=== PATIENT | male | born 1950 | race Caucasian/White ===

== ENCOUNTER 2016-09-06 06:36 | Inpatient (IN) | payer OTHER, MEDICARE ==
[2016-08-19 12:01] VITALS: BMI 32.0
--- NOTE | 2016-08-19 12:43 | PAT Medication Instructions ---
Service Date Aug 19, 2016. Current Home Medication List Aspirin (Aspirin Ec), 81 MG PO QAM Brimonidine Tartrate 0.1% Oph (Alphagan P 0.1% Oph *), 1 DROP OPB BID Dorzolamide Hcl-Timolol Maleat (Cosopt Oph), 1 DROPS OP BID Hydrochlorothiazide (Hctz), 1 TAB PO QAM Lisinopril (Zestril), 40 MG PO QAM Simvastatin (Zocor), 40 MG PO QAM Tramadol (Ultram), 1,100 TAB PO QAM PRN for Pain [Antidepressant], 1 TAB PO DAILY [Voltaren Gel], 1 DOSE TOP PRN Medication Instructions For Your Scheduled Surgery - Hold the following medications 24 hours prior to surgery: Voltaren Gel 1 DOSE TOP PRN - Hold the following medications the morning of surgery: Lisinopril (Zestril), 40 MG PO QAM Hydrochlorothiazide (Hctz), 1 TAB PO QAM - Take the following medications the morning of surgery with a sip of water: Tramadol (Ultram), 1,100 TAB PO QAM PRN for Pain (can take up to fours hours prior to surgery if needed) Simvastatin (Zocor), 40 MG PO QAM Brimonidine Tartrate 0.1% Oph (Alphagan P 0.1% Oph *), 1 DROP OPB BID (bring with you to hospital on day of surgery) Dorzolamide Hcl-Timolol Maleat (Cosopt Oph), 1 DROPS OP BID (bring with you to hospital on day of surgery) Duloxetine 1 TAB PO DAILY Aspirin (Aspirin Ec), 81 MG PO QAM - Take the following medications as scheduled the night before surgery: Tramadol (Ultram), 1,100 TAB PO QAM PRN for Pain Brimonidine Tartrate 0.1% Oph (Alphagan P 0.1% Oph *), 1 DROP OPB BID Dorzolamide Hcl-Timolol Maleat (Cosopt Oph), 1 DROPS OP BID If you have any questions please call us at [phone] or [phone] ( [place]) or [phone]
--- NOTE | 2016-08-19 13:19 | DIAGNOSTIC IMAGING REPORT ---
TWO VIEW CHEST CLINICAL HISTORY: Preoperative examination. FINDINGS: PA and lateral chest radiographs are compared to study dated 08/31/2012 and correlated with chest CT dated 09/29/2014. There is evidence of previous cardiac valve surgery. The the heart is mildly enlarged and there is atherosclerotic calcification of the thoracic aorta. The pulmonary vasculature is noncongested. There is chronic elevation of the right hemidiaphragm and mild bibasilar atelectasis. The lungs and pleural spaces are otherwise clear. There is no pneumothorax. The bony thorax appears intact. Bilateral shoulder arthroplasties are in place. IMPRESSION: Cardiac enlargement with no active disease in the chest. Electronically signed by: Dandre Mckenzie M.D. 08/19/2016 1:18 PM Dictated Date/Time: 08/19/2016 1:16 PM
[2016-08-19 13:25] LABS: BASO % 0.1 %; BASO ABS # 0.01 K/uL (0-0.2); COMPLETE YES; EOS % 2.5 %; HEMATOCRIT 45.1 % (42-52); IG% 0.1 %; LYMPH ABS # 1.76 K/uL (1.2-3.4); MEAN CELL VOLUME 80.8 fL (80-100); MEAN CORPUSCULAR HEMOGLOBIN 28.5 pg (25-34); MEAN CORPUSCULAR HGB CONC 35.3 g/dl (32-36); MEAN PLATELET VOLUME 9.2 fL (7.4-10.4); MONO % 6.3 %; PLATELET COUNT 254 K/uL (130-400); RED BLOOD COUNT 5.58 M/uL (4.7-6.1); WHITE BLOOD COUNT 7.33 K/uL (4.8-10.8)
[2016-08-19 13:28] LABS: URINE APPEARANCE CLEAR (CLEAR); URINE BILIRUBIN NEG (NEG); URINE COLOR YELLOW; URINE NITRITE NEG (NEG); URINE SPECIFIC GRAVITY 1.018 (1.000-1.030); UROBILINOGEN NEG (NEG); ZZUR CULT IF INDIC CLEAN CATCH NO
[2016-08-19 13:35] LABS: MANUAL MICROSCOPIC REQUIRED? NO; PARTIAL THROMBOPLASTIN RATIO 1.2; PROTHROMBIN TIME (PATIENT) 11.1 SECONDS (9.0-12.0); REVIEW REQ? NO
[2016-08-19 13:53] LABS: BUN/CREATININE RATIO 20.1 (10-20); CALCIUM 9.9 mg/dl (8.5-10.1); CREATININE 0.97 mg/dl (0.60-1.40); POTASSIUM 4.9 mmol/L (3.5-5.1)
--- NOTE | 2016-09-05 16:11 | HISTORY & PHYSICAL EXAMINATION ---
DATE OF ADMISSION: 09/06/2016 CHIEF COMPLAINT: Left knee pain. HISTORY OF PRESENT ILLNESS: Mr. Mccarthy is a 66-year-old male with a painful left total knee replacement. The patient had his knee replaced in 1993, he had his knee revised in 1994. 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 The patient is now scheduled for revision left total knee arthroplasty. PAST MEDICAL HISTORY: Anxiety. He denies diabetes or DVT. PAST SURGICAL HISTORY: Aortic valve replacement, multiple knee surgeries as above and bilateral shoulder surgery. SOCIAL HISTORY: The patient denies alcohol or tobacco use. He lives in a 2-sarah home. 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 FAMILY HISTORY: Negative for DVT. MEDICATIONS: Tramadol 50 mg p.r.n., simvastatin 40 mg, hydrochlorothiazide 25 mg, aspirin 81 mg, dorzolamide 1 drop twice daily, brimonidine tartrate 1 drop 2 times daily, lisinopril 40 mg daily. ALLERGIES: MORPHINE. REVIEW OF SYSTEMS: See HPI. Ten other systems reviewed, all negative. PHYSICAL EXAMINATION: VITAL SIGNS: Height 5 feet 10 inches, weight 224 pounds, BMI is 32. GENERAL: This is a well-developed, well-nourished male who is alert and oriented x3. Mood and affect are appropriate. HEENT: Normocephalic, atraumatic. Mucous membranes are moist and intact. NECK: Supple without lymphadenopathy. HEART: Regular rate and rhythm without murmurs, rubs or gallops. LUNGS: Clear to auscultation without wheezes or rhonchi. ABDOMEN: Soft and nontender. Bowel sounds are equal and active. EXTREMITIES: No ecchymosis, redness or warmth. He has a midline medial incision that is well healed. He has a moderate joint effusion and a fairly large Christine cyst posteriorly. Range of motion is from 0-115 degrees. He has mild laxity. The patient has evidence of a left foot drop, otherwise he is neurovascularly intact. X-RAY EXAM: X-rays show knee revision that appears to be in adequate position. He does have evidence of lucency on both components. IMPRESSION: Painful left total knee replacement with large effusion with left foot drop. PLAN: The patient will be admitted for a left total knee revision arthroplasty. We will plan on aspirin for DVT prophylaxis. The patient is considering [facility] versus home with [facility] postoperatively. PCP is Dr. Morrell.
[2016-09-06] VITALS (10 sets, daily range): BP systolic 100–146; BP diastolic 61–86; PULSE 61–74; TEMP 36.4–36.7; O2SAT 95–98; Ht 177.8 cm; Wt 101.8 kg
[~2016-09-06] VITALS: Ht 177.8 cm; Wt 101.8 kg
[2016-09-06] MEDS: TRANEXAMIC ACID INJ 1,000 MG in SODIUM CHLORIDE 0.9% 100ML 100 ML IV SCH ×2 (06:00→06:30)
[~2016-09-06 06:36] MED LIST: ACETAMINOPHEN 500 MG TAB PO SCH; ALPOPS1 OPB; ASPI81TA28 PO; CEFAZOLIN 2000 MG/60 ML D5W 60 ML IV SCH; CYM/30 PO; CeleBREX 200 MG CAP PO SCH; DEXAMETHASONE 4 MG TAB PO SCH; DORZ2SOL20 OPB; FAMOTIDINE 20 MG TAB PO SCH; GABAPENTIN 300 MG CAP PO SCH; HYDR25TA4 PO; LACTATED RINGER'S 1000ML 1,000 ML IV SCH; LACTATED RINGER'S 1000ML IV SCH; LISI40TA PO; METOCLOPRAMIDE HCL 10 MG TAB PO SCH; OXYCODONE HCL 10 MG TABCR (OXYCONTIN) PO SCH; POLYMYXIN B SULFATE 100,000 UNITS in NSS 100ML IR SCH; ROPIVACAINE 5MG/ML 30 ML 150 MG, BUPIVACAINE/EPINEPHR 0.5% MPF 30 ML, KETOROLAC TROMETH... INFIL SCH; TRAM-10 PO; VANCOMYCIN INJ 1,550 MG in SODIUM CHLORIDE 0.9% 500ML 500 ML IV SCH; VANCOMYCIN INJ 400 MG in NSS 100ML IR SCH; VOLTAREN GEL TOP; ZCRT/40 PO
[2016-09-06] MEDS ORDERED: BUPIVACAINE 0.5 % 5 MG/1 ML PF 10ML VIAL ONE (06:37)
[2016-09-06] MEDS ORDERED: BUPIVACAINE 0.25% 30 ML VIAL ONE (06:37)
[2016-09-06] MEDS ORDERED: MIDAZOLAM HCL 1 MG/ML 2ML VIAL ONE (06:59)
[2016-09-06] MEDS ORDERED: FENTANYL CITRATE INJ 50 MCG/1 ML 2 ML VIAL ONE (06:59)
[2016-09-06] MEDS ORDERED: ORTHO JOINT ANESTHETIC ONE (07:02)
--- NOTE | 2016-09-06 07:04 | History & Physical Bridge Note ---
H&P Re-Evaluation Bridge Note: I have examined the patient, reviewed the History & Physical and in the interval since the performance of the History & Physical I have noted the following changes of clinical significance: No changes noted
[2016-09-06] MEDS ORDERED: PHENYLEPHRINE 100MCG/ML 5ML SYR ONE (07:10)
[2016-09-06] MEDS ORDERED: PROPOFOL IV EMULSION 10 MG/ML 20 ML VIAL IV ONE ×4 (07:10→11:17)
[2016-09-06] MEDS ORDERED: EpHEDrine SULFATE 50MG/5ML SYR ONE (07:10)
[2016-09-06] MEDS ORDERED: LIDOCAINE HCL 2% 2 ML VIAL (20MG/ML) ONE (07:10)
[2016-09-06] MEDS ORDERED: EpHEDrine SULFATE INJ 50 MG/ML AMP IV PRN (08:30)
[2016-09-06] MEDS ORDERED: FENTANYL CITRATE INJ 50 MCG/1 ML 2 ML VIAL IV PRN (08:30)
[2016-09-06] MEDS ORDERED: ATROPINE SULFATE 0.1 MG/ML 5ML SYR IV PRN (08:30)
[2016-09-06] MEDS ORDERED: ONDANSETRON INJ 2 MG/ML 2 ML VIAL IV PRN ×2 (08:30→11:30)
--- NOTE | 2016-09-06 11:23 | [facility] Post Operative Brief Note ---
Immediate Operative Summary Operative Date Sep 06, 2016. Pre-Operative Diagnosis Aseptic Loosening, Left Total Knee Post-Operative Diagnosis same as preoperative Procedure(s) Performed Left Total Knee Revision Surgeon Dr. Pollo Spence Brine Supervisor Surgeon(s) Chastity Wiley PA-C Estimated Blood Loss 25ml Findings loose knee benign Specimens CULTURE: 1) Left Knee, Synovial Fluid PERMANENT: A.) Explanted Hardware and Tissue, Left Knee Complication(s) None Disposition Recovery Room / PACU
[2016-09-06] MEDS ORDERED: ALUMINUM/MAGNESIUM/SIMETH (MAALOX MAX) 30 ML UDC PO PRN (11:30)
[2016-09-06] MEDS ORDERED: METOCLOPRAMIDE HCL INJ 5 MG/ML 2 ML VIAL IV PRN (11:30)
[2016-09-06] MEDS ORDERED: BISACODYL 10 MG SUPP PR PRN (11:30)
[2016-09-06] MEDS ORDERED: SOD PHOSPHATE/SOD BIPHOSPHATE ENEMA 132 ML BTL PR PRN (11:30)
[2016-09-06] MEDS ORDERED: MAGNESIUM HYDROXIDE SUSP 30 ML UDC PO PRN (11:30)
[2016-09-06] MEDS ORDERED: ZOLPIDEM TARTRATE 5 MG TAB PO PRN (11:30)
[2016-09-06] MEDS ORDERED: DiphenhydrAMINE HCL 50 MG/ML VIAL IV PRN (11:30)
[2016-09-06] MEDS ORDERED: TRAMADOL HCL 50 MG TAB PO PRN (11:30)
[2016-09-06] MEDS ORDERED: POVIDONE-IODINE OP SOLN 30 ML BTL TOP ONE (11:37)
[2016-09-06] MEDS ORDERED: BACITRACIN 50000 UNIT VIAL IR ONE (11:37)
--- NOTE | 2016-09-06 12:21 | DIAGNOSTIC IMAGING REPORT ---
TWO VIEWS LEFT KNEE CLINICAL HISTORY: Postoperative examination. FINDINGS: AP and crosstable lateral portable views of the left knee are obtained. A hinged left knee arthroplasty is in near anatomic alignment. There are long tibial and femoral stems. Additional cortical lag screws are present in the medial tibial plateau where there is age indeterminant fracture lucency. No additional fracture lucencies are seen. There are expected postoperative changes around the knee including skin clips, a surgical drain, soft tissue edema, and subcutaneous gas. IMPRESSION: 1. Expected postoperative changes status post left knee arthroplasty. 2. There is age indeterminant and likely chronic fracture lucency in the medial tibial plateau. 2. Cortical lag screws are present in this region. Correlation and a prior outside imaging studies will be required. Electronically signed by: Dandre Mckenzie M.D. 09/06/2016 12:19 PM Dictated Date/Time: 09/06/2016 12:16 PM
--- NOTE | 2016-09-06 12:40 | Anesthesiology Progress Note ---
Anesthesia Post Op Note Date & Time Sep 06, 2016 at 12:39 Vital Signs Pain Intensity: 0 Vital Signs Past 12 Hours Date Time Temp Pulse Resp B/P Pulse Ox O2 Delivery O2 Flow Rate FiO2 09/06/16 12:33 37.0 09/06/16 12:23 125/74 09/06/16 12:20 69 16 09/06/16 12:20 71 16 96 09/06/16 12:18 123/80 09/06/16 12:15 66 16 09/06/16 12:15 65 16 98 09/06/16 12:14 66 17 09/06/16 12:14 65 17 99 09/06/16 12:13 135/76 09/06/16 12:09 67 14 09/06/16 12:09 68 14 98 09/06/16 12:08 67 16 134/77 97 09/06/16 12:08 66 16 09/06/16 12:03 67 16 134/82 97 09/06/16 12:03 68 16 09/06/16 11:58 68 16 09/06/16 11:58 69 12 127/80 97 09/06/16 11:53 68 11 122/82 97 09/06/16 11:53 69 11 09/06/16 11:53 36.7 71 16 132/78 96 Mask 10 09/06/16 07:26 36.6 69 18 120/82 95 Room Air Notes Mental Status: alert / awake / arousable, participated in evaluation Pt Amnestic to Procedure: Yes Nausea / Vomiting: adequately controlled Pain: adequately controlled Airway Patency, RR, SpO2: stable & adequate BP & HR: stable & adequate Hydration State: stable & adequate Neuraxial Anesthesia: was administered, sensory block is resolving Anesthetic Complications: no major complications apparent
[2016-09-06] MEDS ORDERED: D5W AND 1/2NSS + 20MEQ KCL 1,000 ML IV SCH (14:00)
[2016-09-06] MEDS: KETOROLAC TROMETHAMINE 15 MG/ML VIAL IV. SCH ×2 (14:16→19:45)
[2016-09-06] MEDS: ACETAMINOPHEN 500 MG TAB PO SCH ×2 (14:16→21:28)
[2016-09-06] MEDS ORDERED: GLUCOSE 40% GEL 15 GM TUBE PO PRN (15:00)
[2016-09-06] MEDS ORDERED: GLUCOSE 10 TABS/TUBE PO PRN (15:00)
[2016-09-06] MEDS ORDERED: GLUCAGON FOR INJ 1 MG VIAL SQ PRN (15:00)
[2016-09-06] MEDS ORDERED: DEXTROSE 50% 50 ML SYR IV PRN (15:00)
[2016-09-06] MEDS: SODIUM CHLOR 0.45% + 20MEQ KCL 1,000 ML IV SCH (15:14)
[2016-09-06] MEDS: CEFAZOLIN IV 2,000 MG in DEXTROSE 5% 50ML 50 ML IV SCH ×2 (15:41→23:55)
[2016-09-06] MEDS ORDERED: WARFARIN SOD 5 MG TAB PO ONE (16:00)
--- NOTE | 2016-09-06 17:26 | OPERATIVE REPORT ---
DATE OF OPERATION: 09/06/2016 PREOPERATIVE DIAGNOSIS: Aseptic loosening, left total knee, severe. POSTOPERATIVE DIAGNOSIS: Same. PROCEDURE: Left revision total knee to hinged total knee replacement. SURGEON: Pollo Spence MD MEDICAL CLAIMS ASSISTANT: DEJUAN Bunn ANESTHESIA: Spinal. TOURNIQUET TIME: 132 minutes at 250 mmHg. BLOOD LOSS: 25 mL. DRAINS: Hemovac x2. CULTURES: None. COMPLICATIONS: None. COMPONENTS USED: [employer] revision knee system: Femur size 7 with 6-mm offset, 16 x 160 stem cemented. Tibia size 7, 6-mm offset, 12 x 160 stem. Tibial insert size 11. Patella size 41. NOTE: DEJUAN Bunn was present and assisted throughout due to the complicated nature of this case. She helped with preparation and set up, first assisted throughout and personally closed the capsule, subcutaneous and skin layers and applied the postoperative dressing. DESCRIPTION OF PROCEDURE: Following satisfactory spinal, the patient was supine. A tourniquet was placed. The lower extremity was prepared with ChloraPrep and draped sterilely. Following a surgical timeout, the tourniquet was inflated. Using the old knee incision, a midline incision was made. An arthrotomy was performed. The knee showed abundant synovitis. A complete synovectomy in the medial suprapatellar and lateral gutters was performed. The knee showed severe changes with very large overgrowth of the patella. Exposure was very difficult. The tibial polyethylene was removed and showed some delamination, but not severe wear. Exposure was difficult because of the longstanding nature of the disease. The patient had a long previous cemented revision total knee. Attention was first turned to the femur. The femur was loosened using the ultrasonic cement removal system, which required delicate and extensive time and then was removed with moderate amount of the cement coming with the femur. Tibial exposure was difficult. The tibia was eventually exposed and removed with the majority of the cement again with extreme difficulty. The rest of the intramedullary cement was removed using the ultrasonic cement removal system. The IM reaming system was used. The tibia was prepared first. Because of bone loss, it was decided for a hinged type knee. The femur was then prepared and the patella was freehand cut and incised. A trial reduction with the above-mentioned components showed good stability with full extension and flexion to about 120 degrees. The trial components were removed. Local anesthetic was placed. Cement restriction plugs were placed and after irrigation, the components were cemented using Simplex G cement. A Betadine soak was performed. When the cement had hardened, the tourniquet was deflated. The Betadine was irrigated. Bleeding was controlled. Two drains were placed. The arthrotomy was closed with #1 Vicryl interrupted and reinforced throughout with #2 FiberWire. The subcutaneous tissues were closed with #1 Vicryl and 2-0 Vicryl. The skin was closed with surgical cleo. A surface wound VAC was applied. The patient was returned to his bed in stable condition. I attest to the content of the Intraoperative Record and any orders documented therein. Any exceptio ns are noted below.
[2016-09-06] MEDS: INSULIN ASPART 100 UNITS/ML 3 ML PEN SC SCH ×2 (18:11→21:25)
[2016-09-06] MEDS: OXYCODONE HCL 10 MG TABCR (OXYCONTIN) PO SCH (21:12)
[2016-09-06] MEDS: SENNA 8.6 MG TAB PO SCH (21:12)
[2016-09-06] MEDS: DORZOLAMIDE/TIMOLOL 22.3/6.8MG/ML 10 ML BTL OP SCH (21:12)
[2016-09-07] MEDS: OXYCODONE HCL IR 5 MG TAB (IMMEDIATE RELEASE) PO PRN ×3 (00:26→20:37)
[2016-09-07] MEDS: SODIUM CHLOR 0.45% + 20MEQ KCL 1,000 ML IV SCH ×2 (00:27→11:00)
[2016-09-07] MEDS: KETOROLAC TROMETHAMINE 15 MG/ML VIAL IV. SCH ×4 (02:19→20:36)
[2016-09-07 04:47] VITALS: BP 130/76; PULSE 57; TEMP 36.4; O2SAT 97
[2016-09-07] MEDS: ACETAMINOPHEN 500 MG TAB PO SCH ×3 (05:45→22:37)
[2016-09-07 06:55] LABS: MEAN CELL VOLUME 80.1 fL (80-100); MEAN CORPUSCULAR HEMOGLOBIN 27.5 pg (25-34); MEAN CORPUSCULAR HGB CONC 34.3 g/dl (32-36); PLATELET COUNT 185 K/uL (130-400); RED BLOOD COUNT 4.62 M/uL (4.7-6.1); WHITE BLOOD COUNT 11.96 K/uL (4.8-10.8)
[2016-09-07 07:01] LABS: INR 1.1 (0.9-1.1); PROTHROMBIN TIME (PATIENT) 11.5 SECONDS (9.0-12.0)
[2016-09-07 07:25] LABS: BUN/CREATININE RATIO 19.1 (10-20); CALCIUM 8.5 mg/dl (8.5-10.1); CREATININE 0.94 mg/dl (0.60-1.40); POTASSIUM 4.5 mmol/L (3.5-5.1)
[2016-09-07 07:40] VITALS: BP 170/80; PULSE 67; TEMP 36.4; O2SAT 98
--- NOTE | 2016-09-07 07:58 | Orthopedic Progress Note ---
Orthopedic Progress Note Date of Service Sep 07, 2016. Subjective Post OP Day: 1 Reports: feeling well, pain controlled w PO medications, Denies: SOB, complaints , light headedness, nausea / vomiting Objective calves soft nontender, N/V intact, dressing C/D/I, toes mobile, hemovac drainage (last 300) Date Time Temp Pulse Resp B/P Pulse Ox O2 Delivery O2 Flow Rate FiO2 09/07/16 04:47 36.4 57 18 130/76 97 Nasal Cannula 2.0 09/06/16 23:30 96 Nasal Cannula 2.0 09/06/16 23:20 36.4 63 18 100/61 96 Nasal Cannula 2.0 09/06/16 19:15 36.6 61 18 117/68 97 Nasal Cannula 2.0 09/06/16 16:10 74 16 123/78 96 Nasal Cannula 4.0 09/06/16 15:09 72 16 136/86 98 09/06/16 14:00 64 16 124/77 98 Room Air 09/06/16 13:30 70 18 146/83 95 Room Air 09/06/16 13:00 95 Nasal Cannula 4.0 09/06/16 13:00 36.6 71 16 139/82 95 Nasal Cannula 4.0 09/06/16 13:00 95 Nasal Cannula 4.0 09/06/16 12:45 68 16 09/06/16 12:45 67 16 95 09/06/16 12:43 124/78 09/06/16 12:40 72 16 90 09/06/16 12:40 70 16 09/06/16 12:39 71 16 94 09/06/16 12:39 70 16 09/06/16 12:38 120/80 09/06/16 12:34 66 16 94 09/06/16 12:34 64 16 09/06/16 12:33 37.0 09/06/16 12:33 126/75 09/06/16 12:29 68 14 09/06/16 12:29 69 14 95 09/06/16 12:28 129/74 09/06/16 12:24 68 16 95 09/06/16 12:24 69 16 09/06/16 12:23 125/74 09/06/16 12:20 69 16 09/06/16 12:20 71 16 96 09/06/16 12:18 123/80 1/24/17 12:15 66 16 09/06/16 12:15 65 16 98 09/06/16 12:14 66 17 09/06/16 12:14 65 17 99 09/06/16 12:13 135/76 09/06/16 12:09 67 14 09/06/16 12:09 68 14 98 09/06/16 12:08 67 16 134/77 97 09/06/16 12:08 66 16 09/06/16 12:03 67 16 134/82 97 09/06/16 12:03 68 16 09/06/16 11:58 68 16 09/06/16 11:58 69 12 127/80 97 09/06/16 11:53 68 11 122/82 97 09/06/16 11:53 69 11 09/06/16 11:53 36.7 71 16 132/78 96 Mask 10 Laboratory Results 24 Hours: Test 09/07/16 06:32 Hematocrit 37.0 % Hemoglobin 12.7 g/dL Prothromb Time International Ratio 1.1 Prothrombin Time 11.5 SECONDS Assessment & Plan Assessment: POD 1 TKA REVISION Plan: PROBABLE DC TOMORROW [facility] Inhouse Planning Pain Management: Celebrex, Oxycontin, PO Tylenol, Oxy IR DVT Prophylaxis: TEDs, SCDs, Coumadin Discharge Planning Discharge Planning: home with home health
[2016-09-07] MEDS: INSULIN ASPART 100 UNITS/ML 3 ML PEN SC SCH ×4 (08:00→20:40)
[2016-09-07] MEDS: HYDROCHLOROTHIAZIDE 25 MG TAB PO SCH (09:30)
[2016-09-07] MEDS: DORZOLAMIDE/TIMOLOL 22.3/6.8MG/ML 10 ML BTL OP SCH ×2 (09:30→20:35)
[2016-09-07] MEDS: SIMVASTATIN 40 MG TAB PO SCH (09:31)
[2016-09-07] MEDS: LISINOPRIL 40 MG TAB PO SCH (09:31)
[2016-09-07] MEDS: DULOXETINE (CYMBALTA) 30 MG CAP PO SCH (09:31)
[2016-09-07] MEDS: MULTIVITAMIN TAB PO SCH (09:31)
[2016-09-07] MEDS: PANTOprazole SOD 40 MG TAB PO SCH (09:32)
[2016-09-07] MEDS: OXYCODONE HCL 10 MG TABCR (OXYCONTIN) PO SCH ×2 (09:37→20:36)
--- NOTE | 2016-09-07 09:53 | Anesthesiology Progress Note ---
Anesthesia Post Op Note Date & Time Sep 07, 2016 at 09:53 Vital Signs Pain Intensity: 6.0 Vital Signs Past 12 Hours Date Time Temp Pulse Resp B/P Pulse Ox O2 Delivery O2 Flow Rate FiO2 09/07/16 07:40 36.4 67 17 170/80 98 Nasal Cannula 2.0 09/07/16 04:47 36.4 57 18 130/76 97 Nasal Cannula 2.0 09/06/16 23:30 96 Nasal Cannula 2.0 09/06/16 23:20 36.4 63 18 100/61 96 Nasal Cannula 2.0 Notes Mental Status: alert / awake / arousable, participated in evaluation Pt Amnestic to Procedure: Yes Nausea / Vomiting: adequately controlled Pain: adequately controlled Airway Patency, RR, SpO2: stable & adequate BP & HR: stable & adequate Hydration State: stable & adequate Neuraxial Anesthesia: sensory block resolved Anesthetic Complications: no major complications apparent
[2016-09-07 11:02] VITALS: BP 130/66; PULSE 64; TEMP 36.8; O2SAT 96
[2016-09-07 15:22] VITALS: BP 115/68; PULSE 63; TEMP 36.7; O2SAT 94
[2016-09-07] MEDS ORDERED: WARFARIN SOD 5 MG TAB PO SCH (16:00)
[2016-09-07] MEDS: SENNA 8.6 MG TAB PO SCH (20:37)
[2016-09-07] MEDS ORDERED: NURSING VERBAL MED ORDER ONE (21:15)
[2016-09-07 23:24] VITALS: BP 107/59; PULSE 64; TEMP 36.7; O2SAT 91
[2016-09-08] MEDS: KETOROLAC TROMETHAMINE 15 MG/ML VIAL IV. SCH ×2 (01:35→07:31)
[2016-09-08] MEDS: ACETAMINOPHEN 500 MG TAB PO SCH (06:10)
[2016-09-08 06:31] VITALS: BP 118/72; PULSE 56; TEMP 36.7; O2SAT 92
[2016-09-08] MEDS: INSULIN ASPART 100 UNITS/ML 3 ML PEN SC SCH ×2 (07:35→11:11)
[2016-09-08] MEDS: DULOXETINE (CYMBALTA) 30 MG CAP PO SCH (07:36)
[2016-09-08] MEDS: MULTIVITAMIN TAB PO SCH (07:36)
[2016-09-08] MEDS: PANTOprazole SOD 40 MG TAB PO SCH (07:36)
[2016-09-08] MEDS: SIMVASTATIN 40 MG TAB PO SCH (07:36)
[2016-09-08] MEDS: DORZOLAMIDE/TIMOLOL 22.3/6.8MG/ML 10 ML BTL OP SCH (07:36)
[2016-09-08] MEDS: HYDROCHLOROTHIAZIDE 25 MG TAB PO SCH (07:37)
[2016-09-08] MEDS: LISINOPRIL 40 MG TAB PO SCH (07:37)
--- NOTE | 2016-09-08 07:40 | Orthopedic Progress Note ---
Orthopedic Progress Note Date of Service Sep 08, 2016. Subjective Post OP Day: 2 Reports: feeling well, Denies: SOB, calf pain, chest pain, light headedness, nausea / vomiting Objective calves soft nontender, N/V intact, dressing C/D/I (PREVENA), A&O x3, toes mobile CHRONIC FOOT DROP Date Time Temp Pulse Resp B/P Pulse Ox O2 Delivery O2 Flow Rate FiO2 09/08/16 06:31 36.7 56 16 118/72 92 Room Air 09/07/16 23:24 36.7 64 18 107/59 91 Room Air 09/07/16 20:15 Room Air 09/07/16 15:22 36.7 63 18 115/68 94 Room Air 09/07/16 11:02 36.8 64 18 130/66 96 Room Air 09/07/16 07:45 Room Air 09/07/16 07:40 36.4 67 17 170/80 98 Nasal Cannula 2.0 Assessment & Plan Assessment: POD 2 TKA REVISION Inhouse Planning Pain Management: Celebrex, Oxycontin, PO Tylenol, Oxy IR DVT Prophylaxis: TEDs, SCDs, Coumadin Discharge Planning Discharge Planning: rehab hospital (HOPEFUL TRANSFER TO [facility] TODAY)
[2016-09-08] MEDS: OXYCODONE HCL 10 MG TABCR (OXYCONTIN) PO SCH (07:43)
[2016-09-08] MEDS ORDERED: WARF5TAB90 PO (07:44)
[2016-09-08] MEDS ORDERED: SNK PO (07:44)
[2016-09-08] MEDS ORDERED: ACET-1138 PO (07:44)
[2016-09-08] MEDS ORDERED: RXC5 PO (07:44)
[2016-09-08] MEDS ORDERED: CLB200 PO (07:44)
[2016-09-08] MEDS ORDERED: MORP-157 PO (07:44)
--- NOTE | 2016-09-08 07:46 | Discharge Instructions ---
Discharge Instructions Admission Reason for Admission: Left Knee Complications W/Internal Joint Prosthesi Discharge Discharge Diagnosis / Problem: SP LEFT TKA Discharge Goals Goal(s): Decrease discomfort, Improve function, Increase independence Activity Recommendations Activity Limitations: per Instructions/Follow-up section . Instructions / Follow-Up Instructions / Follow-Up ACTIVITY RECOMMENDATIONS: SELF CARE INSTRUCTIONS AFTER TOTAL KNEE REPLACEMENT A. You may need to continue a physical therapy program after discharge from the hospital. There are several options available to you. Your doctor will assist you in selecting the best one for you. 1. An out-patient facility 2 to 3 times a week for therapy or home therapy. 2. Continue working on all exercises taught to you in the hospital. Your goals should be to increase bending of your knee to 90 degrees and beyond and to fully straighten your knee. B. You may progress at your own pace from walking with a walker or crutches to a cane; then to no assistive devices. C. Make walking a part of your daily routine. Be up as much as comfortable with rest periods throughout the day. Rest with leg elevation is very important. Use the ice wrap frequently for the first 3-4 weeks. D. There are no restrictions on activities. You may ride in a car, shop, participate in racking technician and all social activities. E. Wear the long elastic stockings (VASU hose) 20 hours a day for 2 weeks after surgery. They can be removed several times a day for laundering and for a bath. F. You may shower, no tub baths until cleared by your doctor. SPECIAL CARE INSTRUCTIONS: VERY IMPORTANT TO READ AND REVIEW A. There are a few signs you need to watch for after you are home. Call [facility] if you notice any of the followin. Increased severe knee pain. Some pain is expected especially when you exercise. 2. Increased swelling in your leg or knee; pain or swelling of the calf muscle in either lower leg. 3. Any fluid drainage from the incision. 4. Shortness of breath or chest pain. B. Please call [facility] at if you have any concerns or questions about your operation or recovery. The doctor or his nurse will return your call promptly. C. You must take antibiotics before dental work, bladder, bowel or other surgery. Your doctor will provide you with a permanent care to carry describing this precaution. IMPORTANT: * HIGH RISK PATIENTS MAY BE PRESCRIBED A STRONGER BLOOD THINNER. THIS WILL BE PROVIDED AT DISCHARGE. - COUMADIN. WILL NEED WEEKLY BLOOD DRAW AND DOSING ADJUSTMENTS * CALL IF INCREASED PAIN, REDNESS, DRAINAGE OR FEVER GREATER THAT 101. * WEAR VASU HOSE 20 HOURS PER DAY FOR 2 WEEKS. Prevena- This is a large suction dressing covering your incision. This will help pull any excess drainage from the wound and allow your incision to heal properly. You may shower with this if you can keep the unit outside of the shower. If any bleeding or leakage is noted please call your doctor's office. This will remain on your incision for 7 days and then should be removed. This can be done yourself or by the home nursing staff if applicable. The entire unit is disposable once removed. Once removed, keep incision clean and dry. If redness or drainage is noted, please call your surgeon. FOLLOW UP VISIT: If appointment is not already scheduled: Please call [facility] to make a follow-up appointment for 2 weeks after your surgery at . Current Hospital Diet Patient's current hospital diet: Diabetes Type 2 Diet Discharge Diet Recommended Diet: Regular Diet Procedures Procedures Performed: Left Total Knee Revision Pending Studies Studies pending at discharge: yes List of pending studies: cultures Medical Emergencies . Who to Call and When: Medical Emergencies: If at any time you feel your situation is an emergency, please call 911 immediately. . Non-Emergent Contact Non-Emergency issues call your: Primary Care Provider . "Provider Documentation" section prepared by Chastity Wiley. VTE Core Measure Inpt VTE Proph given/why not?: Warfarin (Coumadin)[place], SCD's
--- NOTE | 2016-09-08 07:49 | Discharge Instructions ---
Discharge Instructions Admission Reason for Admission: Left Knee Complications W/Internal Joint Prosthesi Discharge Discharge Diagnosis / Problem: sp left TKA revision Discharge Goals Goal(s): Decrease discomfort, Improve function, Increase independence Activity Recommendations Activity Level: Assistance Required . Additional Information Patient informed of condition: Yes Advance Directives: Yes DNR: No Level of Care: Acute Rehab Communicable Disease: No Prognosis: Stable Instructions / Follow-Up Instructions / Follow-Up ACTIVITY RECOMMENDATIONS: SELF CARE INSTRUCTIONS AFTER TOTAL KNEE REPLACEMENT A. You may need to continue a physical therapy program after discharge from the hospital. There are several options available to you. Your doctor will assist you in selecting the best one for you. 1. An out-patient facility 2 to 3 times a week for therapy or home therapy. 2. Continue working on all exercises taught to you in the hospital. Your goals should be to increase bending of your knee to 90 degrees and beyond and to fully straighten your knee. B. You may progress at your own pace from walking with a walker or crutches to a cane; then to no assistive devices. C. Make walking a part of your daily routine. Be up as much as comfortable with rest periods throughout the day. Rest with leg elevation is very important. Use the ice wrap frequently for the first 3-4 weeks. D. There are no restrictions on activities. You may ride in a car, shop, participate in near east archeology professor and all social activities. E. Wear the long elastic stockings (VASU hose) 20 hours a day for 2 weeks after surgery. They can be removed several times a day for laundering and for a bath. F. You may shower, no tub baths until cleared by your doctor. SPECIAL CARE INSTRUCTIONS: VERY IMPORTANT TO READ AND REVIEW A. There are a few signs you need to watch for after you are home. Call [facility] if you notice any of the followin. Increased severe knee pain. Some pain is expected especially when you exercise. 2. Increased swelling in your leg or knee; pain or swelling of the calf muscle in either lower leg. 3. Any fluid drainage from the incision. 4. Shortness of breath or chest pain. B. Please call [facility] at if you have any concerns or questions about your operation or recovery. The doctor or his nurse will return your call promptly. C. You must take antibiotics before dental work, bladder, bowel or other surgery. Your doctor will provide you with a permanent care to carry describing this precaution. IMPORTANT: * HIGH RISK PATIENTS MAY BE PRESCRIBED A STRONGER BLOOD THINNER. THIS WILL BE PROVIDED AT DISCHARGE. - COUMADIN * CALL IF INCREASED PAIN, REDNESS, DRAINAGE OR FEVER GREATER THAT 101. * WEAR VASU HOSE 20 HOURS PER DAY FOR 2 WEEKS. * YOU MAY HAVE A LARGE BAND-AID LIKE DRESSING (SILVERON). THIS WILL REMAIN ON YOUR INCISION FOR 7 DAYS, THEN CAN BE REMOVED. IF INCISION IS LEAKING THROUGH DRESSING, CALL THE OFFICE . FOLLOW UP VISIT: If appointment is not already scheduled: Please call [facility] to make a follow-up appointment for 2 weeks after your surgery at . Current Hospital Diet Patient's current hospital diet: Diabetes Type 2 Diet Discharge Diet Recommended Diet: Diabetes Type 2 Diet Procedures Procedures Performed: Left Total Knee Revision Pending Studies Studies pending at discharge: yes List of pending studies: Joint cultures Physician Orders On Transfer Additional Orders: COUMADIN FOR DVT PROPH X 4 WEEKS. WILL NEED WEEKLY BLOOD DRAW AND DOSING ADJUSTMENT CONT TEDS X 2 WEEKS MAY SHOWER, NO TUB BATHS PREVENA DC IN 7 DAYS FOLLOW UP IN 2 WEEKS FOR STAPLE REMOVAL, ALREADY SCHEDULED. Medical Emergencies . Who to Call and When: Medical Emergencies: If at any time you feel your situation is an emergency, please call 911 immediately. . Non-Emergent Contact Non-Emergency issues call your: Primary Care Provider . . "Provider Documentation" section prepared by Chastity Wiley. Core Measure Problem Core Measures: None
[2016-09-08 08:09] VITALS: BP 121/76; PULSE 66; TEMP 36.9; O2SAT 96
[2016-09-08 10:07] VITALS: BP 121/76; PULSE 66; TEMP 36.9; O2SAT 96
[2016-09-08] MEDS: OXYCODONE HCL IR 5 MG TAB (IMMEDIATE RELEASE) PO PRN (10:22)
[2016-09-08] MEDS ORDERED: CeleBREX 200 MG CAP PO SCH (21:00)
--- NOTE | 2016-09-16 09:16 | DISCHARGE SUMMARY ---
DISCHARGE DIAGNOSIS: Painful left total knee replacement. SECONDARY DIAGNOSIS: Footdrop, left lower extremity. CONSULTS: None. COMPLICATIONS: None. PROCEDURE: The patient underwent a left knee revision with Dr. Spence on 09/06/2016. BRIEF HISTORY: Please see previously dictated history and physical. HOSPITAL SUMMARY: The patient was admitted on the date for the above procedure. Procedure went without complication. Postop day 1 the patient was feeling well without complaints. He denied chest pain or shortness of breath. Vital signs were stable. He was afebrile. Dressing was clean, dry and intact. He was neurovascularly intact. Calves were soft and nontender. Hemovac drained 300 mL. Hemoglobin was 12.7. The patient began physical therapy per protocol. Postop day 2, the patient was feeling well. He denied chest pain or shortness of breath. Vital signs were stable. He was afebrile. Prevena dressing was clean, dry and intact. He was neurovascularly intact aside from his chronic footdrop. The patient continued physical therapy. He was transferred to [facility] later that day in stable condition. For further review please see the chart. Lab, x-ray data and discharge instructions as per chart.
[2016-11-01] MEDS ORDERED: SENN-61 PO (08:37)
[2016-11-01] MEDS ORDERED: ASCO500T3 PO (08:37)
[2016-11-01] MEDS ORDERED: DICL1GEL12 EXT (08:37)
[2016-11-01] MEDS ORDERED: TRAM-10 PO (08:37)
== END 2016-09-08 12:15 | DRG 468 ==
LOC: ENRESERVDT → ENRESERVTM → C.ACU 06:36 → C.3E 11:27
PROVIDERS: ADMIT Orthopaedic Surgery; ATTEND Orthopaedic Surgery
PROC: 0SUW09Z Supplement Left Knee Joint, Tibial Surface with Liner, Open Approach (ICD-10-PCS; principal; 2016-09-06 08:15)
PROC: 0SRD0J9 Replacement of Left Knee Joint with Synthetic Substitute, Cemented, Open Approach (ICD-10-PCS; principal; 2016-09-06 08:15)
PROC: 0SPD0JZ Removal of Synthetic Substitute from Left Knee Joint, Open Approach (ICD-10-PCS; principal; 2016-09-06 08:15)
PROC: 0SPD09Z Removal of Liner from Left Knee Joint, Open Approach (ICD-10-PCS; principal; 2016-09-06 08:15)
DX: T84.033A Mechanical loosening of internal left knee prosthetic joint, initial encounter (principal); Y79.2 Prosthetic and other implants, materials and accessory orthopedic devices associated with adverse incidents; M25.462 Effusion, left knee; M71.22 Synovial cyst of popliteal space [Baker], left knee; M21.372 Foot drop, left foot; F41.9 Anxiety disorder, unspecified; F32.9 Major depressive disorder, single episode, unspecified; M10.9 Gout, unspecified; I25.10 Atherosclerotic heart disease of native coronary artery without angina pectoris; I10 Essential (primary) hypertension; E11.42 Type 2 diabetes mellitus with diabetic polyneuropathy; E66.9 Obesity, unspecified; Z68.32 Body mass index [BMI] 32.0-32.9, adult; Z79.82 Long term (current) use of aspirin; Z79.891 Long term (current) use of opiate analgesic; Z79.899 Other long term (current) drug therapy; Z95.2 Presence of prosthetic heart valve

== ENCOUNTER → 2016-09-14 | Outpatient (CLI) | payer OTHER, MEDICARE ==
[~2016-09-14] MED LIST changes: +ACET-1138 PO; -ACETAMINOPHEN 500 MG TAB PO SCH; +ASCO500T3 PO; -CEFAZOLIN 2000 MG/60 ML D5W 60 ML IV SCH; +CLB200 PO; -CeleBREX 200 MG CAP PO SCH; -DEXAMETHASONE 4 MG TAB PO SCH; +DICL1GEL12 EXT; -FAMOTIDINE 20 MG TAB PO SCH; -GABAPENTIN 300 MG CAP PO SCH; -LACTATED RINGER'S 1000ML 1,000 ML IV SCH; -LACTATED RINGER'S 1000ML IV SCH; -METOCLOPRAMIDE HCL 10 MG TAB PO SCH; +MORP-157 PO; -OXYCODONE HCL 10 MG TABCR (OXYCONTIN) PO SCH; -POLYMYXIN B SULFATE 100,000 UNITS in NSS 100ML IR SCH; -ROPIVACAINE 5MG/ML 30 ML 150 MG, BUPIVACAINE/EPINEPHR 0.5% MPF 30 ML, KETOROLAC TROMETH... INFIL SCH; +RXC5 PO; +SENN-61 PO; +SNK PO; -VANCOMYCIN INJ 1,550 MG in SODIUM CHLORIDE 0.9% 500ML 500 ML IV SCH; -VANCOMYCIN INJ 400 MG in NSS 100ML IR SCH; +WARF5TAB90 PO
[2016-09-14 17:24] LABS: INR 1.3 (0.9-1.1)
--- NOTE | 2016-09-28 12:48 | CODING QUERY NO DIAGNOSIS ---
TREATMENT RENDERED WITHOUT A DIAGNOSIS To promote full compliance with coding requirements relating to patient care, physician participation is requested in all cases of certified medical records coder uncertainty. Please assist us with providing a diagnosis/symptom for the test(s) below: A diagnosis/symptom was not documented on your Order. A valid diagnosis/symptom is required to bill all insurances. Please remember that we are unable to code a diagnosis of rule out, probable, possible, questionable, or suspected. Tests that require a diagnosis: DOS: 09/14/16 * PT/INR DIAGNOSIS: Provider Signature: Date: Thank you Gab[facility] Information Management Once completed, please kindly fax back to [phone] For questions please call [phone]
== END | disposition home or self-care (01) ==
LOC: C.LABBFT 14:27
PROVIDERS: ATTEND Family Medicine
DX: Z96.659 Presence of unspecified artificial knee joint (principal)

== ENCOUNTER → 2016-09-19 | Outpatient (CLI) | payer OTHER, MEDICARE ==
[2016-09-19 12:32] LABS: INR 2.9 (0.9-1.1); PROTHROMBIN TIME (PATIENT) 32.1 SECONDS (9.0-12.0)
== END | disposition home or self-care (01) ==
LOC: C.LABBFT 11:02
PROVIDERS: ATTEND Orthopaedic Surgery
DX: Z98.890 Other specified postprocedural states (principal)

== ENCOUNTER → 2016-09-26 | Outpatient (CLI) | payer OTHER, MEDICARE ==
[2016-09-26 12:42] LABS: INR 1.5 (0.9-1.1); PROTHROMBIN TIME (PATIENT) 16.1 SECONDS (9.0-12.0)
== END | disposition home or self-care (01) ==
LOC: C.LABBFT 11:17
PROVIDERS: ATTEND Orthopaedic Surgery
DX: Z51.81 Encounter for therapeutic drug level monitoring (principal)

== ENCOUNTER → 2016-10-03 | Outpatient (CLI) | payer OTHER, MEDICARE ==
[~2016-10-03] MED LIST changes: -MORP-157 PO
[2016-10-03 17:52] LABS: INR 1.2 (0.9-1.1); PROTHROMBIN TIME (PATIENT) 12.7 SECONDS (9.0-12.0)
== END | disposition home or self-care (01) ==
LOC: C.LABBFT 12:03
PROVIDERS: ATTEND Orthopaedic Surgery
DX: Z51.81 Encounter for therapeutic drug level monitoring (principal); Z79.899 Other long term (current) drug therapy

== ENCOUNTER → 2016-11-08 | Day surgery (SDC) | payer OTHER, MEDICARE ==
[~2016-11-08] VITALS: Ht 180.3 cm; Wt 100.0 kg
[~2016-11-08] MED LIST changes: -ACET-1138 PO; -CLB200 PO; -CYM/30 PO; +LIDOCAINE HCL 2% 2 ML VIAL (20MG/ML) ONE; +MIDAZOLAM HCL 1 MG/ML 2ML VIAL ONE; +ONDANSETRON INJ 2 MG/ML 2 ML VIAL ONE; +PROPOFOL IV EMULSION 10 MG/ML 20 ML VIAL IV ONE; -SNK PO; +SODIUM CHLORIDE 0.9% 500ML 500 ML IV ONE; -VOLTAREN GEL TOP; -WARF5TAB90 PO
[2016-11-08 10:56] VITALS: Ht 180.3 cm; Wt 100.0 kg
--- NOTE | 2016-11-08 11:41 | Endo History and Physical ---
History & Physical Date of Service: Nov 08, 2016. Chief Complaint: CONSTIPATION Referring Physician: BALTAZAR VICTOR History of Present Illness 66 yo CM who presents for colonoscopy secondary to change in bowel habits with constipation. Past Surgical History Hx Cardiac Surgery: Yes (CARDIAC CATH-NO STENTS, AVR) Hx Internal Defibrillator: No Hx Pacemaker: No Hx Abdominal Surgery: Yes (INGUINAL HERNIA, APPY) Hx of Implantable Prosthesis: No Hx Post-Op Nausea and Vomiting: No Hx Cancer Surgery: No Hx Thoracic Surgery: No Hx Orthopedic: Yes (R GLENDA ARTHROPLASTY RT/LT SHOULDERS, L TKA (REVISIONS) X 3 , R TKA X 2) Hx Urinary Tract Surgery: No Family History None Social History Smoking Status: Never Smoker Hx Substance Use: Yes (SEE MED REC) Hx Alcohol Use: Yes (OCCASSIONALLY) Allergies Coded Allergies: Morphine (Verified Adverse Reaction, Severe, ITCHY, 11/08/16) Current Medications Reported Home Medications Medications Dose Route/Sig Max Daily Dose Days Date Category Ultram (Tramadol HCl) 50 Mg Tab 50 Mg PO Q8H PRN 11/01/16 Reported Vitamin C (Ascorbic Acid) 500 Mg Tab 1 Tab PO QAM 11/01/16 Reported Voltaren 1% Top Gel (Diclofenac Sodium (Topical)) 1 % Gel 1 Appln EXT DIRECTED PRN 11/01/16 Reported Senokot (Senna) 8.6 Mg Tab 1 Tab PO DAILY PRN 11/01/16 Reported Oxycodone HCl 5 Mg Tab 5-10 Mg PO Q4H PRN 09/08/16 Rx Cosopt Oph (Dorzolamide Hcl-Timolol Maleat) 1 Alyx Alyx 1 Drops OPB BID 08/19/16 Reported Aspirin Ec (Aspirin) 81 Mg Tab 81 Mg PO QAM 08/19/16 Reported Hctz (Hydrochlorothiazide) 25 Mg Tab 1 Tab PO QAM 30 04/01/16 Reported Zocor (Simvastatin) 40 Mg Tab 40 Mg PO QAM 02/14/12 Reported Zestril (Lisinopril) 40 Mg Tab 40 Mg PO QAM 02/14/12 Reported Alphagan P 0.1% Oph * (Brimonidine Tartrate) Soln 1 Drop OPB BID 02/14/12 Reported Vital Signs Weight (Kilograms): 100.00 Height (Feet): 5 Height (Inches): 11 Date Time Temp Pulse Resp B/P Pulse Ox O2 Delivery O2 Flow Rate FiO2 11/08/16 11:03 36.6 77 22 85/64 97 Room Air 107/68 Physical Exam General Appearance: WD/WN, no apparent distress Respiratory/Chest: Auscultation: breath sounds normal Cardiovascular: Heart Auscultation: RRR Abdomen: Bowel Sounds: normal Inspection & Palpation: soft, non-distended, no tenderness, guarding & rebound Assessment and Plan Assessment: 66 yo CM who presents for colonoscopy secondary to change in bowel habits with constipation. Plan: Proceed with colonoscopy.
--- NOTE | 2016-11-08 12:46 | GI REPORT ---
Procedure Date: 11/08/2016 12:02 PM Procedure: Colonoscopy Indications: Screening for colorectal malignant neoplasm Medicines: Monitored Anesthesia Care Complications: No immediate complications. Estimated Blood Loss: Estimated blood loss: none. Procedure: Pre-Anesthesia Assessment: - Prior to the procedure, a History and Physical was performed, and patient medications and allergies were reviewed. The patient's tolerance of previous anesthesia was also reviewed. The risks and benefits of the procedure and the sedation options and risks were discussed with the patient. All questions were answered, and informed consent was obtained. Prior Anticoagulants: The patient has taken aspirin, last dose was day of procedure. ASA Grade Assessment: III - A patient with severe systemic disease. After reviewing the risks and benefits, the patient was deemed in satisfactory condition to undergo the procedure. After I obtained informed consent, the scope was passed under direct vision. Throughout the procedure, the patient's blood pressure, pulse, and oxygen saturations were monitored continuously. The scope was introduced through the anus and advanced to the terminal ileum. The colonoscopy was performed without difficulty. The patient tolerated the procedure well. The quality of the bowel preparation was good. The terminal ileum, ileocecal valve, appendiceal orifice, and rectum were photographed. Findings: Scattered small-mouthed diverticula were found in the entire colon. Non-bleeding internal hemorrhoids were found during retroflexion. The hemorrhoids were small. Impression: - Diverticulosis in the entire examined colon. - Non-bleeding internal hemorrhoids. - No specimens collected. Recommendation: - Resume previous diet. - Continue present medications. - Repeat colonoscopy in 10 years for surveillance. - Return to primary care physician as previously scheduled. Gonzalo Swann, DO 11/08/2016 12:46:30 PM This report has been signed electronically. Note Initiated On: 11/08/2016 12:02 PM I attest to the content of the Intraoperative Record and orders documented therein, exceptions below
--- NOTE | 2016-11-08 12:47 | Discharge Instructions ---
Endoscopy Patient Instructions Date / Procedure(s) Performed Nov 08, 2016. Colonoscopy Allergy Information Coded Allergies: Morphine (Verified Adverse Reaction, Severe, ITCHY, 11/08/16) Discharge Date / Findings Nov 08, 2016. Diverticulosis Internal hemorrhoids Medication Instructions OK to resume all medications today as prescribed Reported Home Medications Medications Dose Route/Sig Max Daily Dose Days Date Category Ultram (Tramadol HCl) 50 Mg Tab 50 Mg PO Q8H PRN 11/01/16 Reported Vitamin C (Ascorbic Acid) 500 Mg Tab 1 Tab PO QAM 11/01/16 Reported Voltaren 1% Top Gel (Diclofenac Sodium (Topical)) 1 % Gel 1 Appln EXT DIRECTED PRN 11/01/16 Reported Senokot (Senna) 8.6 Mg Tab 1 Tab PO DAILY PRN 11/01/16 Reported Oxycodone HCl 5 Mg Tab 5-10 Mg PO Q4H PRN 09/08/16 Rx Cosopt Oph (Dorzolamide Hcl-Timolol Maleat) 1 Alyx Alyx 1 Drops OPB BID 08/19/16 Reported Aspirin Ec (Aspirin) 81 Mg Tab 81 Mg PO QAM 08/19/16 Reported Hctz (Hydrochlorothiazide) 25 Mg Tab 1 Tab PO QAM 30 04/01/16 Reported Zocor (Simvastatin) 40 Mg Tab 40 Mg PO QAM 02/14/12 Reported Zestril (Lisinopril) 40 Mg Tab 40 Mg PO QAM 02/14/12 Reported Alphagan P 0.1% Oph * (Brimonidine Tartrate) Soln 1 Drop OPB BID 02/14/12 Reported Provider Instructions Activity Restrictions - No exercising or heavy lifting for 24 hours. - Do not drink alcohol the day of the procedure. - Do not drive a car or operate machinery until the day after the procedure. - Do not make any important decisions or sign important papers in 24 hours after the procedure. Following Day: - Return to full activity which may include returning to work/school. Diet Start your diet with liquids and light foods (jello, soup, juice, toast). Then eat your usual diet if not nauseated. Treatment For Common After Affects For mild abdominal pain, bloating, or excessive gas: - Rest - Eat lightly - Lie on right side Follow-Up Information Follow-up with BALTAZAR VICTOR as scheduled Anesthesia Information What You Should Know You have had a procedure that required some medicine to reduce anxiety and discomfort. This treatment is called moderate sedation. After receiving the treatment, you may be sleepy, but you will be able to breathe on your own. The effects of the treatment may last for several hours. Follow these instructions along with Activity/Diet recommendations noted above: * Do NOT do anything where dizziness or clumsiness would be dangerous. * Rest quietly at home today, then you can be up and about tomorrow. * Have a responsible person stay with you the rest of today. * You may have had an I.V. today. If so, you may take the dressing off later today. Recommendations Call your doctor if: * Trouble breathing * Continuous vomiting for more than 24 hours * Temperature above 101 degrees * Severe abdominal pain or bloating * Pain not relieved by pain medicine ordered * There is increased drainage or redness from any incision * A large amount of rectal bleeding greater than 2-3 tablespoons. (If you had a polyp/s removed or have hemorrhoids, a small amount of blood - from the rectum is to be expected.) * You have any unanswered questions or concerns. IN THE EVENT OF A SERIOUS EMERGENCY, GO TO THE NEAREST EMERGENCY ROOM Your discharge instructions were prepared by provider Gonzalo Swann. Patient Instructions Signature Page Monet Mccarthy Patient (or Guardian) Signature/Date: I have read and understand the instructions given to me by my caregivers. Caregiver/RN/Doctor Signature/Date: The above-named patient and/or guardian has received patient instructions on this date. + Original Patient Signature Page (only) stays with chart. Please make copy for patient.
--- NOTE | 2016-11-08 13:02 | Anesthesiology Progress Note ---
Anesthesia Post Op Note Date & Time Nov 08, 2016 at 13:02 Vital Signs Pain Intensity: 0 Vital Signs Past 12 Hours Date Time Temp Pulse Resp B/P Pulse Ox O2 Delivery O2 Flow Rate FiO2 11/08/16 12:57 79 18 95/54 97 Room Air 11/08/16 12:42 74 16 90/56 96 Nasal Cannula 3 11/08/16 11:03 36.6 77 22 85/64 97 Room Air 107/68 Notes Mental Status: alert / awake / arousable, participated in evaluation Pt Amnestic to Procedure: Yes Nausea / Vomiting: adequately controlled Pain: adequately controlled Airway Patency, RR, SpO2: stable & adequate BP & HR: stable & adequate Hydration State: stable & adequate Anesthetic Complications: no major complications apparent
[2016-11-08 13:12] VITALS: BP 105/56; PULSE 60; O2SAT 97
== END | disposition home or self-care (01) ==
LOC: C.GI 10:33
PROVIDERS: ATTEND Internal Medicine
DX: K59.00 Constipation, unspecified (principal); K57.90 Diverticulosis of intestine, part unspecified, without perforation or abscess without bleeding; K64.8 Other hemorrhoids; I10 Essential (primary) hypertension; M19.90 Unspecified osteoarthritis, unspecified site; Z68.41 Body mass index [BMI] 40.0-44.9, adult; Z88.5 Allergy status to narcotic agent; Z96.653 Presence of artificial knee joint, bilateral; Z90.89 Acquired absence of other organs; Z98.890 Other specified postprocedural states

== ENCOUNTER → 2017-03-23 | Outpatient (CLI) | payer OTHER, MEDICARE ==
[~2017-03-23] MED LIST changes: -LIDOCAINE HCL 2% 2 ML VIAL (20MG/ML) ONE; -MIDAZOLAM HCL 1 MG/ML 2ML VIAL ONE; -ONDANSETRON INJ 2 MG/ML 2 ML VIAL ONE; -PROPOFOL IV EMULSION 10 MG/ML 20 ML VIAL IV ONE; -SODIUM CHLORIDE 0.9% 500ML 500 ML IV ONE
[2017-03-23 12:46] LABS: ESTIMATED AVERAGE GLUCOSE 146 mg/dl; HA1C FLAG Normal (Normal)
[2017-03-23 12:59] LABS: BLOOD UREA NITROGEN 25 mg/dl (7-18); CALCIUM 9.2 mg/dl (8.5-10.1); CARBON DIOXIDE 31 mmol/L (21-32); CHLORIDE 105 mmol/L (98-107); GLUCOSE 176 mg/dl (70-99); POTASSIUM 4.7 mmol/L (3.5-5.1); SODIUM 139 mmol/L (136-145); URIC ACID 8.1 mg/dl (2.6-7.2)
== END | disposition home or self-care (01) ==
LOC: C.LABBFT 09:14
PROVIDERS: ATTEND Internal Medicine Geriatric Medicine
DX: M10.9 Gout, unspecified (principal); E11.9 Type 2 diabetes mellitus without complications; R35.0 Frequency of micturition

== ENCOUNTER 2017-07-05 05:37 | Inpatient (IN) | payer OTHER, MEDICARE ==
[2017-06-13 11:10] VITALS: BMI 31.0
--- NOTE | 2017-06-13 11:51 | PAT Medication Instructions ---
Service Date Jun 13, 2017. Current Home Medication List Ascorbic Acid (Vitamin C), 1 TAB PO QAM Aspirin (Aspirin Ec), 81 MG PO QAM Brimonidine Tartrate (Alphagan P Oph), 1 DROPS OPB BID Diclofenac Sodium (Topical) (Voltaren 1% Top Gel), 1 APPLN EXT DIRECTED PRN for Pain Dorzolamide Hcl-Timolol Maleat (Cosopt Oph), 1 DROPS OPB BID Hydrochlorothiazide (Hctz), 1 TAB PO QAM Lisinopril (Zestril), 40 MG PO QAM Senna (Senokot), 1 TAB PO DAILY PRN for Constipation Simvastatin (Zocor), 40 MG PO QAM Tramadol (Ultram), 50 MG PO Q8H PRN for Pain Medication Instructions For Your Scheduled Surgery - Hold the following medications 24 hours prior to surgery: Diclofenac Sodium (Topical) (Voltaren 1% Top Gel), 1 APPLN EXT DIRECTED PRN for Pain - Hold the following medications the morning of surgery: Hydrochlorothiazide (Hctz), 1 TAB PO QAM Lisinopril (Zestril), 40 MG PO QAM Senna (Senokot), 1 TAB PO DAILY PRN for Constipation Ascorbic Acid (Vitamin C), 1 TAB PO QAM - Take the following medications the morning of surgery with a sip of water: Tramadol (Ultram), 50 MG PO Q8H PRN for Pain (if needed, can take up to four hours before surgery) Simvastatin (Zocor), 40 MG PO QAM Aspirin (Aspirin Ec), 81 MG PO QAM Brimonidine Tartrate (Alphagan P Oph), 1 DROPS OPB BID (BRING WITH YOU THE DAY OF SURGERY) Dorzolamide Hcl-Timolol Maleat (Cosopt Oph), 1 DROPS OPB BID (BRING WITH YOU THE DAY OF SURGERY) - Take the following medications as scheduled the night before surgery: Tramadol (Ultram), 50 MG PO Q8H PRN for Pain (if needed) Brimonidine Tartrate (Alphagan P Oph), 1 DROPS OPB BID Dorzolamide Hcl-Timolol Maleat (Cosopt Oph), 1 DROPS OPB BID Senna (Senokot), 1 TAB PO DAILY PRN for Constipation (if needed) If you have any questions please call us at [phone] or [phone] or [phone]
[2017-06-13 13:12] LABS: BASO % 0.4 %; BASO ABS # 0.03 K/uL (0-0.2); COMPLETE YES; HEMATOCRIT 50.4 % (42-52); IG% 0.3 %; LYMPH ABS # 2.21 K/uL (1.2-3.4); MEAN CELL VOLUME 84.7 fL (80-100); MEAN CORPUSCULAR HEMOGLOBIN 29.6 pg (25-34); MEAN CORPUSCULAR HGB CONC 34.9 g/dl (32-36); MEAN PLATELET VOLUME 11.3 fL (7.4-10.4); MONO % 6.8 %; NEUT % 61.5 %; PLATELET COUNT 174 K/uL (130-400); RED BLOOD COUNT 5.95 M/uL (4.7-6.1); WHITE BLOOD COUNT 7.89 K/uL (4.8-10.8)
[2017-06-13 13:16] LABS: URINE APPEARANCE CLEAR (CLEAR); URINE BILIRUBIN NEG (NEG); URINE COLOR YELLOW; URINE NITRITE NEG (NEG); URINE PH 6.5 (4.5-7.5); URINE SPECIFIC GRAVITY 1.022 (1.000-1.030); UROBILINOGEN NEG (NEG); ZZUR CULT IF INDIC CLEAN CATCH NO
[2017-06-13 13:19] LABS: BUN/CREATININE RATIO 24.8 (10-20); CALCIUM 10.2 mg/dl (8.5-10.1); CREATININE 0.94 mg/dl (0.60-1.40); POTASSIUM 4.6 mmol/L (3.5-5.1)
[2017-06-13 13:28] LABS: MANUAL MICROSCOPIC REQUIRED? NO; REVIEW REQ? YES
[~2017-07-05] VITALS: Ht 180.3 cm; Wt 103.4 kg
[2017-07-05] VITALS (8 sets, daily range): BP systolic 98–142; BP diastolic 61–93; PULSE 63–76; TEMP 36.4–36.7; O2SAT 93–95; BMI 31.0
[~2017-07-05 05:37] MED LIST changes: -ALPOPS1 OPB; +BRIM0.1S OPB; -RXC5 PO
[2017-07-05] MEDS ORDERED: CEFAZOLIN 2000MG IV PUSH 10 ML IV SCH (06:00)
[2017-07-05] MEDS ORDERED: LACTATED RINGER'S 1000ML 1,000 ML IV SCH (06:00)
[2017-07-05] MEDS ORDERED: OFLO0.3D4 OT (06:36)
[2017-07-05] MEDS ORDERED: FENTANYL CITRATE INJ 50 MCG/1 ML 2 ML VIAL ONE ×7 (06:45→12:18)
[2017-07-05] MEDS ORDERED: MIDAZOLAM HCL 1 MG/ML 2ML VIAL ONE (06:45)
[2017-07-05] MEDS ORDERED: ALBUMIN HUMAN 5% 12.5 GM/250 ML VIAL IV ONE (06:51)
[2017-07-05] MEDS ORDERED: BUPIVACAINE/EPINEPHRINE 0.5% MPF 1:200,000 30 ML VIAL ONE (07:05)
[2017-07-05] MEDS ORDERED: THROMBIN FOR SOLN 20000 UNIT KIT ONE (07:05)
[2017-07-05] MEDS ORDERED: BACITRACIN 50000 UNIT VIAL ONE (07:05)
--- NOTE | 2017-07-05 07:39 | History and Physical ---
History & Physical Date Jul 05, 2017. Chief Complaint Back and leg pain History of Present Illness The patient is a 67 year old male with complaints of back and leg pain Past Medical/Surgical History Surgical Problems: (1) Post-operative state Additional History Hepatic Disease: No Endocrine Disorder: No Kidney Disease: No Hypertension: Yes Heart Disease: No Bleeding Tendencies: No Infectious Diseases: No Allergies Coded Allergies: Morphine (Verified Adverse Reaction, Severe, ITCHY, 07/05/17) Home Medications Scheduled Ascorbic Acid (Vitamin C), 1 TAB PO QAM Aspirin (Aspirin Ec), 81 MG PO QAM Brimonidine Tartrate (Alphagan P Oph), 1 DROPS OPB BID Dorzolamide Hcl-Timolol Maleat (Cosopt Oph), 1 DROPS OPB BID Hydrochlorothiazide (Hctz), 12.5 MG PO QAM Lisinopril (Zestril), 40 MG PO QAM Ofloxacin (Otic) (Floxin Otic), 5 DROPS OT BID Simvastatin (Zocor), 40 MG PO QAM Scheduled PRN Diclofenac Sodium (Topical) (Voltaren 1% Top Gel), 1 APPLN EXT DIRECTED PRN for Pain Senna (Senokot), 1 TAB PO DAILY PRN for Constipation Tramadol (Ultram), 50 MG PO Q8H PRN for Pain Physical Examination Skin: warm/dry, no rash Eyes: normal inspection, EOMI, sclerae normal ENT: normal ENT inspection, pharynx normal Head: normocephalic, atraumatic Neck: supple, no adenopathy, trachea midline Respiratory/Chest: lungs clear, normal breath sounds, no respiratory distress Cardiovascular: regular rate, rhythm, no edema, no murmur Abdomen / GI: normal bowel sounds, non tender Back: normal inspection Extremities: normal inspection, normal range of motion Neurologic/Psych: no motor/sensory deficits, alert, normal reflexes, oriented x 3 Diagnosis Lumbar spinal stenosis Plan of Treatment T12 to S1 decompression and fusion with iliac bolts
[2017-07-05] MEDS ORDERED: HYDROmorphone INJ 2 MG/ML SYR/VIAL ONE ×4 (08:17→12:23)
[2017-07-05] MEDS ORDERED: EpHEDrine SULFATE INJ 50 MG/ML AMP IV PRN (08:30)
[2017-07-05] MEDS ORDERED: ATROPINE SULFATE 0.1 MG/ML 5ML SYR IV PRN (08:30)
[2017-07-05] MEDS ORDERED: ONDANSETRON INJ 2 MG/ML 2 ML VIAL IV PRN ×2 (08:30→12:15)
[2017-07-05] MEDS ORDERED: FENTANYL CITRATE INJ 50 MCG/1 ML 2 ML VIAL IV PRN (08:30)
[2017-07-05] MEDS ORDERED: HYDROmorphone INJ 1 MG/ML SYR IV PRN (08:30)
[2017-07-05] MEDS ORDERED: ONDANSETRON INJ 2 MG/ML 2 ML VIAL ONE ×2 (10:26→12:27)
[2017-07-05] MEDS ORDERED: PROPOFOL IV EMULSION 10 MG/ML 20 ML VIAL IV ONE ×2 (10:26)
[2017-07-05] MEDS ORDERED: LIDOCAINE HCL 2% 2 ML VIAL (20MG/ML) ONE (10:26)
[2017-07-05] MEDS ORDERED: DEXAMETHASONE SOD INJ 4 MG/ML VIAL ONE (10:26)
[2017-07-05 11:52] LABS: HEMATOCRIT 38.7 % (42-52)
[2017-07-05] MEDS ORDERED: FLOSEAL HEMOSTATIC MATRIX 10ML TOP ONE (12:03)
[2017-07-05] MEDS ORDERED: SODIUM CHLORIDE 0.9% 1000ML 1,000 ML IV SCH ×2 (12:14→12:18)
[2017-07-05] MEDS ORDERED: LORAZEPAM INJ 0.5 MG in SYRINGE 0.75 ML IV PRN (12:15)
[2017-07-05] MEDS ORDERED: BISACODYL 10 MG SUPP PR PRN (12:15)
[2017-07-05] MEDS ORDERED: NALOXONE HCL 0.4 MG/1 ML VIAL/CARP IV PRN ×3 (12:15→12:30)
[2017-07-05] MEDS ORDERED: DO NOT ADMINISTER PNEUMOCOCCAL VACCINE PRN ×2 (12:15)
[2017-07-05] MEDS ORDERED: MAGNESIUM HYDROXIDE SUSP 30 ML UDC PO PRN (12:15)
[2017-07-05] MEDS ORDERED: DO NOT ADMINISTER FLU VACCINE PRN ×3 (12:15)
[2017-07-05] MEDS ORDERED: HYDROmorphone HCL 0.5MG/ML 50 ML CASSETTE IV PRN (12:15)
[2017-07-05] MEDS ORDERED: PROMETHAZINE HCL INJ 12.5 MG in SODIUM CHLORIDE 0.9% 50ML 50 ML IV PRN (12:15)
[2017-07-05] MEDS ORDERED: SOD PHOSPHATE/SOD BIPHOSPHATE ENEMA 132 ML BTL PR PRN (12:15)
[2017-07-05] MEDS ORDERED: ACETAMINOPHEN 500 MG TAB PO PRN (12:15)
[2017-07-05] MEDS ORDERED: FAMOTIDINE 20 MG TAB PO PRN (12:15)
[2017-07-05] MEDS ORDERED: ACETAMINOPHEN IV 100 ML IV PRN (12:15)
[2017-07-05] MEDS ORDERED: LORAZEPAM 0.5 MG TAB PO PRN (12:15)
[2017-07-05] MEDS ORDERED: TRAMADOL HCL 50 MG TAB PO PRN (12:15)
[2017-07-05] MEDS ORDERED: METOCLOPRAMIDE HCL INJ 5 MG/ML 2 ML VIAL IV PRN (12:15)
[2017-07-05] MEDS ORDERED: hydrOXYzine HCL 25 MG TAB PO PRN (12:15)
[2017-07-05] MEDS ORDERED: ALUMINUM/MAGNESIUM SUSP 30 ML UDC PO PRN (12:15)
--- NOTE | 2017-07-05 12:23 | [facility] Operative Report ---
Operative Report Operative Date Jul 05, 2017. Pre-Operative Diagnosis Lumbar spinal stenosis Post-Operative Diagnosis Lumbar spinal stenosis Procedure(s) Performed #1 lumbar decompression medial facetectomy foraminotomies L1 to L2 3 L3 4 L4 5 L5-S1. #2 posterior spinal fusion T12 to S1. #3 bilateral SI joint fusions. #4 posterior segmental instrumentation T12 to S1 with bilateral iliac bolts. #5 interbody fusion L4 5. #6 placement peek Cage 14 x 26 mm L4 5. #7 placement infuse collagen sponge, mask graft the posterior gutters and ostial amp in the interbody space. #8 placement of local harvested morcellized autograft in the posterior lateral gutters. Surgeon Dr. Leo Muhammad Lug Breaker And Wire Puller Surgeon(s) Mika Escudero PA-C Estimated Blood Loss 1000mL Findings Severe spinal stenosis Specimens none per surgeon Description of Procedure Patient was met with preoperatively case discussed all questions addressed. After informed consent obtained patient was taken to the operative suite underwent intubation placed in a prone position on the Gilbert table top Ke frame. All bony prominences well-padded eyes inspected to ensure there is no external pressure placed upon them. This point the lumbar spines prepped draped nostril fashion. Sharp dissection with the assistance of Bovie cautery was performed onto an exposing the lamina and transverse processes of T12-L1 L2- L3 L4-L5 the sacral alar bilaterally as well as the bilateral SI joints. From a caudal to cephalad fashion complete laminectomy of L5 4 3 2 1 was performed including medial facetectomies foraminotomies. After decompression addressing severe stenosis pedicle screws were placed in T12 L1 L2 L3-L4 L5-S1 levels including bilateral iliac bolts. Through a transforaminal approach on the right a complete discectomy of L4 5 was performed and plate created to subcortical bleeding bone and a 14 x 26 mm peek cage filled with ostial amp bone graft tapped in position. Purposes rods were then cut contoured and locked in position bilaterally. The transverse processes of T12-L1 L2-L3 L4-L5 sacral Marcella in the bilateral SI joints were burred to subcortical bone. Locally harvested bone graft infuse collagen sponge mask graft was placed the posterior lateral gutters and in the bilateral SI joints. A cross-link was locked in position. 15 round JACQUES drain inserted. Incision was then closed with 1 Vicryl in the fascia 2-0 Vicryl subcutaneous tediously 4 Monocryl for Any closure Steri-Strips sterile dressings placed. Patient we can take PACU stable condition. Please note Venkat singh was present at the entire procedure involved in patient positioning complex portions of the surgery and final skin closure. I attest to the content of the Intraoperative Record and any orders documented therein. Any exceptions are noted below.
[2017-07-05] MEDS ORDERED: GLYCOPYRROLATE INJ 0.2 MG/ML VIAL ONE (12:27)
[2017-07-05] MEDS ORDERED: PHENYLEPHRINE 100MCG/ML 5ML SYR ONE (12:27)
[2017-07-05] MEDS ORDERED: NEOSTIGMINE METHYLSULFATE 1 MG/ML 10ML VIAL ONE (12:27)
[2017-07-05] MEDS ORDERED: EpHEDrine SULFATE 50MG/5ML SYR ONE (12:27)
[2017-07-05] MEDS ORDERED: ROCURONIUM BROMIDE 10 MG/ML 5 ML VIAL IV ONE (12:27)
[2017-07-05] MEDS ORDERED: KETOROLAC TROMETHAMINE 30 MG/ML VIAL ONE (12:27)
--- NOTE | 2017-07-05 12:27 | DIAGNOSTIC IMAGING REPORT ---
LUMBAR SPINE 2 OR 3 VIEW CLINICAL HISTORY: T12-S1 DECOMPRESSION/FUSION/INTERBODY TECHNIQUE: Image intensifier COMPARISON STUDY: FINDINGS: Image intensifier utilized for a T12-S1 decompression and fusion. Within limitations of these images alignment appears anatomic. IMPRESSION: T12-S1 laminectomy and fusion The above report was generated using voice recognition software. It may contain grammatical, syntax or spelling errors. Electronically signed by: Gibson Craig M.D. 07/05/2017 12:26 PM Dictated Date/Time: 07/05/2017 12:25 PM
[2017-07-05] MEDS ORDERED: HYDROmorphone HCL 0.5MG/ML 50 ML CASSETTE ONE (12:56)
--- NOTE | 2017-07-05 13:38 | Anesthesiology Progress Note ---
Anesthesia Post Op Note Date & Time Jul 05, 2017 at 13:37 Vital Signs Pain Intensity: 0 Vital Signs Past 12 Hours Date Time Temp Pulse Resp B/P (MAP) Pulse Ox O2 Delivery O2 Flow Rate FiO2 07/05/17 13:25 70 12 144/67 96 Nasal Cannula 4 07/05/17 13:15 71 15 119/76 96 Oxymask 10 07/05/17 13:05 73 12 119/73 94 Oxymask 10 07/05/17 12:55 36.5 75 13 146/86 97 Oxymask 10 07/05/17 06:06 36.7 76 20 123/89 94 Room Air Notes Mental Status: alert / awake / arousable, participated in evaluation Pt Amnestic to Procedure: Yes Nausea / Vomiting: adequately controlled Pain: adequately controlled Airway Patency, RR, SpO2: stable & adequate BP & HR: stable & adequate Hydration State: stable & adequate Anesthetic Complications: no major complications apparent
[2017-07-05] MEDS: HYDROmorphone HCL 0.5MG/ML 50 ML CASSETTE IV PRN ×3 (14:11→22:35)
[2017-07-05] MEDS: DEXAMETHASONE INJ 6 MG in SYRINGE 0 ML IV SCH (18:44)
--- NOTE | 2017-07-05 18:55 | Medical Consult ---
Consultation Date of Consultation: Jul 05, 2017. Attending Physician: Papo Muhammad D.O. Reason for Consultation: Elevated BS History of Present Illness 67 y/o M who was admitted earlier today s/p lumbar spine surgery with Dr. Muhammad. He was found to have elevated BS this afternoon. Pt states he is doing well post-op. Pain is manageable. He has eaten and no issues with PO intake. Pt denies fever, SOB, chest pain, abd pain, n/v/c/d, LE pain. Pt states he gets LE swelling at times. Pt notes that he has been borderline diabetic for some time. He has never been on medications for this in the past. Pt states he was recent dx with a L ear infection. He was given ear drops for this and told to take them 2x/day. He took them twice yesterday, but did not take them this AM due to his surgery. His L ear pain was better yesterday after using the drops, but is more intense today. He has a fullness in his L ear. No discharge. Past Medical/Surgical History HTN Hyperlipidemia Social History Smoking Status: Never Smoker Alcohol Use: none Drug Use: none Allergies Coded Allergies: Morphine (Verified Allergy, Mild, ITCHY, 07/05/17) Current Inpatient Medications Current Inpatient Medications Medications (Trade) Dose Ordered Sig/Domo Route Start Time Stop Time Status Last Admin Dose Admin Dexamethasone Sodium Phosphate 6 mg/Syringe 1.5 ml @ 1 mls/min Q8H IV 07/05/17 18:00 07/06/17 10:02 07/05/17 18:44 1 MLS/MIN Promethazine HCl 12.5 mg/Sodium Chloride 50.5 ml @ 202 mls/hr Q6H PRN IV 07/05/17 12:15 08/04/17 12:14 Ondansetron HCl (Zofran Inj) 4 mg Q6H PRN IV 07/05/17 12:15 08/04/17 12:14 Metoclopramide HCl (Reglan Inj) 10 mg Q6H PRN IV 07/05/17 12:15 08/04/17 12:14 Lorazepam (Ativan Tab) 0.5 mg Q8H PRN PO 07/05/17 12:15 08/04/17 12:14 Lorazepam 0.5 mg/ Syringe 1 ml @ 1 mls/min Q8H PRN IV 07/05/17 12:15 08/04/17 12:14 Pneumococcal Polysaccharide Vaccine 1 ea PRN PRN N/A 07/05/17 12:15 08/04/17 12:14 Influenza Virus Vacc Triv Types A&B 1 ea PRN PRN N/A 07/05/17 12:15 08/04/17 12:14 Polyethylene (Miralax Powder Packet) 17 gm Q6 PO 07/07/17 06:00 08/06/17 05:59 Bisacodyl (Dulcolax Supp) 10 mg DAILY PRN SC 07/05/17 12:15 08/04/17 12:14 Magnesium Hydroxide (Milk Of Magnesia Susp) 30 ml DAILY PRN PO 07/05/17 12:15 08/04/17 12:14 Hydromorphone HCl (Dilaudid Inj) 0.5-1mg prn moder... Q3H PRN IV 07/06/17 06:00 07/20/17 05:59 Oxycodone HCl (Roxicodone Immediate Rel Tab) 5-10mg prn moderate to sev... Q4H PRN PO 07/06/17 06:00 07/20/17 05:59 Cefazolin Sodium 2000 mg/Syringe 10 ml @ 2.5 mls/min Q8H IV 07/05/17 20:00 07/06/17 04:03 Lactated Ringer's 1,000 ml @ 150 mls/hr Q6H40M IV 07/05/17 14:45 08/04/17 14:44 Acetaminophen (Tylenol Tab) 1,000 mg Q8H PRN PO 07/05/17 12:15 08/04/17 12:14 Acetaminophen 100 ml @ 400 mls/hr Q8H PRN IV 07/05/17 12:15 08/04/17 12:14 Naloxone HCl (Narcan Inj) 0.1 mg Q5M PRN IV 07/05/17 12:15 08/04/17 12:14 Senna/Docusate Sodium (Senokot S Tab) 2 tab HS PO 07/05/17 21:00 08/04/17 20:59 Sodium Biphosphate/ Sodium Phosphate (Fleet Enema) 132 ml ONE PRN SC 07/05/17 12:15 08/04/17 12:14 Hydroxyzine HCl (Vistaril Tab) 25 mg Q8H PRN PO 07/05/17 12:15 08/04/17 12:14 Al Hydroxide/Mg Hydroxide (Maalox Susp) 30 ml Q6H PRN PO 07/05/17 12:15 08/04/17 12:14 Famotidine (Pepcid Tab) 20 mg Q12 PRN PO 07/05/17 12:15 08/04/17 12:14 Diphenhydramine HCl (Benadryl Cap) 25 mg Q6H PRN PO 07/05/17 12:15 08/04/17 12:14 Miscellaneous Information (Discontinue REAL ESTATE OPERATIONS MANAGER) 1 ea TODAY@0600 N/A 07/06/17 06:00 07/06/17 06:01 Aspirin (Ecotrin Tab) 81 mg QAM PO 07/06/17 09:00 08/05/17 08:59 Dorzolamide/ Timolol (Cosopt Op Soln) 1 drops BID OPB 07/05/17 21:00 08/04/17 20:59 Hydrochlorothiazide (Hydrochlorothiazide Tab) 12.5 mg QAM PO 07/06/17 09:00 08/05/17 08:59 Lisinopril (Zestril Tab) 40 mg QAM PO 07/06/17 09:00 08/05/17 08:59 Simvastatin (Zocor Tab) 40 mg QAM PO 07/06/17 09:00 08/05/17 08:59 Tramadol HCl (Ultram Tab) 50 mg Q8H PRN PO 07/05/17 12:15 08/04/17 12:14 Miscellaneous Information (Order Awaiting Action) 1 ea QS N/A 07/05/17 16:00 08/04/17 15:59 07/05/17 16:00 1 EA Naloxone HCl (Narcan Inj) 0.1 mg Q5M PRN IV 07/05/17 12:30 07/06/17 06:00 Hydromorphone HCl (Dilaudid Information Technology Auditor) 25 mg PRN PRN IV 07/05/17 12:30 07/06/17 06:00 07/05/17 14:11 25 MG Sodium Chloride 1,000 ml @ 15 mls/hr Q24H IV 07/05/17 12:18 07/06/17 06:00 Review of Systems Pertinent positives and negatives reviewed in HPI--all others negative Physical Exam Date Time Temp Pulse Resp B/P (MAP) Pulse Ox O2 Delivery O2 Flow Rate FiO2 07/05/17 17:10 36.6 70 18 142/93 (109) 95 Nasal Cannula 3.0 07/05/17 16:10 36.4 66 16 133/89 (104) 94 Nasal Cannula 3.0 07/05/17 15:10 36.5 74 16 136/80 (98) 94 Nasal Cannula 3.0 07/05/17 14:40 36.5 72 16 119/75 (90) 95 3.0 07/05/17 14:10 Nasal Cannula 2.0 07/05/17 14:10 Nasal Cannula 3.0 07/05/17 14:10 36.5 76 14 126/77 (93) 93 Nasal Cannula 2.0 07/05/17 13:55 70 13 119/80 95 Nasal Cannula 4 07/05/17 13:45 36.1 78 16 116/77 94 Nasal Cannula 4 07/05/17 13:35 72 24 151/84 95 Nasal Cannula 4 07/05/17 13:25 70 12 144/67 96 Nasal Cannula 4 07/05/17 13:15 71 15 119/76 96 Oxymask 10 07/05/17 13:05 73 12 119/73 94 Oxymask 10 07/05/17 12:55 36.5 75 13 146/86 97 Oxymask 10 07/05/17 06:06 36.7 76 20 123/89 94 Room Air General Appearance: WD/WN, no apparent distress Head: normocephalic, atraumatic Eyes: normal inspection, EOMI ENT: + pertinent finding (R ear is WNL, L ear with red canal and purulent discharge, painful to otoscope exam) Respiratory/Chest: normal breath sounds, no respiratory distress Cardiovascular: regular rate, rhythm, no edema Abdomen/GI: non tender, soft Extremities/Musculoskelatal: no calf tenderness, no pedal edema Neurologic/Psych: alert, normal mood/affect, oriented x 3 Skin: normal color, warm/dry Laboratory Results Last 24 Hours Test 07/05/17 05:58 07/05/17 11:38 07/05/17 16:56 Bedside Glucose 160 mg/dl 242 mg/dl Hemoglobin 13.6 g/dL Hematocrit 38.7 % Assessment & Plan 67 y/o M who was admitted on 07/05 s/p lumbar spine surgery with Dr. Muhammad. Post-op: as per ortho Elevated BS: records show that pt has had slightly elevated A1c in the past Was given steroids in the OR with plans to continue during admission A1c pending SSI PRN for now May need t/c outpt insulin if planning for termite control servicer steroids DM educator c/s pending Will need close outpt f/u with PCP Advised diet and exercise management L otitis externa: continue oflaxacin as prior, generally prescribed QD, but was using BID and will continue at that frequency Likely rebound in sx given missed dosing HTN: continue home meds Hyperlipidemia: continue home meds
[2017-07-05] MEDS ORDERED: NURSING VERBAL MED ORDER ONE (19:00)
[2017-07-05] MEDS: CEFAZOLIN IV 2,000 MG in SYRINGE 0 ML IV SCH (19:34)
[2017-07-05] MEDS: DORZOLAMIDE/TIMOLOL 22.3/6.8MG/ML 10 ML BTL OPB SCH (21:12)
[2017-07-05] MEDS: OFLOXACIN 0.3% OP SOLN 5 ML BTL OTL SCH (21:15)
[2017-07-05] MEDS: DOCUSATE SODIUM/SENNA 50/8.6MG TAB PO SCH (21:16)
[2017-07-05] MEDS: INSULIN ASPART 100 UNITS/ML 3 ML PEN SC SCH (21:23)
[2017-07-05] MEDS: LACTATED RINGER'S 1000ML 1,000 ML IV SCH ×2 (21:25→21:28)
[2017-07-05] MEDS: BRIMONIDINE TARTRATE 0.1% OPH SOLN OPB SCH (21:28)
[2017-07-06] MEDS: DEXAMETHASONE INJ 6 MG in SYRINGE 0 ML IV SCH ×2 (01:34→09:21)
[2017-07-06 03:10] VITALS: BP 102/62; PULSE 64; TEMP 36.6; O2SAT 92
[2017-07-06] MEDS: CEFAZOLIN IV 2,000 MG in SYRINGE 0 ML IV SCH (04:04)
[2017-07-06] MEDS: LACTATED RINGER'S 1000ML 1,000 ML IV SCH (04:04)
[2017-07-06] MEDS ORDERED: NURSING DECISION MEDICATION ORDER SCH (05:30)
[2017-07-06 05:54] LABS: COMPLETE YES; HEMATOCRIT 33.6 % (42-52); IG% 0.4 %; LYMPH % 6.4 %; LYMPH ABS # 0.86 K/uL (1.2-3.4); MEAN CELL VOLUME 86.6 fL (80-100); MEAN CORPUSCULAR HEMOGLOBIN 29.1 pg (25-34); MEAN CORPUSCULAR HGB CONC 33.6 g/dl (32-36); MEAN PLATELET VOLUME 10.8 fL (7.4-10.4); MONO % 4.6 %; NEUT % 88.6 %; PLATELET COUNT 173 K/uL (130-400); RED BLOOD COUNT 3.88 M/uL (4.7-6.1); WHITE BLOOD COUNT 13.35 K/uL (4.8-10.8)
[2017-07-06] MEDS ORDERED: DC PCA SCH (06:00)
[2017-07-06 06:18] LABS: BUN/CREATININE RATIO 25.2 (10-20); CALCIUM 7.9 mg/dl (8.5-10.1); CREATININE 1.06 mg/dl (0.60-1.40); POTASSIUM 4.4 mmol/L (3.5-5.1)
[2017-07-06 06:37] LABS: ESTIMATED AVERAGE GLUCOSE 151 mg/dl; HA1C FLAG Normal (Normal)
[2017-07-06] MEDS: OXYCODONE HCL IR 5 MG TAB (IMMEDIATE RELEASE) PO PRN ×3 (06:40→17:14)
[2017-07-06 07:28] VITALS: BP 117/68; PULSE 70; TEMP 36.6; O2SAT 94
--- NOTE | 2017-07-06 09:10 | Progress Note ---
Subjective Date of Service: Jul 06, 2017. Subjective Pt evaluation today including: conversation w/ patient, physical exam, lab review, review of inpatient medication list Pain: no pain when laying still PO Intake: adequate Voiding: no voiding problems patient feels well when laying flat, has increased back pain when trying to perform therapy or transfer eating well, no chest pain, no dyspnea left ear pain completely resolved with drops reviewed labs, stable HbA1c 6.9, discussed with patient, he wishes to discuss with his PCP okay with continuing Novolog while here Review of Systems Musculoskeletal: + joint pain (low back, stiff) All Other Systems: Reviewed and Negative Medications Current Inpatient Medications Medications (Trade) Dose Ordered Sig/Domo Route Start Time Stop Time Status Last Admin Dose Admin Dexamethasone Sodium Phosphate 6 mg/Syringe 1.5 ml @ 1 mls/min Q8H IV 07/05/17 18:00 07/06/17 10:02 07/06/17 01:34 1 MLS/MIN Promethazine HCl 12.5 mg/Sodium Chloride 50.5 ml @ 202 mls/hr Q6H PRN IV 07/05/17 12:15 08/04/17 12:14 Ondansetron HCl (Zofran Inj) 4 mg Q6H PRN IV 07/05/17 12:15 08/04/17 12:14 Metoclopramide HCl (Reglan Inj) 10 mg Q6H PRN IV 07/05/17 12:15 08/04/17 12:14 Lorazepam (Ativan Tab) 0.5 mg Q8H PRN PO 07/05/17 12:15 08/04/17 12:14 Lorazepam 0.5 mg/ Syringe 1 ml @ 1 mls/min Q8H PRN IV 07/05/17 12:15 08/04/17 12:14 Pneumococcal Polysaccharide Vaccine 1 ea PRN PRN N/A 07/05/17 12:15 08/04/17 12:14 Influenza Virus Vacc Triv Types A&B 1 ea PRN PRN N/A 07/05/17 12:15 08/04/17 12:14 Polyethylene (Miralax Powder Packet) 17 gm Q6 PO 07/07/17 06:00 08/06/17 05:59 Bisacodyl (Dulcolax Supp) 10 mg DAILY PRN MT 07/05/17 12:15 08/04/17 12:14 Magnesium Hydroxide (Milk Of Magnesia Susp) 30 ml DAILY PRN PO 07/05/17 12:15 08/04/17 12:14 Hydromorphone HCl (Dilaudid Inj) 0.5-1mg prn moder... Q3H PRN IV 07/06/17 06:00 07/20/17 05:59 Oxycodone HCl (Roxicodone Immediate Rel Tab) 5-10mg prn moderate to sev... Q4H PRN PO 07/06/17 06:00 07/20/17 05:59 07/06/17 06:40 10 MG Acetaminophen (Tylenol Tab) 1,000 mg Q8H PRN PO 07/05/17 12:15 08/04/17 12:14 Acetaminophen 100 ml @ 400 mls/hr Q8H PRN IV 07/05/17 12:15 08/04/17 12:14 Naloxone HCl (Narcan Inj) 0.1 mg Q5M PRN IV 07/05/17 12:15 08/04/17 12:14 Senna/Docusate Sodium (Senokot S Tab) 2 tab HS PO 07/05/17 21:00 08/04/17 20:59 07/05/17 21:16 2 TAB Sodium Biphosphate/ Sodium Phosphate (Fleet Enema) 132 ml ONE PRN MT 07/05/17 12:15 08/04/17 12:14 Hydroxyzine HCl (Vistaril Tab) 25 mg Q8H PRN PO 07/05/17 12:15 08/04/17 12:14 Al Hydroxide/Mg Hydroxide (Maalox Susp) 30 ml Q6H PRN PO 07/05/17 12:15 08/04/17 12:14 Famotidine (Pepcid Tab) 20 mg Q12 PRN PO 07/05/17 12:15 08/04/17 12:14 Diphenhydramine HCl (Benadryl Cap) 25 mg Q6H PRN PO 07/05/17 12:15 08/04/17 12:14 Aspirin (Ecotrin Tab) 81 mg QAM PO 07/06/17 09:00 08/05/17 08:59 Dorzolamide/ Timolol (Cosopt Op Soln) 1 drops BID OPB 07/05/17 21:00 08/04/17 20:59 07/05/17 21:12 1 DROPS Hydrochlorothiazide (Hydrochlorothiazide Tab) 12.5 mg QAM PO 07/06/17 09:00 08/05/17 08:59 Lisinopril (Zestril Tab) 40 mg QAM PO 07/06/17 09:00 08/05/17 08:59 Simvastatin (Zocor Tab) 40 mg QAM PO 07/06/17 09:00 08/05/17 08:59 Tramadol HCl (Ultram Tab) 50 mg Q8H PRN PO 07/05/17 12:15 08/04/17 12:14 Ofloxacin (Ocuflox 0.3% Oph Soln) 5 drops BID OTL 07/05/17 21:00 07/14/17 23:59 07/05/17 21:15 5 DROPS Insulin Aspart (novoLOG ASPART) SLIDING SCALE G... ACHS SC 07/05/17 21:00 08/04/17 20:59 07/05/17 21:23 3 UNITS Brimonidine Tartrate (Alphagan-P 0.1% Oph Solution) 1 drop BID OPB 07/05/17 21:00 08/04/17 20:59 07/05/17 21:28 1 DROP Objective Vital Signs Date Time Temp Pulse Resp B/P (MAP) Pulse Ox O2 Delivery O2 Flow Rate FiO2 07/06/17 07:28 36.6 70 16 117/68 (84) 94 Room Air 07/06/17 03:10 36.6 64 16 102/62 (75) 92 Room Air 07/05/17 23:10 Nasal Cannula 1.0 07/05/17 23:00 36.5 63 16 98/61 (73) 95 Nasal Cannula 1.0 07/05/17 19:55 36.4 65 16 109/69 (82) 94 Nasal Cannula 1.0 07/05/17 19:15 Nasal Cannula 2.0 07/05/17 17:10 36.6 70 18 142/93 (109) 95 Nasal Cannula 3.0 07/05/17 16:10 36.4 66 16 133/89 (104) 94 Nasal Cannula 3.0 07/05/17 15:10 36.5 74 16 136/80 (98) 94 Nasal Cannula 3.0 07/05/17 14:40 36.5 72 16 119/75 (90) 95 3.0 07/05/17 14:10 Nasal Cannula 2.0 07/05/17 14:10 Nasal Cannula 3.0 07/05/17 14:10 36.5 76 14 126/77 (93) 93 Nasal Cannula 2.0 07/05/17 13:55 70 13 119/80 95 Nasal Cannula 4 07/05/17 13:45 36.1 78 16 116/77 94 Nasal Cannula 4 07/05/17 13:35 72 24 151/84 95 Nasal Cannula 4 07/05/17 13:25 70 12 144/67 96 Nasal Cannula 4 07/05/17 13:15 71 15 119/76 96 Oxymask 10 07/05/17 13:05 73 12 119/73 94 Oxymask 10 07/05/17 12:55 36.5 75 13 146/86 97 Oxymask 10 Physical Exam General Appearance: WD/WN, no apparent distress Eyes: normal inspection, EOMI, sclerae normal ENT: normal ENT inspection, hearing grossly normal, pharynx normal Neck: supple, no adenopathy, no JVD, trachea midline Respiratory/Chest: chest non-tender, lungs clear, normal breath sounds, no respiratory distress, no accessory muscle use Cardiovascular: regular rate, rhythm, no edema, no gallop, no JVD, no murmur Abdomen: normal bowel sounds, non tender, soft, no organomegaly Extremities: no pedal edema, no calf tenderness, normal capillary refill, pelvis stable, + pertinent finding (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, 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 with 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) Neurologic/Psychiatric: training professional II-XII nml as tested, no motor/sensory deficits, alert, normal mood/affect, oriented x 3 Skin: normal color, warm/dry, no rash Laboratory Results Last 24 Hours Test 07/05/17 11:38 07/05/17 11:45 07/05/17 16:56 07/05/17 20:58 Hemoglobin 13.6 g/dL Hematocrit 38.7 % Estimated Average Glucose 151 mg/dl Hemoglobin A1c 6.9 % Bedside Glucose 242 mg/dl 238 mg/dl Test 07/06/17 05:01 07/06/17 07:55 White Blood Count 13.35 K/uL Red Blood Count 3.88 M/uL Hemoglobin 11.3 g/dL Hematocrit 33.6 % Mean Corpuscular Volume 86.6 fL Mean Corpuscular Hemoglobin 29.1 pg Mean Corpuscular Hemoglobin Concent 33.6 g/dl Platelet Count 173 K/uL Mean Platelet Volume 10.8 fL Neutrophils (%) (Auto) 88.6 % Lymphocytes (%) (Auto) 6.4 % Monocytes (%) (Auto) 4.6 % Eosinophils (%) (Auto) 0.0 % Basophils (%) (Auto) 0.0 % Neutrophils # (Auto) 11.82 K/uL Lymphocytes # (Auto) 0.86 K/uL Monocytes # (Auto) 0.62 K/uL Eosinophils # (Auto) 0.00 K/uL Basophils # (Auto) 0.00 K/uL RDW Standard Deviation 44.9 fL RDW Coefficient of Variation 14.3 % Immature Granulocyte % (Auto) 0.4 % Immature Granulocyte # (Auto) 0.05 K/uL Sodium Level 133 mmol/L Potassium Level 4.4 mmol/L Chloride Level 98 mmol/L Carbon Dioxide Level 27 mmol/L Anion Gap 8.0 mmol/L Blood Urea Nitrogen 27 mg/dl Creatinine 1.06 mg/dl Est Creatinine Clear Calc Drug Dose 81.6 ml/min Estimated GFR () 83.2 Estimated GFR (Non- 71.8 BUN/Creatinine Ratio 25.2 Random Glucose 178 mg/dl Calcium Level 7.9 mg/dl Bedside Glucose 188 mg/dl Assessment and Plan 67 y/o M who was admitted on 07/05 s/p lumbar spine surgery with Dr. Muhammad. Post-op: as per ortho Elevated BS: records show that pt has had slightly elevated A1c in the past but got it down to 5.1 with diet and exercise HbA1c up at 6.9 now, d/w patient he will be more active, but agrees to starting medication, wants to discuss with his PCP continue Novolog SS while inpatient no plans to start new medications for discharge L otitis externa: continue oflaxacin BID and complete prescription upon discharge left ear not tender, no erythema, responding well to drops HTN: continue home meds, BP stable Hyperlipidemia: continue home meds patient medically stable, will sign off at this time, please page Dr. Castle for any questions or new issues that arise
[2017-07-06] MEDS: DORZOLAMIDE/TIMOLOL 22.3/6.8MG/ML 10 ML BTL OPB SCH ×2 (09:15→20:53)
[2017-07-06] MEDS: OFLOXACIN 0.3% OP SOLN 5 ML BTL OTL SCH ×2 (09:15→20:53)
[2017-07-06] MEDS: BRIMONIDINE TARTRATE 0.1% OPH SOLN OPB SCH ×2 (09:18→20:53)
[2017-07-06] MEDS: LISINOPRIL 40 MG TAB PO SCH (09:19)
[2017-07-06] MEDS: ASPIRIN 81 MG ECTAB PO SCH (09:19)
[2017-07-06] MEDS: HYDROCHLOROTHIAZIDE 25 MG TAB PO SCH (09:20)
[2017-07-06] MEDS: SIMVASTATIN 40 MG TAB PO SCH (09:20)
[2017-07-06] MEDS: INSULIN ASPART 100 UNITS/ML 3 ML PEN SC SCH ×4 (09:24→21:06)
[2017-07-06 11:04] VITALS: BP 125/71; PULSE 73; TEMP 36.9; O2SAT 94
--- NOTE | 2017-07-06 12:02 | Progress Note ---
Progress Note Date of Service Jul 06, 2017. Progress Note Patient status post lumbar decompression fusion. Today he is noting some sensation of weakness in his legs however the pain is resolved. He's been up and amatory. Vital signs are stable. JACQUES drain decreasing probably. Assessment status post multilevel lumbar decompression fusion. Plan at this time will continue to advance activity as tolerated. Monitor is JACQUES output. Anticipate possible home with home health this weekend.
[2017-07-06] MEDS ORDERED: RXC5 PO (12:08)
--- NOTE | 2017-07-06 12:09 | Discharge Instructions ---
Discharge Instructions Date of Service Jul 06, 2017. Admission Reason for Admission: Spinal Stenosis Discharge Discharge Diagnosis / Problem: lumbar stenosis Discharge Goals Goal(s): Improve function Activity Recommendations Activity Limitations: per Instructions/Follow-up section . Instructions / Follow-Up Instructions / Follow-Up ACTIVITY RECOMMENDATIONS: SELF CARE INSTRUCTIONS AFTER THORACIC/LUMBAR FUSIONS 1. You may walk to your tolerance. It is good exercise for your legs and back. Expect some back and intermittent leg aches and pains. 2. You may perform "counter-top" level activities (make a sandwich, corie with a project, etc.). 3. No bending or lifting of more than 10 pounds or back twisting of any nature (roll like a log when turning in bed). 4. You may ride in a car for 20-30 minutes at a time. No driving until after your first visit with your doctor. 5. Frequent changes of position and restricting sitting to 30 minutes at a time will help limit the amount of back spasms and stiffness you may experience. 6. You may discontinue the use of ambulatory aids (cane, crutches, etc.) once your strength and confidence allow. 7. You may e commerce marketing analyst the shower and let water strike your incision when you arrive home at least once daily. Do not take a tub bath, sit in a hot tub or go into a swimming pool until after your first recheck in the office. SPECIAL CARE INSTRUCTIONS: VERY IMPORTANT TO READ AND REVIEW A. Your surgical incision has been closed with a cosmetic suture under the skin that will dissolve in about 6 weeks. In 14 days, you can use a pair of clean scissors and cut the suture that is left outside of the skin at the ends of your incision. 1. The small skin tapes can be removed 7 days after surgery if they have not fallen off by that point. 2. You may keep the wound open to air as much as possible to promote healing after post-op day number 5 unless told otherwise by your doctor. 3. If you think the wound looks like it is becoming infected (redness or worsening drainage) and/or you are experiencing fever, chill or worsening back pain and muscle spasms, contact the office so that we may evaluate you as soon as possible. B. Complications are uncommon, but please contact us if you have any signs or symptoms of: 1. wound infection (fever higher than 102.5 degrees F, redness, separation of wound, drainage, or increasing pain from the incision) 2. blood clots in legs (pain, swelling, redness and warmth in legs) 3. urinary tract infection (fever higher than 102.5 degrees F, burning upon urination or increased frequency of urination) 4. nerve problems (inability to walk on your toes or heels, numbness, loss of bowel or bladder control) 5. any other symptoms that concern you C. Please call the office at if you have any concerns or questions about your operation or recovery. D. No smoking! Smoking drastically decreases the chance of a solid fusion. E. Do not take any anti-inflammatory medications (Indocin, Advil, Motrin, Aspirin, Naprosyn, etc.) as these may inhibit the chance of a solid fusion. Tylenol is okay to take for pain. MANAGING PAIN AFTER SPINAL SURGERY 1. Narcotic medication is intended for short-term use and will be provided for surgical pain. Surgical pain usually lasts for a period of 4-6 weeks. Narcotic medication includes Percocet, Vicodin, Darvocet, Tylenol #3 or Lortab. 2. Longer-term pain is more appropriately treated with non-narcotic medication such as Tylenol ES. 3. Muscle spasm is not appropriately treated with narcotics. Muscle relaxers such as Soma, Flexeril or Skelaxin can be used along with Tylenol ES. 4. Remember that we all live with some "aches and pains". This is not unusual or uncommon after an injury or as we get older. a. Back pain is expected and may include muscle spasms for 4 to 6 weeks after surgery. The pain should gradually improve. If the pain worsens for no apparent reason, please contact the office. b. Intermittent leg pain may also be experienced and should not be concerned about unless it worsens for no apparent reason. If so, please contact the office. 5. We will provide appropriate medication within the normal guidelines of their prescribed use. We will also be very cautious and aware of potential abuse and extended duration of patients' medication needs. a. Pain medications are for your comfort and to assist with sleep and rest so that the tissue can heal. They are not provided in order to return to normal activity and should not be used through the day. To do so or worsening pain at night can result from ongoing tissue damage and development of tolerance to the prescribed medicine. 6. Please allow 2-3 days to process refills. Prescriptions will not be mailed but must be picked up at the office. FOLLOW UP VISIT: Keep your scheduled follow-up appointment. Any questions, please call the office at . Current Hospital Diet Patient's current hospital diet: Diabetes Type 2 Diet Discharge Diet Recommended Diet: Regular Diet Procedures Procedures Performed: #1 lumbar decompression medial facetectomy foraminotomies L1 to L2 3 L3 4 L4 5 L5-S1. #2 posterior spinal fusion T12 to S1. #3 bilateral SI joint fusions. #4 posterior segmental instrumentation T12 to S1 with bilateral iliac bolts. #5 interbody fusion L4 5. #6 placement peek Cage 14 x 26 mm L4 5. #7 placement infuse collagen sponge, mask graft the posterior gutters and ostial amp in the interbody space. #8 placement of local harvested morcellized autograft in the posterior lateral gutters. Pending Studies Studies pending at discharge: no Laboratory Results Hemoglobin A1c Test 07/05/17 11:45 Range/Units Estimated Average Glucose 151 mg/dl Hemoglobin A1c 6.9 H 4.5-5.6 % Medical Emergencies . Who to Call and When: Medical Emergencies: If at any time you feel your situation is an emergency, please call 911 immediately. . Non-Emergent Contact Non-Emergency issues call your: Primary Care Provider . "Provider Documentation" section prepared by Papo Muhammad. . VTE Core Measure Inpt VTE Proph given/why not?: Vernon Kenyon, [facility]
[2017-07-06] MEDS: KETOROLAC TROMETHAMINE 15 MG/ML VIAL IV. PRN (14:44)
[2017-07-06 15:36] VITALS: BP 125/75; PULSE 71; TEMP 36.8; O2SAT 95
[2017-07-06] MEDS: DOCUSATE SODIUM/SENNA 50/8.6MG TAB PO SCH (20:54)
[2017-07-06 23:05] VITALS: BP 105/61; PULSE 68; TEMP 36.8; O2SAT 91
[2017-07-07] MEDS: DOCUSATE SODIUM/SENNA 50/8.6MG TAB PO SCH ×2 (00:51→22:09)
[2017-07-07] MEDS: POLYETHYLENE (MIRALAX) 17 GM PACK PO SCH ×4 (06:26→23:26)
[2017-07-07 07:25] VITALS: BP 103/62; PULSE 66; TEMP 36.7; O2SAT 97
[2017-07-07] MEDS: OFLOXACIN 0.3% OP SOLN 5 ML BTL OTL SCH ×2 (09:11→22:09)
[2017-07-07] MEDS: DORZOLAMIDE/TIMOLOL 22.3/6.8MG/ML 10 ML BTL OPB SCH ×2 (09:11→22:09)
[2017-07-07] MEDS: HYDROCHLOROTHIAZIDE 25 MG TAB PO SCH (09:12)
[2017-07-07] MEDS: BRIMONIDINE TARTRATE 0.1% OPH SOLN OPB SCH ×2 (09:12→21:00)
[2017-07-07] MEDS: LISINOPRIL 40 MG TAB PO SCH (09:12)
[2017-07-07] MEDS: SIMVASTATIN 40 MG TAB PO SCH (09:12)
[2017-07-07] MEDS: ASPIRIN 81 MG ECTAB PO SCH (09:12)
[2017-07-07] MEDS: INSULIN ASPART 100 UNITS/ML 3 ML PEN SC SCH ×4 (09:26→21:00)
--- NOTE | 2017-07-07 13:15 | Progress Note ---
Progress Note Date of Service Jul 07, 2017. Progress Note Patient is postop day #2 status post multilevel lumbar decompression fusion. Pulses this nicely. His leg pain is improved. His back pain is controlled. Still struggle with weakness to lower extremities as he was preoperative early. Assessment status post multilevel lumbar decompression fusion replant this time will continue physical therapy consider discharge home this weekend with home health.
[2017-07-07] MEDS: OXYCODONE HCL IR 5 MG TAB (IMMEDIATE RELEASE) PO PRN ×3 (13:31→22:16)
[2017-07-07 15:10] VITALS: BP 119/69; PULSE 74; TEMP 37.2; O2SAT 92
[2017-07-07] MEDS: HYDROmorphone INJ 0.5 MG/0.5 ML SYR IV PRN (16:02)
[2017-07-07 22:45] VITALS: BP 113/68; PULSE 71; TEMP 36.5; O2SAT 94
[2017-07-08] MEDS: OXYCODONE HCL IR 5 MG TAB (IMMEDIATE RELEASE) PO PRN ×4 (03:28→23:04)
[2017-07-08] MEDS: POLYETHYLENE (MIRALAX) 17 GM PACK PO SCH ×4 (05:44→23:06)
[2017-07-08 07:10] VITALS: BP 126/71; PULSE 67; TEMP 37; O2SAT 92
--- NOTE | 2017-07-08 09:02 | Progress Note ---
Progress Note Date of Service Jul 08, 2017. Progress Note Patient's back pain is controlled. Again leg pain resolved. Still struggling with the sensation of weakness particularly considering his bilateral footdrop. His ambulate halls with a walker. Vital signs are stable. JACQUES drain still over 100 mL over the last day. He has not had a bowel movement at this time. He is having positive flatus. On exam is inflating halls does appear comfortable. Assessment status post thoracal lumbar decompression fusion. Planned this time will continue therapy advance his bowel regimen anticipate home Monday or Monday pending his bowel regiment and JACQUES output.
[2017-07-08 09:17] LABS: HEMATOCRIT 31.6 % (42-52)
[2017-07-08] MEDS: BRIMONIDINE TARTRATE 0.1% OPH SOLN OPB SCH ×2 (09:37→21:00)
[2017-07-08] MEDS: INSULIN ASPART 100 UNITS/ML 3 ML PEN SC SCH ×4 (09:37→21:00)
[2017-07-08] MEDS: ASPIRIN 81 MG ECTAB PO SCH (09:39)
[2017-07-08] MEDS: HYDROCHLOROTHIAZIDE 25 MG TAB PO SCH (09:39)
[2017-07-08 09:42] LABS: BUN/CREATININE RATIO 24.7 (10-20); CALCIUM 8.7 mg/dl (8.5-10.1); CREATININE 1.15 mg/dl (0.60-1.40); POTASSIUM 4.1 mmol/L (3.5-5.1)
[2017-07-08] MEDS: SIMVASTATIN 40 MG TAB PO SCH (09:42)
[2017-07-08] MEDS: LISINOPRIL 40 MG TAB PO SCH (09:42)
[2017-07-08] MEDS: DORZOLAMIDE/TIMOLOL 22.3/6.8MG/ML 10 ML BTL OPB SCH ×2 (09:43→21:00)
[2017-07-08] MEDS: OFLOXACIN 0.3% OP SOLN 5 ML BTL OTL SCH ×2 (09:44→21:00)
[2017-07-08 10:00] VITALS: Ht 180.3 cm; Wt 103.4 kg
[2017-07-08 10:54] VITALS: BP 148/83; PULSE 84; O2SAT 94
[2017-07-08 15:20] VITALS: BP 102/67; PULSE 78; TEMP 37; O2SAT 93
[2017-07-08] MEDS: DOCUSATE SODIUM/SENNA 50/8.6MG TAB PO SCH (21:31)
[2017-07-08 23:15] VITALS: BP 111/66; PULSE 77; TEMP 36.8; O2SAT 96
[2017-07-09] MEDS: KETOROLAC TROMETHAMINE 15 MG/ML VIAL IV. PRN (03:30)
[2017-07-09] MEDS: OXYCODONE HCL IR 5 MG TAB (IMMEDIATE RELEASE) PO PRN ×3 (03:31→21:41)
[2017-07-09] MEDS: POLYETHYLENE (MIRALAX) 17 GM PACK PO SCH ×2 (06:33→12:00)
[2017-07-09 07:19] VITALS: BP 83/53; PULSE 79; TEMP 36.5; O2SAT 95
[2017-07-09 07:27] VITALS: PULSE 57
[2017-07-09] MEDS: OFLOXACIN 0.3% OP SOLN 5 ML BTL OTL SCH ×2 (08:03→21:28)
[2017-07-09 08:04] VITALS: BP 97/57; PULSE 64
[2017-07-09] MEDS: ASPIRIN 81 MG ECTAB PO SCH (08:51)
[2017-07-09] MEDS: SIMVASTATIN 40 MG TAB PO SCH (08:52)
[2017-07-09] MEDS: DORZOLAMIDE/TIMOLOL 22.3/6.8MG/ML 10 ML BTL OPB SCH ×2 (08:53→21:25)
[2017-07-09] MEDS: INSULIN ASPART 100 UNITS/ML 3 ML PEN SC SCH ×4 (08:57→21:00)
[2017-07-09] MEDS: BRIMONIDINE TARTRATE 0.1% OPH SOLN OPB SCH ×2 (08:59→21:27)
[2017-07-09] MEDS: HYDROCHLOROTHIAZIDE 25 MG TAB PO SCH (09:00)
[2017-07-09] MEDS: LISINOPRIL 40 MG TAB PO SCH (09:00)
--- NOTE | 2017-07-09 12:58 | Progress Note ---
Progress Note Date of Service Jul 09, 2017. Progress Note Patient is improving daily. His back pain is controlled. Leg pain again resolve but his numbness and weakness still present. He has not had a bowel movement at this time. He is having positive flatus. On exam he is sitting up at bedside does demonstrate bilateral foot drop below there appears to be some modest improvement particularly with the right lower extremity. Assessment status post multilevel lumbar decompression fusion replant this time we will maintain the JACQUES drain another 24 hours continue to advance his bowel regiment anticipate discharge home tomorrow.
[2017-07-09] MEDS ORDERED: NURSING VERBAL MED ORDER ONE (14:00)
[2017-07-09 15:17] VITALS: BP 134/77; PULSE 79; TEMP 37.3; O2SAT 95
[2017-07-09] MEDS: DOCUSATE SODIUM/SENNA 50/8.6MG TAB PO SCH (21:28)
[2017-07-09 23:00] VITALS: BP 92/54; PULSE 73; TEMP 36.7; O2SAT 94
[2017-07-10] MEDS: HYDROmorphone INJ 0.5 MG/0.5 ML SYR IV PRN (01:20)
[2017-07-10] MEDS: OXYCODONE HCL IR 5 MG TAB (IMMEDIATE RELEASE) PO PRN (04:20)
[2017-07-10 06:10] VITALS: BP 121/66; PULSE 71
[2017-07-10 07:23] VITALS: BP 119/70; PULSE 65; TEMP 36.8; O2SAT 95
[2017-07-10] MEDS: BRIMONIDINE TARTRATE 0.1% OPH SOLN OPB SCH (09:00)
[2017-07-10] MEDS: SIMVASTATIN 40 MG TAB PO SCH (09:04)
[2017-07-10] MEDS: LISINOPRIL 40 MG TAB PO SCH (09:04)
[2017-07-10] MEDS: ASPIRIN 81 MG ECTAB PO SCH (09:04)
[2017-07-10] MEDS: OFLOXACIN 0.3% OP SOLN 5 ML BTL OTL SCH (09:05)
[2017-07-10] MEDS: HYDROCHLOROTHIAZIDE 25 MG TAB PO SCH (09:05)
[2017-07-10] MEDS: DORZOLAMIDE/TIMOLOL 22.3/6.8MG/ML 10 ML BTL OPB SCH (09:05)
[2017-07-10] MEDS: INSULIN ASPART 100 UNITS/ML 3 ML PEN SC SCH (09:08)
--- NOTE | 2017-07-10 10:31 | Discharge Summary ---
Orthopedic Discharge Summary Admission Date/Reason Jul 05, 2017 at 07:30 Spinal Stenosis. Discharge Date/Disposition Jul 10, 2017 Home with services Diagnosis Principal Diagnosis: Lumbar spinal stenosis Admission Physical Exam As per Admitting History & Physical. Hospital Course Patient underwent multilevel lumbar decompression fusion tolerated this well was taken to the orthopedic floor postoperatively. He progressed daily throughout his hospital stay. The JACQUES drain decreasing appropriately. Bowels working yesterday. Substernally was discharged home. Discharge orders and instructions can be found the chart for further review. Discharge Instructions Please refer to the electronic Patient Visit Report (Discharge Instructions) for additional information.
[2017-07-10 11:07] VITALS: BP 119/70; PULSE 65; TEMP 36.8; O2SAT 95
== END 2017-07-10 12:15 | disposition home health service (06) | DRG 455 ==
LOC: C.ACU 05:37 → C.3E 07:30 → ENRESERV 13:15 → C.MSW 07-07 14:24
PROVIDERS: ADMIT Orthopaedic Surgery Orthopaedic Surgery of the Spine; ATTEND Orthopaedic Surgery Orthopaedic Surgery of the Spine
PROC: 0ST20ZZ Resection of Lumbar Vertebral Disc, Open Approach (ICD-10-PCS; principal; 2017-07-05 07:45)
PROC: 0SG1071 Fusion of 2 or more Lumbar Vertebral Joints with Autologous Tissue Substitute, Posterior Approach, Posterior Column, Open Approach (ICD-10-PCS; principal; 2017-07-05 07:45)
PROC: 0SG00AJ Fusion of Lumbar Vertebral Joint with Interbody Fusion Device, Posterior Approach, Anterior Column, Open Approach (ICD-10-PCS; principal; 2017-07-05 07:45)
PROC: 0RGA071 Fusion of Thoracolumbar Vertebral Joint with Autologous Tissue Substitute, Posterior Approach, Posterior Column, Open Approach (ICD-10-PCS; principal; 2017-07-05 07:45)
DX: M48.061 Spinal stenosis, lumbar region without neurogenic claudication (principal); I10 Essential (primary) hypertension; E78.5 Hyperlipidemia, unspecified; H60.92 Unspecified otitis externa, left ear; Z79.82 Long term (current) use of aspirin; Z79.899 Other long term (current) drug therapy

== ENCOUNTER → 2017-07-20 | Outpatient (CLI) | payer OTHER, MEDICARE ==
[~2017-07-20] MED LIST changes: +OFLO0.3D4 OT; +RXC5 PO
== END | disposition home or self-care (01) ==
LOC: C.LABSPEC 17:12
PROVIDERS: ATTEND Physician Assistant
DX: H60.92 Unspecified otitis externa, left ear (principal)

== ENCOUNTER → 2017-08-03 | Outpatient (CLI) | payer OTHER, MEDICARE ==
--- NOTE | 2017-08-03 11:50 | DIAGNOSTIC IMAGING REPORT ---
(TESTICULAR) SCROTUM-CONT CLINICAL HISTORY: 67 years-old Male with R TEST SWELLING. Acute swelling of the right scrotum COMPARISON STUDY: None available TECHNIQUE: Real-time, grayscale, and color Doppler sonography of the testes and scrotum is performed. Images are reviewed in the transverse and longitudinal planes. FINDINGS: RIGHT HEMISCROTUM: The right testis measures 4.8 x 3.2 x 3.5 cm and the parenchyma appears unremarkable with the exception of a 1 mm mm microcalcification. No intratesticular mass is seen. Normal-appearing arterial inflow is present within the right testicle. The right epididymal head appears normal. Large right-sided hydrocele. LEFT HEMISCROTUM: The left testis measures 4.2 x 2.9 x 2.6 cm and the parenchyma appears unremarkable with exception of 2 adjacent microcalcifications measuring up to 1 mm. No intratesticular mass is seen. Normal-appearing arterial inflow is present within the left testicle. The left epididymal head demonstrates several small cysts, largest of which measures up to 0.5 cm. Moderate left-sided hydrocele. No varicocele identified. IMPRESSION: 1. Unremarkable sonographic appearance of the bilateral testicles without evidence of torsion or mass. 2. Large right and moderate left-sided hydroceles. 3. Several subcentimeter left epididymal head cysts. The above report was generated using voice recognition software. It may contain grammatical, syntax or spelling errors. Electronically signed by: Manpreet Villela M.D. 08/03/2017 11:49 AM Dictated Date/Time: 08/03/2017 11:45 AM
== END | disposition home or self-care (01) ==
LOC: C.ULTRBC 10:58
PROVIDERS: ATTEND Internal Medicine Geriatric Medicine
DX: N50.89 Other specified disorders of the male genital organs (principal)

== ENCOUNTER → 2017-08-23 | Outpatient (CLI) | payer OTHER, MEDICARE ==
[2017-08-23 12:32] LABS: BASO % 0.2 %; BASO ABS # 0.01 K/uL (0-0.2); EOS ABS # 0.19 K/uL (0-0.5); HEMATOCRIT 43.2 % (42-52); HEMOGLOBIN 14.1 g/dL (14.0-18.0); IG# 0.01 K/uL (0.00-0.02); LYMPH % 27.1 %; MEAN CELL VOLUME 84.7 fL (80-100); MEAN CORPUSCULAR HEMOGLOBIN 27.6 pg (25-34); MEAN CORPUSCULAR HGB CONC 32.6 g/dl (32-36); MONO % 8.5 %; MONO ABS # 0.53 K/uL (0.11-0.59); NEUT ABS # 3.83 K/uL (1.4-6.5); PLATELET COUNT 222 K/uL (130-400); RED CELL DISTRIBUTION WIDTH CV 14.5 % (11.5-14.5); RED CELL DISTRIBUTION WIDTH SD 44.7 fL (36.4-46.3); WHITE BLOOD COUNT 6.27 K/uL (4.8-10.8)
[2017-08-23 12:34] LABS: HEMOGLOBIN A1C 6.7 % (4.5-5.6)
[2017-08-23 12:46] LABS: ALBUMIN 3.8 gm/dl (3.4-5.0); ALT/SGPT 30 U/L (12-78); AST/SGOT 14 U/L (15-37); BLOOD UREA NITROGEN 20 mg/dl (7-18); CALCIUM 9.5 mg/dl (8.5-10.1); CARBON DIOXIDE 33 mmol/L (21-32); CREATININE 1.03 mg/dl (0.60-1.40); GLUCOSE 238 mg/dl (70-99); POTASSIUM 3.8 mmol/L (3.5-5.1); SODIUM 135 mmol/L (136-145)
[2017-08-23 12:57] LABS: ALKALINE PHOSPHATASE 145 U/L (45-117); CHOLESTEROL 142 mg/dl (0-200); LDL CHOLESTEROL CALCULATED 71 mg/dl; TOTAL PROTEIN 7.1 gm/dl (6.4-8.2)
== END | disposition home or self-care (01) ==
LOC: C.LABBFT 09:59
PROVIDERS: ATTEND Internal Medicine Geriatric Medicine
DX: I10 Essential (primary) hypertension (principal); M19.90 Unspecified osteoarthritis, unspecified site; I25.10 Atherosclerotic heart disease of native coronary artery without angina pectoris; E11.9 Type 2 diabetes mellitus without complications

== ENCOUNTER → 2018-03-07 | Outpatient (CLI) | payer OTHER, MEDICARE ==
--- NOTE | 2018-03-07 14:36 | DIAGNOSTIC IMAGING REPORT ---
BONE SCAN WHOLE BODY CLINICAL HISTORY: CHRONIC OSTEOARTHRITIS COMPARISON STUDY: MRI of the lumbar spine dated 05/23/2017, chest x-ray dated 08/19/2016 FINDINGS: Patient was injected with 26.4 mCi of technetium 99m MDP. Three-hour delayed whole body images were acquired. There are foci of increased activity within the shoulders, right posterior neck, wrists, feet, and ankles, consistent with degenerative/arthritic change. There are photopenic defects within the knees consistent with prior knee arthroplasties. There are foci of increased activity within the lower thoracic spine, and sacroiliac joint region, consistent with postsurgical changes of a thoracolumbar spinal fusion with sacroiliac bolt placement. There is a focus of increased activity within the thoracic spine the T8 level. Although nonspecific, this is likely related to a compression fracture or arthritic change. IMPRESSION: 1. Multiple foci of abnormal increased uptake in a pattern most consistent with degenerative/arthritic change, and postsurgical change. 2. Unexplained foci of increased activity within the thoracic spine at T8 level. Although nonspecific this is likely related to a compression fracture or arthritic disease Electronically signed by: Ishan Whittaker M.D. 03/07/2018 2:35 PM Dictated Date/Time: 03/07/2018 2:27 PM
== END | disposition home or self-care (01) ==
LOC: C.NUCL 10:45
PROVIDERS: ATTEND Internal Medicine Geriatric Medicine
DX: M19.90 Unspecified osteoarthritis, unspecified site (principal)

== ENCOUNTER → 2018-03-19 | Outpatient (CLI) | payer OTHER, MEDICARE ==
[~2018-03-19] MED LIST changes: +GADAVIST IV PRN
--- NOTE | 2018-03-19 15:07 | DIAGNOSTIC IMAGING REPORT ---
MRI OF THE THORACIC SPINE COMBO CLINICAL HISTORY: Follow-up abnormal bone scan. Bilateral foot drop. COMPARISON STUDY: Nuclear bone scan dated 03/07/2018. Chest CT dated 09/29/2014. TECHNIQUE: MRI of the thoracic spine is performed utilizing various T1 and T2-weighted sequences in the axial and sagittal planes. Contrast-enhanced sequences are acquired following the IV administration of 11 cc of Gadavist. FINDINGS: Vertebral body height and alignment are maintained throughout the thoracic spine. Degenerative endplate change and mild edema is seen at T7-T8. This likely corresponds to the abnormality seen on nuclear bone scan. No destructive osseous lesion is identified. Small hemangiomas are noted in the bodies of T6 and T11. Postlaminectomy change is partially visualized at the thoracolumbar junction involving T12 and L1. The spinous processes are preserved. Small anterior osteophytes are noted in the mid to lower thoracic region. Degenerative disc desiccation is seen throughout the thoracic spine. There is a posterior disc bulge at T7-T8 which effaces the ventral subarachnoid space. Additional tiny posterior disc bulges are seen at T2-T3, T3-T4, T4-T5, T10-T11, and T11-T12. There is no large disc herniation or high-grade central canal stenosis. The thoracic spinal cord is normal in morphology and signal intensity. No abnormal enhancement is identified on the postcontrast sequences. No high-grade neural foraminal stenosis is identified. There is no high-grade neural foraminal narrowing identified. The paraspinous soft tissues are within normal limits. A large right renal cyst is partially imaged. The lung parenchyma is grossly normal but not well evaluated by MRI. IMPRESSION: 1. There is chronic degenerative endplate change and endplate edema identified at T7-T8. This likely corresponds to the abnormality seen by nuclear bone scan. 2. No destructive osseous lesion is identified. 3. Degenerative disc disease as above. There is no large disc herniation or high-grade central canal stenosis. 4. Postoperative changes partially visualized involving T12 and L1. Dictated: 03/19/2018 2:53 PM Transcribed: 03/19/2018 3:07 PM [facility] Electronically signed by: Dandre Mckenzie M.D. 03/20/2018 8:15 AM Dictated Date/Time: 03/19/2018 2:53 PM
== END | disposition home or self-care (01) ==
LOC: C.MRI 13:23
PROVIDERS: ATTEND Physician Assistant Medical
DX: R93.7 Abnormal findings on diagnostic imaging of other parts of musculoskeletal system (principal); M47.894 Other spondylosis, thoracic region; M51.34 Other intervertebral disc degeneration, thoracic region

== ENCOUNTER 2019-10-08 11:57 | Inpatient (IN) ==
--- NOTE | 2019-10-01 13:28 | PAT Medication Instructions ---
Medication Instructions Date of Service October 01, 2019 Home Medications Medication Instructions Recorded glimepiride 2 mg tablet 2 mg PO BID #180 tab 05/22/19 ascorbic acid (vitamin C) 250 mg tablet 250 mg PO DAILY aspirin 81 mg tablet,delayed release 81 mg PO QAM cyanocobalamin (vitamin B-12) 1,000 mcg capsule 1,000 mcg PO QAM furosemide 20 mg tablet 20 mg PO DAILY PRN lisinopril 40 mg tablet 40 mg PO QAM sitagliptin 50 mg-metformin 1,000 mg tablet 1 tab PO BID tramadol 100 mg capsule 24h,extended release(25-75) 100 mg PO DAILY PRN glimepiride 2 mg tablet 2 mg PO BID brimonidine [Alphagan P] 1 drp OPHTHALMIC (EYE) BID simvastatin 40 mg PO QAM timolol maleate [Timoptic] 1 drp OPHTHALMIC (EYE) BID ASK your prescriber and surgeon aspirin 81 mg tablet,delayed release 81 mg PO QAM DO NOT take the morning of surgery ascorbic acid (vitamin C) 250 mg tablet 250 mg PO DAILY cyanocobalamin (vitamin B-12) 1,000 mcg capsule 1,000 mcg PO QAM furosemide 20 mg tablet 20 mg PO DAILY PRN lisinopril 40 mg tablet 40 mg PO QAM sitagliptin 50 mg-metformin 1,000 mg tablet 1 tab PO BID glimepiride 2 mg tablet 2 mg PO BID Take morning of surgery With a small sip of water, OTHERWISE NOTHING TO EAT OR DRINK AFTER MIDNIGHT: tramadol 100 mg capsule 24h,extended release(25-75) 100 mg PO DAILY PRN (okay to take up to 4 hours prior to surgery if needed) brimonidine [Alphagan P] 1 drp OPHTHALMIC (EYE) BID simvastatin 40 mg PO QAM timolol maleate [Timoptic] 1 drp OPHTHALMIC (EYE) BID Take evening before surgery furosemide 20 mg tablet 20 mg PO DAILY PRN (if needed) sitagliptin 50 mg-metformin 1,000 mg tablet 1 tab PO BID tramadol 100 mg capsule 24h,extended release(25-75) 100 mg PO DAILY PRN (if needed) glimepiride 2 mg tablet 2 mg PO BID brimonidine [Alphagan P] 1 drp OPHTHALMIC (EYE) BID timolol maleate [Timoptic] 1 drp OPHTHALMIC (EYE) BID Other Notes If you have any questions please call us at [phone] or [phone] or [phone] or [phone]
--- NOTE | 2019-10-02 13:24 | Anesthesiology Consultation ---
Date of Service October 02, 2019 Assessment & Plan (1) Encounter for pre-operative examination: - Awaiting most recent cardiology office visit note/cardiac testing (Dr. Ochoa) . - Check [facility] AM DOS Chart Review Chart Review: Patient seen in Pre Admission Testing Teaching & Discussion Pre-Anesthesia Teaching/Discussion Notes: Instructed NPO after midnight before surgery,except medications with 15 cc of water. Medication instructions provided according to the PAT guidelines. History Surgery Operation Date: 10/08/19 14:15 Proposed Procedures p T10-T11 Decomrpession, T12-L1 Fusion, Spinal Cord Monitoring - Papo Muhammad DO Height/Weight Height: 5 ft 11 in Weight: 114.6 kg Allergies Allergy/AdvReac Type Severity Reaction Status Date / Time morphine Allergy Mild ITCHY Verified 10/01/19 12:48 Medications Home Medications Medication Instructions Recorded Confirmed Last Taken ascorbic acid (vitamin C) 250 mg 250 mg PO DAILY 05/19/19 10/01/19 Unknown tablet aspirin 81 mg tablet,delayed 81 mg PO QAM 05/19/19 10/01/19 Unknown release cyanocobalamin (vitamin B-12) 1,000 mcg PO QAM 05/19/19 10/01/19 Unknown 1,000 mcg capsule furosemide 20 mg tablet 20 mg PO DAILY PRN 05/19/19 10/01/19 Unknown lisinopril 40 mg tablet 40 mg PO QAM 05/19/19 10/01/19 Unknown sitagliptin 50 mg-metformin 1,000 1 tab PO BID 05/19/19 10/01/19 Unknown mg tablet tramadol 100 mg capsule 100 mg PO DAILY PRN 05/19/19 10/01/19 Unknown 24h,extended release(25-75) glimepiride 2 mg tablet 2 mg PO BID #180 tab 05/22/19 10/01/19 Unknown brimonidine [Alphagan P] 1 drp OPHTHALMIC (EYE) BID 10/01/19 10/01/19 Unknown simvastatin 40 mg PO QAM 10/01/19 10/01/19 Unknown timolol maleate [Timoptic] 1 drp OPHTHALMIC (EYE) BID 10/01/19 10/01/19 Unknown Past Medical History Medical History Diabetes mellitus, type 2 NIDDM History of aortic valve disease s/p Medtronic Saleem porcine AVR (2015) 2/2 hx severe aortic stenosis- normal hemodynamics per 2017 ECHO Hyperlipidemia (Chronic) Hypertension (Chronic) Lumbar stenosis with neurogenic claudication Obesity Osteoarthritis Exercise / Class Metabolic Activity III < 4 Walking/Shop/Light housework Past Family History Family History Mother Myocardial infarction Father Myocardial infarction Grandfather (Maternal) Myocardial infarction Denies family history of Ovarian cancer Prostate cancer Breast cancer Colorectal cancer Past Surgical History Surgical History History of cardiac cath 2016- no stents History of difficult intubation L1-S1 decompression with T12-S1 fusion: 07/05/17: "Easy" with glidescope#4, ETT 8.0 at [facility] History of hemiarthroplasty of shoulder RIGHT, LEFT History of lumbar fusion History of total left knee replacement History of total right knee replacement Hx of aortic valve replacement 2014 Hx of colonoscopy Past Anesthesia History Difficult Airway (L1-S1 decompression with T12-S1 fusion: 07/05/17: "Easy" with glidescope#4, ETT 8.0 at [facility]) and No Family Hx of Anesthesia Complications History of PONV No Hx of PONV and Hx of Motion Sickness (occasional) Social History Smoking Status: Never smoker Do You Dip or Chew Tobacco: No Hx Alcohol Use: Yes Alcohol type: beer alcohol intake frequency: holidays/special occasions only Hx Substance Use: No Review of Systems Patient denies chest pain, shortness of breath, reflux, cough, wheezing, palpitations. Physical Exam Vital Signs VITALS BP 148/88 P 65 TEMP 98.3 SP02 95%RA RESP 18 PHYSICAL Full neck and c-spine range of motion. Full TMJ range of motion. TMD 4 finger breaths Mallampati Score 4 Dentition: missing side tooth Lungs: clear throughout to auscultation Cardiac: regular rate and rhythm, no murmurs noted Spine: normal Carotid arteries: negative bruit Extremities: no edema Testing Laboratory Results 10/02/19 13:54 10/02/19 13:54 PT 10.3 Seconds (9.0-12.0) 10/02/19 13:54 INR 1.0 (0.9-1.1) 10/02/19 13:54 APTT 26.5 Seconds (21.0-31.0) 10/02/19 13:54 Urine Color Yellow 10/02/19 Unknown Urine Appearance Clear (Clear) 10/02/19 Unknown Urine pH 6.0 (4.5-7.5) 10/02/19 Unknown Ur Specific [place] 1.022 (1.000-1.030) 10/02/19 Unknown Urine Protein Trace (Negative) H 10/02/19 Unknown Urine Glucose (UA) Trace (Negative) H 10/02/19 Unknown Urine Ketones Negative (Negative) 10/02/19 Unknown Urine Nitrite Negative (Negative) 10/02/19 Unknown Ur Leukocyte Esterase Negative (Negative) 10/02/19 Unknown Urine WBC (Auto) 1-5 /hpf (0-5) 10/02/19 Unknown Urine RBC (Auto) 0-4 /hpf (0-4) 10/02/19 Unknown U Hyaline Cast (Auto) 0 /lpf (0-5) 10/02/19 Unknown U Epithel Cells (Auto) 5-10 /lpf (0-5) H 10/02/19 Unknown Urine Bacteria (Auto) Negative (Negative) 10/02/19 Unknown Blood Type O Positive 10/02/19 13:54 Antibody Screen NEGATIVE 10/02/19 13:54 05/20/19 HGBA1C 7.3% Electrocardiogram Date: 10/02/19 Findings: + NSR @ (62) Chest X-Ray Date: 10/02/19 Findings: + NAD Echocardiogram Date: 08/24/16 EF 70%. Moderate cLVH. Grade 1 diastolic dysfunction. No RWMA. Well-seated bioprosthetic AVR with normal hemodynamics. No perivalvular insufficiency. Cardiac Catheterization Date: 04/01/16 Done as preop evaluation before AVR. Severe calcified aortic stenosis. Short caliber LMCA without obstructive disease large caliber LAD and left circumflex. No significant stenosis of any coronary arteries.
--- NOTE | 2019-10-02 14:18 | XRay Report ---
XR chest Pre-admission PA/Lat CLINICAL HISTORY: pat preoperative COMPARISON STUDY: 08/19/2016 FINDINGS: The bones soft tissues and hemidiaphragms are normal. The cardiomediastinal silhouette is n ormal. The lungs are clear. The pulmonary vasculature is normal. IMPRESSION: No acute process. ACT 112: Negative or not required by law. The above report was generated using voice recognition software. It may contain grammatical, syntax or spelling errors. Electronically signed by: Gibson Craig M.D. 10/02/2019 2:16 PM
[2019-10-02 15:21] LABS: Basophils # (auto) 0.02 K/uL (0-0.2); Basophils % (auto) 0.3 %; Eosinophils # (auto) 0.22 K/uL (0-0.5); Eosinophils % (auto) 3.2 %; Hematocrit (blood only) 47.3 % (42-52); Hemoglobin 16.7 g/dL (14.0-18.0); Immature Granulocytes # (auto) 0.03 K/uL (0.00-0.02); Immature Granulocytes % (auto) 0.4 %; Lymphocytes # (auto) 1.77 K/uL (1.2-3.4); Lymphocytes % (auto) 25.4 %; Mean Corpuscular Hemoglobin 29.7 pg (25-34); Mean Corpuscular Hgb Conc 35.3 g/dL (32-36); Mean Corpuscular Volume 84.2 fL (80-100); Mean Platelet Volume 10.8 fL (7.4-10.4); Monocytes # (auto) 0.57 K/uL (0.11-0.59); Monocytes % (auto) 8.2 %; Neutrophils # (auto) 4.37 K/uL (1.4-6.5); Neutrophils % (auto) 62.5 %; Platelet Count 171 K/uL (130-400); RDW Coefficient of Variation 14.1 % (11.5-14.5); RDW Standard Deviation 43.2 fL (36.4-46.3); Red Blood Count 5.62 M/uL (4.7-6.1); White Blood Count 6.98 K/uL (4.8-10.8)
[2019-10-02 15:35] LABS: BUN Creatinine Ratio 16.3 (10-20); Creatinine Clr Calc Pharmacy 85.1 ml/min; Est GFR (African American) 83.9; Est GFR (Non-African American) 72.4
[2019-10-02 15:38] LABS: Partial Thromboplastin Time 26.5 Seconds (21.0-31.0); Prothrombin Time 10.3 Seconds (9.0-12.0)
[2019-10-02 15:43] LABS: Appearance Urine Clear (Clear); Bacteria Urine Automated Negative (Negative); Bilirubin Urine Negative (Negative); Blood Urine Negative (Negative); Cast Urine Automated 0 /lpf (0-5); Color Urine Yellow; Glucose Urine UA Trace (Negative); Ketones Urine Negative (Negative); Leukocyte Esterase Urine Negative (Negative); Nitrite Urine Negative (Negative); Protein Urine Trace (Negative); RBC Urine Automated 0-4 /hpf (0-4); Specific Gravity Urine 1.022 (1.000-1.030); Urobilinogen Urine Negative (Negative)
--- NOTE | 2019-10-03 06:20 | Electrocardiogram Report ---
Test Reason : Blood Pressure : / mmHG Vent. Rate : 062 BPM Atrial Rate : 062 BPM P-R Int : 164 ms QRS Dur : 098 ms QT Int : 422 ms P-R-T Axes : 000 067 -03 degrees QTc Int : 428 ms Normal sinus rhythm When compared with ECG of 13-JUN-2017 12:07, Criteria for Anteroseptal infarct are no longer Present Confirmed by Gabo Johnson ([id number]) on 10/03/2019 6:19:47 AM Referred By: Papo Muhammad Confirmed By:Gabo Johnson
[~2019-10-08 11:57] MED LIST changes: +ACETAMINOPHEN 500 MG TAB PO SCH; -ASCO500T3 PO; -ASPI81TA28 PO; -BRIM0.1S OPB; +CEFAZOLIN 2000MG 2,000 MG/15 ML SYR IV SCH; +CeleBREX 200 MG CAP PO SCH; -DICL1GEL12 EXT; -DORZ2SOL20 OPB; +GABAPENTIN 300 MG CAP PO SCH; -GADAVIST IV PRN; -HYDR25TA4 PO; -LISI40TA PO; +LR 15ML/HR IV SCH; -OFLO0.3D4 OT; -RXC5 PO; -SENN-61 PO; -TRAM-10 PO; -ZCRT/40 PO
[2019-10-08] MEDS ORDERED: LIDOCAINE HCL 2% 2 ML VIAL/AMP(20MG/ML) INFIL ONE (12:37)
[2019-10-08] MEDS ORDERED: PROPOFOL IV EMULSION 10 MG/ML 20 ML VIAL IV ONE (12:37)
[2019-10-08] MEDS ORDERED: ONDANSETRON INJ 2 MG/ML 2 ML VIAL ONE (12:37)
[2019-10-08] MEDS ORDERED: NEOSTIGMINE METHYLSULFATE 1 MG/ML 10ML VIAL ONE (12:37)
[2019-10-08] MEDS ORDERED: GLYCOPYRROLATE 0.2 MG/ML VIAL ONE ×2 (12:37→14:19)
[2019-10-08] MEDS ORDERED: MIDAZOLAM HCL 1 MG/ML 2ML VIAL ONE (12:38)
[2019-10-08] MEDS ORDERED: ROCURONIUM BROMIDE 10 MG/ML 5 ML VIAL ONE (12:38)
[2019-10-08] MEDS ORDERED: fentaNYL citrate 100 MCG/2 ML VIAL ONE ×2 (12:38→13:55)
[2019-10-08] MEDS ORDERED: ONDANSETRON INJ 2 MG/ML 2 ML VIAL IV PRN ×2 (12:44→17:22)
[2019-10-08] MEDS ORDERED: ePHEDrine sulfate 50 MG/ML AMP IV PRN (12:44)
[2019-10-08] MEDS ORDERED: ATROPINE SULFATE 0.1 MG/ML 10ML SYR IV PRN (12:44)
[2019-10-08] MEDS ORDERED: fentaNYL citrate 100 MCG/2 ML VIAL IV PRN (12:44)
[2019-10-08] MEDS ORDERED: HYDROmorphone INJ 1 MG/ML SYRINGE IV PRN (12:44)
--- NOTE | 2019-10-08 12:49 | History & Physical Bridge Note ---
Date of Service October 08, 2019 History & Physical Bridge Note I have examined the patient, reviewed the History & Physical and in the interval since the performance of the History & Physical I have noted the following changes of clinical significance: no changes noted
--- NOTE | 2019-10-08 12:50 | History & Physical Report ---
Date of Service October 08, 2019 Assessment & Plan (1) Thoracic stenosis: T10-T11 decompression, T10-L1 fusion Present on Admission?: Yes History of Present Illness Chief Complaint: Back and leg pain Primary Care Provider: Rashel Rolon MD This is a 69-year-old male who presents with worsening back and bilateral leg symptoms after failing a course of nonoperative care is here for surgical intervention. Allergies Allergy/AdvReac Type Severity Reaction Status Date / Time morphine Allergy Mild ITCHY Verified 10/08/19 12:13 Home Medications Home Medications Medication Instructions Recorded Confirmed Type ascorbic acid (vitamin C) 250 mg 250 mg PO DAILY 05/19/19 10/08/19 History tablet aspirin 81 mg tablet,delayed 81 mg PO QAM 05/19/19 10/08/19 History release cyanocobalamin (vitamin B-12) 1,000 mcg PO QAM 05/19/19 10/08/19 History 1,000 mcg capsule furosemide 20 mg tablet 20 mg PO DAILY PRN 05/19/19 10/08/19 History lisinopril 40 mg tablet 40 mg PO QAM 05/19/19 10/08/19 History sitagliptin 50 mg-metformin 1,000 1 tab PO BID 05/19/19 10/08/19 History mg tablet tramadol 100 mg capsule 100 mg PO DAILY PRN 05/19/19 10/08/19 History 24h,extended release(25-75) glimepiride 2 mg tablet 2 mg PO BID #180 tab 05/22/19 10/08/19 Rx brimonidine [Alphagan P] 1 drp OPHTHALMIC (EYE) BID 10/01/19 10/08/19 History simvastatin 40 mg PO QAM 10/01/19 10/08/19 History timolol maleate [Timoptic] 1 drp OPHTHALMIC (EYE) BID 10/01/19 10/08/19 History Past Med/Surg History Medical History Diabetes mellitus, type 2 NIDDM History of aortic valve disease s/p Medtronic Saleem porcine AVR (2014) 2/2 hx severe aortic stenosis- normal hemodynamics per 2017 ECHO Hyperlipidemia (Chronic) Hypertension (Chronic) Lumbar stenosis with neurogenic claudication Obesity Osteoarthritis Surgical History History of cardiac cath 2016- no stents History of difficult intubation L1-S1 decompression with T12-S1 fusion: 07/05/17: "Easy" with glidescope#4, ETT 8.0 at [facility] History of hemiarthroplasty of shoulder RIGHT, LEFT History of lumbar fusion History of total left knee replacement History of total right knee replacement Hx of aortic valve replacement 2014 Hx of colonoscopy Family History Mother Myocardial infarction Father Myocardial infarction Grandfather (Maternal) Myocardial infarction Denies family history of Ovarian cancer Prostate cancer Breast cancer Colorectal cancer Social History (Updated 05/22/19 @ 13:21 by Christina Pulliam) Preferred Language: Spanish Communication Ability: Effective Traffic Supervisor Required: No Beliefs That Will Affect Care: None marital status: Current Living Situation: Spouse current occupational status: retired Other Information That Helps Us Care for You: No Feels Safe at Home: Yes Safety Concerns: Feels Safe At This Time Smoking Status: Never smoker Do You Dip or Chew Tobacco: No ; Second Hand Exposure: No ; Tobacco Cessation Education Requested by Patient: No Hx Alcohol Use: Yes Alcohol type: beer Alcohol Intake Frequency: Rarely Hx Substance Use: No Dental Care, Regularly: Yes Physical Activity Frequency: Does not Exercise Physical Exam Physical Exam: Patient is alert and oriented neurologically intact. Results & Data Vital Signs (Past 12 Hours) Vital Signs Temp Pulse Resp BP Pulse Ox 10/08/19 12:25 36.7 C 66 20 174/98 H 96
[2019-10-08] MEDS ORDERED: BUPIVACAINE/EPINEPHRINE 0.5% MPF 1:200,000 10 ML VIAL ONE (13:19)
[2019-10-08] MEDS ORDERED: BACITRACIN INJ 50,000 UNIT VIAL ONE (13:19)
[2019-10-08] MEDS ORDERED: HYDROmorphone INJ 2 MG/ML SYR/VIAL ONE (14:41)
--- NOTE | 2019-10-08 15:49 | Operative Report ---
Post Operative Report Pre & Post Diagnosis Operation Date: 10/08/19 13:55 Pre-Op Diagnosis: Thoracic stenosis, Spondylosis with Myelopathy, Thoracic Region Post-Op Diagnosis: Thoracic stenosis, Spondylosis with Myelopathy, Thoracic Region I identified the patient and participated in the time-out.: Yes Procedure Operation Date: 10/08/19 13:55 Actual Procedures #1 lumbar decompression with bilateral medial facetectomies and foraminotomies T10-T11, T11-T12. #2 posterior spinal fusion T10-L1. #3 placement posterior instrumentation T10 and T11 with hinds's hooks. #4 placement locally harvested morselized autograft in the posterior lateral gutters. #5 placement infuse collagen sponge, master graft in the posterior gutters T10-L1. Surgeon Papo Muhammad, DO [employer] Anne Hernandez Estimated Blood Loss 100 Findings See Below Patient is 5 foot 11 inches tall weighing over 115 kg with a BMI in excess of 35. The patient's body habitus did add marked increased technical difficulty adding at least 25% increase to the operative time. Specimens None Indications This is a 6-year-old male well-known to me the presents with above-mentioned diagnosis subsequently elected to go with above-mentioned procedure. Description of Procedure Patient was met with identified informed consent obtained. Patient was then taken to the operative suite underwent an patient placed in a prone position on the Colton table on top of the Ke frame. All bony prominences well-padded eyes inspected to ensure no external pressure placed upon them. This point the thoracolumbar spine was prepped and draped in normal sterile fashion. Sharp dissection with the assistance of Bovie cautery was performed down to and exposing the lamina and transverse processes of T10-T11 and the instrumentation at T12 and L1 bilaterally. Then proceeded perform complete laminectomy of T11 partial laminectomy of T10 including bilateral medial facetectomies foraminotomies addressing all severe spinal stenosis as well as facet cyst at T11-T12. Pedicle screw was then placed in T10-T11 bilaterally with the assistance of fluoroscopy and shepherds hooks were applied and attached to the previous elen extending from T8 12 to L1 to the new instrumentation at T10 and T11. They were locked into place in the transverse processes of [id number] and L1 bur to subcortical bleeding bone. Infuse collagen sponge and master graft as well as local autograft was placed in the posterior gutters. 15 round JACQUES drain inserted. Incision was then closed with 1 Vicryl in the fascia 2-0 Vicryl subcutaneously and 4 Monocryl for final skin closure. Steri-Strip sterile dressings placed. Patient will continue to PACU in stable condition. Please note spinal cord monitoring was utilized that the procedure no changes noted. Lastly Anne Hernandez was present at the entire procedure involved the patient positioning complex portions of the surgery and final skin closure. I attest to the content of the Intraoperative Record and any orders documented therein. Any exceptions are noted below.
--- NOTE | 2019-10-08 15:53 | Fluoroscopy Report ---
FL lumbar spine 2-3V CLINICAL HISTORY: T10-L1 DECOMPRESSION/FUSION/INTERBODY COMPARISON STUDY: Lumbar spine CT June 28, 2018. FLUOROSCOPY TIME: 24 seconds. FLUOROSCOPIC IMAGES: 2 FINDINGS: Exact localization is difficult given partial visualization of the lumbar spine. Multilevel posterior decompression and fusion is noted. Visualized portions of the hardware are intact. There a re no unexpected radiopaque foreign bodies. IMPRESSION: Fluoroscopy provided for thoracolumbar spine decompression and fusion. ACT 112: Negative or not required by law. Electronically signed by: Enmanuel Ayon M.D. 10/08/2019 3:52 PM
--- NOTE | 2019-10-08 16:50 | Anesthesiology Progress Note ---
Date of Service October 08, 2019 Anesthesia Post Procedure Vital Signs Vital Signs: Temp Pulse Pulse Resp BP Pulse Ox 10/08/19 16:40 66 14 121/81 97 10/08/19 16:30 70 19 128/77 95 10/08/19 16:20 76 10 L 160/86 H 96 10/08/19 16:12 36.7 C 82 11 L 177/108 H 92 10/08/19 12:25 36.7 C 66 20 174/98 H 96 Transfer of Care Handoff Completed per policy Notes Mental Status: alert / awake / arousable and participated in evaluation Patient Amnestic to Procedure: Yes Nausea / Vomiting: adequately controlled Pain: adequately controlled Airway Patency, RR, SpO2: stable & adequate BP & HR: stable & adequate Hydration State: stable & adequate Anesthetic Complications: no major complications apparent and Pt Satisfied with anesthetic care
[2019-10-08] MEDS ORDERED: GLIMEPIRIDE 2 MG TAB PO SCH (17:00)
[2019-10-08] MEDS ORDERED: bisacodyL 10 MG SUPP PR PRN (17:22)
[2019-10-08] MEDS ORDERED: ACETAMINOPHEN 1,000 MG/100 ML VIAL IV PRN (17:22)
[2019-10-08] MEDS ORDERED: PROMETHAZINE HCL 12.5 MG in SODIUM CHLORIDE 0.9% 50 ML IV PRN (17:22)
[2019-10-08] MEDS ORDERED: ONDANSETRON 4 MG OD TAB PO PRN (17:22)
[2019-10-08] MEDS ORDERED: METOCLOPRAMIDE HCL INJ 5 MG/ML 2 ML VIAL IV PRN (17:22)
[2019-10-08] MEDS ORDERED: LORazepam 0.5 MG/1 ML VIAL IV PRN (17:22)
[2019-10-08] MEDS ORDERED: ALUMINUM/MAGNESIUM SUSP 30 ML UDC PO PRN (17:22)
[2019-10-08] MEDS ORDERED: FAMOTIDINE 20 MG TAB PO PRN (17:22)
[2019-10-08] MEDS ORDERED: DO NOT ADMINISTER FLU VACCINE PRN (17:22)
[2019-10-08] MEDS ORDERED: SOD PHOSPHATE/SOD BIPHOSPHATE ENEMA 132 ML BTL PR PRN (17:22)
[2019-10-08] MEDS ORDERED: NALOXONE HCL 0.4 MG/1 ML VIAL/CARP IV PRN (17:22)
[2019-10-08] MEDS ORDERED: MAGNESIUM HYDROXIDE SUSP 30 ML UDC PO PRN (17:22)
[2019-10-08] MEDS ORDERED: DO NOT ADMINISTER PNEUMOCOCCAL VACCINE PRN (17:22)
[2019-10-08] MEDS ORDERED: LORazepam 0.5 MG TAB PO PRN (17:22)
[2019-10-08] MEDS ORDERED: FUROSEMIDE 20 MG TAB PO PRN (17:22)
[2019-10-08] MEDS ORDERED: HYDROmorphone INJ 0.5 MG/0.5 ML SYR IV PRN (17:22)
[2019-10-08] MEDS: SODIUM CHLORIDE 0.9% 1000ML 1,000 ML IV SCH (17:30)
[2019-10-08] MEDS: CEFAZOLIN 2000MG 2,000 MG/15 ML SYR IV SCH (21:43)
[2019-10-08] MEDS: TIMOLOL GFS 0.5% OPH SOLN 74 DROPS/5 ML BTL OP SCH (21:43)
[2019-10-08] MEDS: DOCUSATE SODIUM/SENNA 50/8.6MG TAB PO SCH (21:44)
[2019-10-08] MEDS: OXYCODONE HCL IR 5 MG TAB (IMMEDIATE RELEASE) PO PRN (21:58)
[2019-10-08] MEDS: ACETAMINOPHEN 500 MG TAB PO PRN (21:59)
[2019-10-08] MEDS ORDERED: PHARMACY GLYCEMIC MGMT CONSULT PRN (23:05)
[2019-10-08] MEDS ORDERED: GLUCOSE 40% GEL 15 GM TUBE PO PRN (23:15)
[2019-10-08] MEDS ORDERED: INSULIN GLARGINE SOLOSTAR 100 UNITS/ML 3 ML PEN SC ONE (23:15)
[2019-10-08] MEDS ORDERED: GLUCOSE 10 TABS/TUBE PO PRN (23:15)
[2019-10-08] MEDS ORDERED: DEXTROSE 50% 50 ML SYRINGE IV PRN (23:15)
[2019-10-08] MEDS ORDERED: GLUCAGON FOR INJ 1 MG VIAL IM PRN (23:15)
[2019-10-08] MEDS ORDERED: CARBOHYDRATES FOR HYPOGLYCEMIA PO PRN (23:15)
[2019-10-09] MEDS: SODIUM CHLORIDE 0.9% 1000ML 1,000 ML IV SCH (00:10)
[2019-10-09] MEDS: INSULIN ASPART 100 UNITS/ML 3 ML PEN SC SCH ×6 (00:19→21:06)
[2019-10-09] MEDS: HYDROmorphone INJ 1 MG/ML SYRINGE IV PRN ×2 (00:20→04:59)
[2019-10-09] MEDS: OXYCODONE HCL IR 5 MG TAB (IMMEDIATE RELEASE) PO PRN ×2 (03:12→11:54)
[2019-10-09] MEDS: CEFAZOLIN 2000MG 2,000 MG/15 ML SYR IV SCH (04:58)
[2019-10-09] MEDS: POLYETHYLENE (MIRALAX) 17 GM PACK PO SCH ×4 (04:59→23:08)
[2019-10-09 07:17] LABS: Basophils # (auto) 0.02 K/uL (0-0.2); Basophils % (auto) 0.2 %; Eosinophils # (auto) 0.16 K/uL (0-0.5); Eosinophils % (auto) 1.7 %; Hematocrit (blood only) 42.7 % (42-52); Hemoglobin 14.2 g/dL (14.0-18.0); Immature Granulocytes # (auto) 0.04 K/uL (0.00-0.02); Immature Granulocytes % (auto) 0.4 %; Lymphocytes # (auto) 1.31 K/uL (1.2-3.4); Lymphocytes % (auto) 13.8 %; Mean Corpuscular Hemoglobin 28.7 pg (25-34); Mean Corpuscular Hgb Conc 33.3 g/dL (32-36); Mean Corpuscular Volume 86.4 fL (80-100); Mean Platelet Volume 10.7 fL (7.4-10.4); Monocytes # (auto) 0.82 K/uL (0.11-0.59); Monocytes % (auto) 8.6 %; Neutrophils # (auto) 7.13 K/uL (1.4-6.5); Neutrophils % (auto) 75.3 %; Platelet Count 172 K/uL (130-400); RDW Coefficient of Variation 14.7 % (11.5-14.5); RDW Standard Deviation 46.9 fL (36.4-46.3); Red Blood Count 4.94 M/uL (4.7-6.1); White Blood Count 9.48 K/uL (4.8-10.8)
[2019-10-09 07:47] LABS: BUN Creatinine Ratio 17.4 (10-20); Calcium 8.6 mg/dl (8.5-10.1); Creatinine Clr Calc Pharmacy 75.3 ml/min; Est GFR (Non-African American) 62.2; Potassium 4.3 mmol/L (3.5-5.1)
--- NOTE | 2019-10-09 08:06 | Anesthesiology Progress Note ---
Date of Service October 09, 2019 Anesthesia Post Procedure Vital Signs Vital Signs: Temp Pulse Pulse Pulse Resp BP Pulse Ox 10/09/19 07:55 36.4 C L 70 19 152/82 H 95 10/09/19 03:03 36.6 C 62 16 128/78 94 10/08/19 23:26 36.4 C L 60 16 125/82 95 10/08/19 21:53 16 97 10/08/19 21:46 16 98 10/08/19 20:30 36.3 C L 74 17 127/74 97 10/08/19 20:09 16 94 10/08/19 19:29 36.4 C L 59 L 16 125/76 97 10/08/19 18:35 36.5 C 69 17 175/94 H 98 10/08/19 17:49 36.7 C 67 17 149/93 H 96 10/08/19 17:01 67 17 133/76 95 10/08/19 16:50 36.2 C L 68 19 121/77 94 10/08/19 16:40 66 14 121/81 97 10/08/19 16:30 70 19 128/77 95 10/08/19 16:20 76 10 L 160/86 H 96 10/08/19 16:12 36.7 C 82 11 L 177/108 H 92 10/08/19 12:25 36.7 C 66 20 174/98 H 96 Pain Intensity Medial Back: Pain Intensity: 5 Notes Mental Status: alert / awake / arousable and participated in evaluation Patient Amnestic to Procedure: Yes Nausea / Vomiting: adequately controlled Pain: adequately controlled Airway Patency, RR, SpO2: stable & adequate BP & HR: stable & adequate Hydration State: stable & adequate Anesthetic Complications: no major complications apparent and Pt Satisfied with anesthetic care
[2019-10-09] MEDS ORDERED: INSULIN GLARGINE SOLOSTAR 100 UNITS/ML 3 ML PEN SC ONE ×2 (08:45→21:00)
[2019-10-09] MEDS ORDERED: lisinopriL 40 MG TAB PO SCH (09:00)
[2019-10-09] MEDS: TIMOLOL GFS 0.5% OPH SOLN 74 DROPS/5 ML BTL OP SCH ×2 (09:15→21:09)
[2019-10-09] MEDS: ASPIRIN 81 MG ECTAB PO SCH (09:16)
[2019-10-09] MEDS: CYANOCOBALAMIN 500 MCG TABLET (VITAMIN B-12) PO SCH (09:16)
[2019-10-09] MEDS: ASCORBIC ACID 500 MG TAB PO SCH (09:16)
[2019-10-09] MEDS: SIMVASTATIN 40 MG TAB PO SCH (09:17)
--- NOTE | 2019-10-09 11:15 | Pharmacy Report ---
Glycemic Control Consultation - Date of Service October 09, 2019 - Scope Scope: Glycemic Pharmacist consulted for glycemic control and to write orders per [facility] inpatient glycemic control protocol - Objective Weight: 115.394 kg Accuchecks BSG (last 24hrs): 10/08/19 10/08/19 10/08/19 12:16 16:17 22:08 Glucose POC Glucose 167 H 157 H 308 H* 10/08/19 10/08/19 10/09/19 22:10 22:11 00:15 Glucose POC Glucose 255 H 254 H 231 H 10/09/19 10/09/19 06:42 08:16 Glucose 179 H POC Glucose 216 H Laboratory Data (last 24hrs): 10/09/19 06:42 Potassium 4.3 Carbon Dioxide 30 Anion Gap 4.0 Creatinine 1.18 Est Cr Clr Drug Dosing 75.3 - Recent Pertinent Medications Outpatient Anti-diabetic Regimen: * Janumet * Glimepiride * A1c on order for 10/10/19 The patient is currently receiving: * Basal insulin: Lantus 20 units SC x1 overnight * Correctional Insulin: Novolog Correction per scale ACHS Goal Range: Low 110 mg/dL - High 150 mg/dL Correction Factor: 25 mg/dL/unit * Prandial insulin: Per carb ratio of 1 unit per 8 grams CHO consumed * Oral Agents: On hold Risk Factors for Insulin Resistance: * Recent Surgery: POD 1 s/p lumbar decompression/fusion * Diet: T2DM - Assessment & Plan Assessment & Plan: ASSESSMENT: * 69 yo M with T2DM and unknown outpatient control now POD 1 s/p lumbar decomp ression and fusion * BSG's increased yesterday evening after surgery and persistent elevation noted this AM * Will provide additional Lantus for AM fasting >180 mg/dL * Will tighten Novolog parameters to weight-based moderate stress estimate PLAN FOR INPATIENT GLYCEMIC CONTROL: * Holding outpatient oral diabetes medications * Basal insulin * Lantus 10 units SQ x1 then 10-30 units SC tonight based on BSG (see MAR for details) * Bolus insulin * NovoLog per scale ACHS or Q6hrs while NPO * Goal Range: Low 110 mg/dL - High 150 mg/dL * Correction Factor: 20 mg/dL/unit * Nutritional / Prandial insulin per carb ratio of 1 unit per 7 grams CHO consumed * Please note that the plan above was derived based on current level of insulin resistance and hospital stress. These recommendations are appropriate for inpatient admission only. Plan of care upon discharge will need to be reassessed to avoid potential outpatient hypo/hyperglycemia. Thank you.
[2019-10-09] MEDS ORDERED: CHLORASEPTIC 1.4% SOLN 180 ML BTL MT PRN (11:42)
[2019-10-09] MEDS ORDERED: POLYETHYLENE (MIRALAX) 17 GM PACK PO STA (11:42)
[2019-10-09] MEDS ORDERED: DOCUSATE SODIUM 100 MG CAP PO ONE (11:42)
[2019-10-09] MEDS: ACETAMINOPHEN 500 MG TAB PO PRN (11:55)
--- NOTE | 2019-10-09 12:13 | Hospitalist Consultation ---
Date of Consultation October 09, 2019 Assessment & Plan (1) Lumbar stenosis with neurogenic claudication: * POD #1 s/p #lumbar decompression with bilateral medial facetectomies and foraminotomies T10-T11, T11-T12. posterior spinal fusion T10-L1. placement posterior instrumentation T10 and T11 with Dr. Muhammad on 10/08 * Pre-op h/h 16.7/47.3. EBL 100ml. * H/h currently 14.2/42.7, stable * PT/OT/Pain management/DVT prophylaxis per primary team * Monitor CBC in AM * Patient would like home health at discharge, per his wishes (2) Uncontrolled type 2 diabetes mellitus with diabetic neuropathy: * A1c 7.3. Home medications on hold (janumet, glimeperide 2mg BID) * ISS while inpatient. * BSG up to 308 last evening --> 10 units glargine last evening * BSGs elevated in 200s--> will tighten CF/CR * Continue to monitor (3) Hypertension: * Chronic. Well controlled. Currently 132/88. * Had initially held AM lisinopril until BMP came back and BP elevated morning of 10/09 --> resumed with resulting BP as above (4) Hyperlipidemia: * Chronic. Stable. Last lipid profile May 2019 -- triglycerides 202, cholesterol 116, LDL 51, HDL 25 * Continue home simvastatin 40mg daily (5) Thoracic stenosis: * As above (6) Hydrocele: * Hx R hydrocele. Set up with urology as outpatient. Has been present for quite some time. (7) Hx of aortic valve replacement: with Medtronic porcine valve, minimally invasive, follows with Dr. Ochoa No evidence of CHF (8) DVT prophylaxis: * Per primary -- on ASA 81mg daily * SCDs Thank you for allowing the hospitalist service to partake in the care of Mr. Mccarthy. Hospitalist service will follow along. Supervising Physician Co-Signing Physician Notes PA Supervision Note: I personally saw and examined the patient. I verified all [place]af[place]te points and agree with DEJUAN Gotti with the following exceptions and/or additions: Pt doing well, denies CP or OSB, no leg edema. No nausea. Pain controlled History reviewed, ROS as above VSS NAD, obese, AAOx3 RRR, loud S2, 2/6 PAGE at [facility] no wcr Abd +BS soft NT ND Ext no edema Back-dressing mid back is with scant dried blood 69 yo male with history as above, here with spinal surgery. Medical management provided -hyperglycemia from steroids-pharmacy managing -follow along History of Present Illness Reason for Consultation: medical management Requesting Physician: Dr Muhammad Attending Physician: Papo Muhammad, DO History of Present Illness 69 year old white male with PMH significant HTN, HLD, DM II, and lumbar stenosis presented for a decompression and fusion with Dr. Muhammad. Patient states he was up with therapy this morning with a walker. Some pain, but manageable with pain medications. Decreased weakness, but still present in bilateral legs. Patient with improved strength, but still slightly weaker in the left leg/foot. States his byrnes was just removed this morning and he did attempt to urinate, but states it was "just a dribble". No BM since monday. Sore throat, and would like to have some chloraseptic spray. He states he would also like additional miralax. Patient doing well overall. Plans for discharge with home health in the next day or two, once drain output is decreased and removed per surgery. Allergies Allergy/AdvReac Type Severity Reaction Status Date / Time morphine Allergy Mild ITCHY Verified 10/08/19 12:13 Home Medications Home Medications Medication Instructions Recorded Confirmed Type ascorbic acid (vitamin C) 250 mg 250 mg PO DAILY 05/19/19 10/08/19 History tablet aspirin 81 mg tablet,delayed 81 mg PO QAM 05/19/19 10/08/19 History release cyanocobalamin (vitamin B-12) 1,000 mcg PO QAM 05/19/19 10/08/19 History 1,000 mcg capsule furosemide 20 mg tablet 20 mg PO DAILY PRN 05/19/19 10/08/19 History lisinopril 40 mg tablet 40 mg PO QAM 05/19/19 10/08/19 History sitagliptin 50 mg-metformin 1,000 1 tab PO BID 05/19/19 10/08/19 History mg tablet tramadol 100 mg capsule 100 mg PO DAILY PRN 05/19/19 10/08/19 History 24h,extended release(25-75) glimepiride 2 mg tablet 2 mg PO BID #180 tab 05/22/19 10/08/19 Rx brimonidine [Alphagan P] 1 drp OPHTHALMIC (EYE) BID 10/01/19 10/08/19 History simvastatin 40 mg PO QAM 10/01/19 10/08/19 History timolol maleate [Timoptic] 1 drp OPHTHALMIC (EYE) BID 10/01/19 10/08/19 History oxycodone 5 mg PO Q6H PRN #30 tab 10/09/19 Rx tramadol 50 mg PO Q6H PRN #30 tab 10/09/19 Rx Patient History Medical History Diabetes mellitus, type 2 NIDDM History of aortic valve disease s/p Medtronic Saleem porcine AVR (2014) 2/2 hx severe aortic stenosis- normal hemodynamics per 2017 ECHO Hyperlipidemia (Chronic) Hypertension (Chronic) Lumbar stenosis with neurogenic claudication Obesity Osteoarthritis Surgical History History of cardiac cath 2016- no stents History of difficult intubation L1-S1 decompression with T12-S1 fusion: 07/05/17: "Easy" with glidescope#4, ETT 8.0 at [facility] History of hemiarthroplasty of shoulder RIGHT, LEFT History of lumbar fusion History of total left knee replacement History of total right knee replacement Hx of aortic valve replacement 2014 Hx of colonoscopy Family History Mother Myocardial infarction Father Myocardial infarction Grandfather (Maternal) Myocardial infarction Denies family history of Ovarian cancer Prostate cancer Breast cancer Colorectal cancer Social History Preferred Language: Tajik Communication Ability: Effective Director Software Quality Assurance Required: No Beliefs That Will Affect Care: None marital status: Current Living Situation: Spouse current occupational status: retired Other Information That Helps Us Care for You: No Feels Safe at Home: Yes Safety Concerns: Feels Safe At This Time Smoking Status: Never smoker Do You Dip or Chew Tobacco: No ; Second Hand Exposure: No ; Tobacco Cessation Education Requested by Patient: No Hx Alcohol Use: Yes Alcohol type: beer Alcohol Intake Frequency: Rarely Hx Substance Use: No Dental Care, Regularly: Yes Physical Activity Frequency: Does not Exercise Review of Systems Review of Systems: All systems reviewed & are unremarkable except as noted in HPI & below Constitutional: no fever and no chills Eyes: no diplopia and no problem reported Ear, Nose, Mouth, Throat: + sore throat; no dysphagia Respiratory: no cough and no dyspnea Cardiovascular: no chest pain, no palpitations and no edema Gastrointestinal: + constipation; no abdominal pain, no nausea and no vomiting Genitourinary: + urinary hesitancy (since removal of byrnes in the past hour); no hematuria Musculoskeletal: + back pain lower extremity weakness Integumentary: no rash and no lesions Neurologic: + unsteadiness; no headache(s) Psychiatric: no depression and no anxiety Endocrine: no fatigue and no cold intolerance Hematologic / Lymphatic: no easy bleeding and no easy bruising Allergy / Immunological: no cough and no dyspnea Physical Exam Constitutional: WD/WN, vitals as above no acute distress Eyes: PERRL, conjunctivae normal, anicteric sclerae ENMT: external ear and nose normal, oropharynx normal Neck: trachea midline, no thyromegaly Respiratory: normal respiratory effort, lungs clear to auscultation Auscultation: + crackles (faint bibasilar crackles) Cardiovascular: RRR, no murmur, no edema Gastrointestinal (Abdomen): normal bowel sounds, soft, nontender, no hepatosplenomegaly Musculoskeletal: 4/5 strength LLE with dorsiflexion. 5/5 strength b/l UE and RLE calves non-tender. NVI. 2+ dp, pt b/l LE Skin: dressing to lumbar/thoracic spine. c/d/i. JACQUES drain with approximately 50cc blood drainage Neurologic: PERRL, EOMI, accommodation nl, no face palsy, no dysarthria Psychiatric: A+Ox3, euthymic affect Lymphatic: no cervical or axillary lymphadenopathy Results & Data ([facility]) Vital Signs (Past 12 Hours) Vital Signs Temp Pulse Pulse Resp BP Pulse Ox 10/09/19 11:59 36.8 C 73 19 132/88 93 10/09/19 07:55 36.4 C L 70 19 152/82 H 95 10/09/19 03:03 36.6 C 62 16 128/78 94 Laboratory Results 10/09/19 10/09/19 10/09/19 Range/Units 12:38 08:16 06:42 WBC (4.8-10.8) K/uL RBC (4.7-6.1) M/uL Hgb (14.0-18.0) g/dL Hct (42-52) % MCV (80-100) fL MCH (25-34) pg MCHC (32-36) g/dL RDW Std Deviation (36.4-46.3) fL RDW Coeff of Jhon (11.5-14.5) % Plt Count (130-400) K/uL MPV (7.4-10.4) fL Immature Gran % (Auto) % Neut % (Auto) % Lymph % (Auto) % [place] % (Auto) % Eos % (Auto) % Baso % (Auto) % Immature Gran # (Auto) (0.00-0.02) K/uL Neut # (Auto) (1.4-6.5) K/uL Lymph # (Auto) (1.2-3.4) K/uL [place] # (Auto) (0.11-0.59) K/uL Eos # (Auto) (0-0.5) K/uL Baso # (Auto) (0-0.2) K/uL Sodium 139 (136-145) mmol/L Potassium 4.3 (3.5-5.1) mmol/L Chloride 105 (98-107) mmol/L Carbon Dioxide 30 (21-32) mmol/L Anion Gap 4.0 (3-11) BUN 21 H (7-18) mg/dl Creatinine 1.18 (0.6-1.4) mg/dl Est Cr Clr Drug Dosing 75.3 ml/min Est GFR ( Amer) 72.0 Est GFR (Non-Af Amer) 62.2 BUN/Creatinine Ratio 17.4 (10-20) Glucose 179 H (70-99) mg/dl POC Glucose 207 H 216 H (70-99) mg/dl Calcium 8.6 (8.5-10.1) mg/dl Blood Type Antibody Screen Crossmatch 10/09/19 10/09/19 10/08/19 Range/Units 06:42 00:15 22:11 WBC 9.48 (4.8-10.8) K/uL RBC 4.94 (4.7-6.1) M/uL Hgb 14.2 (14.0-18.0) g/dL Hct 42.7 (42-52) % MCV 86.4 (80-100) fL MCH 28.7 (25-34) pg MCHC 33.3 (32-36) g/dL RDW Std Deviation 46.9 H (36.4-46.3) fL RDW Coeff of Jhon 14.7 H (11.5-14.5) % Plt Count 172 (130-400) K/uL MPV 10.7 H (7.4-10.4) fL Immature Gran % (Auto) 0.4 % Neut % (Auto) 75.3 % Lymph % (Auto) 13.8 % [place] % (Auto) 8.6 % Eos % (Auto) 1.7 % Baso % (Auto) 0.2 % Immature Gran # (Auto) 0.04 H (0.00-0.02) K/uL Neut # (Auto) 7.13 H (1.4-6.5) K/uL Lymph # (Auto) 1.31 (1.2-3.4) K/uL [place] # (Auto) 0.82 H (0.11-0.59) K/uL Eos # (Auto) 0.16 (0-0.5) K/uL Baso # (Auto) 0.02 (0-0.2) K/uL Sodium (136-145) mmol/L Potassium (3.5-5.1) mmol/L Chloride (98-107) mmol/L Carbon Dioxide (21-32) mmol/L Anion Gap (3-11) BUN (7-18) mg/dl Creatinine (0.6-1.4) mg/dl Est Cr Clr Drug Dosing ml/min Est GFR ( Amer) Est GFR (Non-Af Amer) BUN/Creatinine Ratio (10-20) Glucose (70-99) mg/dl POC Glucose 231 H 254 H (70-99) mg/dl Calcium (8.5-10.1) mg/dl Blood Type Antibody Screen Crossmatch 10/08/19 10/08/19 10/08/19 Range/Units 22:10 22:08 16:17 WBC (4.8-10.8) K/uL RBC (4.7-6.1) M/uL Hgb (14.0-18.0) g/dL Hct (42-52) % MCV (80-100) fL MCH (25-34) pg MCHC (32-36) g/dL RDW Std Deviation (36.4-46.3) fL RDW Coeff of Jhon (11.5-14.5) % Plt Count (130-400) K/uL MPV (7.4-10.4) fL Immature Gran % (Auto) % Neut % (Auto) % Lymph % (Auto) % [place] % (Auto) % Eos % (Auto) % Baso % (Auto) % Immature Gran # (Auto) (0.00-0.02) K/uL Neut # (Auto) (1.4-6.5) K/uL Lymph # (Auto) (1.2-3.4) K/uL [place] # (Auto) (0.11-0.59) K/uL Eos # (Auto) (0-0.5) K/uL Baso # (Auto) (0-0.2) K/uL Sodium (136-145) mmol/L Potassium (3.5-5.1) mmol/L Chloride (98-107) mmol/L Carbon Dioxide (21-32) mmol/L Anion Gap (3-11) BUN (7-18) mg/dl Creatinine (0.6-1.4) mg/dl Est Cr Clr Drug Dosing ml/min Est GFR ( Amer) Est GFR (Non-Af Amer) BUN/Creatinine Ratio (10-20) Glucose (70-99) mg/dl POC Glucose 255 H 308 H* 157 H (70-99) mg/dl Calcium (8.5-10.1) mg/dl Blood Type Antibody Screen Crossmatch 10/08/19 Range/Units 12:18 WBC (4.8-10.8) K/uL RBC (4.7-6.1) M/uL Hgb (14.0-18.0) g/dL Hct (42-52) % MCV (80-100) fL MCH (25-34) pg MCHC (32-36) g/dL RDW Std Deviation (36.4-46.3) fL RDW Coeff of Jhon (11.5-14.5) % Plt Count (130-400) K/uL MPV (7.4-10.4) fL Immature Gran % (Auto) % Neut % (Auto) % Lymph % (Auto) % [place] % (Auto) % Eos % (Auto) % Baso % (Auto) % Immature Gran # (Auto) (0.00-0.02) K/uL Neut # (Auto) (1.4-6.5) K/uL Lymph # (Auto) (1.2-3.4) K/uL [place] # (Auto) (0.11-0.59) K/uL Eos # (Auto) (0-0.5) K/uL Baso # (Auto) (0-0.2) K/uL Sodium (136-145) mmol/L Potassium (3.5-5.1) mmol/L Chloride (98-107) mmol/L Carbon Dioxide (21-32) mmol/L Anion Gap (3-11) BUN (7-18) mg/dl Creatinine (0.6-1.4) mg/dl Est Cr Clr Drug Dosing ml/min Est GFR ( Amer) Est GFR (Non-Af Amer) BUN/Creatinine Ratio (10-20) Glucose (70-99) mg/dl POC Glucose (70-99) mg/dl Calcium (8.5-10.1) mg/dl Blood Type O Positive Antibody Screen NEGATIVE Crossmatch See Detail PG Care Time/CCT Total # of Minutes Spent Total Time Spent with Patient: Total time spent is greater than 50% in coordination of care (as documented) at patient's floor/unit and/or counseling patient: Coding Level of Care Code 50390 Inpt Consult Level 3 Diagnoses Lumbar stenosis with neurogenic claudication M48.062 Uncontrolled type 2 diabetes mellitus with diabetic neuropathy E11.40; E11.65 Hypertension I10 Hyperlipidemia E78.5 Thoracic stenosis M48.04 Hydrocele N43.3 Hx of aortic valve replacement Z95.2 DVT prophylaxis Z29.9
--- NOTE | 2019-10-09 13:04 | Orthopedic Progress Note ---
Date of Service October 09, 2019 Assessment & Plan (1) Lumbar stenosis with neurogenic claudication: This time we will continue physical therapy monitor his JACQUES output hopefully be a candidate for rehab placement tomorrow or Monday. Present on Admission?: Yes Admission and Anticipated Discharge Date Admission Date: October 08, 2019 Subjective Back pain controlled leg symptoms improved Physical Exam Physical Exam: Patient is sitting up in bed has good strength testing. Results & Data ([facility]) Vital Signs (Past 12 Hours) Vital Signs Temp Pulse Pulse Resp BP Pulse Ox 10/09/19 11:59 36.8 C 73 19 132/88 93 10/09/19 07:55 36.4 C L 70 19 152/82 H 95 10/09/19 03:03 36.6 C 62 16 128/78 94
[2019-10-09] MEDS: TRAMADOL HCL 50 MG TABLET PO PRN (21:05)
[2019-10-09] MEDS: DOCUSATE SODIUM/SENNA 50/8.6MG TAB PO SCH (21:10)
[2019-10-10] MEDS: OXYCODONE HCL IR 5 MG TAB (IMMEDIATE RELEASE) PO PRN ×2 (01:19→14:18)
[2019-10-10] MEDS: ACETAMINOPHEN 500 MG TAB PO PRN ×2 (01:20→14:18)
[2019-10-10] MEDS ORDERED: INSULIN ASPART 100 UNITS/ML 3 ML PEN SC ONE (02:00)
[2019-10-10] MEDS: POLYETHYLENE (MIRALAX) 17 GM PACK PO SCH ×2 (05:56→13:28)
[2019-10-10] MEDS: TRAMADOL HCL 50 MG TABLET PO PRN (05:56)
[2019-10-10] MEDS: TIMOLOL GFS 0.5% OPH SOLN 74 DROPS/5 ML BTL OP SCH (08:02)
[2019-10-10] MEDS: ASPIRIN 81 MG ECTAB PO SCH (08:03)
[2019-10-10] MEDS: ASCORBIC ACID 500 MG TAB PO SCH (08:04)
[2019-10-10] MEDS: CYANOCOBALAMIN 500 MCG TABLET (VITAMIN B-12) PO SCH (08:04)
[2019-10-10] MEDS: SIMVASTATIN 40 MG TAB PO SCH (08:04)
[2019-10-10] MEDS: INSULIN ASPART 100 UNITS/ML 3 ML PEN SC SCH ×2 (08:09→13:29)
[2019-10-10 08:28] LABS: Basophils # (auto) 0.02 K/uL (0-0.2); Basophils % (auto) 0.2 %; Eosinophils # (auto) 0.15 K/uL (0-0.5); Eosinophils % (auto) 1.8 %; Hematocrit (blood only) 41.4 % (42-52); Immature Granulocytes # (auto) 0.06 K/uL (0.00-0.02); Immature Granulocytes % (auto) 0.7 %; Lymphocytes # (auto) 1.46 K/uL (1.2-3.4); Lymphocytes % (auto) 17.2 %; Mean Corpuscular Hemoglobin 28.6 pg (25-34); Mean Corpuscular Hgb Conc 33.8 g/dL (32-36); Mean Corpuscular Volume 84.5 fL (80-100); Mean Platelet Volume 10.4 fL (7.4-10.4); Monocytes # (auto) 1.03 K/uL (0.11-0.59); Monocytes % (auto) 12.1 %; Neutrophils # (auto) 5.78 K/uL (1.4-6.5); Platelet Count 148 K/uL (130-400); RDW Coefficient of Variation 14.5 % (11.5-14.5); RDW Standard Deviation 44.9 fL (36.4-46.3)
[2019-10-10 08:57] LABS: Estimated Average Glucose 200 mg/dl; Hemoglobin A1C 8.6 % (4.5-5.6)
[2019-10-10] MEDS ORDERED: INSULIN GLARGINE SOLOSTAR 100 UNITS/ML 3 ML PEN SC SCH ×2 (09:00→21:00)
--- NOTE | 2019-10-10 11:47 | Pharmacy Report ---
Pharmacy Glycemic Short Note 2 - Date of Service October 10, 2019 - Glycemic Short BSG Results (Last 24 hours): 10/09/19 10/09/19 10/09/19 12:38 17:01 20:50 POC Glucose 207 H 178 H 182 H 10/10/19 10/10/19 01:22 06:30 POC Glucose 133 H 141 H OUTPATIENT ANTIDIABETIC REGIMEN: * glimepiride 2 mg BID * Janumet 1 tab BID ASSESSMENT: * Monet is a 69 yr old T2DM male POD #2 s/p lumbar decompression and fusion * Pt received 70 units of insulin yesterday with BSGs ranging from 178 - 231 mg/dL * 40 units of basal and 30 units of bolus * Fasting BSG is greatly improved today; 141 mg/dL. * All post prandial BSGs were above goal yesterday, therefore Novolog CF and CR will be tightened PLAN FOR INPATIENT GLYCEMIC CONTROL: * Hold outpatient oral diabetes medications * Basal insulin * Lantus 20 units SQ this AM, then per scale BID: * 15 units for BSG < 140 * 20 units for BSG 140 or more * Bolus insulin - tighten * NovoLog per scale ACHS or Q6hrs while NPO * Goal Range: Low 110 mg/dL - High 150 mg/dL * Correction Factor: 18 mg/dL/unit * Nutritional / Prandial insulin per carb ratio of 1 unit per 5 grams CHO consumed PLAN FOR DISCHARGE: * A1c = 8.6% (10/10/19)-> increased from 7.3 % on 05/20/19
--- NOTE | 2019-10-10 13:59 | Discharge Summary ---
Date of Service October 10, 2019 Admission HPI Per Admitting Provider This is a 69-year-old male who presents with worsening back and bilateral leg symptoms after failing a course of nonoperative care is here for surgical intervention. Principal Diagnosis Thoracic spinal stenosis with myelopathy Discharge Data Allergies Allergy/AdvReac Type Severity Reaction Status Date / Time morphine Allergy Mild ITCHY Verified 10/08/19 12:13 Consultations 10/08/19 17:22 Consult Case Management - Discharge Planning Routine Consult Hospitalist Routine Procedures Performed Operation Date: 10/08/19 13:55 Actual Procedures p T10-T11 Decompression, T12-L1 Fusion, with bone morphogenic protein, Spinal Cord Monitoring(Not Applicable) - Papo Muhammad DO Ordered Studies 10/08/19 13:55 FL fluoroscopy <1hr Routine FL lumbar spine 2-3V Routine Hospital Course (1) Lumbar stenosis with neurogenic claudication: Patient 1 thoracic decompression fusion tolerated as well as taken the orthopedic floor postoperative. Postop day #1 he was ambulating leg symptoms improved. Progressed to postop day #2. JACQUES drain decreasing appropriately. Subsequently discharged to rehab. Discharge orders instructions from the chart for further view. Total Time Total Time Spent Total Time Spent (In Minutes): 20 minutes Discharge Plan Discharge Items Patient Disposition: Transfer Inpatient Rehab Fac Reason For Visit: Other Spondylosis with Myelopathy, Thoracic Region Discharge Diagnosis: Thoracic spinal stenosis with myelopathy Activity: As commented below Non-emergency contact: Primary Care Provider Call non-emergency contact if: you have any medication questions Follow-up/Referrals: Rashel Rolon III, MD [Primary Care Provider] - Diet: Regular Addtl Attending Provider Instructions: ACTIVITY RECOMMENDATIONS: SELF CARE INSTRUCTIONS AFTER THORACIC/LUMBAR FUSIONS 1. You may walk to your tolerance. It is good exercise for your legs and back. Expect some back and intermittent leg aches and pains. 2. You may perform "counter-top" level activities (make a sandwich, corie with a project, etc.). 3. No bending or lifting of more than 10 pounds or back twisting of any nature (roll like a log when turning in bed). 4. You may ride in a car for 20-30 minutes at a time. No driving until after your first visit with your doctor. 5. Frequent changes of position and restricting sitting to 30 minutes at a time will help limit the amount of back spasms and stiffness you may experience. 6. You may discontinue the use of ambulatory aids (cane, crutches, etc.) once your strength and confidence allow. 7. You may rat exterminator the shower and let water strike your incision when you arrive home at least once daily. Do not take a tub bath, sit in a hot tub or go into a swimming pool until after your first recheck in the office. SPECIAL CARE INSTRUCTIONS: VERY IMPORTANT TO READ AND REVIEW A. Your surgical incision has been closed with a cosmetic suture under the skin that will dissolve in about 6 weeks. In 14 days, you can use a pair of clean scissors and cut the suture that is left outside of the skin at the ends of your incision. 1. The small skin tapes can be removed 7 days after surgery if they have not fallen off by that point. 2. You may keep the wound open to air as much as possible to promote healing after post-op day number 5 unless told otherwise by your doctor. 3. If you think the wound looks like it is becoming infected (redness or wor sening drainage) and/or you are experiencing fever, chill or worsening back pain and muscle spasms, contact the office so that we may evaluate you as soon as possible. B. Complications are uncommon, but please contact us if you have any signs or symptoms of: 1. wound infection (fever higher than 102.5 degrees F, redness, separation of wound, drainage, or increasing pain from the incision) 2. blood clots in legs (pain, swelling, redness and warmth in legs) 3. urinary tract infection (fever higher than 102.5 degrees F, burning upon urination or increased frequency of urination) 4. nerve problems (inability to walk on your toes or heels, numbness, loss of bowel or bladder control) 5. any other symptoms that concern you C. Please call the office at if you have any concerns or questions about your operation or recovery. D. No smoking! Smoking drastically decreases the chance of a solid fusion. E. Do not take any anti-inflammatory medications (Indocin, Advil, Motrin, Aspirin, Naprosyn, etc.) as these may inhibit the chance of a solid fusion. Tylenol is okay to take for pain. MANAGING PAIN AFTER SPINAL SURGERY 1. Narcotic medication is intended for short-term use and will be provided for surgical pain. Surgical pain usually lasts for a period of 4-6 weeks. Narcotic medication includes Percocet, Vicodin, Darvocet, Tylenol #3 or Lortab. 2. Longer-term pain is more appropriately treated with non-narcotic medication such as Tylenol ES. 3. Muscle spasm is not appropriately treated with narcotics. Muscle relaxers such as Soma, Flexeril or Skelaxin can be used along with Tylenol ES. 4. Remember that we all live with some "aches and pains". This is not unusual or uncommon after an injury or as we get older. a. Back pain is expected and may include muscle spasms for 4 to 6 weeks after surgery. The pain should gradually improve. If the pain worsens for no apparent reason, please contact the office. b. Intermittent leg pain may also be experienced and should not be concerned about unless it worsens for no apparent reason. If so, please contact the office. 5. We will provide appropriate medication within the normal guidelines of their prescribed use. We will also be very cautious and aware of potential abuse and extended duration of patients' medication needs. a. Pain medications are for your comfort and to assist with sleep and rest so that the tissue can heal. They are not provided in order to return to normal activity and should not be used through the day. To do so or worsening pain at night can result from ongoing tissue damage and development of tolerance to the prescribed medicine. 6. Please allow 2-3 days to process refills. Prescriptions will not be mailed but must be picked up at the office. FOLLOW UP VISIT: Keep your scheduled follow-up appointment. Any questions, please call the office at . Pending Studies at Discharge: No Stand-Alone Forms: My [facility] Skilled Items Patient informed of condition?: Yes DNR: No Discharge Level of Care: Acute rehab Communicable Disease: No Discharge Prognosis: Improving Lines: None Urinary Catheter: No Medications and DC Order Prescriptions: New tramadol 50 mg tablet 50 mg PO Q6H PRN (Reason: pain, moderate) Qty: 30 RF: 0 oxycodone 5 mg tablet 5 mg PO Q6H PRN (Reason: pain, severe) Qty: 30 RF: 0 Continued aspirin [Adult Low Dose Aspirin] 81 mg tablet,delayed release (DR/EC) 81 mg PO QAM RF: 0 furosemide 20 mg tablet 20 mg PO DAILY PRN (Reason: SWELLING) RF: 0 Janumet 50-1,000 mg tablet 1 tab PO BID RF: 0 lisinopril 40 mg tablet 40 mg PO QAM RF: 0 tramadol 100 mg capsule,ER biphase 24 hr 25-75 100 mg PO DAILY PRN (Reason: Pain) RF: 0 cyanocobalamin (vitamin B-12) 1,000 mcg capsule 1,000 mcg PO QAM RF: 0 ascorbic acid (vitamin C) 250 mg tablet 250 mg PO DAILY RF: 0 glimepiride 2 mg tablet 2 mg PO BID Qty: 180 RF: 3 simvastatin 40 mg tablet 40 mg PO QAM RF: 0 timolol maleate [Timoptic] 0.25 % Drops 1 drp OPHTHALMIC (EYE) BID RF: 0 Alphagan P 0.1 % Drops 1 drp OPHTHALMIC (EYE) BID RF: 0 Discharge Orders: Discharge Order (Routine); Ordered 10/10/19 Ordered By: Papo Caruso/Other Patient Handouts: Diabetes Claim Manager Complications, Diabetes Healthy Meals, Diabetes Exercise Benefits, Diabetes Living Life, Diabetes Manage A1C Test Admission Data Admit Date/Time: 10/08/19 17:22 Attending Provider: Papo Muhammad Admit Provider: Papo Muhammad Primary Care Provider: Rashel Rolon III Other Providers: Alyssa Molina ; [facility]
--- NOTE | 2019-10-10 17:38 | Communication Note ---
Date of Service: October 10, 2019 Patient's vital signs stable. Labs reviewed. Patient discharged before seen by medicine team. Pharmacy managing sugars while inpatient, although they have been running high. A1c elevated to 8.6 from 7.3 in May 2019. adaptive physical educator consult placed but does not appear to have been completed before discharge. Patient on glimepiride and Janumet as outpatient. Recommend follow up with PCP and possible initiation of injectable hyperglycemic agent with repeat A1c in 3 months. Patient discharged to [facility] for inpatient rehab.
== END 2019-10-10 15:33 | DRG 460 ==
LOC: ASU 11:57 → 3E 17:22

== ENCOUNTER 2020-02-12 09:35 | Inpatient (IN) ==
[2020-02-12] MEDS ORDERED: HYDROmorphone INJ 0.5 MG/0.5 ML SYR IV STA ×2 (09:56→11:52)
[2020-02-12 10:39] LABS: Basophils # (auto) 0.01 K/uL (0-0.2); Basophils % (auto) 0.2 %; Eosinophils # (auto) 0.15 K/uL (0-0.5); Eosinophils % (auto) 2.3 %; Hematocrit (blood only) 40.7 % (42-52); Hemoglobin 12.8 g/dL (14.0-18.0); Immature Granulocytes # (auto) 0.01 K/uL (0.00-0.02); Immature Granulocytes % (auto) 0.2 %; Lymphocytes % (auto) 15.6 %; Mean Corpuscular Hemoglobin 24.7 pg (25-34); Mean Corpuscular Hgb Conc 31.4 g/dL (32-36); Mean Corpuscular Volume 78.6 fL (80-100); Mean Platelet Volume 9.6 fL (7.4-10.4); Monocytes # (auto) 0.49 K/uL (0.11-0.59); Monocytes % (auto) 7.6 %; Neutrophils # (auto) 4.75 K/uL (1.4-6.5); Neutrophils % (auto) 74.1 %; Platelet Count 209 K/uL (130-400); RDW Coefficient of Variation 17.1 % (11.5-14.5); Red Blood Count 5.18 M/uL (4.7-6.1); White Blood Count 6.41 K/uL (4.8-10.8)
[2020-02-12 10:58] LABS: Albumin Level 3.2 gm/dl (3.4-5.0); BUN Creatinine Ratio 22.8 (10-20); Calcium 9.1 mg/dl (8.5-10.1); Creatinine Clr Calc Pharmacy 98.1 ml/min; Est GFR (African American) 100.4; Est GFR (Non-African American) 86.6; Potassium 4.3 mmol/L (3.5-5.1)
[2020-02-12 11:01] LABS: Albumin Globulin Ratio 0.9 (0.9-2); Bilirubin,Total 0.4 mg/dl (0.2-1); C Reactive Protein 6.42 mg/dl (0-0.29); Globulin 3.6 gm/dl (2.5-4.0); Total Protein 6.8 gm/dl (6.4-8.2)
--- NOTE | 2020-02-12 12:45 | Emergency Department Note ---
Impression & Plan Discitis, Back pain with history of spinal surgery ED Provider Note Provider: Cosme Hensley MD DATE OF SERVICE: 02/12/2020 CHIEF COMPLAINT: Back pain HISTORY OF PRESENT ILLNESS: Patient is a 69-year-old gentleman with a prior history of chronic back pain and prior surgery presenting today via ambulance with severe back pain. Patient was evaluated in the emergency department on February 06 with a concern for some back pain elevated d-dimer and outpatient laboratory studies. Patient underwent evaluation with no evidence of PE, basic laboratory studies were without evidence of significant leukocytosis or evidence of pancreatitis. Patient was treated with pain medicine and was insisted on leaving before final reports for CT of the thoracic spine was completed. CT report shows fragmentation at the inferior endplate of T9 and serration at T10 suggestive of postoperative ostial lysis however discitis and osteomyelitis per radiology report remained on the differential. Patient states he is been experiencing back pain since his surgery in September of this year by Dr. Muhammad. Saw Dr. Muhammad about 3 weeks ago with normal x-ray at that time. At 2 AM and got up to use the bathroom and twisted when he was in the bathroom without a pop. Laid back down in the went to get up around 6-6 30 this morning he sat up and had severe pain in his lower back rating down both legs. Denies numbness or bladder dysfunction at this time. Denies again any fevers. Given some fentanyl prior to arrival with out significant change in symptoms. Did take some oxycodone at home as well as a muscle relaxer without improvement. He denies any saddle anesthesia but again has radicular symptoms down both legs. REVIEW OF SYSTEMS: A total of 10 review of systems was obtained and negative except as stated above in the HPI. PAST MEDICAL HISTORY: As noted above MEDICATIONS: Reviewed medication list. SOCIAL HISTORY: Lives at home, non-smoker, retired PHYSICAL EXAM: GENERAL: alert and oriented in no acute distress on stretcher laying flat Head: normocephalic and atraumatic EYES: No injection, discharge or icterus. ENT: Mucous membranes pink and moist. LUNGS: Airway patent. No retractions. Breath sounds clear anteriorly HEART: Regular rate and rhythm. No chest wall tenderness ABDOMEN: Soft and non-tender, without guarding or rebound. BACK: Some mid lower thoracic upper lumbar slight tenderness without step-off and healed surgical wound. SKIN: Acyanotic, warm, dry, without rashes EXTREMITIES: Without swelling, tenderness or deformity with intact sensation and good perfusion. NEUROLOGICAL: No focal deficits. No aphasia. No facial droop or slurred speech. Normal strength and tone in the lower extremities. Sensation to gross touch normal in the lower extremities. Patient's hypertension was referred to the [facility] COURSE: 940 Patient was first seen and H&P performed. 115 Patient reassessed and updated. Patient was still with some discomfort additional pain medication was ordered. Awaiting MRI. [address] Muhammad of orthopedic spine patient's spine surgeon regarding MRI findings of discitis/osteomyelitis and possible epidural abscess. Discussed the patient's clinical condition. Recommended medicine admission and n.p.o. status. 1525 discussed with patient was updated. Discussed with patient's daughter per his request Daniela. Discussed with Dr. Carter of the hospital service for admission. Patient's laboratory studies and imaging reviewed. Differential includes Musculoskeletal, disc herniation, fracture, metastatic disease, cord compression, discitis, sciatica, cauda equina, infection, aortic disease, renal colic, gastrointestinal, as well as other pathologies. IMPRESSION/MEDICAL DECISION MAKING: Patient presents with chronic back issues now with worsening pain after twisting last night. No other fall reported. Recent evaluation here and reviewed that work-up. Question of some changes in the lower thoracic spine on the CT from last week was occasional left early for. No fevers or infectious symptoms given these changes to complete MRI of the thoracic and lumbar spine. Neuro intact in lower extremities. Treated with additional IV pain medicines here, with EMS, and he took oral pain medicines prior to arrival. Patient was able to move his legs and denies saddle anesthesia. Basic blood work was completed without evidence of leukocytosis or elevated procalcitonin. C-reactive protein is mildly elevated. No evidence of pancreatitis. Patient has improvement with additional IV pain medicines here but still was not able to ambulate. I doubt acute bony injury however likely exacerbate his underlying back issues. MRI of the lumbar spine without acute process. MRI of the thoracic spine concerning f or discitis and osteomyelitis with possible phlegmon and epidural abscess noted. Discussed with Dr. Muhammad of surgery previously known this patient from surgery back in September. Patient is afebrile and not septic but does have a history of diabetes and aortic valve. Patient is neurologically intact at this time with severe pain. Dr. Muhammad recommended a medicine admission and planned for OR for washout and stated to plan for this in the morning. Discussed with the medicine team. Given the fact the patient diabetic with a valve replacement blood cultures were obtained but did not want to delay antibiotics for possible seeding of the valve. Discussed with pharmacy and vancomycin and cefepime were given. DIAGNOSIS: Intractable back pain, thoracic spine discitis/osteomyelitis DISPOSITION: Hospitalist will evaluate for admission with orthospine to follow in consultation Patient was agreeable with this plan. Past Med/Surg History Social History Preferred Language: Kazakh Communication Ability: Effective Manager Wastewater Required: No Beliefs That Will Affect Care: None marital status: Current Living Situation: Spouse current occupational status: retired Feels Safe at Home: Yes Smoking Status: Never smoker Second Hand Exposure: No ; Hx Alcohol Use: Yes Alcohol type: beer Alcohol Intake Frequency: Rarely Hx Substance Use: No Dental Care, Regularly: Yes Physical Activity Frequency: Does not Exercise Allergies Allergies Allergy/AdvReac Type Severity Reaction Status Date / Time morphine Allergy Mild ITCHY Verified 02/12/20 10:12 Home Meds Home Medications Medication Instructions Recorded Confirmed ascorbic acid (vitamin C) 250 mg 250 mg PO QAM 05/19/19 02/12/20 tablet aspirin 81 mg tablet,delayed 81 mg PO QAM 05/19/19 02/12/20 release cyanocobalamin (vitamin B-12) 1,000 mcg PO QAM 05/19/19 02/12/20 1,000 mcg capsule furosemide 20 mg tablet 20 mg PO DAILY PRN 05/19/19 02/12/20 sitagliptin 50 mg-metformin 1,000 1 tab PO BID 05/19/19 02/12/20 mg tablet Alphagan P 1 drp OPHTHALMIC (EYE) BID 10/01/19 02/12/20 simvastatin 40 mg PO QAM 10/01/19 02/12/20 timolol maleate [Timoptic] 1 drp OPHTHALMIC (EYE) BID 10/01/19 02/12/20 lisinopril 40 mg tablet 20 mg PO QAM tab 10/24/19 02/12/20 oxycodone 5 mg PO BID PRN 02/07/20 02/12/20 Previous Rx's Medication Instructions Recorded glimepiride 2 mg tablet 2 mg PO BID #180 tab 05/22/19 tramadol 50 mg PO Q6H PRN #30 tab 10/09/19 Results & Data (ED) Vital Signs Vital Signs - 24 hr 02/12/20 09:39 02/12/20 09:42 02/12/20 09:47 Temperature Source Oral Pulse Rate 76 78 78 Pulse Rate [Finger] Pulse Rate from SpO2 Sensor 76 78 Respiratory Rate 21 18 20 Respiratory Effort / Characteristics Non-Labored Respiratory Depth Normal Respiratory Pattern Blood Pressure 173/97 H 173/97 H Blood Pressure [Right Arm] Blood Pressure Mean 111 122 Blood Pressure Mean [Right Arm] Blood Pressure Position Lying Pulse Oximetry 95 94 93 Oxygen Delivery Method Room Air Sepsis Recent Fever Within 48 Hours No Sepsis Action Taken by Nursing No Action Required 02/12/20 10:00 02/12/20 10:30 02/12/20 10:31 Temperature Source Pulse Rate 72 72 72 Pulse Rate [Finger] Pulse Rate from SpO2 Sensor 72 Respiratory Rate 21 Respiratory Effort / Characteristics Respiratory Depth Respiratory Pattern Blood Pressure 112/71 123/76 Blood Pressure [Right Arm] Blood Pressure Mean 76 81 Blood Pressure Mean [Right Arm] Blood Pressure Position Pulse Oximetry 93 Oxygen Delivery Method Sepsis Recent Fever Within 48 Hours Sepsis Action Taken by Nursing 02/12/20 11:00 02/12/20 11:01 02/12/20 11:30 Temperature Source Pulse Rate 66 67 65 Pulse Rate [Finger] Pulse Rate from SpO2 Sensor Respiratory Rate Respiratory Effort / Characteristics Respiratory Depth Respiratory Pattern Blood Pressure 114/70 120/69 Blood Pressure [Right Arm] Blood Pressure Mean 75 75 Blood Pressure Mean [Right Arm] Blood Pressure Position Pulse Oximetry Oxygen Delivery Method Sepsis Recent Fever Within 48 Hours Sepsis Action Taken by Nursing 02/12/20 11:31 02/12/20 12:00 02/12/20 12:01 Temperature Source Pulse Rate 66 63 66 Pulse Rate [Finger] Pulse Rate from SpO2 Sensor Respiratory Rate Respiratory Effort / Characteristics Respiratory Depth Respiratory Pattern Blood Pressure 112/64 Blood Pressure [Right Arm] Blood Pressure Mean 73 Blood Pressure Mean [Right Arm] Blood Pressure Position Pulse Oximetry Oxygen Delivery Method Sepsis Recent Fever Within 48 Hours Sepsis Action Taken by Nursing 02/12/20 12:30 02/12/20 12:31 02/12/20 15:08 Temperature Source Pulse Rate 71 70 Pulse Rate [Finger] 77 Pulse Rate from SpO2 Sensor Respiratory Rate 18 Respiratory Effort / Characteristics Non-Labored Spontaneous Respiratory Depth Normal Respiratory Pattern Regular Blood Pressure 126/78 Blood Pressure [Right Arm] 114/51 L Blood Pressure Mean 88 Blood Pressure Mean [Right Arm] 72 Blood Pressure Position Pulse Oximetry 97 Oxygen Delivery Method Room Air Sepsis Recent Fever Within 48 Hours Sepsis Action Taken by Nursing Laboratory Data Result diagrams: 02/12/20 10:20 02/12/20 10:20 Lab Results 02/12/20 02/12/20 02/12/20 Range/Units 10:20 10:20 10:20 WBC 6.41 (4.8-10.8) K/uL RBC 5.18 (4.7-6.1) M/uL Hgb 12.8 L (14.0-18.0) g/dL Hct 40.7 L (42-52) % MCV 78.6 L (80-100) fL MCH 24.7 L (25-34) pg MCHC 31.4 L (32-36) g/dL RDW Std Deviation 49.0 H (36.4-46.3) fL RDW Coeff of Jhon 17.1 H (11.5-14.5) % Plt Count 209 (130-400) K/uL MPV 9.6 (7.4-10.4) fL Immature Gran % (Auto) 0.2 % Neut % (Auto) 74.1 % Lymph % (Auto) 15.6 % Sol[place] % (Auto) 7.6 % Eos % (Auto) 2.3 % Baso % (Auto) 0.2 % Neut # (Auto) 4.75 (1.4-6.5) K/uL Lymph # (Auto) 1.00 L (1.2-3.4) K/uL Sol[place] # (Auto) 0.49 (0.11-0.59) K/uL Eos # (Auto) 0.15 (0-0.5) K/uL Baso # (Auto) 0.01 (0-0.2) K/uL Immature Gran # (Auto) 0.01 (0.00-0.02) K/uL ESR (0-14) mm/hr PT (9.0-12.0) Seconds INR (0.9-1.1) APTT (21.0-31.0) Seconds PTT Ratio Sodium 136 (136-145) mmol/L Potassium 4.3 (3.5-5.1) mmol/L Chloride 105 (98-107) mmol/L Carbon Dioxide 28 (21-32) mmol/L Anion Gap 3.0 (3-11) BUN 20 H (7-18) mg/dl Creatinine 0.89 (0.6-1.4) mg/dl Est Cr Clr Drug Dosing 98.1 ml/min Est GFR ( Amer) 100.4 Est GFR (Non-Af Amer) 86.6 BUN/Creatinine Ratio 22.8 H (10-20) Glucose 153 H (70-99) mg/dl Lactate (0.4-2.0) mmol/L Calcium 9.1 (8.5-10.1) mg/dl Total Bilirubin 0.4 (0.2-1) mg/dl AST 11 L (15-37) U/L ALT 22 (12-78) U/L Alkaline Phosphatase 117 (45-117) U/L C-Reactive Protein 6.42 H (0-0.29) mg/dl Total Protein 6.8 (6.4-8.2) gm/dl Albumin 3.2 L (3.4-5.0) gm/dl Globulin 3.6 (2.5-4.0) gm/dl Albumin/Globulin Ratio 0.9 (0.9-2) Lipase 109 (73-393) U/L Procalcitonin < 0.05 (0-0.5) ng/ml 02/12/20 02/12/20 02/12/20 Range/Units 10:20 15:30 15:45 WBC (4.8-10.8) K/uL RBC (4.7-6.1) M/uL Hgb (14.0-18.0) g/dL Hct (42-52) % MCV (80-100) fL MCH (25-34) pg MCHC (32-36) g/dL RDW Std Deviation (36.4-46.3) fL RDW Coeff of Jhon (11.5-14.5) % Plt Count (130-400) K/uL MPV (7.4-10.4) fL Immature Gran % (Auto) % Neut % (Auto) % Lymph % (Auto) % Sol[place] % (Auto) % Eos % (Auto) % Baso % (Auto) % Neut # (Auto) (1.4-6.5) K/uL Lymph # (Auto) (1.2-3.4) K/uL Sol[place] # (Auto) (0.11-0.59) K/uL Eos # (Auto) (0-0.5) K/uL Baso # (Auto) (0-0.2) K/uL Immature Gran # (Auto) (0.00-0.02) K/uL ESR 49 H (0-14) mm/hr PT 10.6 (9.0-12.0) Seconds INR 1.0 (0.9-1.1) APTT 33.1 H (21.0-31.0) Seconds PTT Ratio 1.2 Sodium (136-145) mmol/L Potassium (3.5-5.1) mmol/L Chloride (98-107) mmol/L Carbon Dioxide (21-32) mmol/L Anion Gap (3-11) BUN (7-18) mg/dl Creatinine (0.6-1.4) mg/dl Est Cr Clr Drug Dosing ml/min Est GFR ( Amer) Est GFR (Non-Af Amer) BUN/Creatinine Ratio (10-20) Glucose (70-99) mg/dl Lactate 0.9 (0.4-2.0) mmol/L Calcium (8.5-10.1) mg/dl Total Bilirubin (0.2-1) mg/dl AST (15-37) U/L ALT (12-78) U/L Alkaline Phosphatase (45-117) U/L C-Reactive Protein (0-0.29) mg/dl Total Protein (6.4-8.2) gm/dl Albumin (3.4-5.0) gm/dl Globulin (2.5-4.0) gm/dl Albumin/Globulin Ratio (0.9-2) Lipase (73-393) U/L Procalcitonin (0-0.5) ng/ml Administered Medications Gadobutrol (Gadavist 65ml) 11 ml IV ONCE PRN PRN Reason: Interaction Checking Stop: 02/16/20 13:55 Last Admin: 02/12/20 13:56 Dose: 11 ml Documented by: [id number] Vancomycin HCl 2,250 mg/ (Sodium Chloride) 545 mls @ 200 mls/hr IV NOW ONE Stop: 02/12/20 18:18 Last Admin: 02/12/20 15:48 Dose: 200 mls/hr Documented by: [id number] Discontinued Medications Hydromorphone HCl (Dilaudid) 0.5 mg IV NOW STA Stop: 02/12/20 09:57 Last Admin: 02/12/20 10:57 Dose: 0.5 mg Documented by: [id number] Hydromorphone HCl (Dilaudid) 0.5 mg IV NOW STA Stop: 02/12/20 11:53 Last Admin: 02/12/20 12:06 Dose: 0.5 mg Documented by: [id number] Hydromorphone HCl (Dilaudid) 0.5 mg IV NOW STA Stop: 02/12/20 14:53 Last Admin: 02/12/20 15:07 Dose: 0.5 mg Documented by: [id number] Hydromorphone HCl (Dilaudid) Confirm Administered Dose 0.5 mg .ROUTE .STK-MED ONE Stop: 02/12/20 15:06 Last Admin: 02/12/20 15:07 Dose: Not Given Documented by: [id number] Cefepime HCl (Maxipime) 2,000 mg in 20 mls @ 5 mls/min IV NOW STA; Protocol Stop: 02/12/20 15:39 Last Admin: 02/12/20 15:47 Dose: 5 mls/min Documented by: [id number] Ketorolac Tromethamine (Toradol) 10 mg IV NOW STA Stop: 02/12/20 14:53 Last Admin: 02/12/20 15:07 Dose: 10 mg Documented by: [id number] Discharge Plan Visit Data Chief Complaint: Back Injury/Pain ED Provider: Cosme Hensley Discharge Problem: Discitis, Back pain with history of spinal surgery Patient Disposition: Admitted As Inpatient Forms Stand Alone Forms: [facility] Prescriptions Prescriptions: No Action aspirin [Adult Low Dose Aspirin] 81 mg tablet,delayed release (DR/EC) 81 mg PO QAM RF: 0 furosemide 20 mg tablet 20 mg PO DAILY PRN (Reason: SWELLING) RF: 0 Janumet 50-1,000 mg tablet 1 tab PO BID RF: 0 cyanocobalamin (vitamin B-12) 1,000 mcg capsule 1,000 mcg PO QAM RF: 0 ascorbic acid (vitamin C) 250 mg tablet 250 mg PO QAM RF: 0 glimepiride 2 mg tablet 2 mg PO BID Qty: 180 RF: 3 lisinopril 40 mg tablet 20 mg PO QAM RF: 0 simvastatin 40 mg tablet 40 mg PO QAM RF: 0 timolol maleate [Timoptic] 0.25 % Drops 1 drp OPHTHALMIC (EYE) BID RF: 0 Alphagan P 0.1 % Drops 1 drp OPHTHALMIC (EYE) BID RF: 0 tramadol 50 mg tablet 50 mg PO Q6H PRN (Reason: pain, moderate) Qty: 30 RF: 0 oxycodone 5 mg tablet 5 mg PO BID PRN (Reason: pain, severe) RF: 0 Referrals Referrals: Rashel Rolon III, MD [Primary Care Provider] - Discharge Problem: Discitis Qualifiers: Spinal region: thoracic Qualified Code(s): M46.44 - Discitis, unspecified, thoracic region
[2020-02-12] MEDS ORDERED: GADOBUTROL 65ML VIAL IV PRN (13:56)
--- NOTE | 2020-02-12 14:24 | Magnetic Resonance Report ---
MR lumbar spine wo/w con HISTORY: Pain s/p surgery, pain TECHNIQUE: Multiplanar multisequence MRI of the lumbar spine was performed both before and after the intravenous administration of contrast. COMPARISON: None. FINDINGS: For the purpose of the report the L5-S1 disc space will be located on axial image 27 of 30. Findings there are extensive thoracolumbar laminectomy and fusion. All levels have been fused. Verteb ral body stature is normal. There is significant metallic artifact present throughout. There are soft tissue fluid pocket posterior to the thoracolumbar spine. These measure 5.1 x 1.2 cm p osterior to the L3-L4 level of the lumbar spine. An additional soft tissue fluid pocket is identified posterior to the T11-T12 level measuring 4 x 2 cm in greatest dimension. Based on the sagittal images there is no major compromise of the spinal canal. There is moderate reactive edematous change of the posterior paraspinous musculature. This may be a p ostoperative basis. L1-L2: No significant central canal or neural foraminal narrowing. L2-L3: No significant central canal or neural foraminal narrowing. L3-L4: No significant central canal or neural foraminal narrowing. L4-L5: No significant central canal or neural foraminal narrowing. L5-S1: No significant central canal or neural foraminal narrowing. IMPRESSION: 1. Extensive laminectomy and fusion extending from the low thoracic through S1 level of the lumbar sp ine. 2. Postprocedural fluid pockets within the posterior paraspinal soft tissues at T11-T12 and L3-L4 lev els. 3. These are suggestive of postprocedural seromas.. This showed no impact with the spinal canal. 4. No evidence for major recurrent disc herniation or significant component of spinal stenosis ACT 112: Negative or not required by law. The above report was generated using voice recognition software. It may contain grammatical, syntax or spelling errors. Electronically signed by: Gibson Craig M.D. 02/12/2020 2:23 PM
[2020-02-12] MEDS ORDERED: KETOROLAC TROMETHAMINE 15 MG/ML VIAL IV STA (14:52)
[2020-02-12] MEDS ORDERED: HYDROmorphone INJ 1 MG/ML SYRINGE IV STA (14:52)
[2020-02-12] MEDS ORDERED: HYDROmorphone INJ 0.5 MG/0.5 ML SYR ONE (15:05)
--- NOTE | 2020-02-12 15:05 | Magnetic Resonance Report ---
THORACIC SPINE MRI WITH AND WITHOUT CONTRAST HISTORY: Back pain. Prior surgery. TECHNIQUE: Multiplanar multisequence MRI of the thoracic spine was performed both before and after th e intravenous administration of contrast. COMPARISON: Thoracic spine CT 02/07/2020. FINDINGS: Posterior decompression fusion from T10 through the lumbar spine. Laminectomy at the T11-T12 location . There is a 6.8 x 3.1 cm fluid collection at the laminectomy sites. This favors a postoperative sero ma. A superinfected fluid collection cannot be excluded on the basis of imaging alone. Endplate erosi ve change, disc space narrowing, increased T2 signal, enhancement at the T9-T10 level. There is also signal abnormality and enhancement within the adjacent endplates are therefore, this is consistent wi th a discitis/osteomyelitis. There is a similar-appearing changes at the T7-T8 disc space also consis tent with an additional site of discitis/osteomyelitis. Enhancement along the posterior T7 and T8 cheryl tebral bodies course positive the osteomyelitis. There is a left paracentral focal disc protrusion at T7-T8. Abnormal thickening and enhancement within the epidural space from the T7-T12 level. This fav ors extension of the infection the setting of a phlegmon. Possible peripheral enhancing fluid collect ion within the posterior epidural space at the T11 level best seen on sagittal postcontrast sequence image 7. This measures subcentimeter results in slight mass effect along the posterior epidural space . There is severe central canal narrowing with moderate to severe cord compression at the T9-T10 disc space level. This appears to be secondary to mass effect from the discitis/osteomyelitis and enhanci ng epidural. Probable cord edema at this level. However, this is difficult to clearly identify due to the artifact. Enhancing epidural from the T7-T12 level results in diffuse mild mass effect. Paravert ebral edema and enhancement centered at the T9-T10 level. Trace bilateral pleural effusions. IMPRESSION: 1. Above findings consistent with discitis/osteomyelitis at the T9-T10 and T7-T8 levels. 2. Possible small posterior epidural abscess at the T11 level. However, this could also represent a s mall postoperative seroma. This results in mild mass effect along the posterior thecal sac. 3. Diffuse thickening and enhancement within the epidural from the T7-T12 levels consistent with infe ctious change. This favors a phlegmon and results in mild diffuse mass effect. 4. Severe central canal narrowing at the T9-T10 disc space level likely due to a combination of the d iscitis/osteomyelitis and epidural enhancement. This results in moderate to severe cord deformity. Th ere is possible cord edema at this location. 5. Fluid collection at the T11-T12 laminectomy site which favors a postoperative seroma. Superimposed infection cannot be excluded on the basis of imaging alone. ACT 112: Negative or not required by law. Electronically signed by: Sadi Riddle M.D. 02/12/2020 3:04 PM
[2020-02-12] MEDS ORDERED: VANCOMYCIN HCL 2,250 MG in SODIUM CHLORIDE 0.9% 500 ML IV ONE (15:35)
[2020-02-12] MEDS ORDERED: VANCOMYCIN CONSULT ACTIVE PRN ×3 (15:35→18:10)
[2020-02-12] MEDS ORDERED: CEFEPIME 2,000 MG/20 ML VIAL IV STA (15:36)
--- NOTE | 2020-02-12 15:46 | History & Physical Report ---
Date of Service February 12, 2020 Assessment & Plan (1) Discitis: For the possibility of discitis in the thoracic spine with recent surgical procedure and prosthetic aortic valve patient is placed on vancomycin and cefepime and blood cultures obtained. Spinal surgery consultation is undertaken the patient be kept n.p.o. in the morning for possible surgical washout there will be concerns if bacteremia as he has an aortic valve replacement and orthopedic hardware in place (2) Hx of aortic valve replacement: Given history of aortic valve replacement echocardiogram will be obtained and antibiotics are appropriate such that they will cover endocarditis if need be (3) Hypertension: Patient maintained on lisinopril 20 mg a day Patient typically takes aspirin for cardiovascular risk prevention this is held at the current time for impending surgical procedure Pt has ecg on 02/06 with Er visit that shows sinus rhythm no significant change other than perhaps change of axis as related to previous, CTA on 02/06 neg for PE and clear lungs (4) Diabetes mellitus, type 2: Patient is typically on oral agents of glimepiride 2 twice daily, and then sitagliptin metformin 50/100 twice daily. These will be held in favor of sliding scale insulin with possible basal component added with pharmacy consult (5) Hyperlipidemia: Patient typically is on simvastatin this will be continued (6) DVT prophylaxis: SCDs will be in place until postprocedural hemostasis is obtained and then chemoprophylaxis will be begun History of Present Illness Primary Care Provider: Rashel Rolon MD 69-M with lumbar spine surgery d/c 10/10/19 presenting today via ambulance with severe back pain with radicular component. Patient was evaluated in the emergency department on February 06 with a concern for some back pain elevated d- dimer and outpatient laboratory studies. Patient underwent evaluation with no evidence of PE, basic laboratory studies were without evidence of significant leukocytosis or evidence of pancreatitis. Patient was treated with pain medicine and was insisted on leaving before final reports for CT of the thoracic spine was completed. CT report shows fragmentation at the inferior endplate of T9 and serration at T10 suggestive of postoperative ostial lysis however discitis and osteomyelitis per radiology report remained on the differential. Patient states he is been experiencing back pain since his surgery in September of this year by Dr. Muhammad. Saw Dr. Muhammad about 3 weeks ago with normal x-ray at that time. At 2 AM and got up to use the bathroom and twisted when he was in the bathroom without a pop. Laid back down in the went to get up around 6-6 30 this morning he sat up and had severe pain in his lower back rating down both legs. He describes the pain to be associated with electric shocks, He denies numbness or bladder dysfunction at this time. Denies again any fevers. Given some fentanyl prior to arrival with out significant change in symptoms. Did take some oxycodone at home as well as a muscle relaxer without improvement. He denies any saddle anesthesia. Allergies Allergy/AdvReac Type Severity Reaction Status Date / Time morphine Allergy Mild ITCHY Verified 02/12/20 10:12 Home Medications Home Medications Medication Instructions Recorded Confirmed Type ascorbic acid (vitamin C) 250 mg 250 mg PO QAM 05/19/19 02/12/20 History tablet aspirin 81 mg tablet,delayed 81 mg PO QAM 05/19/19 02/12/20 History release cyanocobalamin (vitamin B-12) 1,000 mcg PO QAM 05/19/19 02/12/20 History 1,000 mcg capsule furosemide 20 mg tablet 20 mg PO DAILY PRN 05/19/19 02/12/20 History sitagliptin 50 mg-metformin 1,000 1 tab PO BID 05/19/19 02/12/20 History mg tablet glimepiride 2 mg tablet 2 mg PO BID #180 tab 05/22/19 02/12/20 Rx Alphagan P 1 drp OPHTHALMIC (EYE) BID 10/01/19 02/12/20 History simvastatin 40 mg PO QAM 10/01/19 02/12/20 History timolol maleate [Timoptic] 1 drp OPHTHALMIC (EYE) BID 10/01/19 02/12/20 History tramadol 50 mg PO Q6H PRN #30 tab 10/09/19 02/12/20 Rx lisinopril 40 mg tablet 20 mg PO QAM tab 10/24/19 02/12/20 History oxycodone 5 mg PO BID PRN 02/07/20 02/12/20 History Past Med/Surg History Social History Preferred Language: Upper Sorbian Communication Ability: Effective 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 Beliefs That Will Affect Care: None marital status: Current Living Situation: Spouse current occupational status: retired Feels Safe at Home: Yes Smoking Status: Never smoker Second Hand Exposure: No ; Hx Alcohol Use: Yes Alcohol type: beer Alcohol Intake Frequency: Rarely Hx Substance Use: No Dental Care, Regularly: Yes Physical Activity Frequency: Does not Exercise Review of Systems Review of Systems: Mild to moderate distress and fatigue no headache, blurry or double vision no speech or swallowing issues no chest pain, pressure or palpitations no shortness of breath, cough or wheezes no abdominal pain, nausea or vomiting, diarrhea or constipation no dysuria, hematuria or frequency no focal joint pain or swelling no lower lumbar pain worse with moving and twisting with some electric sensation radiating down both legs no focal signs of weakness or numbness or altered sensation when at rest and without pain no complaints or anxiety or depression. Physical Exam Physical Exam: The patient appeared well nourished and normally developed. he was in moderate pain Vital signs as documented. Head exam is normocephalic atraumatic no scleral icterus Neck is without JVD, thyromegaly, or carotid bruits. Lungs are clear to auscultation, no focal loss of breath sounds Cardiac exam, Rhythm is regular.. systolic murmur consistent with his valve replacement Abdominal exam reveals normal bowel sounds, soft non tender, no masses Extremities are nonedematous and both pedal pulses are normal. Neurologic exam is alert and oriented, no focal loss of strength or sensation, reflexes at knees are difficult to obtain due to prevoius replacements Skin is without bruises or rashes Psychologically is without concerns for anxiety or depression Results & Data Results & Data ([facility]) Vital Signs (Past 12 Hours) Vital Signs Pulse Pulse Resp BP BP Pulse Ox 02/12/20 15:08 77 18 114/51 L 97 02/12/20 12:31 70 02/12/20 12:30 71 126/78 02/12/20 12:01 66 02/12/20 12:00 63 112/64 02/12/20 11:31 66 02/12/20 11:30 65 120/69 02/12/20 11:01 67 02/12/20 11:00 66 114/70 02/12/20 10:31 72 02/12/20 10:30 72 123/76 02/12/20 10:00 72 21 112/71 93 02/12/20 09:47 78 20 93 07/01/20 09:42 78 18 173/97 H 94 02/12/20 09:39 76 21 173/97 H 95 Thoracic spine MRI 02/12/2020 IMPRESSION: 1. findings consistent with discitis/osteomyelitis at the T9-T10 and T7-T8 levels. 2. Possible small posterior epidural abscess at the T11 level. However, this could also represent a small postoperative seroma. This results in mild mass effect along the posterior thecal sac. 3. Diffuse thickening and enhancement within the epidural from the T7-T12 levels consistent with infectious change. This favors a phlegmon and results in mild diffuse mass effect. 4. Severe central canal narrowing at the T9-T10 disc space level likely due to a combination of the discitis/osteomyelitis and epidural enhancement. This results in moderate to severe cord deformity. There is possible cord edema at this location. 5. Fluid collection at the T11-T12 laminectomy site which favors a postoperative seroma. Superimposed infection cannot be excluded on the basis of imaging alone. Lumbar spine MRI 02/12/2020 IMPRESSION: 1. Extensive laminectomy and fusion extending from the low thoracic through S1 level of the lumbar spine. 2. Postprocedural fluid pockets within the posterior paraspinal soft tissues at T11-T12 and L3-L4 levels. 3. These are suggestive of postprocedural seromas.. This showed no impact with the spinal canal. 4. No evidence for major recurrent disc herniation or significant component of spinal stenosis PG Care Time/CCT Total # of Minutes Spent Total Time Spent with Patient: Total time spent is greater than 50% in coordination of care (as documented) at patient's floor/unit and/or counseling patient: Coding Level of Care Code 02243 Initial Inpt Care Lvl 3 Diagnoses Discitis M46.40 Hx of aortic valve replacement Z95.2 Hypertension I10 Diabetes mellitus, type 2 E11.9 Hyperlipidemia E78.5 DVT prophylaxis Z29.9
[2020-02-12 16:18] LABS: Partial Thromboplastin Ratio 1.2; Partial Thromboplastin Time 33.1 Seconds (21.0-31.0); Prothrombin Time 10.6 Seconds (9.0-12.0)
[2020-02-12] MEDS ORDERED: DEXTROSE 50% 50 ML SYRINGE IV PRN (18:10)
[2020-02-12] MEDS ORDERED: ALUMINUM/MAGNESIUM SUSP 30 ML UDC PO PRN (18:10)
[2020-02-12] MEDS ORDERED: GLUCAGON FOR INJ 1 MG VIAL SQ PRN (18:10)
[2020-02-12] MEDS ORDERED: ONDANSETRON INJ 2 MG/ML 2 ML VIAL IV PRN (18:10)
[2020-02-12] MEDS ORDERED: GLUCOSE 10 TABS/TUBE PO PRN (18:10)
[2020-02-12] MEDS ORDERED: HYDROmorphone INJ 0.5 MG/0.5 ML SYR IV PRN (18:10)
[2020-02-12] MEDS ORDERED: CARBOHYDRATES FOR HYPOGLYCEMIA PO PRN (18:10)
[2020-02-12] MEDS ORDERED: GLUCOSE 40% GEL 15 GM TUBE PO PRN (18:10)
[2020-02-12] MEDS ORDERED: PHARMACY GLYCEMIC MGMT CONSULT PRN (18:22)
[2020-02-12] MEDS: OXYCODONE HCL IR 5 MG TAB (IMMEDIATE RELEASE) PO PRN (18:28)
--- NOTE | 2020-02-12 18:51 | Pharmacy Report ---
Pharmacy Abx Dose Short Note - Date of Service February 12, 2020 - Assessment & Plan Assessment 69 year old M receiving vancomycin/cefepime for treatment of discitis Day # 1 of antimicrobial therapy. Plan Vancomycin * vancomycin loading dose of 2250 mg (20 mg/kg) x 1 given in ED * population pharmacokinetics suggest half-life of 8.8 hours with elimination constant of 0.078 hr-1 * start vancomycin 1500 mg IV q10 hours (13 mg/kg) * check trough prior to 3rd dose (02/12 @1130) --> prior to steady state * goal trough for discitis is 15-20 mcg/mL * extended interval and lower mg/kg utilized due to body habitus. Pharmacy will continue to follow and will adjust dose/frequency as necessary. Thank you.
[2020-02-12] MEDS: HYDROmorphone INJ 1 MG/ML SYRINGE IV PRN (19:22)
[2020-02-12] MEDS: INSULIN ASPART 100 UNITS/ML 3 ML PEN SC SCH ×2 (21:14→22:29)
[2020-02-12] MEDS: CEFEPIME 2,000 MG in SYRINGE 7.5 ML IV SCH (21:14)
[2020-02-12] MEDS: POLYETHYLENE (MIRALAX) 17 GM PACK PO SCH (21:16)
[2020-02-12] MEDS: TIMOLOL GFS 0.5% OPH SOLN 74 DROPS/5 ML BTL OP SCH (21:17)
[2020-02-12] MEDS: ACETAMINOPHEN 325 MG TAB PO PRN (21:26)
[2020-02-13] MEDS: HYDROmorphone INJ 1 MG/ML SYRINGE IV PRN ×5 (00:07→19:59)
[2020-02-13] MEDS: OXYCODONE HCL IR 5 MG TAB (IMMEDIATE RELEASE) PO PRN ×3 (00:34→17:31)
[2020-02-13] MEDS: VANCOMYCIN HCL 1,500 MG in SODIUM CHLORIDE 0.9% 500 ML IV SCH ×3 (02:06→23:56)
[2020-02-13] MEDS ORDERED: INSULIN ASPART 100 UNITS/ML 3 ML PEN SC SCH ×2 (06:00)
[2020-02-13] MEDS: CEFEPIME 2,000 MG in SYRINGE 7.5 ML IV SCH ×3 (06:01→21:29)
[2020-02-13 06:17] LABS: Hematocrit (blood only) 39.6 % (42-52); Hemoglobin 12.6 g/dL (14.0-18.0); Mean Corpuscular Hgb Conc 31.8 g/dL (32-36); Mean Corpuscular Volume 78.6 fL (80-100); Mean Platelet Volume 9.7 fL (7.4-10.4); Platelet Count 216 K/uL (130-400); RDW Coefficient of Variation 17.5 % (11.5-14.5); RDW Standard Deviation 50.1 fL (36.4-46.3); Red Blood Count 5.04 M/uL (4.7-6.1); White Blood Count 5.07 K/uL (4.8-10.8)
[2020-02-13 06:56] LABS: Calcium 8.9 mg/dl (8.5-10.1); Est GFR (African American) 100.4; Est GFR (Non-African American) 86.6; Potassium 4.4 mmol/L (3.5-5.1)
[2020-02-13 08:00] LABS: Estimated Average Glucose 166 mg/dl; Hemoglobin A1C 7.4 % (4.5-5.6)
--- NOTE | 2020-02-13 08:20 | Orthopedic Consultation ---
Date of Consultation February 13, 2020 Assessment & Plan (1) Thoracic stenosis: At length discussion with this patient regarding his MRI imaging and clinical presentation is my recommendation that he undergo urgent thoracic decompression and fusion at T8-T9. This would require removal of the hinds hooks rods and extending them up to at least T8. We will most likely place antibiotic beads at the time of surgery. He is considering his options notify me if he would like to proceed. If so I will do so tomorrow morning. Present on Admission?: Yes History of Present Illness Reason for Consultation: Back and bilateral leg pain and weakness Attending Physician: Alyssa Molina MD History of Present Illness This is a 6-year-old male well-known to me the presents with marked decline in status over the past few days. Is complaining of thoracic back pain with shock- like symptoms down his legs. Imaging obtained last evening demonstrates evidence of possible discitis T9-T10 with epidural fluid collection. He states this is been progressive over the past few days. He has inability to ambulate. He is comfortable and lying supine. Allergies Allergy/AdvReac Type Severity Reaction Status Date / Time morphine Allergy Mild ITCHY Verified 02/12/20 10:12 Home Medications Home Medications Medication Instructions Recorded Confirmed Type ascorbic acid (vitamin C) 250 mg 250 mg PO QAM 05/19/19 02/12/20 History tablet aspirin 81 mg tablet,delayed 81 mg PO QAM 05/19/19 02/12/20 History release cyanocobalamin (vitamin B-12) 1,000 mcg PO QAM 05/19/19 02/12/20 History 1,000 mcg capsule furosemide 20 mg tablet 20 mg PO DAILY PRN 05/19/19 02/12/20 History sitagliptin 50 mg-metformin 1,000 1 tab PO BID 05/19/19 02/12/20 History mg tablet glimepiride 2 mg tablet 2 mg PO BID #180 tab 05/22/19 02/12/20 Rx Alphagan P 1 drp OPHTHALMIC (EYE) BID 10/01/19 02/12/20 History simvastatin 40 mg PO QAM 10/01/19 02/12/20 History timolol maleate [Timoptic] 1 drp OPHTHALMIC (EYE) BID 10/01/19 02/12/20 History tramadol 50 mg PO Q6H PRN #30 tab 10/09/19 02/12/20 Rx lisinopril 40 mg tablet 20 mg PO QAM tab 10/24/19 02/12/20 History oxycodone 5 mg PO BID PRN 02/07/20 02/12/20 History Patient History Social History Preferred Language: Danish Communication Ability: Effective 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 Beliefs That Will Affect Care: None marital status: Current Living Situation: Spouse current occupational status: retired Other Information That Helps Us Care for You: No Feels Safe at Home: Yes Safety Concerns: Feels Safe At This Time Smoking Status: Never smoker Do You Dip or Chew Tobacco: No ; Second Hand Exposure: No ; Tobacco Cessation Education Requested by Patient: No Hx Alcohol Use: Yes Alcohol type: beer Alcohol Intake Frequency: Rarely Hx Substance Use: No Dental Care, Regularly: Yes Physical Activity Frequency: Does not Exercise Physical Exam Physical Exam: On exam he is lying supine. He does have reasonable strength to testing bilateral extremities. Sensory symmetric and intact. Did not have him sit up. Results & Data ([facility]) Vital Signs (Past 12 Hours) Vital Signs Temp Pulse Resp BP Pulse Ox 02/13/20 08:11 36.6 C 68 16 172/98 H 98 02/13/20 00:14 36.6 C 71 18 113/69 95
[2020-02-13] MEDS: lisinopriL 20 MG TAB PO SCH (08:24)
[2020-02-13] MEDS: TIMOLOL GFS 0.5% OPH SOLN 74 DROPS/5 ML BTL OP SCH ×2 (08:24→21:16)
[2020-02-13] MEDS: SIMVASTATIN 40 MG TAB PO SCH (08:25)
[2020-02-13] MEDS ORDERED: Nursing to Pharmacy Communication SCH (10:00)
--- NOTE | 2020-02-13 10:01 | XCELERA ---
[id number]
--- NOTE | 2020-02-13 10:42 | Hospitalist Progress Note ---
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 With severe central canal narrowing at T9- T10 disc space combination discitis/osteo with moderate to severe cord deformity and possible cord edema. * Patient s/p Aortic Valve 2015 and s/p thoracic decomp/fusion Sep 2019 * ECHO which cannot exclude valvular vegetation as above as bioprosthetic leaflets are not well visualized * Continue Vanco/Cefepime * Blood cultures NGTD * Ortho consulted --> discussed with Dr. Muhammad. Parts ordered and will proceed to OR in AM EKG with old anteroseptal infarct new from EKG 02/07/20. Trop <0.015 on admission. CTA on 02/06 negative for PE and lungs clear * Given diet for today * NPO after midnight * Pain control with dilaudid, oxycodone * Zofran prn nausea (2) Hx of aortic valve replacement: * Aug 2019 with Medtronic porcine valve, minimally invasive, follows with Dr. Ochoa. No evidence of CHF * Given history of aortic valve replacement, ECHO obtained -- see above * Antibiotics orders to cover for endocarditis (3) Hypertension: * Chronic. Elevated currently at 149/88, likely in setting of pain * Continue lisinopril 20mg PO daily (4) Diabetes mellitus, type 2: * A1c 7.4, down from 8.6 * Home medications on hold (sitagliptan/metformin 50/100 BID, glimeperide 2mg BID) * Pharmacy consulted on admission for glycemic management * Continue to monitor (5) Hyperlipidemia: * Chronic. Last lipid profile May 2019 -- triglycerides 202, cholesterol 116, LDL 51, HDL 25 * Continue home simvastatin 40mg daily (6) Hydrocele: * Hx R hydrocele. Set up with urology as outpatient. Has been present for quite some time. (7) DVT prophylaxis: * SCDs will be in place until postprocedural hemostasis is obtained and then chemoprophylaxis will be begun Dispo: OR tomorrow with Dr. Muhammad Admission and Anticipated Discharge Date Admission Date: February 12, 2020 Supervising Physician Co-Signing Physician Notes PA Supervision Note: I personally saw and examined the patient. I verified all villafuerte points and agree with DEJUAN Gotti with the following exceptions and/or additions: Pt still having severe mid and lower back pain, has to change positions frequently to get comfortable. Is willing to have surgery. Afebrile here. On antibiotics. VSS Mild disterss w/ any movement RRR no mgr CTAB no wcr ABd +BS soft NT ND Ext no edema Neuro-can move bilat LEs but no strength tested due to severe pain with any movement of legs 69 yo male here with OM/discitis and possible epidural abscess s/o back surgery several months ago -continue broad spectrum abx, follow BCxs For surgery tomorrow, NPO after midnight with IVFs Subjective Patient evaluated this morning. Initially not sure if wanting to pursue transfer for procedure, but after further discussion, he is agreeable to procedure to OR tomorrow with Dr. Muhammad. He states he has confidence in Dr. Muhammad but that he had previously had bad experience with their office after his most recent procedure and had been disappointed because he has been with [facility] for multiple joint replacements in the past without issue. Patient states he is having significant back pain with radiation to bilateral lower extremities. He describes the pain as 8-9/10 and is a sharp, stabbing pain. Unable to get comfortable for more than minutes at a time. Bends his knees to relieve pressure at times which seems to help. Denies saddle paresthesia/loss of bowel or bladder function at this time. States he has not had a bowel movement since Monday. Typically takes miralax but would be agreeable to trying something else. Denies any nausea or vomiting at this time or abdominal pain, fever, chills, chest pain or shortness of breath. Discussed that I will reach out to Dr. Muhammad this morning and have parts ordered so that he may proceed to the OR tomorrow morning. Review of Systems Review of Systems: All systems reviewed & are unremarkable except as noted in HPI & below Physical Exam Constitutional: cooperative; + uncomfortable Eyes: + anicteric sclerae and PERRL Respiratory: normal respiratory effort, lungs clear to auscultation Cardiovascular: Rate/Rhythm: regular rate and regular rhythm Heart Sounds: + murmur (systolic) Extremities: no calf tenderness and no edema Gastrointestinal (Abdomen): normal bowel sounds, soft, nontender, no hepatosplenomegaly Musculoskeletal: Head/Neck/Chest: normocephalic and head atraumatic strength equal NVI 2+ dp, pt pulses bilaterally Skin: warm dry Neurologic: PERRL, EOMI, accommodation nl, no face palsy, no dysarthria awake difficult reflexes Psychiatric: Orientation: alert and oriented x 3 Lymphatic: no cervical or axillary lymphadenopathy Results & Data Results & Data ([facility]) Vital Signs (Past 12 Hours) Vital Signs Temp Pulse Resp BP Pulse Ox 02/13/20 08:11 36.6 C 68 16 172/98 H 98 02/13/20 00:14 36.6 C 71 18 113/69 95 Laboratory Results 02/13/20 02/13/20 02/13/20 Range/Units Unknown Unknown 17:00 WBC (4.8-10.8) K/uL RBC (4.7-6.1) M/uL Hgb (14.0-18.0) g/dL Hct (42-52) % MCV (80-100) fL MCH (25-34) pg MCHC (32-36) g/dL RDW Std Deviation (36.4-46.3) fL RDW Coeff of Jhon (11.5-14.5) % Plt Count (130-400) K/uL MPV (7.4-10.4) fL Sodium (136-145) mmol/L Potassium (3.5-5.1) mmol/L Chloride (98-107) mmol/L Carbon Dioxide (21-32) mmol/L Anion Gap (3-11) BUN (7-18) mg/dl Creatinine (0.6-1.4) mg/dl Est Cr Clr Drug Dosing ml/min Est GFR ( Amer) Est GFR (Non-Af Amer) BUN/Creatinine Ratio (10-20) Glucose (70-99) mg/dl POC Glucose 151 H (70-99) mg/dl Estimat Average Glucose mg/dl Hemoglobin A1c (4.5-5.6) % Calcium (8.5-10.1) mg/dl Vancomycin Trough (See Comment) mcg/ml COVID-19 PCR NEGATIVE (Negative) SARS-CoV-2 RNA (RT-PCR) Cancelled Blood Type Antibody Screen 02/13/20 02/13/20 02/13/20 Range/Units 14:18 12:18 11:23 WBC (4.8-10.8) K/uL RBC (4.7-6.1) M/uL Hgb (14.0-18.0) g/dL Hct (42-52) % MCV (80-100) fL MCH (25-34) pg MCHC (32-36) g/dL RDW Std Deviation (36.4-46.3) fL RDW Coeff of Jhon (11.5-14.5) % Plt Count (130-400) K/uL MPV (7.4-10.4) fL Sodium (136-145) mmol/L Potassium (3.5-5.1) mmol/L Chloride (98-107) mmol/L Carbon Dioxide (21-32) mmol/L Anion Gap (3-11) BUN (7-18) mg/dl Creatinine (0.6-1.4) mg/dl Est Cr Clr Drug Dosing ml/min Est GFR ( Amer) Est GFR (Non-Af Amer) BUN/Creatinine Ratio (10-20) Glucose (70-99) mg/dl POC Glucose 242 H (70-99) mg/dl Estimat Average Glucose mg/dl Hemoglobin A1c (4.5-5.6) % Calcium (8.5-10.1) mg/dl Vancomycin Trough 15.2 (See Comment) mcg/ml COVID-19 PCR (Negative) SARS-CoV-2 RNA (RT-PCR) Blood Type O Positive Antibody Screen NEGATIVE 02/13/20 02/13/20 02/13/20 Range/Units 05:56 05:09 05:09 WBC (4.8-10.8) K/uL RBC (4.7-6.1) M/uL Hgb (14.0-18.0) g/dL Hct (42-52) % MCV (80-100) fL MCH (25-34) pg MCHC (32-36) g/dL RDW Std Deviation (36.4-46.3) fL RDW Coeff of Jhon (11.5-14.5) % Plt Count (130-400) K/uL MPV (7.4-10.4) fL Sodium 139 (136-145) mmol/L Potassium 4.4 (3.5-5.1) mmol/L Chloride 106 (98-107) mmol/L Carbon Dioxide 29 (21-32) mmol/L Anion Gap 4.0 (3-11) BUN 17 (7-18) mg/dl Creatinine 0.89 (0.6-1.4) mg/dl Est Cr Clr Drug Dosing 97.0 ml/min Est GFR ( Amer) 100.4 Est GFR (Non-Af Amer) 86.6 BUN/Creatinine Ratio 19.0 (10-20) Glucose 97 (70-99) mg/dl POC Glucose 127 H (70-99) mg/dl Estimat Average Glucose 166 mg/dl Hemoglobin A1c 7.4 H (4.5-5.6) % Calcium 8.9 (8.5-10.1) mg/dl Vancomycin Trough (See Comment) mcg/ml COVID-19 PCR (Negative) SARS-CoV-2 RNA (RT-PCR) Blood Type Antibody Screen 02/13/20 02/12/20 02/12/20 Range/Units 05:09 22:26 19:29 WBC 5.07 (4.8-10.8) K/uL RBC 5.04 (4.7-6.1) M/uL Hgb 12.6 L (14.0-18.0) g/dL Hct 39.6 L (42-52) % MCV 78.6 L (80-100) fL MCH 25.0 (25-34) pg MCHC 31.8 L (32-36) g/dL RDW Std Deviation 50.1 H (36.4-46.3) fL RDW Coeff of Jhon 17.5 H (11.5-14.5) % Plt Count 216 (130-400) K/uL MPV 9.7 (7.4-10.4) fL Sodium (136-145) mmol/L Potassium (3.5-5.1) mmol/L Chloride (98-107) mmol/L Carbon Dioxide (21-32) mmol/L Anion Gap (3-11) BUN (7-18) mg/dl Creatinine (0.6-1.4) mg/dl Est Cr Clr Drug Dosing ml/min Est GFR ( Amer) Est GFR (Non-Af Amer) BUN/Creatinine Ratio (10-20) Glucose (70-99) mg/dl POC Glucose 142 H 84 (70-99) mg/dl Estimat Average Glucose mg/dl Hemoglobin A1c (4.5-5.6) % Calcium (8.5-10.1) mg/dl Vancomycin Trough (See Comment) mcg/ml COVID-19 PCR (Negative) SARS-CoV-2 RNA (RT-PCR) Blood Type Antibody Screen Diagnostic Findings ECHO Compared with 07/18/2014 study, tribe aortic valve has been replaced with a bioprosthetic valve. Bioprosthetic valve leaflets are suboptimally visualized, cannot exclude a valvular vegetation (if clinically indicated, consider transesophageal echocardiogram). The left ventricle is normal in size Left ventricular systolic function is normal Ejection Fraction = 60-65% The left ventricular wall motion is normal There is mild concentric left ventricular hypertrophy Grade I diastolic dysfunction (abnormal relaxation pattern) There is a bioprosthetic aortic valve The gradient is normal for this prosthetic aortic valve Bioprosthetic leaflets are not well visualized Cannot exclude aortic valvular vegetation Trace aortic regurgitation ECG Additional Comments: Normal sinus rhythm 75bpm Old Anteroseptal infarct Abnormal ECG When compared with ECG of 07-FEB-2020 11:25, Criteria for Anteroseptal infarct is now Present Criteria for Inferior infarct no longer present PG Care Time/CCT Total # of Minutes Spent Total Time Spent with Patient: Total time spent is greater than 50% in coordination of care (as documented) at patient's floor/unit and/or counseling patient: Coding Level of Care Code 98718 Subseq Hosp Care Lvl 3 Diagnoses Discitis M46.44 Spinal region: thoracic Hx of aortic valve replacement Z95.2 Hypertension I10 Diabetes mellitus, type 2 E11.9 Hyperlipidemia E78.5 Hydrocele N43.3 DVT prophylaxis Z29.9 (1) Discitis Spinal region: thoracic Qualified Code(s): M46.44 - Discitis, unspecified, thoracic region
[2020-02-13] MEDS ORDERED: VANCOMYCIN TROUGH ONE (11:30)
--- NOTE | 2020-02-13 12:50 | Pharmacy Report ---
Pharmacy Glycemic Short Note 2 - Date of Service February 13, 2020 - Glycemic Short BSG Results (Last 24 hours): 02/12/20 02/12/20 02/13/20 19:29 22:26 05:09 Glucose 97 POC Glucose 84 142 H 02/13/20 02/13/20 05:56 12:18 Glucose POC Glucose 127 H 242 H OUTPATIENT ANTIDIABETIC REGIMEN: * Januvia/metformin mg 1 tab BID * A1c = 7.4% 02/13/20 ASSESSMENT: * Monet is a 69 yo T2DM male admitted for discitis * Pt is maintained on oral antidiabetic agents as an outpatient * Will hold oral agents for admission and utilize SQ basal bolus insulin regimen which is the recommended regimen for inpatient glycemic control. * Fasting BSG at goal without basal insulin. Will hold off for now. Of note, during September admission patient required ~20 units/day of basal insulin post op. * Lunch BSG is elevated (242 mg/dL). Patient was given a late breakfast tray (carbs not covered), therefore I will not react to this value. * Plan is for the patient to go to OR on 02/13 for thoracic decompression and f usion PLAN FOR INPATIENT GLYCEMIC CONTROL: * Hold outpatient oral diabetes medications * Basal insulin * none * Bolus insulin * NovoLog per scale ACHS or Q6hrs while NPO * Goal Range: Low 110 mg/dL - High 140 mg/dL * Correction Factor: 20 mg/dL/unit * Nutritional / Prandial insulin per carb ratio of 1 unit per 7 grams CHO consumed PLAN FOR DISCHARGE: * A1c of 7.4% is acceptable (decreased from 8.6% on 10/10/19) * Continue home regimen on discharge
[2020-02-13] MEDS: INSULIN ASPART 100 UNITS/ML 3 ML PEN SC SCH ×3 (13:24→21:18)
--- NOTE | 2020-02-13 14:18 | Electrocardiogram Report ---
Test Reason : Blood Pressure : / mmHG Vent. Rate : 075 BPM Atrial Rate : 075 BPM P-R Int : 178 ms QRS Dur : 108 ms QT Int : 392 ms P-R-T Axes : 017 -18 015 degrees QTc Int : 437 ms Normal sinus rhythm Old Anteroseptal infarct Abnormal ECG When compared with ECG of 07-FEB-2020 11:25, Criteria for Anteroseptal infarct is now Present Criteria for Inferior infarct no longer present Confirmed by Kelton Valentine ([id number]) on 02/13/2020 2:18:27 PM Referred By: REFERRED SELF Confirmed By:Kelton Valentine
[2020-02-13] MEDS ORDERED: HydrALAZINE HCL 20 MG/ML VIAL IV PRN (14:43)
--- NOTE | 2020-02-13 14:55 | Pharmacy Report ---
Pharmacy Abx Dose Short Note - Date of Service February 13, 2020 - Assessment & Plan Assessment 69 year old M receiving empiric vancomycin + cefepime for treatment of discitis with epidural fluid collection * day # 2 of antimicrobial therapy * BC pending. Patient has history of aortic valve replacement. * ortho recommends that patient undergo urgent thoracic decompression and fusion at T8-T9 Plan Vancomycin * Trough level of 15.2 mcg/mL is therapeutic * Of note, this level was drawn prior to steady state due to suspicion for drug accumulation. This level indicates that true tough level will likely be > 20 mcg/mL. * Due to above I will change dose to 1500 mg (13 mg/kg) IV every 12 hours * Repeat trough level in ~36-48 hours Pharmacy will continue to follow and will adjust dose/frequency as necessary. Thank you.
[2020-02-13] MEDS: DOCUSATE SODIUM/SENNA 50/8.6MG TAB PO SCH (16:27)
[2020-02-13] MEDS ORDERED: HYDROmorphone INJ 0.5 MG/0.5 ML SYR IV STA (20:42)
[2020-02-13] MEDS: POLYETHYLENE (MIRALAX) 17 GM PACK PO SCH (21:16)
[2020-02-14] MEDS: SODIUM CHLORIDE 0.9% 1000ML 1,000 ML IV SCH ×2 (00:05→19:10)
[2020-02-14] MEDS: OXYCODONE HCL IR 5 MG TAB (IMMEDIATE RELEASE) PO PRN ×2 (03:21→20:37)
[2020-02-14] MEDS: CEFEPIME 2,000 MG in SYRINGE 7.5 ML IV SCH ×3 (05:22→20:38)
[2020-02-14] MEDS: INSULIN ASPART 100 UNITS/ML 3 ML PEN SC SCH ×5 (05:24→23:53)
[2020-02-14 06:25] LABS: Hematocrit (blood only) 41.7 % (42-52); Hemoglobin 13.5 g/dL (14.0-18.0); Mean Corpuscular Hemoglobin 25.8 pg (25-34); Mean Corpuscular Hgb Conc 32.4 g/dL (32-36); Mean Corpuscular Volume 79.6 fL (80-100); Mean Platelet Volume 9.4 fL (7.4-10.4); Platelet Count 219 K/uL (130-400); RDW Coefficient of Variation 17.4 % (11.5-14.5); RDW Standard Deviation 50.6 fL (36.4-46.3); Red Blood Count 5.24 M/uL (4.7-6.1)
[2020-02-14 07:03] LABS: BUN Creatinine Ratio 17.6 (10-20); Calcium 9.3 mg/dl (8.5-10.1); Creatinine Clr Calc Pharmacy 91.8 ml/min; Est GFR (African American) 94.8; Est GFR (Non-African American) 81.8; Potassium 4.2 mmol/L (3.5-5.1)
[2020-02-14 07:07] LABS: Ferritin 116.4 ng/ml (8-388)
[2020-02-14] MEDS: HYDROmorphone INJ 1 MG/ML SYRINGE IV PRN ×4 (07:29→15:52)
[2020-02-14] MEDS ORDERED: LIDOCAINE HCL 2% 2 ML VIAL/AMP(20MG/ML) INFIL ONE (08:23)
[2020-02-14] MEDS ORDERED: ROCURONIUM BROMIDE 10 MG/ML 5 ML VIAL IV ONE (08:23)
[2020-02-14] MEDS ORDERED: MIDAZOLAM HCL 1 MG/ML 2ML VIAL ONE (08:23)
[2020-02-14] MEDS ORDERED: LARYING-O-JET KIT (LTA) ONE (08:23)
[2020-02-14] MEDS ORDERED: ePHEDrine sulfate 50 MG/ML SYR ONE (08:23)
[2020-02-14] MEDS ORDERED: NEOSTIGMINE METHYLSULFATE 1 MG/ML 10ML VIAL ONE (08:23)
[2020-02-14] MEDS ORDERED: GLYCOPYRROLATE 0.2 MG/ML VIAL ONE (08:23)
[2020-02-14] MEDS ORDERED: PROPOFOL IV EMULSION 10 MG/ML 20 ML VIAL IV ONE (08:23)
[2020-02-14] MEDS ORDERED: ONDANSETRON INJ 2 MG/ML 2 ML VIAL ONE (08:23)
[2020-02-14] MEDS ORDERED: PHENYLEPHRINE 100MCG/ML 5ML SYR ONE (08:23)
[2020-02-14] MEDS ORDERED: fentaNYL citrate 100 MCG/2 ML VIAL ONE (08:23)
[2020-02-14] MEDS ORDERED: DEXAMETHASONE SOD INJ 4 MG/ML VIAL ONE (08:23)
[2020-02-14] MEDS: DOCUSATE SODIUM/SENNA 50/8.6MG TAB PO SCH ×2 (09:30→20:39)
[2020-02-14] MEDS: TIMOLOL GFS 0.5% OPH SOLN 74 DROPS/5 ML BTL OP SCH ×2 (09:30→20:53)
[2020-02-14] MEDS: lisinopriL 20 MG TAB PO SCH (09:30)
--- NOTE | 2020-02-14 09:55 | Anesthesiology Consultation ---
Date of Service February 14, 2020 Assessment & Plan (1) Encounter for pre-operative examination: Chart Review Chart Review: Acceptable Risk for Surgery History Surgery Operation Date: 02/14/20 09:35 Proposed Procedures p T9-T10 Decompression and Fusion, Spinal Cord Monitoring - Papo Muhammad DO Height/Weight Height: 5 ft 11 in Weight: 109 kg Allergies Allergy/AdvReac Type Severity Reaction Status Date / Time morphine Allergy Mild ITCHY Verified 02/12/20 10:12 Medications Home Medications Medication Instructions Recorded Confirmed Last Taken ascorbic acid (vitamin C) 250 mg 250 mg PO QAM 05/19/19 02/12/20 02/11/20 tablet aspirin 81 mg tablet,delayed 81 mg PO QAM 05/19/19 02/12/20 02/11/20 release cyanocobalamin (vitamin B-12) 1,000 mcg PO QAM 05/19/19 02/12/20 02/11/20 1,000 mcg capsule furosemide 20 mg tablet 20 mg PO DAILY PRN 05/19/19 02/12/20 02/11/20 sitagliptin 50 mg-metformin 1,000 1 tab PO BID 05/19/19 02/12/20 02/11/20 mg tablet glimepiride 2 mg tablet 2 mg PO BID #180 tab 05/22/19 02/12/20 02/11/20 Alphagan P 1 drp OPHTHALMIC (EYE) BID 10/01/19 02/12/20 02/11/20 simvastatin 40 mg PO QAM 10/01/19 02/12/20 02/11/20 timolol maleate [Timoptic] 1 drp OPHTHALMIC (EYE) BID 10/01/19 02/12/20 02/11/20 tramadol 50 mg PO Q6H PRN #30 tab 10/09/19 02/12/20 02/11/20 lisinopril 40 mg tablet 20 mg PO QAM tab 10/24/19 02/12/20 02/11/20 oxycodone 5 mg PO BID PRN 02/07/20 02/12/20 02/12/20 Active Medications Generic Name Dose Route Start Last Admin Trade Name Freq PRN Reason Stop Dose Admin Acetaminophen 650 mg 02/12/20 18:10 02/12/20 21:26 Tylenol PO 03/13/20 18:09 650 mg Q4H PRN Administration pain/fever Hydromorphone HCl 1 mg 02/12/20 18:10 02/14/20 07:29 Dilaudid IV 02/26/20 18:09 1 mg Q4H PRN Administration Pain Cefepime HCl 2,000 mg/ Syringe 20 mls @ 5.5 mls/min 02/12/20 22:00 02/14/20 05:22 IV 03/25/20 21:59 5.5 mls/min Q8 RAF Administration Protocol Vancomycin HCl 1,500 mg/ 530 mls @ 200 mls/hr 02/14/20 00:00 02/14/20 02:42 Sodium Chloride IV 03/26/20 01:59 Infused Q12H RAF Infusion Sodium Chloride 1,000 mls @ 80 mls/hr 02/13/20 23:45 02/14/20 00:05 Nss 1000ml IV 03/14/20 23:44 80 mls/hr .[id number] RAF Administration Insulin Aspart 0 units 02/14/20 06:00 02/14/20 05:24 Novolog Flexpen SC 03/15/20 05:59 300 units Q6 RAF Administration Lisinopril 20 mg 02/13/20 09:00 02/13/20 08:24 Zestril PO 03/14/20 08:59 20 mg QAM RAF Administration Miscellaneous 1 ea 02/13/20 00:00 02/13/20 23:27 Order Awaiting Action N/A 03/14/20 00:00 Not Given QS RAF Oxycodone HCl 10 mg 02/12/20 18:10 02/14/20 03:21 Roxicodone Immediate Rel PO 02/26/20 18:09 10 mg Q6H PRN Administration Moderate Pain Polyethylene Glycol 17 gm 02/12/20 21:00 02/13/20 21:16 Miralax Powder Packet PO 03/13/20 20:59 17 gm PM RAF Administration Senna/Docusate Sodium 1 tab 02/13/20 14:45 02/13/20 16:27 Senokot S PO 03/14/20 14:44 1 tab QAM RAF Administration Simvastatin 40 mg 02/13/20 09:00 02/13/20 08:25 Zocor PO 03/14/20 08:59 40 mg QAM RAF Administration Timolol Maleate 1 drops 02/12/20 21:00 02/13/20 21:16 Timoptic-Xe 0.5% Oph OP 03/13/20 20:59 1 drops BID RAF Administration NPO Date Last Intake of Fluids: 02/14/20 Time Last Intake of Fluids: 07:00 Last Intake of Fluids Comment: sips of water with pills this am Date Last Intake of Solids: 02/13/20 Time Last Intake of Solids: 22:00 Last Intake of Solids Comment: popsicle Past Medical History Medical History Diabetes mellitus, type 2 NIDDM History of aortic valve disease s/p Medtronic Saleem porcine AVR (2014) 2/2 hx severe aortic stenosis- normal hemodynamics per 2017 ECHO Hyperlipidemia (Chronic) Hypertension (Chronic) Lumbar stenosis with neurogenic claudication Obesity Osteoarthritis Past Family History Family History Mother Myocardial infarction Father Myocardial infarction Grandfather (Maternal) Myocardial infarction Denies family history of Ovarian cancer Prostate cancer Breast cancer Colorectal cancer Past Surgical History Surgical History History of cardiac cath 2016- no stents History of difficult intubation L1-S1 decompression with T12-S1 fusion: 07/05/17: "Easy" with glidescope#4, ETT 8.0 at [facility] History of hemiarthroplasty of shoulder RIGHT, LEFT History of lumbar fusion History of total left knee replacement History of total right knee replacement Hx of colonoscopy S/P aortic valve replacement with bioprosthetic valve (2014) Social History Smoking Status: Never smoker Do You Dip or Chew Tobacco: No Hx Alcohol Use: Yes Alcohol type: beer alcohol intake frequency: holidays/special occasions only Hx Substance Use: No substance use type: does not use Physical Exam Vital Signs Last Vital Signs Temp 37.0 C 02/14/20 08:30 Pulse 75 02/14/20 08:30 Resp 18 02/14/20 08:30 BP 152/82 H 02/14/20 08:30 Pulse Ox 95 02/14/20 08:30 Testing Laboratory Results 02/14/20 05:37 02/14/20 05:37 PT 10.6 Seconds (9.0-12.0) 02/12/20 15:30 INR 1.0 (0.9-1.1) 02/12/20 15:30 APTT 33.1 Seconds (21.0-31.0) H 02/12/20 15:30 Hemoglobin A1c 7.4 % (4.5-5.6) H 02/13/20 05:09 Blood Type O Positive 02/13/20 14:18 Antibody Screen NEGATIVE 02/13/20 14:18 02/12/20 15:30 Aerobic Blood Culture - Preliminary Blood No growth in Aerobic bottle after 24 hours. Anaerobic Blood Culture - Preliminary No growth in Anaerobic bottle after 24 hours. 02/12/20 15:47 Aerobic Blood Culture - Preliminary Blood No growth in Aerobic bottle after 24 hours. Anaerobic Blood Culture - Preliminary No growth in Anaerobic bottle after 24 hours. 02/14/20 02/14/20 08:47 05:20 POC Glucose 146 H 155 H Electrocardiogram Date: 02/13/20 Findings: + NSR @ (72) and + SD (old ant SD) Chest X-Ray Date: 02/13/20 Findings: + NAD Echocardiogram Date: 02/13/20 LV Function: normal Valvular Disease: + no significant valvular disease (appropriately functioning bioprosthetic valve)
[2020-02-14] MEDS ORDERED: PROMETHAZINE HCL 6.25 MG in SODIUM CHLORIDE 0.9% 50 ML IV PRN (09:59)
[2020-02-14] MEDS ORDERED: LABETALOL HCL IV 5 MG/ML 20ML IV PRN (09:59)
[2020-02-14] MEDS ORDERED: ATROPINE SULFATE 0.1 MG/ML 10ML SYR IV PRN (09:59)
[2020-02-14] MEDS ORDERED: ONDANSETRON INJ 2 MG/ML 2 ML VIAL IV PRN ×2 (09:59→17:24)
--- NOTE | 2020-02-14 10:03 | Hospitalist Progress Note ---
Date of Service February 14, 2020 Assessment & Plan (1) Discitis: * Discitis/Osteomyelitis at the level T9-10 and T7-T8 with possible epidural abscess vs seroma at T11. With severe central canal narrowing at T9- T10 disc space combination discitis/osteo with moderate to severe cord deformity and possible cord edema. * Patient s/p Aortic Valve 2015 and s/p thoracic decomp/fusion Sep 2019 * ECHO which cannot exclude valvular vegetation as above as bioprosthetic leaflets are not well visualized * Continue Vanco/Cefepime * Blood cultures NGTD * Ortho consulted --> discussed with Dr. Muhammad. Parts ordered and will proceed to OR in AM. EKG with old anteroseptal infarct new from EKG 02/07/20. Trop <0.0 15 on admission. CTA on 02/06 negative for PE and lungs clear * POD #0 s/p #1 removal of posterior rods and screws T10-T11. #2 exploration of fusion T10-T11. #3 thoracic decompression with bilateral medial facetectomies at T7-T8, T8-T9 and T9-T10. #4 posterior spinal fusion T7-T10. #5 placed a posterior segmental instrumentation C7-T10 including shepherds hooks. #6 placement locally harvested morselized autograft in the posterior gutters. #7 placement infuse collagen sponge, master graft in the posterior lateral gutters with Dr. Muhammad on 02/13 for thoracic discitis with epidural thoracic a bscess and severe thoracic spinal stenosis. Pre-op h/h 13.5/41.7. EBL 200mL. * Follow gs/cx upper back--> pending * Pain control with Dilaudid, oxycodone * Zofran prn nausea * Diet following procedure * PT/OT per ortho service * CBC in AM (2) Hx of aortic valve replacement: * Aug 2019 with Medtronic porcine valve, minimally invasive, follows with Dr. Ochoa. No evidence of CHF * Given history of aortic valve replacement, ECHO obtained -- see above * Antibiotics orders to cover for endocarditis (3) Hypertension: * Chronic. * Continue lisinopril 20mg PO daily -- will continue given persistent hypertension post-operatively * BP 153/85 -- elevated likely secondary to pain * Continue to monitor (4) Diabetes mellitus, type 2: * A1c 7.4, down from 8.6 * Home medications on hold (sitagliptan/metformin 50/100 BID, glimeperide 2mg BID) * Pharmacy consulted on admission for glycemic management -- currently range 110-140, CF 20, carb ratio 1:7 * Continue to monitor (5) Hyperlipidemia: * Chronic. Last lipid profile May 2019 -- triglycerides 202, cholesterol 116, LDL 51, HDL 25 * Continue home simvastatin 40mg daily (6) Hydrocele: * Hx R hydrocele. Set up with urology as outpatient. Has been present for quite some time. (7) DVT prophylaxis: * SCDs will be in place until postprocedural hemostasis is obtained and then chemoprophylaxis will be begun Admission and Anticipated Discharge Date Admission Date: February 12, 2020 Supervising Physician Co-Signing Physician Notes PA Supervision Note: PA Supervision Note: I did not personally see or examine the patient today, but I verified all villafuerte points of DEJUAN Gotti's assessment and plan with the following exceptions/additions: None Now s/p spine surgery, improved 69 yo male here with OM/discitis and possible epidural abscess s/o back surgery several months ago -continue broad spectrum abx, follow BCxs, now post-op Subjective Patient already down to OR earlier this morning when initially attempted to be seen. Upon return from PACU reportedly patient became confused an required 1:1 with [employer]. Upon my arrival to patient's room he is awake, alert and oriented with aide at bedside. Asked nursing coordinator to excuse themselves for our conversation. Patient states his pain much improved since yesterday, reporting it currently at a 1/10! Primarily located in his lower back. Decreased numbness/tingling since arrival to nursing unit. He states he is doing much better than he did this morning/last night. He states he did not get washed up last night as requested and asked by myself to nursing staff. Patient states he did have someone come in this morning. He states he was then taken downstairs early this morning and then was down there in numerous uncomfortable positions until after noon before he was taken back to the OR. He states he did not have a particularly good experience while waiting for surgery. Since that time he has had a pleasant return to the nursing unit. Feels like he has to void/minor penile irritation from catheter, but agrees that it is easier than frequently ringing the nguyen like last evening. He is eating roast beef and vegetable currently for dinner and denies any other concerns at this time. Review of Systems Review of Systems: All systems reviewed & are unremarkable except as noted in HPI & below Constitutional: no fever and no chills Respiratory: no chest congestion and no dyspnea Cardiovascular: no chest pain and no palpitations Gastrointestinal: no abdominal pain, no nausea and no vomiting Musculoskeletal: + back pain (improved) Physical Exam Constitutional: cooperative; + uncomfortable Eyes: + anicteric sclerae and PERRL Neck: trachea midline, no thyromegaly Respiratory: normal respiratory effort and able to speak in complete sentences; no respiratory distress and no labored breathing Auscultation: + crackles (bases); no wheezes 95% on 2L via NC Cardiovascular: Rate/Rhythm: regular rate and regular rhythm Heart Sounds: + murmur (systolic) Extremities: no calf tenderness and no edema Gastrointestinal (Abdomen): normal bowel sounds, soft, nontender, no hepatosplenomegaly Musculoskeletal: Head/Neck/Chest: normocephalic and head atraumatic NVI calves non-tender to palpation 2+ dp, pt pulses bilaterally dressing c/d/i to spine JACQUES drain patent with approx 15mL bloody drainage, patent Skin: warm, dry Neurologic: PERRL, EOMI, accommodation nl, no face palsy, no dysarthria awake Psychiatric: Orientation: alert and oriented x 3 Genitourinary: byrnes with yellow output Lymphatic: no cervical or axillary lymphadenopathy Results & Data Results & Data ([facility]) Vital Signs (Past 12 Hours) Vital Signs Temp Pulse Pulse Resp BP BP Pulse Ox 02/14/20 08:30 37.0 C 75 18 152/82 H 95 02/14/20 07:30 37.1 C 70 18 143/78 H 94 02/13/20 23:42 36.8 C 70 20 107/64 94 Laboratory Results 02/14/20 02/14/20 02/14/20 Range/Units 08:47 05:37 05:37 WBC 7.50 (4.8-10.8) K/uL RBC 5.24 (4.7-6.1) M/uL Hgb 13.5 L (14.0-18.0) g/dL Hct 41.7 L (42-52) % MCV 79.6 L (80-100) fL MCH 25.8 (25-34) pg MCHC 32.4 (32-36) g/dL RDW Std Deviation 50.6 H (36.4-46.3) fL RDW Coeff of Jhon 17.4 H (11.5-14.5) % Plt Count 219 (130-400) K/uL MPV 9.4 (7.4-10.4) fL Sodium 139 (136-145) mmol/L Potassium 4.2 (3.5-5.1) mmol/L Chloride 106 (98-107) mmol/L Carbon Dioxide 27 (21-32) mmol/L Anion Gap 6.0 (3-11) BUN 17 (7-18) mg/dl Creatinine 0.94 (0.6-1.4) mg/dl Est Cr Clr Drug Dosing 91.8 ml/min Est GFR ( Amer) 94.8 Est GFR (Non-Af Amer) 81.8 BUN/Creatinine Ratio 17.6 (10-20) Glucose 151 H (70-99) mg/dl POC Glucose 146 H (70-99) mg/dl Calcium 9.3 (8.5-10.1) mg/dl Iron 38 (35-175) mcg/dl TIBC 204 L (250-450) mcg/dl Transferrin 165 L (200-360) mg/dl Transferrin % Sat 16 L (20-50) % Ferritin 116.4 (8-388) ng/ml Vancomycin Trough (See Comment) mcg/ml Blood Type Antibody Screen 02/14/20 02/13/20 02/13/20 Range/Units 05:20 20:36 17:00 WBC (4.8-10.8) K/uL RBC (4.7-6.1) M/uL Hgb (14.0-18.0) g/dL Hct (42-52) % MCV (80-100) fL MCH (25-34) pg MCHC (32-36) g/dL RDW Std Deviation (36.4-46.3) fL RDW Coeff of Jhon (11.5-14.5) % Plt Count (130-400) K/uL MPV (7.4-10.4) fL Sodium (136-145) mmol/L Potassium (3.5-5.1) mmol/L Chloride (98-107) mmol/L Carbon Dioxide (21-32) mmol/L Anion Gap (3-11) BUN (7-18) mg/dl Creatinine (0.6-1.4) mg/dl Est Cr Clr Drug Dosing ml/min Est GFR ( Amer) Est GFR (Non-Af Amer) BUN/Creatinine Ratio (10-20) Glucose (70-99) mg/dl POC Glucose 155 H 158 H 151 H (70-99) mg/dl Calcium (8.5-10.1) mg/dl Iron (35-175) mcg/dl TIBC (250-450) mcg/dl Transferrin (200-360) mg/dl Transferrin % Sat (20-50) % Ferritin (8-388) ng/ml Vancomycin Trough (See Comment) mcg/ml Blood Type Antibody Screen 02/13/20 02/13/20 02/13/20 Range/Units 14:18 12:18 11:23 WBC (4.8-10.8) K/uL RBC (4.7-6.1) M/uL Hgb (14.0-18.0) g/dL Hct (42-52) % MCV (80-100) fL MCH (25-34) pg MCHC (32-36) g/dL RDW Std Deviation (36.4-46.3) fL RDW Coeff of Jhon (11.5-14.5) % Plt Count (130-400) K/uL MPV (7.4-10.4) fL Sodium (136-145) mmol/L Potassium (3.5-5.1) mmol/L Chloride (98-107) mmol/L Carbon Dioxide (21-32) mmol/L Anion Gap (3-11) BUN (7-18) mg/dl Creatinine (0.6-1.4) mg/dl Est Cr Clr Drug Dosing ml/min Est GFR ( Amer) Est GFR (Non-Af Amer) BUN/Creatinine Ratio (10-20) Glucose (70-99) mg/dl POC Glucose 242 H (70-99) mg/dl Calcium (8.5-10.1) mg/dl Iron (35-175) mcg/dl TIBC (250-450) mcg/dl Transferrin (200-360) mg/dl Transferrin % Sat (20-50) % Ferritin (8-388) ng/ml Vancomycin Trough 15.2 (See Comment) mcg/ml Blood Type O Positive Antibody Screen NEGATIVE Diagnostic Findings FL Thoracic spine 2V IMPRESSION: Image intensifier utilized intraoperatively for a T7-T10 fusion PG Care Time/CCT Total # of Minutes Spent Total Time Spent with Patient: Total time spent is greater than 50% in coordination of care (as documented) at patient's floor/unit and/or counseling patient: Coding Level of Care Code 51052 Subseq Hosp Care Lvl 3 Diagnoses Discitis M46.44 Spinal region: thoracic Hx of aortic valve replacement Z95.2 Hypertension I10 Diabetes mellitus, type 2 E11.9 Hyperlipidemia E78.5 Hydrocele N43.3 DVT prophylaxis Z29.9 (1) Discitis Spinal region: thoracic Qualified Code(s): M46.44 - Discitis, unspecified, thoracic region
--- NOTE | 2020-02-14 10:13 | History & Physical Bridge Note ---
Date of Service February 14, 2020 History & Physical Bridge Note I have examined the patient, reviewed the History & Physical and in the interval since the performance of the History & Physical I have noted the following changes of clinical significance: no changes noted Thoracic decompression and fusion T7-T10.
[2020-02-14] MEDS ORDERED: BUPIVACAINE 0.5 % 5 MG/1 ML MPF 30ML VIAL ONE ×2 (10:38→10:50)
[2020-02-14] MEDS ORDERED: BACITRACIN INJ 50,000 UNIT VIAL ONE (10:39)
[2020-02-14] MEDS ORDERED: EpINEphrine HCL INJ 1 MG/ML 1ML SYRINGE ONE (10:39)
[2020-02-14] MEDS ORDERED: EPINEPHrine INJ 1 MG/ML AMP ONE ×3 (10:43→11:27)
[2020-02-14] MEDS ORDERED: BUPIVACAINE 0.25% 30 ML VIAL ONE (11:28)
[2020-02-14] MEDS ORDERED: GENTAMICIN SULFATE 40 MG/ML 2 ML VIAL ONE ×2 (11:28→12:15)
[2020-02-14] MEDS ORDERED: VANCOMYCIN HCL 1000MG/20ML VIAL ONE ×2 (11:28→12:15)
[2020-02-14] MEDS ORDERED: HYDROmorphone INJ 2 MG/ML SYR/VIAL ONE (11:35)
[2020-02-14] MEDS ORDERED: PHENYLEPHRINE HCL 10 MG/ML VIAL ONE (11:59)
[2020-02-14] MEDS ORDERED: FLOSEAL HEMOSTATIC MATRIX 10ML TOP ONE (13:52)
--- NOTE | 2020-02-14 14:04 | Operative Report ---
Post Operative Report Pre & Post Diagnosis Operation Date: 02/14/20 09:35 Pre-Op Diagnosis: THORACIC DISCITIS Post-Op Diagnosis: Thoracic discitis with epidural thoracic abscess and severe thoracic spinal stenosis. I identified the patient and participated in the time-out.: Yes Procedure Operation Date: 02/14/20 09:35 Actual Procedures #1 removal of posterior rods and screws T10-T11. #2 exploration of fusion T10- T11. #3 thoracic decompression with bilateral medial facetectomies at T7-T8, T8-T9 and T9-T10. #4 posterior spinal fusion T7-T10. #5 placed a posterior segmental instrumentation C7-T10 including shepherds hooks. #6 placement locally harvested morselized autograft in the posterior gutters. #7 placement infuse collagen sponge, master graft in the posterior lateral gutters. Surgeon Papo Muhammad, DO Textile Engra[employer] Venkat Escudero Estimated Blood Loss 200 Findings See Below The patient is 5 foot 11 inches tall weighing over 109 kg with a BMI in excess of 33. The patient's body habitus did add increased technical difficulty adding at least 40% increase to the operative time. Specimens Cultures of the thoracic epidural space Indications This is a 6-year-old male well-known to me the presents with marked decline in neurologic status and evidence of possible thoracic infection. Subsequently he underwent the above-mentioned procedure. Description of Procedure Patient was met with identified informed consent obtained. Patient was then taken to the operative suite underwent an patient placed in a prone position the Colton table on top of the Ke frame. All bony prominences well-padded eyes inspected to ensure no external pressure placed upon up at this point the thoracolumbar spine was prepped and draped in normal sterile fashion. Sharp dissection with the assistance of Bovie cautery is performed out to and exposing the lamina and transverse processes of T7-T8-T9 and the instrumentation at T10- T11 bilaterally. Evidence of an epidural abscess at T10-11 was identified cultures were obtained. I then remove the hardware at T10-T11 debrided all infected tissue. I then performed a complete laminectomy of T9 T8 compression laminectomy of T7 including bilateral medial facetectomies for complete canal decompression. There is evidence of marked epidural lipomatosis and inflammatory tissue however no gross purulence was identified. Pedicle screws were then placed in T7-T8-T9 T10 and 11 bilaterally with assistance of fluoroscopy and a hinds's hook elen locked into position. Incision was then copiously irrigated the transverse processes of T7 T8-T9-T10 were burred to subcortical bleeding bone. Infuse collagen sponge and master graft was placed in the posterior gutters. Approximately 10 cc of stimulant beads impregnated with gentamicin and vancomycin were placed throughout the incision. A 15 round JACQUES drain was then inserted. The incision was closed with 1 Vicryl the fascia 2- 0 Vicryl subcutaneously and 4 Monocryl for final skin closure. Steri-Strip sterile dressings placed. Patient waken taken PACU stable condition. Please note spinal cord monitoring was utilized that the procedure and no changes noted. Lastly Venkat record was present at the entire surgery involved the patient positioning complex portions of the surgery and final skin closure. I attest to the content of the Intraoperative Record and any orders documented therein. Any exceptions are noted below.
--- NOTE | 2020-02-14 14:22 | Fluoroscopy Report ---
FL thoracic spine 2V CLINICAL HISTORY: T9-T10 DECOMPRESSION AND FUSION COMPARISON STUDY: None FLUOROSCOPY TIME: 29 seconds NUMBER OF FLUOROSCOPIC IMAGES: 4 FINDINGS: Image intensifier utilized intraoperatively for a T7-T10 fusion. IMPRESSION: Image intensifier utilized intraoperatively for a T7-T10 fusion ACT 112: Negative or not required by law. The above report was generated using voice recognition software. It may contain grammatical, syntax or spelling errors. Electronically signed by: Gibson Craig M.D. 02/14/2020 2:20 PM
[2020-02-14] MEDS ORDERED: INSULIN GLARGINE SOLOSTAR 100 UNITS/ML 3 ML PEN SC SCH (15:30)
--- NOTE | 2020-02-14 16:08 | Anesthesiology Progress Note ---
Date of Service February 14, 2020 Anesthesia Post Procedure Vital Signs Vital Signs: Temp Pulse Pulse Resp BP BP Pulse Ox 02/14/20 16:00 85 20 145/88 H 97 02/14/20 15:50 86 24 164/99 H 96 02/14/20 15:40 86 26 H 172/100 H 97 02/14/20 15:30 83 20 170/103 H 97 02/14/20 15:20 83 22 177/98 H 93 02/14/20 15:10 83 22 175/97 H 93 02/14/20 15:00 84 20 108/75 96 02/14/20 14:53 97.5 F L 80 17 131/87 97 02/14/20 08:30 98.6 F 75 18 152/82 H 95 02/14/20 07:30 98.8 F 70 18 143/78 H 94 02/13/20 23:42 98.2 F 70 20 107/64 94 02/13/20 16:28 98.4 F 65 18 149/88 H 97 Pain Intensity Back: Pain Intensity: 8 Transfer of Care Handoff Completed per policy Notes Mental Status: alert / awake / arousable and participated in evaluation Patient Amnestic to Procedure: Yes Nausea / Vomiting: adequately controlled Pain: adequately controlled Airway Patency, RR, SpO2: stable & adequate BP & HR: stable & adequate Hydration State: stable & adequate Anesthetic Complications: no major complications apparent and Pt Satisfied with anesthetic care
[2020-02-14] MEDS ORDERED: FAMOTIDINE 20 MG TAB PO PRN (17:24)
[2020-02-14] MEDS ORDERED: SOD PHOSPHATE/SOD BIPHOSPHATE ENEMA 132 ML BTL PR PRN (17:24)
[2020-02-14] MEDS ORDERED: HYDROmorphone INJ 0.5 MG/0.5 ML SYR IV PRN (17:24)
[2020-02-14] MEDS ORDERED: MAGNESIUM HYDROXIDE SUSP 30 ML UDC PO PRN (17:24)
[2020-02-14] MEDS ORDERED: ONDANSETRON 4 MG OD TAB PO PRN (17:24)
[2020-02-14] MEDS ORDERED: LORazepam 0.5 MG TAB PO PRN (17:24)
[2020-02-14] MEDS ORDERED: PROMETHAZINE HCL 12.5 MG in SODIUM CHLORIDE 0.9% 50 ML IV PRN (17:24)
[2020-02-14] MEDS ORDERED: DO NOT ADMINISTER PNEUMOCOCCAL VACCINE PRN (17:24)
[2020-02-14] MEDS ORDERED: bisacodyL 10 MG SUPP PR PRN (17:24)
[2020-02-14] MEDS ORDERED: LORazepam 0.5 MG/1 ML VIAL IV PRN (17:24)
[2020-02-14] MEDS ORDERED: ACETAMINOPHEN 1,000 MG/100 ML VIAL IV PRN (17:24)
[2020-02-14] MEDS ORDERED: METOCLOPRAMIDE HCL INJ 5 MG/ML 2 ML VIAL IV PRN (17:24)
[2020-02-14] MEDS ORDERED: DO NOT ADMINISTER FLU VACCINE PRN (17:24)
[2020-02-14] MEDS ORDERED: ALUMINUM/MAGNESIUM SUSP 30 ML UDC PO PRN (17:24)
[2020-02-14] MEDS ORDERED: NALOXONE HCL 0.4 MG/1 ML VIAL/CARP IV PRN (17:24)
[2020-02-14] MEDS: SIMVASTATIN 40 MG TAB PO SCH (18:14)
[2020-02-14] MEDS: LACTATED RINGER'S 1,000 ML IV SCH (18:34)
[2020-02-14] MEDS: VANCOMYCIN HCL 1,500 MG in SODIUM CHLORIDE 0.9% 500 ML IV SCH (18:42)
[2020-02-14] MEDS: ACETAMINOPHEN 500 MG TAB PO PRN (20:37)
[2020-02-14] MEDS: POLYETHYLENE (MIRALAX) 17 GM PACK PO SCH (20:41)
[2020-02-14] MEDS ORDERED: INSULIN ASPART 100 UNITS/ML 3 ML PEN SC SCH (21:00)
[2020-02-15] MEDS: LACTATED RINGER'S 1,000 ML IV SCH ×4 (00:16→20:43)
[2020-02-15] MEDS: OXYCODONE HCL IR 5 MG TAB (IMMEDIATE RELEASE) PO PRN ×4 (00:28→17:45)
[2020-02-15] MEDS: INSULIN ASPART 100 UNITS/ML 3 ML PEN SC SCH ×5 (03:54→21:29)
[2020-02-15] MEDS: CEFEPIME 2,000 MG in SYRINGE 7.5 ML IV SCH ×3 (03:54→21:20)
[2020-02-15] MEDS: POLYETHYLENE (MIRALAX) 17 GM PACK PO SCH ×4 (05:18→23:45)
[2020-02-15] MEDS: ACETAMINOPHEN 500 MG TAB PO PRN (05:21)
[2020-02-15] MEDS: VANCOMYCIN HCL 1,500 MG in SODIUM CHLORIDE 0.9% 500 ML IV SCH ×2 (05:37→17:42)
[2020-02-15 06:38] LABS: Basophils # (auto) 0.01 K/uL (0-0.2); Basophils % (auto) 0.1 %; Eosinophils # (auto) 0.01 K/uL (0-0.5); Eosinophils % (auto) 0.1 %; Hemoglobin 11.5 g/dL (14.0-18.0); Immature Granulocytes # (auto) 0.04 K/uL (0.00-0.02); Immature Granulocytes % (auto) 0.5 %; Lymphocytes # (auto) 0.92 K/uL (1.2-3.4); Lymphocytes % (auto) 11.2 %; Mean Corpuscular Hemoglobin 24.8 pg (25-34); Mean Corpuscular Hgb Conc 31.1 g/dL (32-36); Mean Corpuscular Volume 79.9 fL (80-100); Mean Platelet Volume 9.5 fL (7.4-10.4); Monocytes # (auto) 0.82 K/uL (0.11-0.59); Neutrophils # (auto) 6.39 K/uL (1.4-6.5); Neutrophils % (auto) 78.1 %; Platelet Count 254 K/uL (130-400); RDW Coefficient of Variation 17.6 % (11.5-14.5); RDW Standard Deviation 51.8 fL (36.4-46.3); Red Blood Count 4.63 M/uL (4.7-6.1); White Blood Count 8.19 K/uL (4.8-10.8)
[2020-02-15 07:00] LABS: BUN Creatinine Ratio 19.8 (10-20); Calcium 9.1 mg/dl (8.5-10.1); Est GFR (African American) 91.3; Est GFR (Non-African American) 78.8; Potassium 4.5 mmol/L (3.5-5.1)
[2020-02-15] MEDS: HYDROmorphone INJ 1 MG/ML SYRINGE IV PRN ×2 (07:21→15:57)
[2020-02-15] MEDS: TIMOLOL GFS 0.5% OPH SOLN 74 DROPS/5 ML BTL OP SCH ×2 (08:49→21:21)
[2020-02-15] MEDS: DOCUSATE SODIUM/SENNA 50/8.6MG TAB PO SCH ×2 (08:49→21:21)
[2020-02-15] MEDS: lisinopriL 20 MG TAB PO SCH (08:50)
[2020-02-15] MEDS: SIMVASTATIN 40 MG TAB PO SCH (08:50)
[2020-02-15 09:27] LABS: Ferritin 142.9 ng/ml (8-388)
--- NOTE | 2020-02-15 10:25 | Orthopedic Progress Note ---
Date of Service February 15, 2020 Assessment & Plan (1) Thoracic spondylosis with myelopathy: At this time we will initiate occupational therapy and physical therapy. We may consider rehab placement. He will maintain IV antibiotics. We will maintain the drain at this time. Present on Admission?: Yes Admission and Anticipated Discharge Date Admission Date: February 12, 2020 Subjective Patient's back pain and leg symptoms are improved. Still struggling with weakness to the thighs when ambulating. Physical Exam Physical Exam: On exam he appears much more comfortable. He has weakness with plantar flexion dorsiflexion quadriceps bilateral extremities. Results & Data ([facility]) Vital Signs (Past 12 Hours) Vital Signs Temp Pulse Resp BP Pulse Ox 02/15/20 07:14 36.7 C 67 16 152/83 H 93 02/15/20 03:45 36.4 C L 60 18 121/68 97 02/15/20 00:04 36.7 C 70 18 138/75 97
--- NOTE | 2020-02-15 11:32 | Pharmacy Report ---
Pharmacy Glycemic Short Note 2 - Date of Service February 15, 2020 - Glycemic Short BSG Results (Last 24 hours): 02/14/20 02/14/20 02/14/20 14:54 18:37 20:40 Glucose POC Glucose 243 H 216 H 259 H 02/14/20 02/15/20 02/15/20 23:47 03:46 05:44 Glucose 138 H POC Glucose 244 H 196 H 02/15/20 08:10 Glucose POC Glucose 140 H OUTPATIENT ANTIDIABETIC REGIMEN: * Januvia/metformin mg 1 tab BID * A1c = 7.4% 02/13/20 ASSESSMENT: * Monet is a 69 yo T2DM male admitted for discitis * Pt is maintained on oral antidiabetic agents as an outpatient * Patient now POD #1 s/p T7-10 decompression/fusion * Received 12 mg IV dexamethasone yesterday - covered with Lantus 40 units x 1 * Fasting BSG this morning of 140 mg/dL * Continues on vancomycin and cefepime for treatment of discitis/osteomyelitis PLAN FOR INPATIENT GLYCEMIC CONTROL: * Hold outpatient oral diabetes medications * Basal insulin * Hold for now * Bolus insulin - continued tightened Novolog * NovoLog per scale ACHS or Q6hrs while NPO * Goal Range: Low 110 mg/dL - High 140 mg/dL * Correction Factor: 15 mg/dL/unit * Nutritional / Prandial insulin per carb ratio of 1 unit per 5 grams CHO consumed PLAN FOR DISCHARGE: * A1c of 7.4% is acceptable (decreased from 8.6% on 10/10/19) * Continue home regimen on discharge
--- NOTE | 2020-02-15 11:48 | Hospitalist Progress Note ---
Date of Service February 15, 2020 Assessment & Plan (1) Discitis: * Discitis/Osteomyelitis at the level T9-10 and T7-T8 with possible epidural abscess vs seroma at T11. With severe central canal narrowing at T9- T10 disc space combination discitis/osteo with moderate to severe cord deformity and possible cord edema. * Patient s/p Aortic Valve 2016 and s/p thoracic decomp/fusion Sep 2019 * ECHO which cannot exclude valvular vegetation as above as bioprosthetic leaflets are not well visualized * Ortho consulted --> appreciate assistance * POD #1 s/p #1 removal of posterior rods and screws T10-T11. #2 exploration of fusion T10-T11. #3 thoracic decompression with bilateral medial facetectomies at T7-T8, T8-T9 and T9-T10. #4 posterior spinal fusion T7-T10. #5 placed a posterior segmental instrumentation C7-T10 including shepherds hooks. #6 placement locally harvested morselized autograft in the posterior gutters. #7 placement infuse collagen sponge, master graft in the posterior lateral gutters with Dr. Muhammad on 02/13 for thoracic discitis with epidural thoracic abscess and severe thoracic spinal stenosis with Dr Muhammad on 02/13. Pre-op h/h 13.5/41.7. EBL 200mL. Antibiotic beads impregnated with vancomycin and gentamicin were placed at the time of surgery. * Continue Vanco/Cefepime * Follow gs/cx upper back--> gram stain moderate WBCs, no organisms -- follow culture, NGTD * Blood cultures NGTD * Pain control with Dilaudid, oxycodone and Zofran prn nausea * PT/OT per ortho service * H/h stable, but dropped to 11.5/37 -- secondary to acute blood loss from surgery (EBL 200mL + 280mL from JACQUES) as well as dilutional from fluids. MCV <80 -- iron studies with low normal iron 38, normal ferritin 142, low TIBC 188/transferrin 153/trans%sat 18 -- mixed iron/chronic disease -- could initiate oral iron supplementation pending CBC in AM however will avoid at this current moment given patient already with constipation * CBC in AM (2) Hx of aortic valve replacement: * Aug 2019 with Medtronic porcine valve, minimally invasive, follows with Dr. Ochoa. No evidence of CHF * Given history of aortic valve replacement, ECHO obtained -- see above * Antibiotics orders to cover for endocarditis --> to be continued (3) Hypertension: * Chronic. * Continue lisinopril 20mg PO daily * BP 150/89 -- elevated likely secondary to pain * Continue to monitor (4) Diabetes mellitus, type 2: * A1c 7.4, down from 8.6 * Home medications on hold (sitagliptan/metformin 50/100 BID, glimeperide 2mg BID) * Pharmacy consulted on admission for glycemic management * BSGs better controlled over past 24 hours * Continue to monitor (5) Hyperlipidemia: * Chronic. Last lipid profile May 2019 -- triglycerides 202, cholesterol 116, LDL 51, HDL 25 * Continue home simvastatin 40mg daily (6) Hydrocele: * Hx R hydrocele. Set up with urology as outpatient. Has been present for quite some time. (7) DVT prophylaxis: * SCDs will be in place until postprocedural hemostasis is obtained and then chemoprophylaxis will be begun Admission and Anticipated Discharge Date Admission Date: February 12, 2020 Supervising Physician Co-Signing Physician Notes PA Supervision Note: I did not personally see or examine the patient today, but I verified all villafuerte points of DEJUAN Gotti's assessment and plan with the following exceptions/additions: None Subjective Patient evaluated this morning. Issue with IV overnight and felt as if he was bothering nursing when ringing his nguyen after his IV had been dislodged when his arm was grabbed and started bleeding. He states the dressing came off as soon as nursing left the room and no one came back for a while despite ringing multiple times. Decreased pain today, much improved from admission. Controlled with medications ordered. Still with some weakness with ambulation but states he was up and walked around the room with staff as well as PT earlier this morning. Eating/drinking without difficulty. No bowel movement yet but has been passing flatus. Possible plans for discharge to acute rehab once medically stable and that we will continue IV antibiotics at discharge and arrange this with our case management department. Denies fevers, chills, chest pain, shortness of breath, abdominal pain, n/v at this time. Review of Systems Review of Systems: All systems reviewed & are unremarkable except as noted in HPI & below Physical Exam Constitutional: well developed, well nourished, cooperative and comfortable; no acute distress Eyes: + anicteric sclerae and PERRL Neck: trachea midline, no thyromegaly Respiratory: normal respiratory effort and able to speak in complete sentences; no respiratory distress and no labored breathing Auscultation: no crackles and no wheezes Cardiovascular: Rate/Rhythm: regular rate and regular rhythm Heart Sounds: + murmur (systolic) Extremities: no calf tenderness and no edema Gastrointestinal (Abdomen): normal bowel sounds, soft, nontender, no hepatosplenomegaly Musculoskeletal: Head/Neck/Chest: normocephalic and head atraumatic dressing c/d/i to spine JACQUES drain patent with approx 50mL bloody drainage, patent NVI calves non-tender to palpation 2+ dp, pt pulses bilaterally strength equal bilaterally foot drop -- chronic per patient Neurologic: PERRL, EOMI, accommodation nl, no face palsy, no dysarthria awake Psychiatric: Orientation: alert and oriented x 3 Genitourinary: byrnes draining light yellow urine Lymphatic: no cervical or axillary lymphadenopathy Results & Data Results & Data ([facility]) Vital Signs (Past 12 Hours) Vital Signs Temp Pulse Resp BP Pulse Ox 02/15/20 07:14 36.7 C 67 16 152/83 H 93 02/15/20 03:45 36.4 C L 60 18 121/68 97 02/15/20 00:04 36.7 C 70 18 138/75 97 Laboratory Results 02/15/20 02/15/20 02/15/20 Range/Units 08:10 05:44 05:44 WBC (4.8-10.8) K/uL RBC (4.7-6.1) M/uL Hgb (14.0-18.0) g/dL Hct (42-52) % MCV (80-100) fL MCH (25-34) pg MCHC (32-36) g/dL RDW Std Deviation (36.4-46.3) fL RDW Coeff of Jhon (11.5-14.5) % Plt Count (130-400) K/uL MPV (7.4-10.4) fL Immature Gran % (Auto) % Neut % (Auto) % Lymph % (Auto) % Jessamine % (Auto) % Eos % (Auto) % Baso % (Auto) % Neut # (Auto) (1.4-6.5) K/uL Lymph # (Auto) (1.2-3.4) K/uL Jessamine # (Auto) (0.11-0.59) K/uL Eos # (Auto) (0-0.5) K/uL Baso # (Auto) (0-0.2) K/uL Immature Gran # (Auto) (0.00-0.02) K/uL Sodium 138 (136-145) mmol/L Potassium 4.5 (3.5-5.1) mmol/L Chloride 103 (98-107) mmol/L Carbon Dioxide 30 (21-32) mmol/L Anion Gap 5.0 (3-11) BUN 19 H (7-18) mg/dl Creatinine 0.97 (0.6-1.4) mg/dl Est Cr Clr Drug Dosing 89.0 ml/min Est GFR ( Amer) 91.3 Est GFR (Non-Af Amer) 78.8 BUN/Creatinine Ratio 19.8 (10-20) Glucose 138 H (70-99) mg/dl POC Glucose 140 H (70-99) mg/dl Calcium 9.1 (8.5-10.1) mg/dl Iron 38 (35-175) mcg/dl TIBC 188 L (250-450) mcg/dl Transferrin 153 L (200-360) mg/dl Transferrin % Sat 18 L (20-50) % Ferritin 142.9 (8-388) ng/ml 02/15/20 02/15/20 02/14/20 Range/Units 05:44 03:46 23:47 WBC 8.19 (4.8-10.8) K/uL RBC 4.63 L (4.7-6.1) M/uL Hgb 11.5 L (14.0-18.0) g/dL Hct 37.0 L (42-52) % MCV 79.9 L (80-100) fL MCH 24.8 L (25-34) pg MCHC 31.1 L (32-36) g/dL RDW Std Deviation 51.8 H (36.4-46.3) fL RDW Coeff of Jhon 17.6 H (11.5-14.5) % Plt Count 254 (130-400) K/uL MPV 9.5 (7.4-10.4) fL Immature Gran % (Auto) 0.5 % Neut % (Auto) 78.1 % Lymph % (Auto) 11.2 % Jessamine % (Auto) 10.0 % Eos % (Auto) 0.1 % Baso % (Auto) 0.1 % Neut # (Auto) 6.39 (1.4-6.5) K/uL Lymph # (Auto) 0.92 L (1.2-3.4) K/uL Jessamine # (Auto) 0.82 H (0.11-0.59) K/uL Eos # (Auto) 0.01 (0-0.5) K/uL Baso # (Auto) 0.01 (0-0.2) K/uL Immature Gran # (Auto) 0.04 H (0.00-0.02) K/uL Sodium (136-145) mmol/L Potassium (3.5-5.1) mmol/L Chloride (98-107) mmol/L Carbon Dioxide (21-32) mmol/L Anion Gap (3-11) BUN (7-18) mg/dl Creatinine (0.6-1.4) mg/dl Est Cr Clr Drug Dosing ml/min Est GFR ( Amer) Est GFR (Non-Af Amer) BUN/Creatinine Ratio (10-20) Glucose (70-99) mg/dl POC Glucose 196 H 244 H (70-99) mg/dl Calcium (8.5-10.1) mg/dl Iron (35-175) mcg/dl TIBC (250-450) mcg/dl Transferrin (200-360) mg/dl Transferrin % Sat (20-50) % Ferritin (8-388) ng/ml 02/14/20 02/14/20 02/14/20 Range/Units 20:40 18:37 14:54 WBC (4.8-10.8) K/uL RBC (4.7-6.1) M/uL Hgb (14.0-18.0) g/dL Hct (42-52) % MCV (80-100) fL MCH (25-34) pg MCHC (32-36) g/dL RDW Std Deviation (36.4-46.3) fL RDW Coeff of Jhon (11.5-14.5) % Plt Count (130-400) K/uL MPV (7.4-10.4) fL Immature Gran % (Auto) % Neut % (Auto) % Lymph % (Auto) % Jessamine % (Auto) % Eos % (Auto) % Baso % (Auto) % Neut # (Auto) (1.4-6.5) K/uL Lymph # (Auto) (1.2-3.4) K/uL Jessamine # (Auto) (0.11-0.59) K/uL Eos # (Auto) (0-0.5) K/uL Baso # (Auto) (0-0.2) K/uL Immature Gran # (Auto) (0.00-0.02) K/uL Sodium (136-145) mmol/L Potassium (3.5-5.1) mmol/L Chloride (98-107) mmol/L Carbon Dioxide (21-32) mmol/L Anion Gap (3-11) BUN (7-18) mg/dl Creatinine (0.6-1.4) mg/dl Est Cr Clr Drug Dosing ml/min Est GFR ( Amer) Est GFR (Non-Af Amer) BUN/Creatinine Ratio (10-20) Glucose (70-99) mg/dl POC Glucose 259 H 216 H 243 H (70-99) mg/dl Calcium (8.5-10.1) mg/dl Iron (35-175) mcg/dl TIBC (250-450) mcg/dl Transferrin (200-360) mg/dl Transferrin % Sat (20-50) % Ferritin (8-388) ng/ml PG Care Time/CCT Total # of Minutes Spent Total Time Spent with Patient: Total time spent is greater than 50% in coordination of care (as documented) at patient's floor/unit and/or counseling patient: Coding Level of Care Code 40037 Subseq Hosp Care Lvl 3 Diagnoses Discitis M46.44 Spinal region: thoracic Hx of aortic valve replacement Z95.2 Hypertension I10 Diabetes mellitus, type 2 E11.9 Hyperlipidemia E78.5 Hydrocele N43.3 DVT prophylaxis Z29.9 (1) Discitis Spinal region: thoracic Qualified Code(s): M46.44 - Discitis, unspecified, thoracic region
[2020-02-15] MEDS ORDERED: MAGNESIUM CITRATE 296 ML/BTL PO STA (11:49)
[2020-02-15] MEDS ORDERED: VANCOMYCIN TROUGH ONE (17:30)
[2020-02-16] MEDS: HYDROmorphone INJ 1 MG/ML SYRINGE IV PRN (02:11)
[2020-02-16] MEDS: CEFEPIME 2,000 MG in SYRINGE 7.5 ML IV SCH ×3 (03:04→18:23)
[2020-02-16] MEDS: OXYCODONE HCL IR 5 MG TAB (IMMEDIATE RELEASE) PO PRN ×4 (04:08→18:23)
[2020-02-16] MEDS: ACETAMINOPHEN 500 MG TAB PO PRN (04:08)
[2020-02-16] MEDS ORDERED: VANCOMYCIN TROUGH ONE (05:30)
[2020-02-16] MEDS: POLYETHYLENE (MIRALAX) 17 GM PACK PO SCH ×3 (05:45→18:15)
[2020-02-16] MEDS: VANCOMYCIN HCL 1,500 MG in SODIUM CHLORIDE 0.9% 500 ML IV SCH ×2 (05:52→18:24)
[2020-02-16 06:02] LABS: Hematocrit (blood only) 35.1 % (42-52); Hemoglobin 11.2 g/dL (14.0-18.0); Mean Corpuscular Hgb Conc 31.9 g/dL (32-36); Mean Corpuscular Volume 78.3 fL (80-100); Mean Platelet Volume 9.2 fL (7.4-10.4); Platelet Count 208 K/uL (130-400); RDW Coefficient of Variation 17.5 % (11.5-14.5); RDW Standard Deviation 50.5 fL (36.4-46.3); Red Blood Count 4.48 M/uL (4.7-6.1); White Blood Count 9.33 K/uL (4.8-10.8)
[2020-02-16 06:34] LABS: BUN Creatinine Ratio 19.3 (10-20); Calcium 9.2 mg/dl (8.5-10.1); Creatinine Clr Calc Pharmacy 88.6 ml/min; Est GFR (African American) 91.8; Est GFR (Non-African American) 79.2; Potassium 4.2 mmol/L (3.5-5.1)
--- NOTE | 2020-02-16 08:21 | Pharmacy Report ---
Pharmacy Abx Dose Short Note - Date of Service February 16, 2020 - Assessment & Plan Assessment 70 year old M receiving vancomycin for treatment of discitis. Day # 5 of antimicrobial therapy. * NGTD for blood and back cultures * Renal function remains at baseline * WBC WNL * Pt afebrile Plan Vancomycin * Trough level of 18.1 mcg/mL is therapeutic. Trough level was drawn prior to 5th maintenance dose so levels considered to be at steady state. * Continue dose of 1500 mg IV every 12 hours * Goal trough level for discitis : 15 to 20 mcg/mL * No further levels ordered at this time. May consider additional level if change in renal function or continued therapy. Pt BMI 34. Pharmacy will continue to follow and will adjust dose/frequency as necessary. Thank you.
[2020-02-16] MEDS: INSULIN ASPART 100 UNITS/ML 3 ML PEN SC SCH ×4 (08:38→21:17)
[2020-02-16] MEDS: DOCUSATE SODIUM/SENNA 50/8.6MG TAB PO SCH ×2 (08:39→21:20)
[2020-02-16] MEDS: TIMOLOL GFS 0.5% OPH SOLN 74 DROPS/5 ML BTL OP SCH ×2 (08:39→21:19)
[2020-02-16] MEDS: SIMVASTATIN 40 MG TAB PO SCH (08:40)
--- NOTE | 2020-02-16 11:19 | Orthopedic Progress Note ---
Date of Service February 16, 2020 Assessment & Plan (1) Thoracic spondylosis with myelopathy: At this time we will maintain IV antibiotics. Most likely require a PICC line placement. We will strongly consider rehab upon discharge. Present on Admission?: Yes Admission and Anticipated Discharge Date Admission Date: February 12, 2020 Subjective Patient feels his ambulation has improved. He has some back discomfort in the alessandra-incisional area but is marked improved from his preoperative status. Physical Exam Physical Exam: On exam the patient is in a chair at the bedside. Is reasonable strength testing. Appears comfortable. Results & Data ([facility]) Vital Signs (Past 12 Hours) Vital Signs Temp Pulse Resp BP Pulse Ox 02/16/20 07:15 36.5 C 62 16 105/64 93 02/15/20 23:21 36.4 C L 64 16 131/82 91
--- NOTE | 2020-02-16 11:36 | Pharmacy Report ---
Pharmacy Glycemic Short Note 2 - Date of Service February 16, 2020 - Glycemic Short BSG Results (Last 24 hours): 02/15/20 02/15/20 02/15/20 12:16 17:29 20:38 Glucose POC Glucose 111 H 122 H 188 H 02/16/20 02/16/20 05:37 08:23 Glucose 175 H POC Glucose 246 H OUTPATIENT ANTIDIABETIC REGIMEN: * Januvia/metformin mg 1 tab BID * A1c = 7.4% 02/13/20 ASSESSMENT: * Monet is a 69 yo T2DM male admitted for discitis * Pt is maintained on oral antidiabetic agents as an outpatient * Patient now POD #2 s/p T7-10 decompression/fusion * Fasting BSG this morning of 175 mg/dL * AM POC BSG of 246 mg/dL was obtained after patient ate breakfast * --Inadvertently covered with correctional insulin - will monitor BSGs closely * Continues on vancomycin and cefepime for treatment of discitis/osteomyelitis PLAN FOR INPATIENT GLYCEMIC CONTROL: * Hold outpatient oral diabetes medications * Basal insulin * Considered adding basal this morning, but will hold for now given extra correctional insulin this morning * Lantus scale BID starting this evening (0-20 units) - see EHR for details * Bolus insulin - continued tightened Novolog (may need to adjust tomorrow if basal given this evening) * NovoLog per scale ACHS or Q6hrs while NPO * Goal Range: Low 110 mg/dL - High 140 mg/dL * Correction Factor: 15 mg/dL/unit * Nutritional / Prandial insulin per carb ratio of 1 unit per 5 grams CHO consumed PLAN FOR DISCHARGE: * A1c of 7.4% is acceptable (decreased from 8.6% on 10/10/19) * Continue home regimen on discharge
--- NOTE | 2020-02-16 14:43 | Hospitalist Progress Note ---
Date of Service February 16, 2020 Assessment & Plan (1) Discitis: * Discitis/Osteomyelitis at the level T9-10 and T7-T8 with possible epidural abscess vs seroma at T11. With severe central canal narrowing at T9- T10 disc space combination discitis/osteo with moderate to severe cord deformity and possible cord edema. * Patient s/p Aortic Valve 2016 and s/p thoracic decomp/fusion Sep 2019 * ECHO which cannot exclude valvular vegetation as above as bioprosthetic leaflets are not well visualized, however blood cultures remain no growth to date * Ortho consulted --> appreciate assistance -POD #2 s/p #1 removal of posterior rods and screws T10-T11. #2 exploration of fusion T10-T11. #3 thoracic decompression with bilateral medial facetectomies at T7-T8, T8-T9 and T9-T10. #4 posterior spinal fusion T7-T10. #5 placed a posterior segmental instrumentation C7-T10 including shepherds hooks. #6 placement locally harvested morselized autograft in the posterior gutters. #7 placement infuse collagen sponge, master graft in the posterior lateral gutters with Dr. Muhammad on 02/13 for thoracic discitis with epidural thoracic abscess and severe thoracic spinal stenosis with Dr Muhammad on 02/13. Pre-op h/h 13.5/41.7. EBL 200mL. Antibiotic beads impregnated with vancomycin and gentamicin were placed at the time of surgery. Will need to monitor Calcium levels given the antibiotic beads. -Continue broad-spectrum IV antibiotics with Vanco/Cefepime for now. Follow cultures -BCx NGTD. Gram stain back with moderate WBC, no organisms (had already been on IV abx 2 days prior to procedure) -Would consult with Shamar HENDRICKSON on Monday (only telephone calls on holiday weekend) regarding course/abx selection given hx aortic valve replacement and epidural abscess and discitis. * Pain control with Dilaudid, oxycodone and Zofran prn nausea * PT/OT per ortho service * H/h stable, 11.2/35.1 -- secondary to acute blood loss from surgery (EBL 200mL + 280mL from JACQUES) as well as dilutional from fluids. MCV <80 -- iron studies with low normal iron 38, normal ferritin 142, low TIBC 188/transferrin 153/trans%sat 18 -- mixed iron/chronic disease * Consider initiating iron now that patient with large BM morning 02/15 * CBC in AM (2) Hx of aortic valve replacement: * Aug 2019 with Medtronic porcine valve, minimally invasive, follows with Dr. Ochoa. No evidence of CHF * Given history of aortic valve replacement, ECHO obtained -- see above * Antibiotics orders to cover for endocarditis --> to be continued for now. 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 * Continue lisinopril 20mg PO daily * BP 144/74, stable * Home lasix on hold post-operatively -- monitor for volume overload * Continue to monitor (4) Diabetes mellitus, type 2: * A1c 7.4, down from 8.6 * Home medications on hold (sitagliptan/metformin 50/100 BID, glimeperide 2mg BID) * Pharmacy consulted on admission for glycemic management * Continue to monitor (5) Hyperlipidemia: * Chronic. Last lipid profile May 2019 -- triglycerides 202, cholesterol 116, LDL 51, HDL 25 * Continue home simvastatin 40mg daily (6) Hydrocele: * Hx R hydrocele. Set up with urology as outpatient. Has been present for quite some time. (7) Microcytic anemia: * As noted above (8) DVT prophylaxis: * SCDs will be in place until postprocedural hemostasis is obtained and then chemoprophylaxis will be begun Dispo: likely to remain inpatient until at least Monday, with likely discharge to [facility] for rehab. Will need PICC line and abx-- duration to be determined based on cultures and rec from ID Admission and Anticipated Discharge Date Admission Date: February 12, 2020 Supervising Physician Co-Signing Physician Notes PA Supervision Note: I did not personally see or examine the patient today, but I verified all villafuerte points of DEJUAN Gotti's assessment and plan with the following exceptions/additions: None Subjective Patient feeling better. Had large BM this morning after mag citrate. Worked with PT and ambulated in hallway today. Pain much improved. Controlled currently with medications on board. Hopeful for JACQUES drain to removed in the next day or so. Discussed obtaining PICC line Monday or Monday to continue IV abx. Patient agreeable to have ref sent to [facility] for rehab at discharge. All questions/concerns addressed at this time. Denies fevers, chills, cp, sob, abd pain, n/v at this time. Review of Systems Review of Systems: All systems reviewed & are unremarkable except as noted in HPI & below Physical Exam Constitutional: well developed, well nourished, cooperative and comfortable; no acute distress Eyes: + anicteric sclerae and PERRL Neck: trachea midline, no thyromegaly Respiratory: normal respiratory effort and able to speak in complete sentences; no respiratory distress and no labored breathing Auscultation: no crackles and no wheezes Cardiovascular: Rate/Rhythm: regular rate and regular rhythm Heart Sounds: + murmur (systolic) Extremities: no calf tenderness and no edema Gastrointestinal (Abdomen): normal bowel sounds, soft, nontender, no hepatosplenomegaly Musculoskeletal: Head/Neck/Chest: normocephalic and head atraumatic dressing c/d/i to spine JACQUES drain patent with approx 10mL bloody drainage, patent NVI calves non-tender to palpation 2+ dp, pt pulses bilaterally strength equal bilaterally good strength with plantar flexion, unable to dorsiflex Neurologic: PERRL, EOMI, accommodation nl, no face palsy, no dysarthria awake Psychiatric: Orientation: alert and oriented x 3 Lymphatic: no cervical or axillary lymphadenopathy Results & Data Results & Data ([facility]) Vital Signs (Past 12 Hours) Vital Signs Temp Pulse Resp BP Pulse Ox 02/16/20 07:15 36.5 C 62 16 105/64 93 Laboratory Results 02/16/20 02/16/20 02/16/20 Range/Units 12:07 08:23 05:37 WBC (4.8-10.8) K/uL RBC (4.7-6.1) M/uL Hgb (14.0-18.0) g/dL Hct (42-52) % MCV (80-100) fL MCH (25-34) pg MCHC (32-36) g/dL RDW Std Deviation (36.4-46.3) fL RDW Coeff of Jhon (11.5-14.5) % Plt Count (130-400) K/uL MPV (7.4-10.4) fL Sodium (136-145) mmol/L Potassium (3.5-5.1) mmol/L Chloride (98-107) mmol/L Carbon Dioxide (21-32) mmol/L Anion Gap (3-11) BUN (7-18) mg/dl Creatinine (0.6-1.4) mg/dl Est Cr Clr Drug Dosing ml/min Est GFR ( Amer) Est GFR (Non-Af Amer) BUN/Creatinine Ratio (10-20) Glucose (70-99) mg/dl POC Glucose 111 H 246 H (70-99) mg/dl Calcium (8.5-10.1) mg/dl Vancomycin Trough 18.1 (See Comment) mcg/ml 02/16/20 02/16/20 02/15/20 Range/Units 05:37 05:37 20:38 WBC 9.33 (4.8-10.8) K/uL RBC 4.48 L (4.7-6.1) M/uL Hgb 11.2 L (14.0-18.0) g/dL Hct 35.1 L (42-52) % MCV 78.3 L (80-100) fL MCH 25.0 (25-34) pg MCHC 31.9 L (32-36) g/dL RDW Std Deviation 50.5 H (36.4-46.3) fL RDW Coeff of Jhon 17.5 H (11.5-14.5) % Plt Count 208 (130-400) K/uL MPV 9.2 (7.4-10.4) fL Sodium 135 L (136-145) mmol/L Potassium 4.2 (3.5-5.1) mmol/L Chloride 101 (98-107) mmol/L Carbon Dioxide 28 (21-32) mmol/L Anion Gap 6.0 (3-11) BUN 19 H (7-18) mg/dl Creatinine 0.96 (0.6-1.4) mg/dl Est Cr Clr Drug Dosing 88.6 ml/min Est GFR ( Amer) 91.8 Est GFR (Non-Af Amer) 79.2 BUN/Creatinine Ratio 19.3 (10-20) Glucose 175 H (70-99) mg/dl POC Glucose 188 H (70-99) mg/dl Calcium 9.2 (8.5-10.1) mg/dl Vancomycin Trough (See Comment) mcg/ml 02/15/20 Range/Units 17:29 WBC (4.8-10.8) K/uL RBC (4.7-6.1) M/uL Hgb (14.0-18.0) g/dL Hct (42-52) % MCV (80-100) fL MCH (25-34) pg MCHC (32-36) g/dL RDW Std Deviation (36.4-46.3) fL RDW Coeff of Jhon (11.5-14.5) % Plt Count (130-400) K/uL MPV (7.4-10.4) fL Sodium (136-145) mmol/L Potassium (3.5-5.1) mmol/L Chloride (98-107) mmol/L Carbon Dioxide (21-32) mmol/L Anion Gap (3-11) BUN (7-18) mg/dl Creatinine (0.6-1.4) mg/dl Est Cr Clr Drug Dosing ml/min Est GFR ( Amer) Est GFR (Non-Af Amer) BUN/Creatinine Ratio (10-20) Glucose (70-99) mg/dl POC Glucose 122 H (70-99) mg/dl Calcium (8.5-10.1) mg/dl Vancomycin Trough (See Comment) mcg/ml PG Care Time/CCT Total # of Minutes Spent Total Time Spent with Patient: Total time spent is greater than 50% in coordination of care (as documented) at patient's floor/unit and/or counseling patient: Coding Level of Care Code 26682 Subseq Hosp Care Lvl 3 Diagnoses Discitis M46.44 Spinal region: thoracic Hx of aortic valve replacement Z95.2 Hypertension I10 Diabetes mellitus, type 2 E11.9 Hyperlipidemia E78.5 Hydrocele N43.3 Microcytic anemia D50.9 DVT prophylaxis Z29.9 (1) Discitis Spinal region: thoracic Qualified Code(s): M46.44 - Discitis, unspecified, thoracic region
[2020-02-16] MEDS: TRAMADOL HCL 50 MG TABLET PO PRN (15:20)
[2020-02-16] MEDS ORDERED: INSULIN GLARGINE SOLOSTAR 100 UNITS/ML 3 ML PEN SC SCH (21:00)
[2020-02-17] MEDS: POLYETHYLENE (MIRALAX) 17 GM PACK PO SCH (00:04)
[2020-02-17] MEDS: OXYCODONE HCL IR 5 MG TAB (IMMEDIATE RELEASE) PO PRN ×4 (00:07→20:40)
[2020-02-17] MEDS: CEFEPIME 2,000 MG in SYRINGE 7.5 ML IV SCH ×3 (02:29→20:41)
[2020-02-17] MEDS ORDERED: Nursing to Pharmacy Communication SCH (05:00)
[2020-02-17] MEDS: VANCOMYCIN HCL 1,500 MG in SODIUM CHLORIDE 0.9% 500 ML IV SCH ×2 (05:58→17:47)
[2020-02-17 06:17] LABS: Basophils # (auto) 0.03 K/uL (0-0.2); Basophils % (auto) 0.4 %; Eosinophils # (auto) 0.27 K/uL (0-0.5); Eosinophils % (auto) 3.7 %; Hematocrit (blood only) 36.5 % (42-52); Hemoglobin 11.8 g/dL (14.0-18.0); Immature Granulocytes # (auto) 0.05 K/uL (0.00-0.02); Immature Granulocytes % (auto) 0.7 %; Lymphocytes # (auto) 1.77 K/uL (1.2-3.4); Mean Corpuscular Hemoglobin 25.3 pg (25-34); Mean Corpuscular Hgb Conc 32.3 g/dL (32-36); Mean Corpuscular Volume 78.2 fL (80-100); Mean Platelet Volume 9.3 fL (7.4-10.4); Monocytes # (auto) 0.78 K/uL (0.11-0.59); Monocytes % (auto) 10.6 %; Neutrophils # (auto) 4.47 K/uL (1.4-6.5); Neutrophils % (auto) 60.6 %; Platelet Count 216 K/uL (130-400); RDW Coefficient of Variation 17.5 % (11.5-14.5); RDW Standard Deviation 49.9 fL (36.4-46.3); Red Blood Count 4.67 M/uL (4.7-6.1); White Blood Count 7.37 K/uL (4.8-10.8)
[2020-02-17 06:53] LABS: Albumin Level 2.8 gm/dl (3.4-5.0); BUN Creatinine Ratio 16.5 (10-20); Calcium 9.5 mg/dl (8.5-10.1); Creatinine Clr Calc Pharmacy 90.5 ml/min; Est GFR (African American) 94.2; Est GFR (Non-African American) 81.2; Potassium 4.1 mmol/L (3.5-5.1)
[2020-02-17 06:56] LABS: Albumin Globulin Ratio 0.7 (0.9-2); Bilirubin,Total 0.5 mg/dl (0.2-1); Globulin 3.8 gm/dl (2.5-4.0); Total Protein 6.6 gm/dl (6.4-8.2)
[2020-02-17] MEDS: TRAMADOL HCL 50 MG TABLET PO PRN (07:33)
[2020-02-17] MEDS: INSULIN ASPART 100 UNITS/ML 3 ML PEN SC SCH ×4 (07:34→20:51)
[2020-02-17] MEDS: SIMVASTATIN 40 MG TAB PO SCH (07:39)
[2020-02-17] MEDS: DOCUSATE SODIUM/SENNA 50/8.6MG TAB PO SCH ×2 (07:39→20:43)
[2020-02-17] MEDS: TIMOLOL GFS 0.5% OPH SOLN 74 DROPS/5 ML BTL OP SCH ×2 (07:40→20:41)
--- NOTE | 2020-02-17 09:32 | Orthopedic Progress Note ---
Date of Service February 17, 2020 Assessment & Plan (1) Thoracic spondylosis with myelopathy: Plan is at this time is to maintain IV antibiotics for at least 6 weeks. He will probably have a PICC line placed in the next day or so. And hopefully rehab in the next few days. Present on Admission?: Yes Admission and Anticipated Discharge Date Admission Date: February 12, 2020 Subjective Back pain controlled leg symptoms steadily improving. Physical Exam Physical Exam: On exam he is able to stand with his walker. He is ambulating well. Results & Data ([facility]) Vital Signs (Past 12 Hours) Vital Signs Temp Pulse Resp BP BP Pulse Ox 02/17/20 06:30 36.6 C 71 16 136/80 91 02/16/20 23:43 36.6 C 66 16 119/72 95
[2020-02-17] MEDS: ACETAMINOPHEN 325 MG TAB PO PRN (13:04)
--- NOTE | 2020-02-17 14:32 | Hospitalist Progress Note ---
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 With severe central canal narrowing at T9- T10 disc space combination discitis/osteo with moderate to severe cord deformity and possible cord edema. * Patient s/p Aortic Valve 2016 and s/p thoracic decomp/fusion Sep 2019 * ECHO which cannot exclude valvular vegetation as above as bioprosthetic leaflets are not well visualized, however blood cultures remain no growth to date * Ortho consulted --> appreciate assistance -POD #2 s/p #1 removal of posterior rods and screws T10-T11. #2 exploration of fusion T10-T11. #3 thoracic decompression with bilateral medial facetectomies at T7-T8, T8-T9 and T9-T10. #4 posterior spinal fusion T7-T10. #5 placed a posterior segmental instrumentation C7-T10 including shepherds hooks. #6 placement locally harvested morselized autograft in the posterior gutters. #7 placement infuse collagen sponge, master graft in the posterior lateral gutters with Dr. Muhammad on 02/13 for thoracic discitis with epidural thoracic abscess and severe thoracic spinal stenosis with Dr Muhammad on 02/13. Pre-op h/h 13.5/41.7. EBL 200mL. Antibiotic beads impregnated with vancomycin and gentamicin were placed at the time of surgery. - Will need to monitor Calcium levels given the antibiotic beads. -Continue broad-spectrum IV antibiotics with Vanco/Cefepime for now. Discussed with Shamar Vásquez ID Dr. Simmons who will consult with patient via telehealth and give recommendations -BCx NGTD. Gram stain back with moderate WBC, no organisms (had already been on IV abx 2 days prior to procedure) * Pain control with Dilaudid, oxycodone and Zofran prn nausea * PT/OT per ortho service * H/h stable, 11.2/35.1 -- secondary to acute blood loss from surgery (EBL 200mL + 280mL from [facility]) as well as dilutional from fluids. MCV <80 -- iron studies with low normal iron 38, normal ferritin 142, low TIBC 188/transferrin 153/trans%sat 18 -- mixed iron/chronic disease (2) Hx of aortic valve replacement: * Aug 2019 with Medtronic porcine valve, minimally invasive, follows with Dr. Ochoa. No evidence of CHF * Given history of aortic valve replacement, ECHO obtained * Antibiotics orders to cover for endocarditis --> to be continued for now. Appreciate input from Shamar HENDRICKSON * PICC in place (3) Hypertension: * Chronic. * Continue lisinopril 20mg PO daily * Home lasix on hold post-operatively -- monitor for volume overload * Continue to monitor (4) Diabetes mellitus, type 2: * A1c 7.4, down from 8.6 * Home medications on hold (sitagliptan/metformin 50/100 BID, glimeperide 2mg BID) * Pharmacy consulted on admission for glycemic management * Continue to monitor (5) Hyperlipidemia: * Chronic. Last lipid profile May 2019 -- triglycerides 202, cholesterol 116, LDL 51, HDL 25 * Continue home simvastatin 40mg daily (6) Hydrocele: * Hx R hydrocele. Set up with urology as outpatient. Has been present for quite some time. (7) Microcytic anemia: * With low normal iron, low transferrin, TIBC * Will initiate po iron supplementation daily (8) DVT prophylaxis: * SCDs per surgery Dispo: [facility] when ok for discharge, possibly tomorrow Admission and Anticipated Discharge Date Admission Date: February 12, 2020 Subjective Mr. Mccarthy is having some pain today. Reports baseline numbness in lower extremities. Otherwise, no complaints ROS Constitutional: no chills, aches, sweats or fever Respiratory: no sob,cough, sputum, or wheezing Cardiac: no chest pain, palpitations, edema, orthopnea or lightheadedness GI: no abdominal pain, nausea, vomiting, diarrhea or constipation : no dysuria or hesitancy Extremities: no joint pain or weakness Skin: no rash All other systems reviewed and negative Physical Exam Physical Exam: General: no distress Eyes: normal inspection, PERLL Respiratory: chest non tender, clear to auscultation, normal breath sounds, no respiratory distress, no accessory muscle use Cardiac: regular rate and rhythm, no rub or gallop, no murmur, no edema, no jvd GI/: active bowel sounds, no abd pain or tenderness, soft, non distended Extremities: normal range of motion, normal strength, non tender Neuro/Psych: alert and oriented x 3, normal mood and affect Skin: normal color, dry Results & Data Results & Data ([facility]) Vital Signs (Past 12 Hours) Vital Signs Temp Pulse Resp BP Pulse Ox 02/17/20 06:30 36.6 C 71 16 136/80 91 PG Care Time/CCT Total # of Minutes Spent Total Time Spent with Patient: Total time spent is greater than 50% in coordination of care (as documented) at patient's floor/unit and/or counseling patient: Coding Level of Care Code 36094 Subseq Hosp Care Lvl 3 Diagnoses Discitis M46.44 Spinal region: thoracic Hx of aortic valve replacement Z95.2 Hypertension I10 Diabetes mellitus, type 2 E11.9 Hyperlipidemia E78.5 Hydrocele N43.3 Microcytic anemia D50.9 DVT prophylaxis Z29.9 (1) Discitis Spinal region: thoracic Qualified Code(s): M46.44 - Discitis, unspecified, thoracic region
[2020-02-17] MEDS ORDERED: INSULIN GLARGINE SOLOSTAR 100 UNITS/ML 3 ML PEN SC ONE (21:00)
[2020-02-18] MEDS: OXYCODONE HCL IR 5 MG TAB (IMMEDIATE RELEASE) PO PRN ×4 (01:28→20:15)
[2020-02-18] MEDS: CEFEPIME 2,000 MG in SYRINGE 7.5 ML IV SCH (02:36)
[2020-02-18] MEDS: HYDROmorphone INJ 1 MG/ML SYRINGE IV PRN ×3 (02:36→13:12)
--- NOTE | 2020-02-18 02:43 | Communication Note ---
Date of Service: February 18, 2020 Called to evaluate patient for new onset chest pain at around 2:15 this am by his attentive nurse. When I got to patient's room patient looked clearly uncom fortable and had sharp severe pain in his left midclavicular line at about the fifth/sixth rib. Compression of this area reproduced symptoms impressively and deep breaths also caused discomfort. Obtained ECG showing no acute ST changes or other concerning features, vitals all WNL apart from HTN. Ordering CXR and troponin for now and in six hours. This more than likely is musculoskeletal but will follow up on imaging and cardiac enzymes as they come in.
[2020-02-18 03:06] LABS: Hematocrit (blood only) 37.4 % (42-52); Hemoglobin 11.4 g/dL (14.0-18.0); Mean Corpuscular Hemoglobin 24.2 pg (25-34); Mean Corpuscular Hgb Conc 30.5 g/dL (32-36); Mean Corpuscular Volume 79.2 fL (80-100); Mean Platelet Volume 8.8 fL (7.4-10.4); Platelet Count 222 K/uL (130-400); RDW Coefficient of Variation 17.3 % (11.5-14.5); RDW Standard Deviation 50.4 fL (36.4-46.3); Red Blood Count 4.72 M/uL (4.7-6.1); White Blood Count 7.38 K/uL (4.8-10.8)
[2020-02-18 03:25] LABS: Albumin Level 2.7 gm/dl (3.4-5.0); BUN Creatinine Ratio 18.7 (10-20); Creatinine Clr Calc Pharmacy 100.1 ml/min; Est GFR (African American) 101.6; Est GFR (Non-African American) 87.7
[2020-02-18 03:28] LABS: Albumin Globulin Ratio 0.7 (0.9-2); Bilirubin,Total 0.6 mg/dl (0.2-1); Globulin 3.8 gm/dl (2.5-4.0); Total Protein 6.5 gm/dl (6.4-8.2)
[2020-02-18] MEDS: VANCOMYCIN HCL 1,500 MG in SODIUM CHLORIDE 0.9% 500 ML IV SCH ×2 (05:41→18:10)
[2020-02-18] MEDS: LIDOCAINE 5% 1 PATCH TD SCH (06:53)
--- NOTE | 2020-02-18 06:54 | XRay Report ---
XR chest 1V portable CLINICAL HISTORY: Chest pain. COMPARISON STUDY: Chest CT February 07, 2020. FINDINGS: Note is made of bilateral shoulder arthroplasties, a right PICC and thoracolumbar lumbar sp ine fusion hardware. Cardiomegaly is unchanged. There is no pneumothorax or pleural effusion. Lung vo lumes are diminished. There is no evidence for pulmonary edema. Mild bibasilar opacities favor atelec tasis. IMPRESSION: Low lung volumes with bibasilar opacities that favor atelectasis. ACT 112: Negative or not required by law. Electronically signed by: Enmanuel Ayon M.D. 02/18/2020 6:53 AM
[2020-02-18] MEDS: INSULIN ASPART 100 UNITS/ML 3 ML PEN SC SCH ×4 (07:52→20:27)
[2020-02-18] MEDS: SIMVASTATIN 40 MG TAB PO SCH (07:55)
[2020-02-18] MEDS: DOCUSATE SODIUM/SENNA 50/8.6MG TAB PO SCH ×2 (07:55→20:17)
[2020-02-18] MEDS: FERROUS SULFATE 325 MG TAB PO SCH (07:55)
[2020-02-18] MEDS: TIMOLOL GFS 0.5% OPH SOLN 74 DROPS/5 ML BTL OP SCH ×2 (07:55→20:17)
[2020-02-18] MEDS: lisinopriL 20 MG TAB PO SCH (08:04)
--- NOTE | 2020-02-18 11:45 | Orthopedic Progress Note ---
Date of Service February 18, 2020 Assessment & Plan (1) Thoracic spondylosis with myelopathy: At this time the patient is progressing appropriately. He is okay for rehab when cleared by medicine. Present on Admission?: Yes Admission and Anticipated Discharge Date Admission Date: February 12, 2020 Subjective Patient's back pain is controlled leg symptoms steadily improving. Physical Exam Physical Exam: On exam he is able to get out of his bed using much more quad strength than previously. This is a marked improvement. Results & Data ([facility]) Vital Signs (Past 12 Hours) Vital Signs Temp Pulse Resp BP Pulse Ox 02/18/20 08:53 134/86 02/18/20 07:28 36.7 C 83 16 167/96 H 92 02/18/20 06:10 36.5 C 77 14 111/68 91 02/18/20 02:10 78 14 168/91 H 95 02/18/20 02:09 36.7 C 78 14 180/100 H 94
--- NOTE | 2020-02-18 14:08 | Hospitalist Progress Note ---
Date of Service February 18, 2020 Assessment & Plan (1) Discitis: * Discitis/Osteomyelitis at the level T9-10 and T7-T8 with possible epidural abscess vs seroma at T11. With severe central canal narrowing at T9- T10 disc space combination discitis/osteo with moderate to severe cord deformity and possible cord edema. * Patient s/p Aortic Valve 2015 and s/p thoracic decomp/fusion Sep 2019 * ECHO which cannot exclude valvular vegetation as above as bioprosthetic leaflets are not well visualized, however blood cultures remain no growth to date * Ortho consulted --> appreciate assistance -S/p #1 removal of hardware and decompression and fusion with Dr. 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 Calcium has been wnl with antibiotic beads. -BCx NGTD. WC ngtd * Pain control with Dilaudid, oxycodone and Zofran prn nausea * PT/OT per ortho service Consulted Shamar Vásquez ID - recommends treating with vancomycin for 12 weeks and discontinuing cefepime. Suggested 16-S PCR testing however our lab cannot do this without a positive culture to use. Will need weekly cbc with diff, BMP, vancomycin trough while in treatment. Weekly CRP until 3 months after stopping antibiotics. Will need to follow up with [facility] Infectious Disease outpatient (2) Hx of aortic valve replacement: * Aug 2019 with Medtronic porcine valve, minimally invasive, follows with Dr. Ochoa. No evidence of CHF * Given history of aortic valve replacement, ECHO obtained * PICC in place (3) Hypertension: * Chronic. * Continue lisinopril 20mg PO daily * Home lasix on hold post-operatively -- monitor for volume overload * Continue to monitor (4) Diabetes mellitus, type 2: * A1c 7.4, down from 8.6 * Home medications on hold (sitagliptan/metformin 50/100 BID, glimeperide 2mg BID) * Pharmacy consulted on admission for glycemic management * Continue to monitor (5) Hyperlipidemia: * Chronic. Last lipid profile May 2019 -- triglycerides 202, cholesterol 116, LDL 51, HDL 25 * Continue home simvastatin 40mg daily (6) Hydrocele: * Hx R hydrocele. Set up with urology as outpatient. Has been present for quite some time. (7) Microcytic anemia: * With low normal iron, low transferrin, TIBC * po iron supplementation daily (8) Chest pain: Reproducible to palpation, worse with inspiration Trops negative x 2 CXR with low lung volumes with bibasilar opacities that favor atelectasis. EKG without concerning changes (9) DVT prophylaxis: * SCDs per surgery Dispo: [facility] when ok for discharge, possibly tomorrow if pain is under better control Admission and Anticipated Discharge Date Admission Date: February 12, 2020 Subjective Mr. Mccarthy had chest pain over the night. This morning he was still feeling significant pain, worse with inspiration, reproducible to palpation, left lower chest over his ribs. ROS Constitutional: no chills, aches, sweats or fever Respiratory: no sob,cough, sputum, or wheezing Cardiac: no palpitations, edema, orthopnea or lightheadedness GI: no abdominal pain, nausea, vomiting, diarrhea or constipation : no dysuria or hesitancy Extremities: no joint pain or weakness Skin: no rash All other systems reviewed and negative Physical Exam Physical Exam: General: no distress Eyes: normal inspection, PERLL Chest: left rib pain, tender to palpation Respiratory: chest non tender, clear to auscultation, normal breath sounds, no respiratory distress, no accessory muscle use Cardiac: regular rate and rhythm, no rub or gallop, no murmur, no edema, no jvd GI/: active bowel sounds, no abd pain or tenderness, soft, non distended Extremities: normal range of motion, normal strength, non tender Neuro/Psych: alert and oriented x 3, normal mood and affect Skin: normal color, dry Results & Data Results & Data ([facility]) Vital Signs (Past 12 Hours) Vital Signs Temp Pulse Resp BP Pulse Ox 02/18/20 08:53 134/86 02/18/20 07:28 36.7 C 83 16 167/96 H 92 02/18/20 06:10 36.5 C 77 14 111/68 91 02/18/20 02:10 78 14 168/91 H 95 02/18/20 02:09 36.7 C 78 14 180/100 H 94 PG Care Time/CCT Total # of Minutes Spent Total Time Spent with Patient: Total time spent is greater than 50% in coordination of care (as documented) at patient's floor/unit and/or counseling patient: Coding Level of Care Code 74585 Subseq Hosp Care Lvl 2 Diagnoses Discitis M46.44 Spinal region: thoracic Hx of aortic valve replacement Z95.2 Hypertension I10 Diabetes mellitus, type 2 E11.9 Hyperlipidemia E78.5 Hydrocele N43.3 Microcytic anemia D50.9 Chest pain R07.9 DVT prophylaxis Z29.9 (1) Discitis Spinal region: thoracic Qualified Code(s): M46.44 - Discitis, unspecified, thoracic region
--- NOTE | 2020-02-18 14:55 | Pharmacy Report ---
Pharmacy Glycemic Short Note 2 - Date of Service February 18, 2020 - Glycemic Short BSG Results (Last 24 hours): 02/17/20 02/17/20 02/18/20 17:04 20:31 02:55 Glucose 132 H POC Glucose 129 H 142 H 02/18/20 02/18/20 07:26 12:05 Glucose POC Glucose 135 H 171 H OUTPATIENT ANTIDIABETIC REGIMEN: * Januvia/metformin mg 1 tab BID * A1c = 7.4% 02/13/20 ASSESSMENT: 02/17 * Mr. Mccarthy is going to be continuing vancomycin for minimum 12 weeks * Good glycemic control yesterday BSGs 147-142 * Patient received 10 units of basal insulin and 28 units of novolog * Fasting this AM 135, will give 12 units of lantus this evening, current regimen is heavily rapid-acting, may need to scale back carb ratio as dexamethasone wears off but will continue for now as lunch BSG 171. 02/15 * Monet is a 69 yo T2DM male admitted for discitis * Pt is maintained on oral antidiabetic agents as an outpatient * Patient now POD #2 s/p T7-10 decompression/fusion * Fasting BSG this morning of 175 mg/dL * AM POC BSG of 246 mg/dL was obtained after patient ate breakfast * --Inadvertently covered with correctional insulin - will monitor BSGs closely * Continues on vancomycin and cefepime for treatment of discitis/osteomyelitis PLAN FOR INPATIENT GLYCEMIC CONTROL: * Hold outpatient oral diabetes medications * Basal insulin * Lantus 12 units HS * Bolus insulin - continued tightened Novolog (may need to adjusted if BSGs trend down) * NovoLog per scale ACHS or Q6hrs while NPO * Goal Range: Low 110 mg/dL - High 140 mg/dL * Correction Factor: 15 mg/dL/unit * Nutritional / Prandial insulin per carb ratio of 1 unit per 5 grams CHO consumed PLAN FOR DISCHARGE: * A1c of 7.4% is acceptable (decreased from 8.6% on 10/10/19) * Continue home regimen on discharge
[2020-02-18] MEDS ORDERED: INSULIN GLARGINE SOLOSTAR 100 UNITS/ML 3 ML PEN SC SCH (21:00)
[2020-02-19] MEDS: OXYCODONE HCL IR 5 MG TAB (IMMEDIATE RELEASE) PO PRN (05:02)
[2020-02-19] MEDS ORDERED: VANCOMYCIN TROUGH ONE (05:30)
[2020-02-19] MEDS: VANCOMYCIN HCL 1,500 MG in SODIUM CHLORIDE 0.9% 500 ML IV SCH (06:03)
[2020-02-19 06:13] LABS: Basophils # (auto) 0.01 K/uL (0-0.2); Basophils % (auto) 0.2 %; Eosinophils # (auto) 0.22 K/uL (0-0.5); Eosinophils % (auto) 3.7 %; Hematocrit (blood only) 34.8 % (42-52); Hemoglobin 11.2 g/dL (14.0-18.0); Immature Granulocytes # (auto) 0.07 K/uL (0.00-0.02); Immature Granulocytes % (auto) 1.2 %; Lymphocytes # (auto) 1.36 K/uL (1.2-3.4); Lymphocytes % (auto) 22.7 %; Mean Corpuscular Hemoglobin 25.5 pg (25-34); Mean Corpuscular Hgb Conc 32.2 g/dL (32-36); Mean Corpuscular Volume 79.1 fL (80-100); Mean Platelet Volume 9.4 fL (7.4-10.4); Monocytes # (auto) 0.79 K/uL (0.11-0.59); Monocytes % (auto) 13.2 %; Neutrophils # (auto) 3.54 K/uL (1.4-6.5); Nucleated RBC # (auto) 0.02 K/uL (0-0); Nucleated RBC % (auto) 0.3 %; Platelet Count 244 K/uL (130-400); RDW Coefficient of Variation 17.6 % (11.5-14.5); RDW Standard Deviation 51.1 fL (36.4-46.3); White Blood Count 5.99 K/uL (4.8-10.8)
--- NOTE | 2020-02-19 06:32 | Electrocardiogram Report ---
Test Reason : Blood Pressure : / mmHG Vent. Rate : 076 BPM Atrial Rate : 076 BPM P-R Int : 150 ms QRS Dur : 090 ms QT Int : 386 ms P-R-T Axes : 010 -20 019 degrees QTc Int : 434 ms Normal sinus rhythm Inferior infarct , age undetermined Abnormal ECG When compared with ECG of 13-FEB-2020 12:49, Questionable change in QRS duration Criteria for Anteroseptal infarct are no longer Present Inferior infarct is now Present Confirmed by Gabo Johnson ([id number] on 02/19/2020 6:32:22 AM Referred By: REFERRED SELF Confirmed By:Gabo Johnson
[2020-02-19 06:43] LABS: Albumin Level 2.7 gm/dl (3.4-5.0); Calcium 9.6 mg/dl (8.5-10.1); Creatinine Clr Calc Pharmacy 86.8 ml/min; Est GFR (African American) 89.5; Est GFR (Non-African American) 77.3; Potassium 3.8 mmol/L (3.5-5.1)
[2020-02-19 06:46] LABS: Albumin Globulin Ratio 0.7 (0.9-2); Bilirubin,Total 0.5 mg/dl (0.2-1); Globulin 3.7 gm/dl (2.5-4.0); Total Protein 6.4 gm/dl (6.4-8.2)
[2020-02-19] MEDS: TRAMADOL HCL 50 MG TABLET PO PRN (07:32)
[2020-02-19] MEDS: FERROUS SULFATE 325 MG TAB PO SCH (07:34)
[2020-02-19] MEDS: DOCUSATE SODIUM/SENNA 50/8.6MG TAB PO SCH (07:34)
[2020-02-19] MEDS: LIDOCAINE 5% 1 PATCH TD SCH (07:35)
[2020-02-19] MEDS: TIMOLOL GFS 0.5% OPH SOLN 74 DROPS/5 ML BTL OP SCH (07:35)
[2020-02-19] MEDS: lisinopriL 20 MG TAB PO SCH (07:36)
[2020-02-19] MEDS: SIMVASTATIN 40 MG TAB PO SCH (07:37)
[2020-02-19] MEDS: INSULIN ASPART 100 UNITS/ML 3 ML PEN SC SCH ×2 (07:41→12:55)
--- NOTE | 2020-02-19 09:32 | Pharmacy Report ---
Pharmacy Glycemic Short Note 2 - Date of Service February 19, 2020 - Glycemic Short BSG Results (Last 24 hours): 02/18/20 02/18/20 02/18/20 12:05 17:01 20:19 Glucose POC Glucose 171 H 127 H 145 H 02/19/20 05:17 Glucose 118 H POC Glucose OUTPATIENT ANTIDIABETIC REGIMEN: * Januvia/metformin mg 1 tab BID * A1c = 7.4% 02/13/20 ASSESSMENT: * Mr. Mccarthy is going to be continuing vancomycin for minimum 12 weeks * Good glycemic control yesterday BSGs 127-171 mg/dL * Patient received 12 units of basal insulin and 38 units of novolog * Fasting this AM 118 mg/dL PLAN FOR INPATIENT GLYCEMIC CONTROL: * Hold outpatient oral diabetes medications * Basal insulin * Lantus 12 units HS * Bolus insulin - continue * NovoLog per scale ACHS or Q6hrs while NPO * Goal Range: Low 110 mg/dL - High 140 mg/dL * Correction Factor: 15 mg/dL/unit * Nutritional / Prandial insulin per carb ratio of 1 unit per 5 grams CHO consumed PLAN FOR DISCHARGE: * A1c of 7.4% is acceptable (decreased from 8.6% on 10/10/19) * Continue home regimen on discharge
--- NOTE | 2020-02-19 10:33 | Discharge Summary ---
Date of Service February 19, 2020 Admission HPI Per Admitting Provider 69-M with lumbar spine surgery d/c 10/10/19 presenting today via ambulance with severe back pain with radicular component. Patient was evaluated in the emergency department on February 06 with a concern for some back pain elevated d- dimer and outpatient laboratory studies. Patient underwent evaluation with no evidence of PE, basic laboratory studies were without evidence of significant leukocytosis or evidence of pancreatitis. Patient was treated with pain medicine and was insisted on leaving before final reports for CT of the thoracic spine was completed. CT report shows fragmentation at the inferior endplate of T9 and serration at T10 suggestive of postoperative ostial lysis however discitis and osteomyelitis per radiology report remained on the differential. Patient states he is been experiencing back pain since his surgery in September of this year by Dr. Muhammad. Saw Dr. Muhammad about 3 weeks ago with normal x-ray at that time. At 2 AM and got up to use the bathroom and twisted when he was in the bathroom without a pop. Laid back down in the went to get up around 6-6 30 this morning he sat up and had severe pain in his lower back rating down both legs. He describes the pain to be associated with electric shocks, He denies numbness or bladder dysfunction at this time. Denies again any fevers. Given some fentanyl prior to arrival with out significant change in symptoms. Did take some oxycodone at home as well as a muscle relaxer without improvement. He denies any saddle anesthesia. Principal Diagnosis Discitis Discharge Exam Constitutional WD/WN, vitals as above Respiratory normal respiratory effort, lungs clear to auscultation Cardiovascular RRR, no murmur, no edema Gastrointestinal (Abdomen) Inspection/Auscultation: abdomen normal to inspection and normal bowel sounds; abdomen not distended Percussion/Palpation: abdomen soft; abdomen nontender Musculoskeletal no cyanosis or clubbing, extremities motor strength 5/5 Skin no rashes, warm and dry Neurologic moves all extremities and awake Psychiatric A+Ox3, euthymic affect Discharge Data Allergies Allergy/AdvReac Type Severity Reaction Status Date / Time morphine Allergy Mild ITCHY Verified 02/12/20 10:12 Consultations 02/12/20 15:37 ED Decision to Admit Stat 02/12/20 18:10 Consult Orthopedic Surgery Routine 02/14/20 17:24 Consult Case Management - Discharge Planning Routine 02/14/20 19:04 Consult Patient Rep / Service Excellence [Consult Patient Services] Routine 02/17/20 08:13 Consult Infectious Diseases Routine Procedures Performed Operation Date: 02/14/20 09:35 Actual Procedures p T7-T10 Decompression and Fusion, Spinal Cord Monitoring(Not Applicable) - Papo Muhammad DO Ordered Studies 02/12/20 09:41 MR lumbar spine wo/w con Stat MR thoracic spine wo/w con Stat 02/14/20 09:35 FL fluoroscopy <1hr Routine FL thoracic spine 2V Routine Hospital Course (1) Discitis: * Discitis/Osteomyelitis at the level T9-10 and T7-T8 with possible epidural abscess vs seroma at T11. With severe central canal narrowing at T9- T10 disc space combination discitis/osteo with moderate to severe cord deformity and possible cord edema. * Patient s/p Aortic Valve 2015 and s/p thoracic decomp/fusion Sep 2019 * ECHO which cannot exclude valvular vegetation as above as bioprosthetic leaflets are not well visualized, however blood cultures remain no growth to date * Ortho consulted --> appreciate assistance -S/p removal of hardware and decompression and fusion with Dr. 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 Calcium has been wnl with antibiotic beads. -BCx NGTD. WC ngtd * Pain control * PT/OT per ortho service Consulted Shamar Vásquez ID - recommends treating with vancomycin for 12 weeks and discontinuing cefepime. Suggested 16-S PCR testing however our lab cannot do this without a positive culture to use. Will need weekly cbc with diff, BMP, vancomycin trough while in treatment. Weekly CRP until 3 months after stopping antibiotics. Will need to follow up with [facility] outpatient (2) Hx of aortic valve replacement: * Aug 2019 with Medtronic porcine valve, minimally invasive, follows with Dr. Ochoa. No evidence of CHF * PICC in place (3) Hypertension: * Chronic. * Continue lisinopril 20mg PO daily * Home prn lasix on hold post-operatively -- appears euvolemic * Continue to monitor (4) Diabetes mellitus, type 2: * A1c 7.4, down from 8.6 * Home medications on hold (sitagliptan/metformin 50/100 BID, glimeperide 2mg BID) - will resume for discharge * Pharmacy consulted on admission for glycemic management * Continue to monitor (5) Hyperlipidemia: * Chronic. Last lipid profile May 2019 -- triglycerides 202, cholesterol 116, LDL 51, HDL 25 * Continue home simvastatin 40mg daily (6) Hydrocele: * Hx R hydrocele. Set up with urology as outpatient. Has been present for quite some time. (7) Microcytic anemia: * With low normal iron, low transferrin, TIBC * po iron supplementation daily (8) Chest pain: Improving Reproducible to palpation, worse with inspiration Trops negative x 2 CXR with low lung volumes with bibasilar opacities that favor atelectasis. EKG without concerning changes (9) DVT prophylaxis: * SCDs per surgery Dispo: to [facility] Total Time Total Time Spent Total Time Spent (In Minutes): greater than 30 minutes Discharge Plan Discharge Items Patient Disposition: Transfer Inpatient Rehab Fac Reason For Visit: THORACIC DISCITIS Discharge Diagnosis: Thoracic discitis Activity: Per Instructions section Non-emergency contact: Primary Care Provider and Surgeon Call non-emergency contact if: you have any medication questions Follow-up/Referrals: Rashel Rolon III, MD [Primary Care Provider] - Diet: Carb Consistent or DM2 Addtl Attending Provider Instructions: (1) Discitis: Status post thoracic decomp/fusion Sep 2019 Blood cultures remain no growth to date -Status post removal of hardware and decompression and fusion with Dr. 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 Calcium has been wnl with antibiotic beads and will need to be monitored. Consulted [facility] Infect[facility] Disease - recommends treating with vancomycin for 12 weeks. Will need weekly cbc with diff, BMP, and vancomycin trough while in treatment. Weekly CRP until 3 months after stopping antibiotics. Will need to follow up with [facility] Infect[facility] Disease outpatient (2) Hx of aortic valve replacement: Aug 2019 with Medtronic porcine valve, minimally invasive, follows with Dr. Ochoa. (3) Hypertension: Continue lisinopril 20mg PO daily Home lasix on hold post-operatively (4) Diabetes mellitus, type 2: A1c 7.4, down from 8.6 Home medications on hold inpatient, will resume at discharge (sitagliptan/metformin 50/100 BID, glimeperide 2mg BID) (5) Hyperlipidemia: Chronic. Last lipid profile May 2019 -- triglycerides 202, cholesterol 116, LDL 51, HDL 25 Continue home simvastatin 40mg daily (6) Hydrocele: R hydrocele. Set up with urology as outpatient. Has been present for quite some time. (7) Microcytic anemia: With low normal iron, low transferrin, TIBC po iron supplementation daily (8) Chest pain: Improving - pain is reproducible to palpation, worse with inspiration Trops negative x 2 CXR with low lung volumes with bibasilar opacities that favor atelectasis. 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 You may walk to your tolerance. It is good exercise for your legs and back. Expect some back and intermittent leg aches and pains. 2. You may perform "counter-top" level activities (make a sandwich, corie with a project, etc.). 3. No bending or lifting of more than 10 pounds or back twisting of any nature (roll like a log when turning in bed). 4. You may ride in a car for 20-30 minutes at a time. No driving until after your first visit with your doctor. 5. Frequent changes of position and restricting sitting to 30 minutes at a time will help limit the amount of back spasms and stiffness you may experience. 6. You may discontinue the use of ambulatory aids (cane, crutches, etc.) once your strength and confidence allow. 7. You may order entry administrator the shower and let water strike your incision when you arrive home at least once daily. Do not take a tub bath, sit in a hot tub or go into a swimming pool until after your first recheck in the office. SPECIAL CARE INSTRUCTIONS: VERY IMPORTANT TO READ AND REVIEW A. Your surgical incision has been closed with a cosmetic suture under the skin that will dissolve in about 6 weeks. In 14 days, you can use a pair of clean scissors and cut the suture that is left outside of the skin at the ends of your incision. 1. The small skin tapes can be removed 7 days after surgery if they have not fallen off by that point. 2. You may keep the wound open to air as much as possible to promote healing after post-op day number 5 unless told otherwise by your doctor. 3. If you think the wound looks like it is becoming infected (redness or worsening drainage) and/or you are experiencing fever, chill or worsening back pain and muscle spasms, contact the office so that we may evaluate you as soon as possible. B. Complications are uncommon, but please contact us if you have any signs or symptoms of: 1. wound infection (fever higher than 102.5 degrees F, redness, separation of wound, drainage, or increasing pain from the incision) 2. blood clots in legs (pain, swelling, redness and warmth in legs) 3. urinary tract infection (fever higher than 102.5 degrees F, burning upon urination or increased frequency of urination) 4. nerve problems (inability to walk on your toes or heels, numbness, loss of bowel or bladder control) 5. any other symptoms that concern you C. Please call the office at if you have any concerns or questions about your operation or recovery. D. No smoking! Smoking drastically decreases the chance of a solid fusion. E. Do not take any anti-inflammatory medications (Indocin, Advil, Motrin, Aspirin, Naprosyn, etc.) as these may inhibit the chance of a solid fusion. Tylenol is okay to take for pain. MANAGING PAIN AFTER SPINAL SURGERY 1. Narcotic medication is intended for short-term use and will be provided for surgical pain. Surgical pain usually lasts for a period of 4-6 weeks. Narcotic medication includes Percocet, Vicodin, Darvocet, Tylenol #3 or Lortab. 2. Longer-term pain is more appropriately treated with non-narcotic medication such as Tylenol ES. 3. Muscle spasm is not appropriately treated with narcotics. Muscle relaxers such as Soma, Flexeril or Skelaxin can be used along with Tylenol ES. 4. Remember that we all live with some "aches and pains". This is not unusual or uncommon after an injury or as we get older. a. Back pain is expected and may include muscle spasms for 4 to 6 weeks after surgery. The pain should gradually improve. If the pain worsens for no apparent reason, please contact the office. b. Intermittent leg pain may also be experienced and should not be concerned about unless it worsens for no apparent reason. If so, please contact the office. 5. We will provide appropriate medication within the normal guidelines of their prescribed use. We will also be very cautious and aware of potential abuse and extended duration of patients' medication needs. a. Pain medications are for your comfort and to assist with sleep and rest so that the tissue can heal. They are not provided in order to return to normal activity and should not be used through the day. To do so or worsening pain at night can result from ongoing tissue damage and development of tolerance to the prescribed medicine. 6. Please allow 2-3 days to process refills. Prescriptions will not be mailed but must be picked up at the office. FOLLOW UP VISIT: follow up in 2 weeks Any questions, please call the office at . Pending Studies at Discharge: No Stand-Alone Forms: My [facility] Skilled Items Patient informed of condition?: Yes DNR: No Discharge Level of Care: Acute rehab Communicable Disease: No Discharge Prognosis: Improving Lines: PICC Urinary Catheter: No Medications and DC Order Prescriptions: New ferrous sulfate 325 mg (65 mg iron) Tablet,Delayed Release (Dr/Ec) 325 mg PO DAILY Qty: 30 RF: 0 vancomycin 1,000 mg recon soln 1,500 mg IV Q12H Qty: 10 RF: 0 Continued aspirin [Adult Low Dose Aspirin] 81 mg tablet,delayed release (DR/EC) 81 mg PO QAM RF: 0 furosemide 20 mg tablet 20 mg PO DAILY PRN (Reason: SWELLING) RF: 0 Janumet 50-1,000 mg tablet 1 tab PO BID RF: 0 cyanocobalamin (vitamin B-12) 1,000 mcg capsule 1,000 mcg PO QAM RF: 0 ascorbic acid (vitamin C) 250 mg tablet 250 mg PO QAM RF: 0 glimepiride 2 mg tablet 2 mg PO BID Qty: 180 RF: 3 lisinopril 40 mg tablet 20 mg PO QAM RF: 0 simvastatin 40 mg tablet 40 mg PO QAM RF: 0 timolol maleate [Timoptic] 0.25 % Drops 1 drp OPHTHALMIC (EYE) BID RF: 0 Alphagan P 0.1 % Drops 1 drp OPHTHALMIC (EYE) BID RF: 0 tramadol 50 mg tablet 50 mg PO Q6H PRN (Reason: pain, moderate) Qty: 30 RF: 0 oxycodone 5 mg tablet 5 mg PO BID PRN (Reason: pain, severe) RF: 0 Discharge Orders: Discharge Order (Routine); Ordered 02/19/20 Ordered By: Gissell Caruso/Other Patient Handouts: High Blood Sugar (Hyperglycemia), Managing Type 2 Diabetes Admission Data Admit Date/Time: 02/12/20 15:53 Attending Provider: Nacho Castle Admit Provider: Papo Muhammad Primary Care Provider: Rashel Rolon III Other Providers: Tin Carter ; Papo Muhammad ; [facility] ; Edwin Lobo ; Maximus Carl ; Jean Mena I. ; Bao Moore II ; Shannon Hobbs ; Gibson Castorena Other Interventions: Discharge Summary Assessment (RN) Last Done: 02/19/20 13:07 DC Date/Time DO NOT enter until pt leaves facility: 02/19/20 14:26 Supervising Physician Co-Signing Physician Notes Attending note: patient seen and examined with Gissell FAUST. I agree with her discharge summary. I personally reviewed the labs and imaging findings. patient doing well, limited back shelly eating well, breathing stable, vitals stable - Discitis: discharge to rehab on IV antibiotics, PICC line placed follow up with infectious disease follow up with Dr. Muhammad for full details, see d/c summary above Coding Level of Care Code D/C Day Management >30 mins Diagnoses Discitis M46.44 Spinal region: thoracic Hx of aortic valve replacement Z95.2 Hypertension I10 Diabetes mellitus, type 2 E11.9 Hyperlipidemia E78.5 Hydrocele N43.3 Microcytic anemia D50.9 Chest pain R07.9 DVT prophylaxis Z29.9
--- NOTE | 2020-02-19 13:07 | Pharmacy Report ---
Pharmacy Abx Dose Short Note - Date of Service February 19, 2020 - Assessment & Plan Assessment 70 year old M receiving vancomycin for treatment of osteo Day # 8 of 12 weeks of antimicrobial therapy. Plan Vancomycin * Trough level of 19.9 mcg/mL is therapeutic (this was drawn ~11 hours from previous dose, true trough slightly lower but therapeutic) * Continue dose of 1500 mg q12H * Next trough outpatient, to be followed by Francia HENDRICKSON. Pharmacy will continue to follow and will adjust dose/frequency as necessary. Thank you.
== END 2020-02-19 14:26 | DRG 459 ==
LOC: ED 09:35 → 3N 15:53 → SUATTDRO 15:53 → 3N 17:30

== ENCOUNTER 2024-12-25 07:17 | Observation (INO) ==
--- NOTE | 2024-12-25 07:50 | Emergency Department Note ---
Impression & Plan Arm weakness, Arm pain, Distal paresthesia, Elevated troponin ED Provider Note NAME: YADIRA MOON Jr AGE: 74 SEX: M : 1950 ARRIVES VIA: Walk-In INFORMANT: Patient ED PROVIDER(S): Anthony Wilson DO CHIEF COMPLAINT: Right arm weakness and numbness HPI: Patient is a 74-year-old male with a past medical history of diabetes neuropathy, aortic valve replacement, discitis, hypertension, hyperlipidemia who presents to the ER for right arm weakness and numbness. He notes he woke up at 5 AM and noticed it. He has trouble moving his wrist and hand. He notes the numbness goes all the way up to his shoulder. He notes he does feel weak throughout the remainder of the arm as well. He denies any headache or change in vision. No chest pain or shortness of breath. He believes in his left arm he has some tingling as well. No dysuria urgency or frequency. ADDITIONAL HISTORY OBTAINED: Per HPI Chronic Medical/Social Conditions Affecting Care: Per HPI PAST MEDICAL HISTORY:See Below PAST SURGICAL HISTORY:See Below FAMILY HISTORY:See Below SOCIAL HISTORY:See Below HOME MEDICATIONS:See Below ALLERGIES:See Below VITALS:See Below PHYSICAL EXAMINATION: GENERAL: Sitting up in bed, alert, well appearing, well nourished, no distress, non-toxic EYE EXAM: normal conjunctiva. PERRL and EOM's grossly intact. OROPHARYNX: no exudate, no erythema, lips, buccal mucosa, and tongue normal and mucous membranes are moist NECK: supple, no nuchal rigidity, no adenopathy, non-tender LUNGS: Clear to auscultation. Normal chest wall mechanics HEART: no murmurs, S1 normal and S2 normal ABDOMEN: abdomen soft, non-tender, normo-active bowel sounds, no masses, no rebound or guarding. UPPER EXTREMITIES: upper extremities are grossly normal. LOWER EXTREMITIES: No pitting edema. NEURO EXAM: Normal sensorium, cranial nerves II-XII intact, normal speech, weakness with grasp as well as flexion extension of the wrist on the right. Radial pulse 2 out of 4. Subjective paresthesias in the right upper extremity. No obvious weakness in the left upper extremity left lower or right lower foot with the exception that both the left and right lower extremities are unable to plantar and dorsiflex which are old per patient MEDICAL DECISION MAKING: Patient is a 74-year-old male who presents ER for right arm weakness and numbness which started at 5 AM this morning when he woke up from sleeping. IV was established and blood work was obtained. Labs show no significant leukocytosis or anemia. INR unremarkable. BMP with a slightly elevated chloride at 109. LFTs and bilirubin were unremarkable. Troponin elevated at 40. Patient does have some subtle weakness of the right hand and wrist. No other focal deficit. CT angios of the head and neck as described above. Discussed the case with [place] [facility] who evaluate the patient. They recommended Plavix load and 81 of aspirin and admission for MRI of the head and neck. Patient was updated at bedside and discussed the case with the hospitalist for further evaluation management treatment. Discussed with Dr. Ann. Consults/Care Managements Discussions: Per [facility] Triage Nursing notes reviewed. Limited review of prior medical records performed Vital Signs: reviewed and remarkable for HTN Differential diagnosis: Differential Diagnosis includes but is not limited to ischemic Stroke, hemorrhagic stroke, bells palsy, mass, neoplasm, migraine headache, seizure, subarachnoid hemorrhage, TIA, and transient global amnesia. ER treatment provided: See below Diagnostics interpreted by me include EKG and cardiac monitoring as listed below: -Cardiac Monitoring: An order was placed for continuous cardiac monitoring. The monitor shows a rate of 60 with sinus rhythm. -ECG: Sinus rhythm rate 73 First-degree AV block PVCs QTc 491 Left axis -Laboratory studies:Interpreted by me as stated above in MDM and shown below. Imaging studies: Xrays: As interpreted by me:none CTs show: CT of the head per my preliminary interpreted showed no obvious large bleed CT head and cervical spine is negative per radiology Procedures:none Critical Care: None Past Med/Surg History Problem List (Updated 12/25/24 @ 13:30 by Anthony Wilson DO) Elevated troponin (Acute) Distal paresthesia (Acute) Arm pain (Acute) Arm weakness (Acute) TIA (transient ischemic attack) Penile swelling Diabetic nephropathy Diabetic neuropathy Leg swelling BPH (benign prostatic hyperplasia) Hx of aortic valve replacement 2014 Thoracic stenosis Hydrocele Right-sided chest pain Back pain with history of spinal surgery (Acute) Discitis (Acute 02/2020) Thoracic spine, T9-T10 Thoracic spondylosis with myelopathy Microcytic anemia H/O Spinal surgery (02/14/20) #1 removal of posterior rods and screws T10-T11. #2 exploration of fusion T10-T11. #3 thoracic decompression with bilateral medial facetectomies at T7-T8, T8-T9 and T9-T10. #4 posterior spinal fusion T7-T10. #5 placed a posterior segmental instrumentation C7-T10 including shepherds hooks. #6 placement locally harvested morselized autograft in the posterior gutters. #7 placement infuse collagen sponge, master graft in the posterior lateral gutters. (Dr Rudy Muhammad) S/P aortic valve replacement with bioprosthetic valve (Acute 2015) 2016 AT [facility] ([facility]) Diabetes mellitus, type 2 Hypertension (Chronic) Hyperlipidemia (Chronic) Lumbar stenosis with neurogenic claudication Medical History Hx of gout GERD (gastroesophageal reflux disease) History of skin cancer ON EAR Glaucoma Restless leg syndrome Peripheral neuropathy Cardiac murmur "SLIGHT" History of aortic valve disease s/p Medtr[employer] Saleem porcine AVR (2014) 2/2 hx severe aortic stenosis- normal hemodynamics per 2017 ECHO Osteoarthritis Surgical History History of left cataract surgery H/O eye surgery LEFT H/O shoulder surgery RT/LEFT History of herniorrhaphy INGUINAL History of appendectomy History of tooth extraction History of cardiac cath 2016- no stents History of difficult intubation L1-S1 decompression with T12-S1 fusion: 07/05/17: "Easy" with glidescope#4, ETT 8.0 at [facility] Hx of colonoscopy History of total left knee replacement WITH 2 REVISION History of total right knee replacement 1 REVISION History of lumbar fusion x 2 Family History Mother Myocardial infarction Family history of diabetes mellitus Father Myocardial infarction Grandfather (Maternal) Myocardial infarction Other No family history of adverse response to anesthesia Denies family history of Ovarian cancer Prostate cancer Breast cancer Colorectal cancer Social History Smoking Status: Never smoker Second Hand Exposure: No (in past); Do You Dip or Chew Tobacco: No; Hx Alcohol Use: No Hx Substance Use: No Preferred Language: Albanian Communication Ability: Effective Visual Impairment: No Limitations Hearing Ability: Normal Service Counter Cashier Required: No Beliefs That Will Affect Care: None marital status: / Current Living Situation: Alone Current Living Situation Comment: his son Ignacio is living with him now current occupational status: retired 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 [employer] Feels Safe at Home: Yes Safety Concerns: Feels Safe At This Time Childhood Exposure to Second-Hand Smoke: Yes Diet: regular Dental Care, Regularly: Yes Physical Activity Frequency: 3-4 Times per Week Seatbelt Use: never Sunscreen Use: No Assistive Devices: Brace/Splint/Immobilizer and Cane Assistive Devices Comment: braces BL legs, cane Allergies Allergies Allergy/AdvReac Type Severity Reaction Status Date / Time morphine Allergy Mild ITCHY Verified 12/24/24 08:02 Home Meds Home Medications Medication Instructions Recorded Confirmed aspirin 81 mg tablet,delayed 81 mg PO QAM 05/19/19 12/25/24 release (Adult Low Dose Aspirin) cyanocobalamin (vitamin B-12) 1,000 mcg PO QAM 05/19/19 12/25/24 1,000 mcg capsule brimonidine 0.1 % eye drops 1 drp OPB BID 10/01/19 12/25/24 (Alphagan P) lisinopril 20 mg tablet 20 mg PO BID 03/12/20 12/25/24 polyethylene glycol 3350 17 17 gm PO DAILY PRN Constipation 03/12/20 12/25/24 gram/dose oral powder (Miralax) insulin glargine 100 unit/mL (3 25 - 30 unit subcut QPM 10/08/24 12/25/24 mL) subcutaneous pen (Lantus Solostar U-100 Insulin) timolol maleate 0.25 % eye drops 1 drp ophthalmic (eye) BID 10/08/24 12/25/24 tirzepatide 7.5 mg/0.5 mL 7.5 mg subcut WK 10/08/24 12/25/24 subcutaneous pen injector sacubitril 49 mg-valsartan 51 mg 1 tab PO BID 12/24/24 12/25/24 tablet (Entresto) simvastatin 40 mg tablet 40 mg PO QPM 12/25/24 12/25/24 tamsulosin 0.4 mg capsule 0.8 mg PO HS 12/25/24 12/25/24 Previous Rx's Medication Instructions Recorded pen needle, diabetic 32 gauge x #100 ea 09/08/21" (BD Ultra-Fine Melva Pen Needle) furosemide 40 mg tablet 40 mg PO DAILY PRN edema #30 tabs 08/09/23 leg brace (Ankle Brace) #2 ea 03/28/24 metformin 1,000 mg tablet 1,000 mg PO BID #180 tabs 05/01/24 celecoxib 200 mg capsule 200 mg PO DAILY PRN pain #90 caps 07/08/24 pregabalin 50 mg capsule (Lyrica) 50 mg PO BID #180 caps 07/08/24 albuterol sulfate 90 mcg/actuation 2 puff inhalation Q6H PRN 09/23/24 aerosol inhaler shortness of breath or wheezing #6.7 grams benzonatate 100 mg capsule 100 mg PO BID PRN cough #30 caps 09/23/24 Results & Data (ED) Vital Signs Vital Signs - 24 hr 12/25/24 07:29 12/25/24 08:06 12/25/24 08:10 Temperature 36.7 C Temperature Source Temporal Artery Scan Pulse Rate 65 72 69 Pulse Rate [Apical] Pulse Rate from SpO2 Sensor 61 Respiratory Rate 18 21 Respiratory Effort / Characteristics Respiratory Depth Respiratory Pattern Blood Pressure 158/88 H Blood Pressure [Right Arm] Blood Pressure Mean 111 Blood Pressure Mean [Right Arm] Pulse Oximetry 95 95 Oxygen Delivery Method Room Air Sepsis New/Unexplained Change in Mental Status No Sepsis Action Taken by Nursing No Action Required 12/25/24 08:15 12/25/24 08:42 12/25/24 08:51 Temperature Temperature Source Pulse Rate 68 76 72 Pulse Rate [Apical] Pulse Rate from SpO2 Sensor 67 75 Respiratory Rate 20 14 Respiratory Effort / Characteristics Respiratory Depth Respiratory Pattern Blood Pressure Blood Pressure [Right Arm] Blood Pressure Mean Blood Pressure Mean [Right Arm] Pulse Oximetry 93 96 Oxygen Delivery Method Sepsis New/Unexplained Change in Mental Status Sepsis Action Taken by Nursing 12/25/24 08:52 12/25/24 09:06 12/25/24 09:12 Temperature Temperature Source Pulse Rate 66 69 Pulse Rate [Apical] Pulse Rate from SpO2 Sensor Respiratory Rate 14 16 Respiratory Effort / Characteristics Respiratory Depth Respiratory Pattern Blood Pressure 166/93 H Blood Pressure [Right Arm] Blood Pressure Mean 127 Blood Pressure Mean [Right Arm] Pulse Oximetry Oxygen Delivery Method Sepsis New/Unexplained Change in Mental Status Sepsis Action Taken by Nursing 12/25/24 09:24 12/25/24 09:30 12/25/24 09:48 Temperature Temperature Source Pulse Rate 75 75 72 Pulse Rate [Apical] Pulse Rate from SpO2 Sensor Respiratory Rate 22 20 24 Respiratory Effort / Characteristics Respiratory Depth Respiratory Pattern Blood Pressure Blood Pressure [Right Arm] Blood Pressure Mean Blood Pressure Mean [Right Arm] Pulse Oximetry Oxygen Delivery Method Sepsis New/Unexplained Change in Mental Status Sepsis Action Taken by Nursing 12/25/24 10:00 12/25/24 10:00 12/25/24 10:00 Temperature Temperature Source Pulse Rate Pulse Rate [Apical] 74 Pulse Rate from SpO2 Sensor Respiratory Rate 18 Respiratory Effort / Characteristics Non-Labored Spontaneous Respiratory Depth Normal Respiratory Pattern Regular Blood Pressure 152/110 H 152/110 H Blood Pressure [Right Arm] 147/89 H Blood Pressure Mean 128 128 Blood Pressure Mean [Right Arm] 108 Pulse Oximetry 93 Oxygen Delivery Method Room Air Sepsis New/Unexplained Change in Mental Status Sepsis Action Taken by Nursing 12/25/24 10:00 12/25/24 10:21 12/25/24 10:31 Temperature Temperature Source Pulse Rate 71 Pulse Rate [Apical] Pulse Rate from SpO2 Sensor 71 Respiratory Rate Respiratory Effort / Characteristics Respiratory Depth Respiratory Pattern Blood Pressure 152/110 H 147/89 H Blood Pressure [Right Arm] Blood Pressure Mean 128 119 Blood Pressure Mean [Right Arm] Pulse Oximetry 95 Oxygen Delivery Method Sepsis New/Unexplained Change in Mental Status Sepsis Action Taken by Nursing 12/25/24 10:31 12/25/24 10:36 12/25/24 10:48 Temperature Temperature Source Pulse Rate 69 70 Pulse Rate [Apical] Pulse Rate from SpO2 Sensor Respiratory Rate 17 Respiratory Effort / Characteristics Respiratory Depth Respiratory Pattern Blood Pressure 147/89 H Blood Pressure [Right Arm] Blood Pressure Mean 119 Blood Pressure Mean [Right Arm] Pulse Oximetry Oxygen Delivery Method Sepsis New/Unexplained Change in Mental Status Sepsis Action Taken by Nursing 12/25/24 11:12 12/25/24 11:21 Temperature Temperature Source Pulse Rate 67 68 Pulse Rate [Apical] Pulse Rate from SpO2 Sensor Respiratory Rate 18 21 Respiratory Effort / Characteristics Respiratory Depth Respiratory Pattern Blood Pressure Blood Pressure [Right Arm] Blood Pressure Mean Blood Pressure Mean [Right Arm] Pulse Oximetry Oxygen Delivery Method Sepsis New/Unexplained Change in Mental Status Sepsis Action Taken by Nursing Laboratory Data 12/25/24 08:02 12/25/24 08:02 Lab Results 12/25/24 12/25/24 12/25/24 Range/Units 08:02 08:08 10:01 WBC 6.50 (4.8-10.8) K/ul RBC 5.56 (4.70-6.10) M/uL Hgb 15.5 (14.0-18.0) g/dl POC Hgb 15.6 (14.0-18.0) g/dl Hct 46.4 (42.0-52.0) % POC Hct 46 (42-52) % MCV 83.5 (80.0-100.0) fL MCH 27.9 (25.0-34.0) pg MCHC 33.4 (32.0-36.0) g/dL RDW Std Deviation 44.4 (36.4-46.3) fL RDW Coeff of Jhon 14.6 H (11.5-14.5) % Plt Count 149 (130-400) K/uL MPV 11.1 (9.4-12.4) fL Immature Gran % (Auto) 0.3 % Neut % (Auto) 69.1 % Lymph % (Auto) 19.2 % [place] % (Auto) 6.9 % Eos % (Auto) 4.0 % Baso % (Auto) 0.5 % Neut # (Auto) 4.49 (1.40-6.50) K/uL Lymph # (Auto) 1.25 (1.20-3.40) K/uL [place] # (Auto) 0.45 (0.11-0.59) K/uL Eos # (Auto) 0.26 (0.00-0.50) K/uL Baso # (Auto) 0.03 (0.00-0.20) K/uL Immature Gran # (Auto) 0.02 (0.01-0.20) K/uL PT 10.6 (9.0-12.0) Seconds INR 1.0 (0.9-1.1) APTT 27 (21-31) Seconds PTT Ratio 1.0 POC Sodium 143 (135-144) mmol/L Sodium 142 (136-145) mmol/L POC Potassium 4.4 (3.3-5.0) mmol/L Potassium 4.5 (3.5-5.1) mmol/L POC Chloride 105 (101-112) mmol/L Chloride 109 H (98-107) mmol/L Carbon Dioxide 28 (21-32) mmol/L POC Total CO2 26 (24-31) mmol/L Anion Gap 5 (3-11) POC Anion Gap 17.0 (16-25) mmol/L POC BUN 30 H (7-18) mg/dl BUN 31 H (6-23) mg/dl Creatinine 1.26 (0.6-1.4) mg/dl POC Creatinine 1.4 H (0.6-1.3) mg/dl Est Cr Clr Drug Dosing 66.3 ml/min eGFR 59.48 BUN/Creatinine Ratio 24.6 H (10-20) Glucose 115 H (70-99(Fasting)) mg/dl POC Glucose (other) 116 H (70-99) mg/dl Calcium 10.1 (8.6-10.3) mg/dl POC Ioniz Calcium Hood 1.33 H (1.12-1.32) mmol/l Magnesium 1.8 (1.7-2.4) mg/dl Total Bilirubin 0.4 (0.2-1.0) mg/dl AST 26 (13-39) U/L ALT 28 (7-52) U/L Alkaline Phosphatase 90 (34-104) U/L Troponin I High Sens 41.9 H 35.9 H (0-20) pg/ml Total Protein 6.7 (6.0-8.3) gm/dl Albumin 4.2 (3.4-5.0) gm/dl Globulin 2.5 (2.5-4.0) gm/dl Albumin/Globulin Ratio 1.7 (0.9-2) Administered Medications Discontinued Medications Aspirin (Aspirin Chew 324 Mg) 81 mg PO NOW STA Stop: 12/25/24 09:42 Last Admin: 12/25/24 09:49 Dose: 81 mg Documented By: GIRISH Clopidogrel Bisulfate (Clopidogrel Bisulfate 300 Mg Tab) 300 mg PO NOW STA Stop: 12/25/24 09:42 Last Admin: 12/25/24 09:49 Dose: 300 mg Documented By: GIRISH Hydromorphone HCl (Hydromorphone Inj 0.5 Mg/0.5 Ml Syr) 0.5 mg IV NOW STA Stop: 12/25/24 09:42 Last Admin: 12/25/24 09:51 Dose: 0.5 mg Documented By: GIRISH Ioversol (Optiray 320 125ml) 112 ml IV ONCE ONE Stop: 12/25/24 08:40 Last Admin: 12/25/24 08:39 Dose: 112 ml Documented By: CHRISTEL Ketorolac Tromethamine (Ketorolac Tromethamine 15 Mg/Ml Vial) 10 mg IV NOW ONE Stop: 12/25/24 08:50 Last Admin: 12/25/24 08:53 Dose: 10 mg Documented By: GIRISH Imaging Data Radiologist's Impression: Head CT 12/25/24 07:47 CT head/brain wo con CLINICAL HISTORY: neuro deficit, acute stroke suspected. TECHNIQUE: Multiple axial CT images of the head were obtained without contrast. A dose lowering technique was utilized adhering to the principles of ALARA. COMPARISON: None FINDINGS: No intracranial hemorrhage seen. No mass effect, midline shift, or hydrocephalus. There are minimal chronic small vessel ischemic changes. No skull fracture seen. Visualized paranasal sinuses and mastoid air cells are clear. IMPRESSION: No acute findings. ACT 112: Negative or not required by law. The above report was generated using voice recognition software. It may contain grammatical, syntax or spelling errors. Electronically signed by: Jerrell Bobo M.D. 12/25/2024 8:46 AM Head CTA 12/25/24 07:47 CT angio head w con CLINICAL HISTORY: neuro deficit, acute stroke suspected. COMPARISON STUDY: None TECHNIQUE: Unenhanced axial CT scan of the brain is performed. Subsequently, following the IV administration of 112 cc of Optiray, CT angiogram of the brain was performed from the skull base to the vertex. Images are reviewed in the axial, sagittal, and coronal planes. 3-D MIPS images are created and assessed. IV contrast was administered without complication. All measurements were obtained according to NASCET criteria. A dose lowering technique was utilized adhering to the principles of ALARA. CT DOSE: 1194.21mGy*cm COMPARISON STUDY: None FINDINGS: The posterior circulation demonstrates a poorly demonstrated left superior cerebellar artery which may be technical. The distal basilar artery is somewhat diminutive presumably because the posterior cerebral arteries have a large contribution from posterior communicating arteries bilaterally. The carotid siphons are symmetrical. The A1 and M1 segments are unremarkable. There is no occlusive disease identified. There is no aneurysm appreciated. IMPRESSION: No significant abnormality identified. ACT 112: Negative or not required by law. The above report was generated using voice recognition software. It may contain grammatical, syntax or spelling errors. Electronically signed by: Isi Marie M.D. 12/25/2024 8:51 AM Neck CTA 12/25/24 07:47 CT angio neck with con CLINICAL HISTORY: 74 years-old Male with neuro deficit, acute stroke suspected. Acute strokelike symptoms COMPARISON STUDY: CT head and CTA head and studies of same day TECHNIQUE: Following the IV administration of 112 of Optiray, CT angiogram of the neck was performed from the aortic arch to the skull base. Images are reviewed in the axial, sagittal, and coronal planes. 3-D MIPS images are created and assessed. IV contrast was administered without complication. All measurements were calculated based on NASCET criteria. A dose lowering technique was utilized adhering to the principles of ALARA. CT DOSE: 1194.21 mGy.cm FINDINGS: Patent common carotid arteries. Atherosclerotic plaque of the carotid bulbs, left greater than right. There is high-grade stenosis of approximately 80% involving the proximal cervical segment left ICA, image 207 series 7 secondary to calcified plaque. There is approximately 50% stenosis on the right. The right vertebral artery is dominant and demonstrates moderate narrowing at its origin secondary to atherosclerosis. The developmentally diminutive left vertebral artery originates directly from the aortic arch and appears patent, mostly terminating into the left PICA. The lung apices appear clear without pneumothorax. Unremarkable soft tissues. Degenerative changes of the cervical spine without fracture. IMPRESSION: 1. High-grade stenosis of the proximal cervical segment left ICA secondary to atherosclerosis. 2. Dominant right vertebral artery demonstrates moderate stenosis at its origin. ACT 112: Negative or not required by law. The above report was generated using voice recognition software. It may contain grammatical, syntax or spelling errors. Electronically signed by: Adis Villela M.D. 12/25/2024 8:46 AM Discharge Plan Visit Data Chief Complaint: Arm Pain Stated Complaint: ARMS NUMBNESS, RIGHT IS WORSE ED Provider: Anthony Wilson Discharge Problem: Arm weakness, Arm pain, Distal paresthesia, Elevated troponin Patient Disposition: Admitted As Inpatient Condition: Fair Discharge Instructions Interventions: ED Discharge Assessment Last Done: 12/25/24 12:17 Discharge Problem: Arm pain Qualifiers: Laterality: unspecified laterality Qualified Code(s): M79.603 - Pain in arm, unspecified
[2024-12-25 08:19] LABS: Basophils # (auto) 0.03 K/uL (0.00-0.20); Basophils % (auto) 0.5 %; Eosinophils # (auto) 0.26 K/uL (0.00-0.50); Hematocrit (blood only) 46.4 % (42.0-52.0); Hemoglobin 15.5 g/dl (14.0-18.0); Immature Granulocytes # (auto) 0.02 K/uL (0.01-0.20); Immature Granulocytes % (auto) 0.3 %; Lymphocytes # (auto) 1.25 K/uL (1.20-3.40); Lymphocytes % (auto) 19.2 %; Mean Corpuscular Hemoglobin 27.9 pg (25.0-34.0); Mean Corpuscular Hgb Conc 33.4 g/dL (32.0-36.0); Mean Corpuscular Volume 83.5 fL (80.0-100.0); Mean Platelet Volume 11.1 fL (9.4-12.4); Monocytes # (auto) 0.45 K/uL (0.11-0.59); Monocytes % (auto) 6.9 %; Neutrophils # (auto) 4.49 K/uL (1.40-6.50); Neutrophils % (auto) 69.1 %; Platelet Count 149 K/uL (130-400); RDW Coefficient of Variation 14.6 % (11.5-14.5); RDW Standard Deviation 44.4 fL (36.4-46.3); Red Blood Count 5.56 M/uL (4.70-6.10)
[2024-12-25 08:22] LABS: iSTAT Creatinine 1.4 mg/dl (0.6-1.3); iSTAT Hemoglobin 15.6 g/dl (14.0-18.0); iSTAT Ionized Calcium 1.33 mmol/l (1.12-1.32); iSTAT Potassium 4.4 mmol/L (3.3-5.0)
[2024-12-25 08:38] LABS: Albumin Globulin Ratio 1.7 (0.9-2); Albumin Level 4.2 gm/dl (3.4-5.0); BUN Creatinine Ratio 24.6 (10-20); Bilirubin,Total 0.4 mg/dl (0.2-1.0); Calcium 10.1 mg/dl (8.6-10.3); Creatinine Clr Calc Pharmacy 66.3 ml/min; Globulin 2.5 gm/dl (2.5-4.0); Magnesium 1.8 mg/dl (1.7-2.4); Potassium 4.5 mmol/L (3.5-5.1); Total Protein 6.7 gm/dl (6.0-8.3)
[2024-12-25] MEDS: OPTIRAY 320 125ml IV ONE (08:39)
[2024-12-25 08:43] LABS: Troponin I High Sensitivity 41.9 pg/ml (0-20)
[2024-12-25 08:46] LABS: Partial Thromboplastin Time 27 Seconds (21-31); Prothrombin Time 10.6 Seconds (9.0-12.0)
--- NOTE | 2024-12-25 08:47 | CT Scan Report ---
CT angio neck with con CLINICAL HISTORY: 74 years-old Male with neuro deficit, acute stroke suspected. Acute strokelike s ymptoms COMPARISON STUDY: CT head and CTA head and studies of same day TECHNIQUE: Following the IV administration of 112 of Optiray, CT angiogram of the neck was performed from the aortic arch to the skull base. Images are reviewed in the axial, sagittal, and coronal plane s. 3-D MIPS images are created and assessed. IV contrast was administered without complication. All m easurements were calculated based on NASCET criteria. A dose lowering technique was utilized adherin g to the principles of ALARA. CT DOSE: 1194.21 mGy.cm FINDINGS: Patent common carotid arteries. Atherosclerotic plaque of the carotid bulbs, left greater t gagnon right. There is high-grade stenosis of approximately 80% involving the proximal cervical segment left ICA, image 207 series 7 secondary to calcified plaque. There is approximately 50% stenosis on th e right. The right vertebral artery is dominant and demonstrates moderate narrowing at its origin sec ondary to atherosclerosis. The developmentally diminutive left vertebral artery originates directly f rom the aortic arch and appears patent, mostly terminating into the left PICA. The lung apices appear clear without pneumothorax. Unremarkable soft tissues. Degenerative changes of the cervical spine without fracture. IMPRESSION: 1. High-grade stenosis of the proximal cervical segment left ICA secondary to atherosclerosis. 2. Dominant right vertebral artery demonstrates moderate stenosis at its origin. ACT 112: Negative or not required by law. The above report was generated using voice recognition software. It may contain grammatical, syntax o r spelling errors. Electronically signed by: Adis Villela M.D. 12/25/2024 8:46 AM
--- NOTE | 2024-12-25 08:47 | CT Scan Report ---
CT head/brain wo con CLINICAL HISTORY: neuro deficit, acute stroke suspected. TECHNIQUE: Multiple axial CT images of the head were obtained without contrast. A dose lowering tech nique was utilized adhering to the principles of ALARA. COMPARISON: None FINDINGS: No intracranial hemorrhage seen. No mass effect, midline shift, or hydrocephalus. There are minimal chronic small vessel ischemic changes. No skull fracture seen. Visualized paranasal sinuses and mastoid air cells are clear. IMPRESSION: No acute findings. ACT 112: Negative or not required by law. The above report was generated using voice recognition software. It may contain grammatical, syntax o r spelling errors. Electronically signed by: Jerrell Bobo M.D. 12/25/2024 8:46 AM
[2024-12-25] MEDS: KETOROLAC TROMETHAMINE 15 MG/ML VIAL IV ONE (08:53)
--- NOTE | 2024-12-25 08:53 | CT Scan Report ---
CT angio head w con CLINICAL HISTORY: neuro deficit, acute stroke suspected. COMPARISON STUDY: None TECHNIQUE: Unenhanced axial CT scan of the brain is performed. Subsequently, following the IV adminis tration of 112 cc of Optiray, CT angiogram of the brain was performed from the skull base to the vert ex. Images are reviewed in the axial, sagittal, and coronal planes. 3-D MIPS images are created and a ssessed. IV contrast was administered without complication. All measurements were obtained according to NASCET criteria. A dose lowering technique was utilized adhering to the principles of ALARA. CT DOSE: 1194.21mGy*cm COMPARISON STUDY: None FINDINGS: The posterior circulation demonstrates a poorly demonstrated left superior cerebellar arter y which may be technical. The distal basilar artery is somewhat diminutive presumably because the pos terior cerebral arteries have a large contribution from posterior communicating arteries bilaterally. The carotid siphons are symmetrical. The A1 and M1 segments are unremarkable. There is no occlusive disease identified. There is no aneurysm appreciated. IMPRESSION: No significant abnormality identified. ACT 112: Negative or not required by law. The above report was generated using voice recognition software. It may contain grammatical, syntax o r spelling errors. Electronically signed by: Isi Marie M.D. 12/25/2024 8:51 AM
[2024-12-25] MEDS: ASPIRIN CHEW 324 MG PO STA (09:49)
[2024-12-25] MEDS: CLOPIDOGREL BISULFATE 300 MG TAB PO STA (09:49)
[2024-12-25] MEDS: HYDROmorphone INJ 0.5 MG/0.5 ML SYR IV STA ×2 (09:51→17:57)
--- NOTE | 2024-12-25 10:59 | History & Physical Report ---
Date of Service December 25, 2024 Assessment & Plan (1) TIA (transient ischemic attack): (2) Hypertension: (3) Hyperlipidemia: (4) Diabetes mellitus, type 2: (5) BPH (benign prostatic hyperplasia): Plan #Stroke-like symptoms/TIA vs. cervical radiculopathy - OBS to med tele - Dysphagia screen passed --> advance diet to DMT2 - VS per unit protocol - Stroke protocol w/o TPK - Tele neurology consult appreciated, recommending DAPT, both of which given in ED - Obtain MRA/MR brain & neck w/o contrast, added cervical spine MRI as well as I have suspicion that this symptoms are being driven from neck pathology as opposed to CVD - Lipid panel in AM - Consider change from simvastatin to atorvastatin and increase dose to 80mg qHS - TTE (last one from Aug 2023- LVEF 65%, abnormal septal motion c/w LBBB and OHS, dilated ascending aorta 4cm, moderate aortic prosthetic valve stenosis, mild MR). - NIH stroke scale qshift and neuro checks q4 - Consult PT/OT - AM labs ordered #DMT2 w/ diabetic neuropathy - Continue basal, convert to BID dosing (Lantus 12u BID) - Add correction mealtime coverage with lispro ac and hs, CF 30 and CR 11 - Most recent a1c 6.8% in December 2024 - Hold metformin and tirzepatide - Continue lyrica for neuropathy #HTN//Diastolic CHF - Continue Entresto, missed dose this AM - STOP lisinopril - Lasix is taken PRN, not routine - Appears euvolemic - Hypertensive urgency reported on the floor, given dose of IV hydralazine 10mg x1 #BPH - Continue tamsulosin #Osteoarthritis - Continue celebrex #Glaucoma - Continue eye drops VTE ppx will be covered with Lovenox 40mg sq daily starting tomorrow AM. Labs ordered for AM. Above plan of care has been d/w Dr. Ann who will also see and evaluate this patient. Further orders to be implemented as clinically warranted. History of Present Illness Chief Complaint: Right arm pain Primary Care Provider: GOVIND Ahn Monet is a 74 yo M with a pmhx of DMT2 with diabetic neuropathy, diastolic CHF, s/p AVR with porcine valve, OA, glaucoma, HTN and HLD who presents to the ER this morning accompanied by his daughter c/o numbness and tingling in both hands that he noted around 5am when he woke. He also reported weakness and pain. 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 This morning, his right arm was more bothersome but that has since dissipated and his left hand is more painful at this time. He denies any recent injury to his neck. He has a h/o back issues including thoracic spondylosis with myelopathy requiring spinal surgery followed by lumbar stenosis requiring decompression and fusion. He denies having a prior history of stroke. He is compliant with his medications. His most recent lab values have all shown excellent control of his lipids and diabetes with an a1c of 6.8% in December of this year. He denies chest pain. He was evaluated for stroke-like symptoms in the ER and underwent CTH w/o contrast followed by CTA head and neck. His CTH w/o was negative for acute findings but he was noted to have high-grade stenosis of the left ICA and moderate stenosis of the right vertebral artery. Telestroke services were notified by ED physician, did not recommend TPK, recommended DAPT and MRI/MRA brain and neck. He received a dose of ASA and Plavix as well as dilaudid and ketoralac in the ER for pain and has been referred to hospital medicine team for admission. Allergies Allergy/AdvReac Type Severity Reaction Status Date / Time morphine Allergy Mild ITCHY Verified 12/24/24 08:02 Home Medications Medication Instructions Recorded Confirmed Type aspirin 81 mg tablet,delayed 81 mg PO QAM 05/19/19 12/25/24 History release (Adult Low Dose Aspirin) cyanocobalamin (vitamin B-12) 1,000 mcg PO QAM 05/19/19 12/25/24 History 1,000 mcg capsule brimonidine 0.1 % eye drops 1 drp OPB BID 10/01/19 12/25/24 History (Alphagan P) lisinopril 20 mg tablet 20 mg PO BID 03/12/20 12/25/24 History polyethylene glycol 3350 17 17 gm PO DAILY PRN Constipation 03/12/20 12/25/24 History gram/dose oral powder (Miralax) pen needle, diabetic 32 gauge x #100 ea 09/08/21 08/28/23 Rx " (BD Ultra-Fine Melva Pen Needle) furosemide 40 mg tablet 40 mg PO DAILY PRN edema #30 tabs 08/09/23 12/25/24 Rx leg brace (Ankle Brace) #2 ea 03/28/24 Rx metformin 1,000 mg tablet 1,000 mg PO BID #180 tabs 05/01/24 12/25/24 Rx celecoxib 200 mg capsule 200 mg PO DAILY PRN pain #90 caps 07/08/24 12/25/24 Rx pregabalin 50 mg capsule (Lyrica) 50 mg PO BID #180 caps 07/08/24 12/25/24 Rx albuterol sulfate 90 mcg/actuation 2 puff inhalation Q6H PRN 09/23/24 12/25/24 Rx aerosol inhaler shortness of breath or wheezing #6.7 grams benzonatate 100 mg capsule 100 mg PO BID PRN cough #30 caps 09/23/24 12/25/24 Rx insulin glargine 100 unit/mL (3 25 - 30 unit subcut QPM 10/08/24 12/25/24 History mL) subcutaneous pen (Lantus Solostar U-100 Insulin) timolol maleate 0.25 % eye drops 1 drp ophthalmic (eye) BID 10/08/24 12/25/24 History tirzepatide 7.5 mg/0.5 mL 7.5 mg subcut WK 10/08/24 12/25/24 History subcutaneous pen injector sacubitril 49 mg-valsartan 51 mg 1 tab PO BID 12/24/24 12/25/24 History tablet (Entresto) simvastatin 40 mg tablet 40 mg PO QPM 12/25/24 12/25/24 History tamsulosin 0.4 mg capsule 0.8 mg PO HS 12/25/24 12/25/24 History Past Med/Surg History Problem List (Updated 12/25/24 @ 13:30 by Anthony Wilson DO) Elevated troponin (Acute) Distal paresthesia (Acute) Arm pain (Acute) Arm weakness (Acute) TIA (transient ischemic attack) Penile swelling Diabetic nephropathy Diabetic neuropathy Leg swelling BPH (benign prostatic hyperplasia) Hx of aortic valve replacement 2014 Thoracic stenosis Hydrocele Right-sided chest pain Back pain with history of spinal surgery (Acute) Discitis (Acute 02/2020) Thoracic spine, T9-T10 Thoracic spondylosis with myelopathy Microcytic anemia H/O Spinal surgery (02/14/20) #1 removal of posterior rods and screws T10-T11. #2 exploration of fusion T10-T11. #3 thoracic decompression with bilateral medial facetectomies at T7-T8, T8-T9 and T9-T10. #4 posterior spinal fusion T7-T10. #5 placed a posterior segmental instrumentation C7-T10 including shepherds hooks. #6 placement locally harvested morselized autograft in the posterior gutters. #7 placement infuse collagen sponge, master graft in the posterior lateral gutters. (Dr Rudy Muhammad) S/P aortic valve replacement with bioprosthetic valve (Acute 2015) 2016 AT [place] ([facility]) Diabetes mellitus, type 2 Hypertension (Chronic) Hyperlipidemia (Chronic) Lumbar stenosis with neurogenic claudication Medical History Hx of gout GERD (gastroesophageal reflux disease) History of skin cancer ON EAR Glaucoma Restless leg syndrome Peripheral neuropathy Cardiac murmur "SLIGHT" History of aortic valve disease s/p [employer] Saleem porcine AVR (2014) 2/2 hx severe aortic stenosis- normal hemodynamics per 2017 ECHO Osteoarthritis Surgical History History of left cataract surgery H/O eye surgery LEFT H/O shoulder surgery RT/LEFT History of herniorrhaphy INGUINAL History of appendectomy History of tooth extraction History of cardiac cath 2016- no stents History of difficult intubation L1-S1 decompression with T12-S1 fusion: 07/05/17: "Easy" with glidescope#4, ETT 8.0 at [facility] Hx of colonoscopy History of total left knee replacement WITH 2 REVISION History of total right knee replacement 1 REVISION History of lumbar fusion x 2 Family History Mother Myocardial infarction Family history of diabetes mellitus Father Myocardial infarction Grandfather (Maternal) Myocardial infarction Other No family history of adverse response to anesthesia Denies family history of Ovarian cancer Prostate cancer Breast cancer Colorectal cancer Social History Smoking Status: Never smoker Second Hand Exposure: No (in past); Do You Dip or Chew Tobacco: No; Hx Alcohol Use: No Hx Substance Use: No Preferred Language: Turkmen Communication Ability: Effective Visual Impairment: No Limitations Hearing Ability: Normal Swiss Machinist Required: No Beliefs That Will Affect Care: None marital status: / Current Living Situation: Alone Current Living Situation Comment: his son Ignacio is living with him now current occupational status: retired 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 Denies fever, chills, fatigue, headache, nasal congestion, sore throat, cough, chest pain, shortness of breath, palpitations, orthopnea, PND, abdominal pain, n/v/d, constipation, dysuria, hematuria, frequency, back pain, easy bruising or bleeding, skin lesions or rashes. Physical Exam 2 Physical Exam: GENERAL: 74 yo well-nourished elderly WM. NAD. EYES: EOMI. PERRLA. Anicteric. HENT: Moist mucous membranes. No cervical lymphadenopathy. LUNGS: Clear to auscultation bilaterally. No accessory muscle use. No W/R/R. CARDIOVASCULAR: Regular rate and rhythm +murmur ABDOMEN: Soft, non-tender and non-distended. No palpable masses. Bowel sounds normoactive x 4 quad. EXTREMITIES: Braces on both LE. No edema. Non-tender. Peripheral pulses +2/4. NEUROLOGIC: A&O x3. No focal neurological deficits. CN II-XII grossly intact. PSYCHIATRIC: Cooperative. Appropriate mood and affect. SKIN: Warm, dry, intact. No rashes or lesions. Results & Data Results & Data Vital Signs (Past 12 Hours) Vital Signs Temp Pulse Pulse Resp BP BP Pulse Ox 12/25/24 10:00 74 18 147/89 H 93 12/25/24 08:10 69 12/25/24 07:29 36.7 C 65 18 158/88 H 95 O2 Del Method 12/25/24 10:00 Room Air 12/25/24 08:10 12/25/24 07:29 Room Air Laboratory Results 12/25/24 08:02 12/25/24 08:[address] 12/25/24 07:47 CT head/brain wo con CLINICAL HISTORY: neuro deficit, acute stroke suspected. TECHNIQUE: Multiple axial CT images of the head were obtained without contrast. A dose lowering technique was utilized adhering to the principles of ALARA. COMPARISON: None FINDINGS: No intracranial hemorrhage seen. No mass effect, midline shift, or hydrocephalus. There are minimal chronic small vessel ischemic changes. No skull fracture seen. Visualized paranasal sinuses and mastoid air cells are clear. IMPRESSION: No acute findings. ACT 112: Negative or not required by law. The above report was generated using voice recognition software. It may contain grammatical, syntax or spelling errors. Electronically signed by: Jerrell Bobo M.D. 12/25/2024 8:46 AM Head CTA 12/25/24 07:47 CT angio head w con CLINICAL HISTORY: neuro deficit, acute stroke suspected. COMPARISON STUDY: None TECHNIQUE: Unenhanced axial CT scan of the brain is performed. Subsequently, following the IV administration of 112 cc of Optiray, CT angiogram of the brain was performed from the skull base to the vertex. Images are reviewed in the axial, sagittal, and coronal planes. 3-D MIPS images are created and assessed. IV contrast was administered without complication. All measurements were obtained according to NASCET criteria. A dose lowering technique was utilized adhering to the principles of ALARA. CT DOSE: 1194.21mGy*cm COMPARISON STUDY: None FINDINGS: The posterior circulation demonstrates a poorly demonstrated left superior cerebellar artery which may be technical. The distal basilar artery is somewhat diminutive presumably because the posterior cerebral arteries have a large contribution from posterior communicating arteries bilaterally. The carotid siphons are symmetrical. The A1 and M1 segments are unremarkable. There is no occlusive disease identified. There is no aneurysm appreciated. IMPRESSION: No significant abnormality identified. ACT 112: Negative or not required by law. The above report was generated using voice recognition software. It may contain grammatical, syntax or spelling errors. Electronically signed by: Isi Marie M.D. 12/25/2024 8:51 AM Neck CTA 12/25/24 07:47 CT angio neck with con CLINICAL HISTORY: 74 years-old Male with neuro deficit, acute stroke suspected. Acute strokelike symptoms COMPARISON STUDY: CT head and CTA head and studies of same day TECHNIQUE: Following the IV administration of 112 of Optiray, CT angiogram of the neck was performed from the aortic arch to the skull base. Images are reviewed in the axial, sagittal, and coronal planes. 3-D MIPS images are created and assessed. IV contrast was administered without complication. All measurements were calculated based on NASCET criteria. A dose lowering technique was utilized adhering to the principles of ALARA. CT DOSE: 1194.21 mGy.cm FINDINGS: Patent common carotid arteries. Atherosclerotic plaque of the carotid bulbs, left greater than right. There is high-grade stenosis of approximately 80% involving the proximal cervical segment left ICA, image 207 series 7 secondary to calcified plaque. There is approximately 50% stenosis on the right. The right vertebral artery is dominant and demonstrates moderate narrowing at its origin secondary to atherosclerosis. The developmentally diminutive left vertebral artery originates directly from the aortic arch and appears patent, mostly terminating into the left PICA. The lung apices appear clear without pneumothorax. Unremarkable soft tissues. Degenerative changes of the cervical spine without fracture. IMPRESSION: 1. High-grade stenosis of the proximal cervical segment left ICA secondary to atherosclerosis. 2. Dominant right vertebral artery demonstrates moderate stenosis at its origin. ACT 112: Negative or not required by law. The above report was generated using voice recognition software. It may contain grammatical, syntax or spelling errors. Electronically signed by: Adis Villela M.D. 12/25/2024 8:46 AM Code Status & VTE Plan Code Status DNR/DNI - discussed with patient and daughter at bedside PG Care Time/CCT Total # of Minutes Spent Total Time Spent with Patient: Total time spent is greater than 50% in coordination of care (as documented) at patient's floor/unit and/or counseling patient: 77 minutes Coding Level of Care Code 35891 INT INP/OBS CARE 3/75MIN Diagnoses TIA (transient ischemic attack) G45.9 Hypertension I10 Hyperlipidemia E78.5 Diabetes mellitus, type 2 E11.9 BPH (benign prostatic hyperplasia) N40.0
[2024-12-25] MEDS ORDERED: GLUCOSE 40% GEL 15 GM TUBE PO PRN (12:38)
[2024-12-25] MEDS ORDERED: CARBOHYDRATES FOR HYPOGLYCEMIA PO PRN (12:38)
[2024-12-25] MEDS ORDERED: GLUCOSE 10 TAB/TUBE PO PRN (12:38)
[2024-12-25] MEDS ORDERED: PHARMACIST DISCHARGE MED REC CONSULT PRN (12:38)
[2024-12-25] MEDS ORDERED: DEXTROSE 50% 50 ML SYRINGE IV PRN (12:38)
[2024-12-25] MEDS ORDERED: GLUCAGON FOR INJ 1 MG VIAL SQ PRN (12:38)
--- NOTE | 2024-12-25 14:22 | Electrocardiogram Report ---
Test Reason : Blood Pressure : */* mmHG Vent. Rate : 73 BPM Atrial Rate : 73 BPM P-R Int : 196 ms QRS Dur : 156 ms QT Int : 446 ms P-R-T Axes : 43 -33 113 degrees QTcB Int : 491 ms Sinus rhythm with occasional Premature ventricular complexes Left axis deviation Left bundle branch block Abnormal ECG When compared with ECG of 17-Jul-2024 05:52, Premature ventricular complexes are now Present Confirmed by Rey Jacques ([id number]) on 12/25/2024 2:22:11 PM Referred By: REFERRED SELF Confirmed By: Rey Jacques
[2024-12-25] MEDS: hydrALAZINE HCL 20 MG/ML VIAL IV STA (15:27)
[2024-12-25] MEDS: [UNRECOGNIZED DRUG - REMARK] SCH (15:53)
--- NOTE | 2024-12-25 17:44 | Magnetic Resonance Report ---
Clinical history: Bilateral arm numbness Technique: Magnetic resonance angiography was performed of the [place] of [place] using a 3 D time of flight technique. Angiographic reconstructions were obtained Findings: The visualized internal carotid arteries appear unremarkable bilaterally. No definite stenosis or aneurysm is identified of the anterior, middle, or posterior cerebral artery circulations bilaterally. The cerebellar arteries are patent. The basilar artery appears unremarkable. No vascular malformation is seen. No other definite abnormality is noted. Impression: Unremarkable MRA of the brain Electronically signed by Xavi Kellogg 12-25-2024 5:44 PM
--- NOTE | 2024-12-25 17:59 | Magnetic Resonance Report ---
Clinical History: Bilateral arm numbness Technique: Multiple T1 and T2-weighted magnetic resonance images were obtained of the brain without gadolinium contrast Findings: There is a 5 mm area of restricted diffusion involving the posterior right mojica radiata, concerning for an acute infarct. . There is cerebral atrophy, within expected limits for the patient's age. There are focal and confluent areas of increased T2 signal intensity within the periventricular white matter of the cerebral hemispheres bilaterally. This is most likely due to chronic small vessel ischemic disease. No definite mass lesion is seen on this noncontrast study. There is no intracranial hemorrhage or other fluid collection. No midline shift or other form of herniation is seen. There is no hydrocephalus. Normal flow-voids are seen within the arteries of the [id number]. The orbits and paranasal sinuses appear normal. The mastoid air cells appear clear. Impression: 1. Small acute infarct of the right parietal lobe 2. Cerebral atrophy and chronic small vessel ischemic disease ACT 112: Positive. There are findings on this exam that require communication between the performing entity and the patient following Patient Test Result Information Act ([place] ACT 112) guidelines. Electronically signed by Xavi Kellogg 12-25-2024 5:58 PM
[2024-12-25] MEDS: INSULIN ASPART PER UNIT CHARGE SC SCH (18:20)
[2024-12-25] MEDS: GADOBUTROL 65ML VIAL IV ONE (20:31)
[2024-12-25] MEDS: TAMSULOSIN HCL 0.4 MG CAP PO SCH (20:38)
[2024-12-25] MEDS: SIMVASTATIN 40 MG TAB PO SCH (20:38)
[2024-12-25] MEDS: TIMOLOL MALEATE 0.25% OP SOLN 5 ML BTL OPB SCH (20:38)
[2024-12-25] MEDS: VALSARTAN/SACUBITRIL 51/49 MG TAB PO SCH (20:38)
[2024-12-25] MEDS: PREGABALIN 50 MG CAP PO SCH (20:42)
[2024-12-25] MEDS: LANTUS PER UNIT CHARGE SQ SCH (20:49)
[2024-12-25] MEDS: CeleBREX 200 MG CAP PO PRN (23:04)
--- NOTE | 2024-12-25 23:18 | Magnetic Resonance Report ---
Exam(s): MRI C SPINE EXAM: MR Cervical Spine Without Intravenous Contrast CLINICAL HISTORY: Reason for exam: radiculopathy. TECHNIQUE: Magnetic resonance images of the cervical spine without intravenous contrast in multiple planes. COMPARISON: No relevant prior studies available. FINDINGS: This study is limited secondary to motion artifact. Vertebrae: There are 7 cervical type vertebral bodies with a mild generalized curved to the left and straightening normal cervical lordosis. There is normal vertebral body height and alignment. The bone marrow signal is heterogeneous with reactive endplate changes. No acute fracture. Spinal cord: There is flattening the ventral cord at C4-5 and C5-6 with increased cord signal at C4-5 concerning for cord edema. Soft tissues: The cervical flow voids are intact. DISCS/SPINAL CANAL/NEURAL FORAMINA: C2-C3: The intervertebral disc is normal. C3-C4: Moderate disc degeneration with annular disc bulge flattening the ventral thecal sac and causing a moderate spinal canal stenosis. C4-C5: There is mild disc degeneration with annular disc bulge flattening the ventral cord with subtle increased cord signal concerning for cord edema causing a critical spinal canal stenosis with AP diameter measuring 5.4 mm. C5-C6: Moderate disc degeneration with annular disc bulge flattening the ventral cord and causing a severe spinal canal stenosis. C6-C7: Advanced disc degeneration with annular disc bulge flattening the ventral thecal sac and causing a severe spinal canal stenosis. C7-T1: The intervertebral disc is normal. IMPRESSION: 1. Advanced disc degeneration at C6-7, moderate disc degeneration at C3- 4, C5-6 and mild disc degeneration at C4-5 with annular disc bulging flattening the ventral thecal sac and flattening the ventral cord at C4-5 and C5-6 with subtle cord edema at C4-5. Recommend neurosurgical consult for decompression. 2. There is a critical spinal canal stenosis at C4-5, severe stenosis at C5-6 and C6-7 and moderate stenosis at C3-4. 3. The neural foramina are poorly visualized secondary to motion artifact. Recommend repeat imaging with sagittal oblique imaging for further evaluation. 4. No evidence of fracture, infection, or tumor. Communications: Verify Receipt Electronically signed by: Ольга Morales MD 12/25/24 23:18 PM
--- NOTE | 2024-12-25 23:40 | Magnetic Resonance Report ---
Exam(s): MRA NECK W/WO Contrast IV Amt: 12mL Gadavist EXAM: MR Angiography Neck Without and With Intravenous Contrast CLINICAL HISTORY: Reason for exam: TIA. TECHNIQUE: Magnetic resonance angiography images of the neck without and with intravenous contrast. CONTRAST: Patient received 12mL Gadavist of IV contrast COMPARISON: Prior CT angiogram of the neck from December 25, 2024. FINDINGS: Right common carotid artery: Unremarkable. No significant stenosis. No dissection or occlusion. Right internal carotid artery: Unremarkable. Extracranial segment is patent with no significant stenosis. No dissection or occlusion. Right external carotid artery: Unremarkable. No occlusion. Right vertebral artery: Unremarkable. No significant stenosis. No dissection or occlusion. Left common carotid artery: Unremarkable. No significant stenosis. No dissection or occlusion. Left internal carotid artery: There is a 60% stenosis of the proximal left ICA. No dissection or occlusion. Left external carotid artery: Unremarkable. No occlusion. Left vertebral artery: Unremarkable. No significant stenosis. No dissection or occlusion. Soft tissues: Unremarkable as visualized. CAROTID STENOSIS REFERENCE USING NASCET CRITERIA: % ICA stenosis = (1 - narrowest ICA diameter/diameter of distal cervical ICA) x 100. Mild - <50% stenosis. Moderate - 50-69% stenosis. Severe - 70-94% stenosis. Near occlusion - 95-99% stenosis. Occluded - 100% stenosis. IMPRESSION: There is a 60% stenosis of the proximal left ICA. Electronically signed by: Ольга Morales MD 12/25/24 23:39 PM
[2024-12-26 06:37] LABS: Basophils # (auto) 0.02 K/uL (0.00-0.20); Basophils % (auto) 0.4 %; Eosinophils % (auto) 5.7 %; Hematocrit (blood only) 44.1 % (42.0-52.0); Hemoglobin 14.8 g/dl (14.0-18.0); Immature Granulocytes # (auto) 0.01 K/uL (0.01-0.20); Immature Granulocytes % (auto) 0.2 %; Lymphocytes # (auto) 1.23 K/uL (1.20-3.40); Lymphocytes % (auto) 23.3 %; Mean Corpuscular Hemoglobin 27.9 pg (25.0-34.0); Mean Corpuscular Hgb Conc 33.6 g/dL (32.0-36.0); Mean Corpuscular Volume 83.2 fL (80.0-100.0); Mean Platelet Volume 10.7 fL (9.4-12.4); Monocytes # (auto) 0.39 K/uL (0.11-0.59); Monocytes % (auto) 7.4 %; Neutrophils # (auto) 3.33 K/uL (1.40-6.50); Platelet Count 151 K/uL (130-400); RDW Coefficient of Variation 14.6 % (11.5-14.5); RDW Standard Deviation 44.7 fL (36.4-46.3); White Blood Count 5.28 K/ul (4.8-10.8)
[2024-12-26 06:53] LABS: BUN Creatinine Ratio 22.1 (10-20); Calcium 9.5 mg/dl (8.6-10.3); Creatinine Clr Calc Pharmacy 67.1 ml/min; Magnesium 1.9 mg/dl (1.7-2.4); Potassium 4.2 mmol/L (3.5-5.1)
[2024-12-26] MEDS: ENOXAPARIN INJ 40 MG/0.4 ML SYR SQ SCH (07:49)
[2024-12-26] MEDS: CLOPIDOGREL BISULFATE 75 MG TAB PO SCH (07:49)
[2024-12-26] MEDS: ASPIRIN 81 MG ECTAB PO SCH (07:49)
[2024-12-26 08:02] VITALS: RESP 16
[2024-12-26 08:51] LABS: Estimated Average Glucose 151 mg/dl; Hemoglobin A1C 6.9 % (4.5-5.6)
--- NOTE | 2024-12-26 10:40 | Orthopedic Consultation ---
Date of Service December 26, 2024 Assessment & Plan (1) Cervical spinal stenosis: (2) Cervical myelopathy: (3) Cervical spondylosis: Plan Patient's primary complaint of right arm weakness and numbness, as well as difficulty with moving the wrist and hand, is already resolving as of this morning. Patient is noting that the numbness sensation in the bilateral hands/digits is much improved today. He is ambulating at his baseline. He is also voiding normally and having no particular issues with bowel/bladder incontinence or saddle anesthesia. Patient has mentioned some weakness to traffic recorder strength, which is intermittent in nature, and also can wax and wane as far as severity of symptoms, however, he is noting improvement in traffic recorder strength today. Patient did also note some bilateral hand swelling, but it is felt that at least a good portion of that can be attributed to arthritis changes which could also explain the pain with traffic recorder. Overall, he has seemingly responded quite well during his short time in the hospital here. Would recommend a course of steroids, if the patient is wanting to go home, he could be discharged on a course of oral steroid taper. This information was relayed to the hospitalist service. We did discuss the patient's option of cervical spine surgery for decompression of the concerning levels at C4-5 and C5-6 by laminectomy and fusion, but the patient prefers to avoid surgery if possible. With this noted, as well as his recent improvements over the last 24 hours, there is currently no particular indication for cervical spine surgery of an emergent nature. Patient may follow-up with Dr. Ocampo in the [facility] orthospine clinic or if he prefers, he may continue to follow with Dr. Muhammad's office, as he is an established patient there and has had prior thoracic and lumbar level surgeries by Dr. Muhammad in the past. We discussed the fact that there is pressure on the spinal cord with faint cord signal changes, however the patient reports that his function is at his baseline, a good deal of the hand pain is likely due to arthritis. He knows that he has decreased room available for the cord which makes him higher risk for cervical spine injury with trauma, we also discussed symptoms such as worsening hand numbness, decreased dexterity in the upper extremities, difficulty with bowel and bladder control would be reasons to return to the hospital as these could be worsening compression of the cord. Given these symptoms he does likely have cervical myelopathy, mild in severity at this point. He prefers observation understanding the risk of continued cord compression. History of Present Illness Reason for Consultation: . Requesting Physician: . Attending Physician: Gissell Ann MD ED provider note 12/25/2024: Patient is a 74-year-old male with a past medical history of diabetes neuropathy, aortic valve replacement, discitis, hypertension, hyperlipidemia who presents to the ER for right arm weakness and numbness. He notes he woke up at 5 AM and noticed it. He has trouble moving his wrist and hand. He notes the numbness goes all the way up to his shoulder. He notes he does feel weak throughout the remainder of the arm as well. He denies any headache or change in vision. No chest pain or shortness of breath. He believes in his left arm he has some tingling as well. No dysuria urgency or frequency. Hospitalist note 12/25/2024: Monet is a 74 yo M with a pmhx of DMT2 with diabetic neuropathy, diastolic CHF, s/p AVR with porcine valve, OA, glaucoma, HTN and HLD who presents to the ER this morning accompanied by his daughter c/o numbness and tingling in both hands that he noted around 5am when he woke. He also reported weakness and pain. He reports feeling like he cannot traffic recorder things because of the pain in his hand, not related to weakness. This morning, his right arm was more bothersome but that has since dissipated and his left hand is more painful at this time. He denies any recent injury to his neck. He has a h/o back issues including thoracic spondylosis with myelopathy requiring spinal surgery followed by lumbar stenosis requiring decompression and fusion. He denies having a prior history of stroke. He is compliant with his medications. His most recent lab values have all shown excellent control of his lipids and diabetes with an a1c of 6.8% in December of this year. He denies chest pain. He was evaluated for stroke-like symptoms in the ER and underwent CTH w/o contrast followed by CTA head and neck. His CTH w/o was negative for acute findings but he was noted to have high-grade stenosis of the left ICA and moderate stenosis of the right vertebral artery. Telestroke services were notified by ED physician, did not recommend TPK, recommended DAPT and MRI/MRA brain and neck. He received a dose of ASA and Plavix as well as dilaudid and ketoralac in the ER for pain and has been referred to hospital medicine team for admission. Today, patient noted that he was most concerned about the level of pain that was occurring in his upper extremities and hands, which would worsen anytime he would attempt to traffic recorder things, which basically made it difficult to do most tasks. As of this morning though, he is saying that the pain is significantly improved and he is already asking if he is able to go home. When inquiry is made about his dexterity in the fingers, he does mention that he drops things at times, but that overall he feels he is able to perform most tasks without difficulty. Patient states that he has had prior thoracic and lumbar surgeries by Dr. Muhammad, but that he has never had any surgery on his cervical spine. Unsure when he was last seen Dr. Muhammad's office, but he was told at that point that he would likely eventually need to have cervical surgery.. Of note, he wears bilateral ASO braces for known foot drop with poor balance and gait abnormality at baseline. Allergies Allergy/AdvReac Type Severity Reaction Status Date / Time morphine Allergy Mild ITCHY Verified 12/24/24 08:02 Home Medications Medication Instructions Recorded Confirmed Type aspirin 81 mg tablet,delayed 81 mg PO QAM 05/19/19 12/25/24 History release (Adult Low Dose Aspirin) cyanocobalamin (vitamin B-12) 1,000 mcg PO QAM 05/19/19 12/25/24 History 1,000 mcg capsule brimonidine 0.1 % eye drops 1 drp OPB BID 10/01/19 12/25/24 History (Alphagan P) lisinopril 20 mg tablet 20 mg PO BID 03/12/20 12/25/24 History polyethylene glycol 3350 17 17 gm PO DAILY PRN Constipation 03/12/20 12/25/24 History gram/dose oral powder (Miralax) pen needle, diabetic 32 gauge x #100 ea 09/08/21 08/28/23 Rx 5/32" (BD Ultra-Fine Melva Pen Needle) furosemide 40 mg tablet 40 mg PO DAILY PRN edema #30 tabs 08/09/23 12/25/24 Rx leg brace (Ankle Brace) #2 ea 03/28/24 Rx metformin 1,000 mg tablet 1,000 mg PO BID #180 tabs 05/01/24 12/25/24 Rx celecoxib 200 mg capsule 200 mg PO DAILY PRN pain #90 caps 07/08/24 12/25/24 Rx pregabalin 50 mg capsule (Lyrica) 50 mg PO BID #180 caps 07/08/24 12/25/24 Rx albuterol sulfate 90 mcg/actuation 2 puff inhalation Q6H PRN 09/23/24 12/25/24 Rx aerosol inhaler shortness of breath or wheezing #6.7 grams benzonatate 100 mg capsule 100 mg PO BID PRN cough #30 caps 09/23/24 12/25/24 Rx insulin glargine 100 unit/mL (3 25 - 30 unit subcut QPM 10/08/24 12/25/24 History mL) subcutaneous pen (Lantus Solostar U-100 Insulin) timolol maleate 0.25 % eye drops 1 drp ophthalmic (eye) BID 10/08/24 12/25/24 History tirzepatide 7.5 mg/0.5 mL 7.5 mg subcut WK 10/08/24 12/25/24 History subcutaneous pen injector sacubitril 49 mg-valsartan 51 mg 1 tab PO BID 12/24/24 12/25/24 History tablet (Entresto) simvastatin 40 mg tablet 40 mg PO QPM 12/25/24 12/25/24 History tamsulosin 0.4 mg capsule 0.8 mg PO HS 12/25/24 12/25/24 History Past Med/Surg History Problem List (Updated 12/26/24 @ 12:39 by Dandre Ocampo MD) Cervical spondylosis Cervical myelopathy Cervical spinal stenosis Elevated troponin (Acute) Distal paresthesia (Acute) Arm pain (Acute) Arm weakness (Acute) TIA (transient ischemic attack) Penile swelling Diabetic nephropathy Diabetic neuropathy Leg swelling BPH (benign prostatic hyperplasia) Hx of aortic valve replacement 2014 Thoracic stenosis Hydrocele Right-sided chest pain Back pain with history of spinal surgery (Acute) Discitis (Acute 02/2020) Thoracic spine, T9-T10 Thoracic spondylosis with myelopathy Microcytic anemia H/O Spinal surgery (02/14/20) #1 removal of posterior rods and screws T10-T11. #2 exploration of fusion T10-T11. #3 thoracic decompression with bilateral medial facetectomies at T7-T8, T8-T9 and T9-T10. #4 posterior spinal fusion T7-T10. #5 placed a posterior segmental instrumentation C7-T10 including shepherds hooks. #6 placement locally harvested morselized autograft in the posterior gutters. #7 placement infuse collagen sponge, master graft in the posterior lateral gutters. (Dr Rudy Muhammad) S/P aortic valve replacement with bioprosthetic valve (Acute 2014) 2016 AT [facility] ([facility]) Diabetes mellitus, type 2 Hypertension (Chronic) Hyperlipidemia (Chronic) Lumbar stenosis with neurogenic claudication Medical History Hx of gout GERD (gastroesophageal reflux disease) History of skin cancer ON EAR Glaucoma Restless leg syndrome Peripheral neuropathy Cardiac murmur "SLIGHT" History of aortic valve disease s/p Med[employer] Saleem porcine AVR (2014) 2/2 hx severe aortic stenosis- normal hemodynamics per 2017 ECHO Osteoarthritis Surgical History History of left cataract surgery H/O eye surgery LEFT H/O shoulder surgery RT/LEFT History of herniorrhaphy INGUINAL History of appendectomy History of tooth extraction History of cardiac cath 2016- no stents History of difficult intubation L1-S1 decompression with T12-S1 fusion: 07/05/17: "Easy" with glidescope#4, ETT 8.0 at [facility] Hx of colonoscopy History of total left knee replacement WITH 2 REVISION History of total right knee replacement 1 REVISION History of lumbar fusion x 2 Family History Mother Myocardial infarction Family history of diabetes mellitus Father Myocardial infarction Grandfather (Maternal) Myocardial infarction Other No family history of adverse response to anesthesia Denies family history of Ovarian cancer Prostate cancer Breast cancer Colorectal cancer Social History Smoking Status: Never smoker Second Hand Exposure: No (in past); Do You Dip or Chew Tobacco: No; Hx Alcohol Use: No Hx Substance Use: No Preferred Language: German Communication Ability: Effective Visual Impairment: No Limitations Hearing Ability: Normal Mold Yard Worker Required: No Beliefs That Will Affect Care: None marital status: / Current Living Situation: Alone Current Living Situation Comment: his son Ignacio is living with him now current occupational status: retired 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 Physical Exam GENERAL: Speech and cognition is intact. Mood and affect is appropriate. In no acute distress. HEAD: Normocephalic; atraumatic. NECK: Diminished ROM; trachea is midline; no TTP; no cervical lymphadenopathy. CHEST: Regular chest respiration and excursion. EXTREMITIES: +5 strength of upper extremities. No TTP. Distal sensation and pulses intact bilaterally. NEURO: CN II-XII grossly intact with no focal deficits noted. C5 - C8 w/ intact sensation bilaterally. No upper extremity hyperreflexia noted. Negative Braydon sign bilaterally. SKIN: No lesions, erythema, or rashes noted. Upper extremity resisted strength testing: R elbow flexion - 5/5 L elbow flexion - 5/5 R elbow extension - 5/5 L elbow extension - 5/5 R shoulder abduction - 5/5 L shoulder abduction - 5/5 R wrist extension - 5/5 L wrist extension - 5/5 R wrist flexion - 5/5 L wrist flexion - 5/5 R hand intrinsics - 5/5 L hand intrinsics - 5/5 Results & Data Results & Data Laboratory Results . Laboratory Results - last 48 hr 12/25/24 12/25/24 12/25/24 08:02 08:08 10:01 WBC 6.50 RBC 5.56 Hgb 15.5 POC Hgb 15.6 Hct 46.4 POC Hct 46 MCV 83.5 MCH 27.9 MCHC 33.4 RDW Std Deviation 44.4 RDW Coeff of Jhon 14.6 H Plt Count 149 MPV 11.1 Immature Gran % (Auto) 0.3 Neut % (Auto) 69.1 Lymph % (Auto) 19.2 Latimer % (Auto) 6.9 Eos % (Auto) 4.0 Baso % (Auto) 0.5 Neut # (Auto) 4.49 Lymph # (Auto) 1.25 Latimer # (Auto) 0.45 Eos # (Auto) 0.26 Baso # (Auto) 0.03 Immature Gran # (Auto) 0.02 PT 10.6 INR 1.0 APTT 27 PTT Ratio 1.0 POC Sodium 143 Sodium 142 POC Potassium 4.4 Potassium 4.5 POC Chloride 105 Chloride 109 H Carbon Dioxide 28 POC Total CO2 26 Anion Gap 5 POC Anion Gap 17.0 POC BUN 30 H BUN 31 H Creatinine 1.26 POC Creatinine 1.4 H Est Cr Clr Drug Dosing 66.3 eGFR 59.48 BUN/Creatinine Ratio 24.6 H Glucose 115 H POC Glucose POC Glucose (other) 116 H Estimat Average Glucose Hemoglobin A1c Calcium 10.1 POC Ioniz Calcium Hood 1.33 H Magnesium 1.8 Total Bilirubin 0.4 AST 26 ALT 28 Alkaline Phosphatase 90 Troponin I High Sens 41.9 H 35.9 H Total Protein 6.7 Albumin 4.2 Globulin 2.5 Albumin/Globulin Ratio 1.7 Triglycerides Cholesterol LDL Cholesterol, Calc VLDL Cholesterol, Calc HDL Cholesterol Cholesterol/HDL Ratio 12/25/24 12/25/24 12/25/24 12:30 17:39 20:41 WBC RBC Hgb POC Hgb Hct POC Hct MCV MCH MCHC RDW Std Deviation RDW Coeff of Jhon Plt Count MPV Immature Gran % (Auto) Neut % (Auto) Lymph % (Auto) Latimer % (Auto) Eos % (Auto) Baso % (Auto) Neut # (Auto) Lymph # (Auto) Latimer # (Auto) Eos # (Auto) Baso # (Auto) Immature Gran # (Auto) PT INR APTT PTT Ratio POC Sodium Sodium POC Potassium Potassium POC Chloride Chloride Carbon Dioxide POC Total CO2 Anion Gap POC Anion Gap POC BUN BUN Creatinine POC Creatinine Est Cr Clr Drug Dosing eGFR BUN/Creatinine Ratio Glucose POC Glucose 96 155 H 113 H POC Glucose (other) Estimat Average Glucose Hemoglobin A1c Calcium POC Ioniz Calcium Hood Magnesium Total Bilirubin AST ALT Alkaline Phosphatase Troponin I High Sens Total Protein Albumin Globulin Albumin/Globulin Ratio Triglycerides Cholesterol LDL Cholesterol, Calc VLDL Cholesterol, Calc HDL Cholesterol Cholesterol/HDL Ratio 12/26/24 12/26/24 05:48 08:12 WBC 5.28 RBC 5.30 Hgb 14.8 POC Hgb Hct 44.1 POC Hct MCV 83.2 MCH 27.9 MCHC 33.6 RDW Std Deviation 44.7 RDW Coeff of Jhon 14.6 H Plt Count 151 MPV 10.7 Immature Gran % (Auto) 0.2 Neut % (Auto) 63.0 Lymph % (Auto) 23.3 Latimer % (Auto) 7.4 Eos % (Auto) 5.7 Baso % (Auto) 0.4 Neut # (Auto) 3.33 Lymph # (Auto) 1.23 Latimer # (Auto) 0.39 Eos # (Auto) 0.30 Baso # (Auto) 0.02 Immature Gran # (Auto) 0.01 PT INR APTT PTT Ratio POC Sodium Sodium 140 POC Potassium Potassium 4.2 POC Chloride Chloride 107 Carbon Dioxide 26 POC Total CO2 Anion Gap 7 POC Anion Gap POC BUN BUN 27 H Creatinine 1.22 POC Creatinine Est Cr Clr Drug Dosing 67.1 eGFR 61.83 BUN/Creatinine Ratio 22.1 H Glucose 88 POC Glucose 89 POC Glucose (other) Estimat Average Glucose 151 Hemoglobin A1c 6.9 H Calcium 9.5 POC Ioniz Calcium Hood Magnesium 1.9 Total Bilirubin AST ALT Alkaline Phosphatase Troponin I High Sens Total Protein Albumin Globulin Albumin/Globulin Ratio Triglycerides 139 Cholesterol 93 LDL Cholesterol, Calc 42 VLDL Cholesterol, Calc 28 HDL Cholesterol 23 Cholesterol/HDL Ratio 4.0 Diagnostic Findings Cervical Spine MRI 12/25/24 12:30 CR Exam(s): MRI C SPINE EXAM: MR Cervical Spine Without Intravenous Contrast CLINICAL HISTORY: Reason for exam: radiculopathy. TECHNIQUE: Magnetic resonance images of the cervical spine without intravenous contrast in multiple planes. COMPARISON: No relevant prior studies available. FINDINGS: This study is limited secondary to motion artifact. Vertebrae: There are 7 cervical type vertebral bodies with a mild generalized curved to the left and straightening normal cervical lordosis. There is normal vertebral body height and alignment. The bone marrow signal is heterogeneous with reactive endplate changes. No acute fracture. Spinal cord: There is flattening the ventral cord at C4-5 and C5-6 with increased cord signal at C4-5 concerning for cord edema. Soft tissues: The cervical flow voids are intact. DISCS/SPINAL CANAL/NEURAL FORAMINA: C2-C3: The intervertebral disc is normal. C3-C4: Moderate disc degeneration with annular disc bulge flattening the ventral thecal sac and causing a moderate spinal canal stenosis. C4-C5: There is mild disc degeneration with annular disc bulge flattening the ventral cord with subtle increased cord signal concerning for cord edema causing a critical spinal canal stenosis with AP diameter measuring 5.4 mm. C5-C6: Moderate disc degeneration with annular disc bulge flattening the ventral cord and causing a severe spinal canal stenosis. C6-C7: Advanced disc degeneration with annular disc bulge flattening the ventral thecal sac and causing a severe spinal canal stenosis. C7-T1: The intervertebral disc is normal. IMPRESSION: 1. Advanced disc degeneration at C6-7, moderate disc degeneration at C3- 4, C5-6 and mild disc degeneration at C4-5 with annular disc bulging flattening the ventral thecal sac and flattening the ventral cord at C4-5 and C5-6 with subtle cord edema at C4-5. Recommend neurosurgical consult for decompression. 2. There is a critical spinal canal stenosis at C4-5, severe stenosis at C5-6 and C6-7 and moderate stenosis at C3-4. 3. The neural foramina are poorly visualized secondary to motion artifact. Recommend repeat imaging with sagittal oblique imaging for further evaluation. 4. No evidence of fracture, infection, or tumor. Communications: Verify Receipt Electronically signed by: Ольга Morales MD 12/25/24 23:18 PM PG Care Time/CCT Total # of Minutes Spent Total Time Spent with Patient: Total time spent is greater than 50% in coordination of care (as documented) at patient's floor/unit and/or counseling patient: [place] [address] IN/OBS CONSULT LVL 5,80M Patient Type New Medical Decision Making Moderate Complexity Diagnoses Cervical spinal stenosis M48.02 Cervical myelopathy G95.9 Cervical spondylosis M47.812
[2024-12-26 11:50] VITALS: TEMP 97.5; O2SAT 96
[2024-12-26 16:02] VITALS: BP 156/89
[2024-12-26] MEDS ORDERED: STROKE PATIENT DISCHARGE STA (17:43)
--- NOTE | 2024-12-26 17:47 | Neurology Consultation ---
Date of Consultation December 26, 2024 Assessment & Plan (1) Cervical myelopathy: (2) Cervical spinal stenosis: (3) Stroke: (4) Carotid stenosis: Plan 74-year-old male presenting with signs and symptoms most consistent with cervical myelopathy due to degenerative spinal stenosis as identified on C-spine MRI. He has subtle spinal cord edema and I agree with corticosteroids as recommended by orthopedics. He has an incidental, small ischemic infarct within the right mojica radiata as well, occurring in the context of several risk factors including insulin-dependent diabetes mellitus, hypertension, dyslipidemia. The stroke does not appear to be cardioembolic and seems to be clinically asymptomatic. He also has a stenosis of the proximal cervical left internal carotid artery. The stenosis was estimated at 80% on CT angiography, 60% on MR angiography. The carotid stenosis is asymptomatic and would not require urgent surgical treatment. I agree with dual antiplatelet therapy, aspirin 81 mg/day, clopidogrel 75 mg/day for the next 3 weeks. Would then discontinue aspirin in favor of clopidogrel monotherapy. He should continue with statin therapy, although would consider high intensity statin therapy in light of the left carotid stenosis. I do note, however, that his LDL is 42 and a typical LDL goal in patients with stroke would be 70 or less. If he does elect to proceed with cervical spine decompressive surgery, would recommend waiting at least 3 months given the recent stroke. Patient should follow-up with vascular surgery as an outpatient for monitoring of his left carotid stenosis. Would also recommend 30-day mobile cardiac outpatient telemetry. Please call with any questions. History of Present Illness Reason for Consultation: stroke Requesting Physician: Marissa Attending Physician: Gissell Ann MD History of Present Illness The patient is a 74-year-old male with a history of insulin-dependent diabetes mellitus, dyslipidemia, hypertension, aortic valve replacement, who awoke yesterday morning with numbness and weakness of both upper limbs. He also reported some pain in the hands. Denied significant neck pain. No weakness or numbness of the lower limbs. A CT of the head was negative for hemorrhage or acute process. A CTA of the head was unremarkable. CTA of the neck revealed a high-grade stenosis at the proximal cervical segment of the left internal carotid artery, approximately 80%. A brain MRI revealed a small acute infarct in the right parietal lobe and chronic small vessel ischemic disease. I independently reviewed these images and agree. An MRA of the head was unremarkable. MRA of the neck suggested a 60% stenosis of the proximal left internal carotid artery. A cervical spine MRI reveals severe spinal canal stenosis at C4-5 with associated subtle spinal cord edema. Degenerative changes resulting in moderate spinal stenosis at C5-6 and C6-7 also present. I reviewed these images as well and was able to appreciate these findings. He did have a consultation with orthospine. Treatment with corticosteroids was recommended with potential cervical spine decompression going forward. He currently denies experiencing any headache, vision loss, change in speech or swallowing. Allergies Allergy/AdvReac Type Severity Reaction Status Date / Time morphine Allergy Mild ITCHY Verified 12/24/24 08:02 Home Medications Medication Instructions Recorded Confirmed Type aspirin 81 mg tablet,delayed 81 mg PO QAM 05/19/19 12/25/24 History release (Adult Low Dose Aspirin) cyanocobalamin (vitamin B-12) 1,000 mcg PO QAM 05/19/19 12/25/24 History 1,000 mcg capsule brimonidine 0.1 % eye drops 1 drp OPB BID 10/01/19 12/25/24 History (Alphagan P) lisinopril 20 mg tablet 20 mg PO BID 03/12/20 12/25/24 History polyethylene glycol 3350 17 17 gm PO DAILY PRN Constipation 03/12/20 12/25/24 History gram/dose oral powder (Miralax) pen needle, diabetic 32 gauge x #100 ea 09/08/21 08/28/23 Rx 5/32" (BD Ultra-Fine Melva Pen Needle) furosemide 40 mg tablet 40 mg PO DAILY PRN edema #30 tabs 08/09/23 12/25/24 Rx leg brace (Ankle Brace) #2 ea 03/28/24 Rx metformin 1,000 mg tablet 1,000 mg PO BID #180 tabs 05/01/24 12/25/24 Rx celecoxib 200 mg capsule 200 mg PO DAILY PRN pain #90 caps 07/08/24 12/25/24 Rx pregabalin 50 mg capsule (Lyrica) 50 mg PO BID #180 caps 07/08/24 12/25/24 Rx albuterol sulfate 90 mcg/actuation 2 puff inhalation Q6H PRN 09/23/24 12/25/24 Rx aerosol inhaler shortness of breath or wheezing #6.7 grams benzonatate 100 mg capsule 100 mg PO BID PRN cough #30 caps 09/23/24 12/25/24 Rx insulin glargine 100 unit/mL (3 25 - 30 unit subcut QPM 10/08/24 12/25/24 History mL) subcutaneous pen (Lantus Solostar U-100 Insulin) timolol maleate 0.25 % eye drops 1 drp ophthalmic (eye) BID 10/08/24 12/25/24 History tirzepatide 7.5 mg/0.5 mL 7.5 mg subcut WK 10/08/24 12/25/24 History subcutaneous pen injector sacubitril 49 mg-valsartan 51 mg 1 tab PO BID 12/24/24 12/25/24 History tablet (Entresto) simvastatin 40 mg tablet 40 mg PO QPM 12/25/24 12/25/24 History tamsulosin 0.4 mg capsule 0.8 mg PO HS 12/25/24 12/25/24 History Patient History Medical History Hx of gout GERD (gastroesophageal reflux disease) History of skin cancer ON EAR Glaucoma Restless leg syndrome Peripheral neuropathy Cardiac murmur "SLIGHT" History of aortic valve disease s/p [employer] Slaeem porcine AVR (2014) 2/2 hx severe aortic stenosis- normal hemodynamics per 2017 ECHO Osteoarthritis Surgical History History of left cataract surgery H/O eye surgery LEFT H/O shoulder surgery RT/LEFT History of herniorrhaphy INGUINAL History of appendectomy History of tooth extraction History of cardiac cath 2016- no stents History of difficult intubation L1-S1 decompression with T12-S1 fusion: 07/05/17: "Easy" with glidescope#4, ETT 8.0 at [facility] Hx of colonoscopy History of total left knee replacement WITH 2 REVISION History of total right knee replacement 1 REVISION History of lumbar fusion x 2 Family History Mother Myocardial infarction Family history of diabetes mellitus Father Myocardial infarction Grandfather (Maternal) Myocardial infarction Other No family history of adverse response to anesthesia Denies family history of Ovarian cancer Prostate cancer Breast cancer Colorectal cancer Social History Smoking Status: Never smoker Second Hand Exposure: No (in past); Do You Dip or Chew Tobacco: No; Hx Alcohol Use: No Hx Substance Use: No Preferred Language: Maltese Communication Ability: Effective Visual Impairment: No Limitations Hearing Ability: Normal Roll Handler Required: No Beliefs That Will Affect Care: None marital status: / Current Living Situation: Alone Current Living Situation Comment: his son Ignacio is living with him now current occupational status: retired 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 [employer] Feels Safe at Home: Yes Safety Concerns: Feels Safe At This Time Childhood Exposure to Second-Hand Smoke: Yes Diet: regular Dental Care, Regularly: Yes Physical Activity Frequency: 3-4 Times per Week Seatbelt Use: never Sunscreen Use: No Assistive Devices: Brace/Splint/Immobilizer, Cane and Walker Assistive Devices Comment: braces BL legs, cane Review of Systems Constitutional: no fever Eyes: no blind spots and no diplopia Ear, Nose, Mouth, Throat: no hearing loss Respiratory: no cough and no dyspnea Cardiovascular: no chest pain and no palpitations Gastrointestinal: no nausea and no vomiting Genitourinary: no urinary incontinence Musculoskeletal: no myalgia Integumentary: no rash and no lesions Neurologic: as per Subjective / HPI Psychiatric: no depression and no anxiety Hematologic / Lymphatic: no easy bleeding and no easy bruising Exam (Neuro) Constitutional: well developed and well nourished; no acute distress Eyes: normal visual sarmiento by confrontation, PERRL and EOM intact bilaterally; no nystagmus Neurologic: Oriented to:: Person, Place and Time Cortical Function: negative Neglect of Body Part or Visual Inattention Memory: Short Term Intact and Remote Intact Attention: Span Intact and Concentration Intact Speech Fluency: negative Dysarthria or Dysfluency Speech Aphasia: negative Aphasia Fund of Knowledge: Current Events, Past History and Vocabulary Cranial Nerves: Normal II, III, IV, , V, VII, VIII, IX, X, XI and XII Motor Strength: Normal Lower Extremities and Normal Upper Extremities Motor Tone: Normal Lower Extremities and Normal Upper Extremities Muscle Bulk/Involuntary Movements: No Involuntary Movements; negative Muscle Atrophy Sensation: Light Touch Intact, Pain/Temperature Intact and Proprioception Intact Coordination: negative Dysdiadochokinesia, Finger-Nose Abnormal or Heel-Christian Abnormal Deep Tendon Reflexes: Rt Triceps: 2+, Lt Triceps: 2+, Rt Biceps: 2+, Lt Biceps: 2+, Rt Brachioradialis: 2+, Lt Brachioradialis: 2+, Rt Patellar: 2+, Lt Patellar: 2+, Rt Ankle: 1+ and Lt Ankle: 1+ Special Tests: negative Babinski Present Results & Data Vital Signs (Past 12 Hours) Vital Signs Temp Pulse Pulse Resp BP Pulse Ox O2 Del Method 12/26/24 16:01 36.4 C L 63 16 156/89 H 96 Room Air 12/26/24 13:21 77 12/26/24 11:49 36.4 C L 62 16 122/72 96 Room Air 12/26/24 08:01 36.5 C 61 16 156/86 H 97 Room Air 12/26/24 05:45 60 Laboratory Results WBC 5.28, hemoglobin 14.8, hematocrit 44.1, platelet count 151, sodium 140, potassium 4.2, BUN 27, creatinine 1.22, glucose 88, hemoglobin A1c 6.9, calcium 9.5, magnesium 1.9, triglycerides 139, cholesterol 93, LDL 42, VLDL 28, HDL 23 Diagnostic Findings An echocardiogram revealed normal left ventricular size, moderate concentric LVH, EF 55 to 60%, moderate hypokinesis of the distal anterolateral gurrola, no thrombus, bioprosthetic aortic valve. An electrocardiogram revealed a sinus rhythm with occasional PVCs. Coding Level of Care Code 74588 INT INP/OBS CARE 75MIN Diagnoses Cervical myelopathy G95.9 Cervical spinal stenosis M48.02 Stroke I63.9 Carotid stenosis I65.29 Time Spent (min) 75 Comment Total time includes patient contact, chart review, counseling, note preparation
[2024-12-26 17:50] VITALS: PULSE 69
--- NOTE | 2024-12-26 18:18 | Discharge Summary ---
Discharge Summary Date of Service December 26, 2024 Principal Dx & Hospital Course #1 = Principal Diagnosis (1) Stroke: (2) Carotid stenosis: (3) Cervical spinal stenosis: (4) Cervical myelopathy: (5) Cervical spondylosis: Plan 74-year-old man with history of diabetes hypertension and hyperlipidemia who came in with bilateral left greater than right arm pain hand numbness later he did have symptoms more on the right arm than the left. Both substantially improved today compared to yesterday not painful and only has some tingling in his hands which has been longstanding he was evaluated for acute stroke however presenting symptoms were related to cervical myelopathy. incidentally he did have evidence of a small acute ischemic stroke in the right mojica radiata # acute ischemic stroke # left internal carotid artery stenosis - does not seem to be causing any specific neurological deficit that he is aware of CTA head and neck and MRA brain and neck notable for moderate left internal carotid artery stenosis. CTA right ostial vertebral stenosis however this was not shown on MRA - no A-fib on telemetry monitoring, already had very recent echo so had a limit ed repeat TTE, no changes from previous no ventricular thrombus seen cholesterol very well-controlled on current Simvastatin with LDL at 70. 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 Forbes follow-up in neurology clinic in 2 to 3 weeks -referral made to vascular surgery to monitor the carotid stenosis # cervical myelopathy, cervical spinal stenosis - MRI c-spine with significant disease - this is what was causing his arm symptoms which have improved - consulted orthospine - discussed with Dr. Ocampo, urgent surgery not needed however he may need it in the future. This will need to be delayed 3 months for healing from stroke - meanwhile start Medrol Dosepak for symptomatic relief his mobility is at baseline follow-up with Dr. Muhammad or Dr. Ocampo #DMT2 w/ diabetic neuropathy - continue usual regimen - insulin, metformin and tirzepatide - Continue lyrica for neuropathy - recent A1c <7 #HTN//Diastolic CHF - stable - Continue Entresto, further adjustments per melt down furnace operator - Lasix is taken PRN, not routine - Appears euvolemic - had brief episode of hypertensive urgency after first arriving to medical unit, treated with IV hydralazine 10 mg x 1 and resolved #BPH - Continue tamsulosin Notes For Next Care Provider Stroke - DAPT x 21d, neurology follow up Continue working on hypertension - assess response to entresto Consider changing to high intensity statin if he can tolerate Referral made to vascular surgery for LICA stenosis - moderate Follow up with orthospine for c-spine disease Medication Changes From Visit Added plavix x 21d Medrol dosepack Admission HPI Per Admitting Provider Monet is a 74 yo M with a pmhx of DMT2 with diabetic neuropathy, diastolic CHF, s/p AVR with porcine valve, OA, glaucoma, HTN and HLD who presents to the ER this morning accompanied by his daughter c/o numbness and tingling in both hands that he noted around 5am when he woke. He also reported weakness and pain. He reports feeling like he cannot sample distributor things because of the pain in his hand, not related to weakness. This morning, his right arm was more bothersome but that has since dissipated and his left hand is more painful at this time. He denies any recent injury to his neck. He has a h/o back issues including thoracic spondylosis with myelopathy requiring spinal surgery followed by lumbar stenosis requiring decompression and fusion. He denies having a prior history of stroke. He is compliant with his medications. His most recent lab values have all shown excellent control of his lipids and diabetes with an a1c of 6.8% in December of this year. He denies chest pain. He was evaluated for stroke-like symptoms in the ER and underwent CTH w/o contrast followed by CTA head and neck. His CTH w/o was negative for acute findings but he was noted to have high-grade stenosis of the left ICA and moderate stenosis of the right vertebral artery. Telestroke services were notified by ED physician, did not recommend TPK, recommended DAPT and MRI/MRA brain and neck. He received a dose of ASA and Plavix as well as dilaudid and ketoralac in the ER for pain and has been referred to hospital medicine team for admission. Discharge Exam Last 24h vitals reviewed GEN: no acute distress, sitting in chair HEENT: pupils equal, sclerae anicteric, moist MM RESP: normal WOB, CTAB CV: reg no mrg ABD: soft/nt/nd +BT : no byrnes SKIN: warm and dry, no generalized rashes NEURO: AOx person, place, and situation. Face symmetric, speech normal, UE strength 4/5 throughout, functional analyst 5/5 dexterity limited by contracture, keara LE 4/5 except for foot drops wearing bilateral AFOs Discharge Plan Discharge Items Patient Disposition: Home - Self-Care Reason For Visit: ARMS NUMBNESS, RIGHT IS WORSE Discharge Diagnosis: Cervical radiculitis, incidental acute ischemic stroke, LICA stenosis Condition on Discharge: Fair Activity: Resume your previous activity Non-emergency contact: Primary Care Provider, Surgeon and Neurologist Call non-emergency contact if: you have any medication questions and your symptoms worsen Follow-up/Referrals: Edgar Forbes MD [Physician] - Chio Westfall CRNP [Primary Care Provider] - 01/02/25 2:00 pm Papo Muhammad DO [Surgeon] - Rey Monson MD [Physician] - Dandre Ocampo MD [Surgeon] - Diet: Carb Consistent or DM2 Addtl Attending Provider Instructions: Presenting symptoms of arm pain and hand numbness are related to cervical spine disease -treating flare with steroid taper -follow up with Dr. Muhammad or Dr. Ocampo -you may need surgery in the future - but will need delay for healing from stroke for 3 months We incidentally found a small stroke in the right side of your brain. It doesn't seem to be causing specific symptoms -take both aspirin and plavix for 21 days - the neurologist will stop one of them and continue the other meterman -if you haven't had neurology appointment by 21 days just stop the plavix and continue the aspirin until your appointment -your cholesterol and diabetes are under good control! These are major risk factors for stroke. High blood pressure is another one -consider changing the simvastatin to high intensity statin like atorvastatin or rosuvastatin - though LDL number is at goal -keep working with your doctors on better BP control. There have been a lot of recent changes so I don't want to change anything today We are making referral to a vascular surgeon to follow up the left sided carotid stenosis. This is opposite the stroke and not directly related. It is moderate and not currently symptomatic so monitoring will probably be the recommendation. The medications you already take as discussed above are good to help progression of this. -seek immediate medical attention if you develop worsening extremity weakness arms or legs, inability to urinate or have BMs, urinary or stool incontinence -seek immediate medical attention (911) if you have symptoms of a stroke. Stroke treatment is very time-sensitive It was a pleasure taking care of you in the hospital, Gissell Ann MD Addtl Hospitalist Program Director Provider Instructions: Risk Factors for Stroke: You can reduce your chances of stroke by working with your medical provider to adopt a healthy lifestyle. Some specific ways to lower your chance of stroke are: * If you are a smoker, now is the time to stop smoking cigarettes * If you are diabetic, improve the control of your blood sugars * Avoid excessive amounts of alcohol * Control high blood pressure * Lose weight if you are overweight * Be sure to lead an active lifestyle * Eat a healthy diet low in salt, cholesterol and fat You should know about other risk factors for stroke that you are unable to control. These include: * Age 55 years or older * Male gender * Certain racial groups: , or / * Family History of Stroke, Mini stroke or Heart Attack * Sickle Cell Disease Follow Up: It is important for you to keep your follow up appointments with your medical provider. Who to Call and When: Medical Emergencies: Call 911 immediately if you experience any of the following warning signs and symptoms of Stroke: * Sudden numbness or weakness of the face, arm or leg, especially on one side of the body * Sudden confusion, trouble speaking or understanding * Sudden trouble seeing in one or both eyes * Sudden trouble walking, dizziness, loss of balance or coordination * Sudden severe headache with no cause Do not delay calling 911 if you experience any warning signs or symptoms of a stroke. Delay in seeking medical attention may affect what treatments can be given to you. . Pending Studies at Discharge: No Stand-Alone Forms: [facility], Smoking Cessation, Medications to Prevent Stroke Medications and DC Order Prescriptions: New clopidogrel 75 mg Tablet 75 mg PO QAM Qty: 21 0RF methylprednisolone [Medrol (Brant)] 4 mg tablets,dose pack See Rx Instructions .ROUTE .COMPLEX Qty: 21 0RF Rx Instructions: Follow instructions for dosepack Continued furosemide 40 mg tablet 40 mg PO DAILY PRN (Reason: edema) Qty: 30 3RF (DME) Ankle Brace Misc See Rx Instructions .Route Qty: 2 0RF Rx Instructions: AFO ANKLE BRACES metformin 1,000 mg tablet 1,000 mg PO BID Qty: 180 3RF aspirin [Adult Low Dose Aspirin] 81 mg tablet,delayed release (DR/EC) 81 mg PO QAM cyanocobalamin (vitamin B-12) 1,000 mcg capsule 1,000 mcg PO QAM (DME) pen needle, diabetic [BD Ultra-Fine Melva Pen Needle] 32 gauge x 5/32" needle See Rx Instructions .Route Qty: 100 2RF Rx Instructions: Inject once daily with insulin Entresto 49-51 mg tablet 1 tab PO BID albuterol sulfate 90 mcg/actuation HFA aerosol inhaler 2 puff inhalation Q6H PRN (Reason: shortness of breath or wheezing) Qty: 6.7 0RF benzonatate 100 mg capsule 100 mg PO BID PRN (Reason: cough) Qty: 30 0RF celecoxib 200 mg capsule 200 mg PO DAILY PRN (Reason: pain) Qty: 90 3RF pregabalin [Lyrica] 50 mg capsule 50 mg PO BID Qty: 180 3RF brimonidine [Alphagan P] 0.1 % Drops 1 drp OPB BID polyethylene glycol 3350 [Miralax] 17 gram/dose powder 17 gm PO DAILY PRN (Reason: Constipation) simvastatin 40 mg tablet 40 mg PO QPM tamsulosin 0.4 mg capsule 0.8 mg PO HS timolol maleate 0.25 % Drops 1 drp OPHTHALMIC (EYE) BID insulin glargine [Lantus Solostar U-100 Insulin] 100 unit/mL (3 mL) insulin pen 25 - 30 unit subcut QPM Rx Instructions: Inject 25 units subcut daily; tirzepatide 7.5 mg/0.5 mL pen injector 7.5 mg subcut WK Rx Instructions: 7.5 mg subcutaneously every 7 days; Monday Discontinued lisinopril 20 mg Tablet 20 mg PO BID Discharge Orders: Discharge Order (Routine); Ordered 12/26/24 Ordered By: Gissell Caruso/Other Patient Handouts: Anticoagulants, Managing Type 2 Diabetes, Stroke: Taking Medicines, Stroke: Self-Care, Discharge Instructions for Stroke, Risk Factors for Stroke, Arm Care After a Stroke Admission Data Admit Date/Time: 12/25/24 11:28 Attending Provider: Gissell Ann Admit Provider: Gissell Ann Primary Care Provider: Chio Westfall. Other Providers: Gissell Ann; Dandre Ocampo; Edgar Forbes Hospital Stay Data Consultations 12/25/24 10:22 ED Decision to Admit Stat 12/26/24 08:39 Consult Neurology Routine Consult Orthopedic Spine Surgery Routine Diagnostic Imagining Performed 12/25/24 07:47 CT angio head w con Stat CT angio neck with con Stat CT head/brain wo con Stat 12/25/24 12:23 MRI Angio Brain [MR angio head wo con] Urgent 12/25/24 12:23 MR angio neck wo/w con Routine MR brain wo con Routine 12/25/24 12:30 MRI Cervical [MR cervical spine wo con] Routine Pending Results Patient Have Any Pending Studies at Discharge: No Discharge Instructions Given to Patient (Per Discharging Provider) Presenting symptoms of arm pain and hand numbness are related to cervical spine disease -treating flare with steroid taper -follow up with Dr. Muhammad or Dr. Ocampo -you may need surgery in the future - but will need delay for healing from stroke for 3 months We incidentally found a small stroke in the right side of your brain. It doesn't seem to be causing specific symptoms -take both aspirin and plavix for 21 days - the neurologist will stop one of them and continue the other shelter -if you haven't had neurology appointment by 21 days just stop the plavix and continue the aspirin until your appointment -your cholesterol and diabetes are under good control! These are major risk factors for stroke. High blood pressure is another one -consider changing the simvastatin to high intensity statin like atorvastatin or rosuvastatin - though LDL number is at goal -keep working with your doctors on better BP control. There have been a lot of recent changes so I don't want to change anything today We are making referral to a vascular surgeon to follow up the left sided carotid stenosis. This is opposite the stroke and not directly related. It is moderate and not currently symptomatic so monitoring will probably be the recommendation. The medications you already take as discussed above are good to help progression of this. -seek immediate medical attention if you develop worsening extremity weakness arms or legs, inability to urinate or have BMs, urinary or stool incontinence -seek immediate medical attention (911) if you have symptoms of a stroke. Strok e treatment is very time-sensitive It was a pleasure taking care of you in the hospital, Gissell Ann MD Total Time Total Time Spent Total Time Spent (In Minutes): I personally spent: 50 minutes today on clinical care activities including: reviewing chart notes and vital signs reviewing labs reviewing studies discussion with surgical product sales consultant(s) examining and counseling the patient writing orders writing prescriptions, discharge instructions documentation Coding Level of Care Code 48889 INP/OBS DISCH >30 MIN Diagnoses Stroke I63.9 Carotid stenosis I65.29 Cervical spinal stenosis M48.02 Cervical myelopathy G95.9 Cervical spondylosis M47.812
--- NOTE | 2024-12-30 10:01 | Pharmacy Report ---
Pharmacist Stroke Counseling - Date of Service December 30, 2024 - Scope: Pharmacy has been consulted to provide medication discharge counseling for this patient incidentally found to have and acute ischemic stroke as per the Pharmacist Discharge Counseling for Stroke Patients Protocol. - Medications on Discharge: Home Medications Medication Instructions Recorded Confirmed aspirin 81 mg tablet,delayed 81 mg PO QAM 05/19/19 12/25/24 release (Adult Low Dose Aspirin) cyanocobalamin (vitamin B-12) 1,000 mcg PO QAM 05/19/19 12/25/24 1,000 mcg capsule brimonidine 0.1 % eye drops 1 drp OPB BID 10/01/19 12/25/24 (Alphagan P) polyethylene glycol 3350 17 17 gm PO DAILY PRN Constipation 03/12/20 12/25/24 gram/dose oral powder (Miralax) insulin glargine 100 unit/mL (3 25 - 30 unit subcut QPM 10/08/24 12/25/24 mL) subcutaneous pen (Lantus Solostar U-100 Insulin) timolol maleate 0.25 % eye drops 1 drp ophthalmic (eye) BID 10/08/24 12/25/24 tirzepatide 7.5 mg/0.5 mL 7.5 mg subcut WK 10/08/24 12/25/24 subcutaneous pen injector sacubitril 49 mg-valsartan 51 mg 1 tab PO BID 12/24/24 12/25/24 tablet (Entresto) simvastatin 40 mg tablet 40 mg PO QPM 12/25/24 12/25/24 tamsulosin 0.4 mg capsule 0.8 mg PO HS 12/25/24 12/25/24 New Rx's Medication Instructions Recorded pen needle, diabetic 32 gauge x #100 ea 09/08/21" (BD Ultra-Fine Melva Pen Needle) furosemide 40 mg tablet 40 mg PO DAILY PRN edema #30 tabs 08/09/23 leg brace (Ankle Brace) #2 ea 03/28/24 metformin 1,000 mg tablet 1,000 mg PO BID #180 tabs 05/01/24 celecoxib 200 mg capsule 200 mg PO DAILY PRN pain #90 caps 07/08/24 pregabalin 50 mg capsule (Lyrica) 50 mg PO BID #180 caps 07/08/24 albuterol sulfate 90 mcg/actuation 2 puff inhalation Q6H PRN 09/23/24 aerosol inhaler shortness of breath or wheezing #6.7 grams benzonatate 100 mg capsule 100 mg PO BID PRN cough #30 caps 09/23/24 clopidogrel 75 mg tablet 75 mg PO QAM #21 tabs 12/26/24 methylprednisolone 4 mg tablets in See Rx Instructions .Route 12/26/24 a dose pack (Medrol (Brant)) .COMPLEX #21 ea - Action: The above medications, specifically ones for stroke treatment/prophylaxis, have been reviewed in detail with the patient and/or patient automotive leasing sales representative(s) prior to discharge. This includes indication, common adverse reactions, drug interactions, and medication administration. Medication counseling has been employed using the teach-back method to ensure understanding. - Outcome: The patient and/or patient automotive leasing sales representative(s) have demonstrated understanding of the medications. Additional comments: New prescription for plavix. To be taken with asa 81mg x 21 days. (There is some conflicting info--discharge notes says to take combo x 3 weeks then asa alone until neurology appointment. Neurology note states to take combo x 3 weeks then plavix alone). Patient stated he was instructed to continue asa alone after the 21 days. He does not yet have a follow up appointment with neurology but has a PCP appointment this . Patient stated he has not been prescribed plavix before, so counseled on this medication. Patient was also instructed to stop lisinopril on discharge which he stated he has. Explained importance of continuing to monitor blood pressure (has a cuff at home) throughout the day. Patient conveyed that he is feeling much better since discharge and has no other questions or concerns. Thank you for allowing pharmacy to be involved in the care of this patient. Please call [phone] with any additional questions
== END 2024-12-26 18:26 | disposition home or self-care (01) ==
LOC: ED 07:17 → 2N 07:17
DX: Z79.84 Long term (current) use of oral hypoglycemic drugs; I50.9 Heart failure, unspecified; M48.02 Spinal stenosis, cervical region; G95.9 Disease of spinal cord, unspecified; E78.5 Hyperlipidemia, unspecified; R79.89 Other specified abnormal findings of blood chemistry; M47.812 Spondylosis without myelopathy or radiculopathy, cervical region; I65.29 Occlusion and stenosis of unspecified carotid artery; I11.0 Hypertensive heart disease with heart failure; N40.0 Benign prostatic hyperplasia without lower urinary tract symptoms; I63.9 Cerebral infarction, unspecified; R53.1 Weakness; Z79.82 Long term (current) use of aspirin; Z88.5 Allergy status to narcotic agent; R20.2 Paresthesia of skin; M19.90 Unspecified osteoarthritis, unspecified site; Z79.899 Other long term (current) drug therapy; H40.9 Unspecified glaucoma; E11.40 Type 2 diabetes mellitus with diabetic neuropathy, unspecified; Z66 Do not resuscitate

== ENCOUNTER 2025-02-12 05:50 | Inpatient (IN) ==
--- NOTE | 2025-02-04 08:34 | Anesthesiology Consultation ---
Date of Service February 04, 2025 Assessment & Plan (1) Encounter for pre-operative examination: - Infectious disease screening: Per assessment on 02/03- No known recent infectious disease contacts or current infectious disease symptoms. - GLP-1 medication instructions: Patient informed by SUSAN RN to stop 7 days prior to surgery. DOS 02/12. Advised last dose to be 02/02. - Neurology visit (01/14/25): "At this point in time, the patient may continue with his current medication regimen and plan of care. He is to continue with vascular risk factor reduction. He is to continue to follow with all current providers and their recommendations as advised. We will follow up with him in 6 months, and sooner if needed." - Cardiology addendum (01/27/25): "Mr. Mccarthy has a planned TCAR to address his carotid stenosis. He is a moderate risk for cardiac complication perioperatively in the neighborhood of 5%. He does not need further cardiac testing prior to his surgery. - *Hx glidescope intubation; see 12/25/24 cervical spine MRI* Chart Review Chart Review: Acceptable Risk for Surgery and Patient NOT seen in Pre Admission Testing History Surgery Operation Date: 02/12/25 09:50 Proposed Procedures p Left Transcarotid Artery Revascularization - Sebastien Martins MD Height/Weight Height: 5 ft 11 in Weight: 113.398 kg Allergies Allergy/AdvReac Type Severity Reaction Status Date / Time morphine Allergy Mild Itchy Verified 02/04/25 08:28 Medications Home Medications Medication Instructions Recorded Confirmed Last Taken aspirin 81 mg tablet,delayed 81 mg PO QAM 05/19/19 02/03/25 12/24/24 release (Adult Low Dose Aspirin) cyanocobalamin (vitamin B-12) 1,000 mcg PO QAM 05/19/19 02/03/25 12/24/24 1,000 mcg capsule brimonidine 0.1 % eye drops 1 drp OPB BID 10/01/19 02/03/25 12/24/24 (Alphagan P) polyethylene glycol 3350 17 17 gm PO DAILY PRN Constipation 03/12/20 02/03/25 Unknown gram/dose oral powder (Miralax) pen needle, diabetic 32 gauge x #100 ea 09/08/21 01/28/25 Unknown " (BD Ultra-Fine Melva Pen Needle) furosemide 40 mg tablet 40 mg PO DAILY PRN edema #30 tabs 08/09/23 02/03/25 Unknown leg brace (Ankle Brace) #2 ea 03/28/24 01/28/25 Unknown metformin 1,000 mg tablet 1,000 mg PO BID #180 tabs 05/01/24 02/03/25 12/24/24 celecoxib 200 mg capsule 200 mg PO DAILY PRN pain #90 caps 07/08/24 02/03/25 Unknown albuterol sulfate 90 mcg/actuation 2 puff inhalation Q6H PRN 09/23/24 02/03/25 Unknown aerosol inhaler shortness of breath or wheezing #6.7 grams insulin glargine 100 unit/mL (3 25 - 30 unit subcut QPM 10/08/24 02/03/25 12/24/24 mL) subcutaneous pen (Lantus Solostar U-100 Insulin) timolol maleate 0.25 % eye drops 1 drp ophthalmic (eye) BID 10/08/24 02/03/25 0 12/24/24 rosuvastatin 20 mg tablet 10 mg PO HS 01/14/25 02/03/25 Unknown sacubitril 97 mg-valsartan 103 mg 1 tab PO BID 01/14/25 02/03/25 Unknown tablet (Entresto) tirzepatide 7.5 mg/0.5 mL 7.5 mg (0.5 mL) subcut WK #2 mL 01/15/25 02/03/25 Unknown subcutaneous pen injector clopidogrel 75 mg tablet 75 mg PO QAM 90 days #90 tabs 01/20/25 02/03/25 Unknown tamsulosin 0.4 mg capsule 0.8 mg (2 x 0.4 mg) PO HS #180 caps 01/24/25 02/03/25 Unknown pregabalin 50 mg capsule (Lyrica) 50 mg PO BID #180 caps 02/03/25 02/03/25 Unknown Past Medical History Medical History BPH (benign prostatic hyperplasia) Carotid stenosis, right Degenerative cervical disc Diabetes Diabetic nephropathy Diabetic neuropathy GERD (gastroesophageal reflux disease) Glaucoma History of aortic valve disease s/p Medtronic Saleem porcine AVR (2014) 2/2 hx severe aortic stenosis History of skin cancer Ear History of stroke Brain MRI 12/25/2024- Small acute infarct of the right parietal lobe Denies any residual deficits HTN (hypertension) Hx of gout Hyperlipidemia LBBB (left bundle branch block) Leg swelling Intermittent Lumbar stenosis with neurogenic claudication Osteoarthritis Restless leg syndrome Thoracic stenosis Past Family History Family History Mother Myocardial infarction Family history of diabetes mellitus Father Myocardial infarction Grandfather (Maternal) Myocardial infarction Other No family history of adverse response to anesthesia Denies family history of Ovarian cancer Prostate cancer Breast cancer Colorectal cancer Past Surgical History Surgical History H/O eye surgery Left H/O shoulder surgery R/L History of appendectomy History of cardiac cath 2015- no stents History of herniorrhaphy Inguinal History of left cataract surgery History of lumbar fusion x2 L1-S1 decompression with T12-S1 fusion: 07/05/17: "Easy" with glidescope#4, ETT 8.0 at [facility] History of tooth extraction History of total left knee replacement + 2 revisions History of total right knee replacement + revision Hx of colonoscopy Hx of right cataract extraction Social History Smoking Status: Never smoker Do You Dip or Chew Tobacco: No Hx Alcohol Use: No Alcohol type: beer alcohol intake frequency: holidays/special occasions only Hx Substance Use: No substance use type: does not use Lab Results Anesthesia Preop Results Results Anesthesia Widget: WBC 6.95 K/ul (4.8-10.8) 01/29/25 Hgb 15.8 g/dl (14.0-18.0) 01/29/25 Hct 47.6 % (42.0-52.0) 01/29/25 Plt 190 K/uL (130-400) 01/29/25 Na 138 mmol/L (136-145) 01/29/25 K 5.1 mmol/L (3.5-5.1) 01/29/25 Cl 102 mmol/L (98-107) 01/29/25 CO2 31 mmol/L (21-32) 01/29/25 BUN 27 mg/dl (6-23) H 01/29/25 Creat 1.32 mg/dl (0.6-1.4) 01/29/25 Glucose Level 184 mg/dl (70-99(Fasting)) H 01/29/25 POC Glucose 78 mg/dl (70-99) 12/26/24 PT 10.6 Seconds (9.0-12.0) 12/25/24 PTT 27 Seconds (21-31) 12/25/24 INR 1.0 (0.9-1.1) 12/25/24 HA1c 7.9 % (4.5-5.6) H 01/29/25 Testing Electrocardiogram Date: 12/25/24 SR with occasional PVCs at 73bpm. LAD. LBBB. Echocardiogram Date: 12/26/24 EF 55-60%. Moderate HK of the distal anterolateral gurrola. Moderate cLVH. Bioprosthetic AV- well seated. Septal motion consistent with conduction abnormality. No thrombus. Other Testing Brain MRI Date: 12/25/24 Impression: 1. Small acute infarct of the right parietal lobe 2. Cerebral atrophy and chronic small vessel ischemic disease Neck CTA Date: 12/25/24 IMPRESSION: 1. High-grade stenosis of the proximal cervical segment left ICA secondary to atherosclerosis. 2. Dominant right vertebral artery demonstrates moderate stenosis at its origin. Neck MRA Date: 12/25/24 There is a 60% stenosis of the proximal left ICA. Right internal carotid artery: Unremarkable. Extracranial segment is patent with no significant stenosis. No dissection or occlusion. Right vertebral artery: Unremarkable. No significant stenosis. No dissection or occlusion. Left vertebral artery: Unremarkable. No significant stenosis. No dissection or occlusion. Cervical spine MRI Date: 12/25/24 IMPRESSION: 1. Advanced disc degeneration at C6-7, moderate disc degeneration at C3-4, C5-6 and mild disc degeneration at C4-5 with annular disc bulging flattening the ventral thecal sac and flattening the ventral cord at C4-5 and C5-6 with subtle cord edema at C4-5. Recommend neurosurgical consult for decompression. 2. There is a critical spinal canal stenosis at C4-5, severe stenosis at C5-6 and C6-7 and moderate stenosis at C3-4. 3. The neural foramina are poorly visualized secondary to motion artifact. Recommend repeat imaging with sagittal oblique imaging for further evaluation. 4. No evidence of fracture, infection, or tumor.
[2025-02-12] MEDS: LR 15ML/HR IV SCH (06:31)
[2025-02-12] MEDS ORDERED: LIDOCAINE 2% 2 ML VIAL/AMP(20MG/ML) INFIL ONE (07:00)
[2025-02-12] MEDS ORDERED: PROPOFOL IV EMULSION 10 MG/ML 20 ML VIAL IV ONE (07:00)
[2025-02-12] MEDS ORDERED: ONDANSETRON INJ 2 MG/ML 2 ML VIAL ONE (07:00)
[2025-02-12] MEDS ORDERED: GLYCOPYRROLATE 0.2 MG/ML VIAL ONE (07:00)
[2025-02-12] MEDS ORDERED: DEXAMETHASONE SOD INJ 4 MG/ML VIAL ONE (07:00)
[2025-02-12] MEDS ORDERED: MIDAZOLAM HCL 1 MG/ML 2ML VIAL ONE (07:01)
[2025-02-12] MEDS ORDERED: SUGAMMADEX SODIUM 200 MG/2 ML VIAL IV ONE (07:01)
[2025-02-12] MEDS ORDERED: ROCURONIUM BROMIDE 10 MG/ML 5 ML VIAL IV ONE (07:01)
[2025-02-12] MEDS ORDERED: HEPARIN SOD (PORCINE) 1000 UNIT/ML ONE (07:01)
[2025-02-12] MEDS ORDERED: PROTAMINE SULFATE 10 MG/ML 5 ML VIAL IV ONE (07:02)
[2025-02-12] MEDS ORDERED: PHENYLEPHRINE HCL 25 MG/250 ML NSS IV ONE (07:08)
[2025-02-12] MEDS ORDERED: NOREPINEPHRINE BITARTRATE 1 MG/ML 4 ML VIAL IV ONE (07:13)
--- NOTE | 2025-02-12 07:54 | History & Physical Report ---
Date of Service February 12, 2025 History of Present Illness Primary Care Provider: GOVIND Ahn Reason for Consultation Carotid artery stenosis History of Present Illness I had the pleasure of seeing Monet for evaluation of his carotid disease. As you know he is a 74-year-old gentleman who presented to the emergency room on December 25 complaining of right upper extremity weakness according to the ER just minimal. He claims that 5:00 in the morning he woke up with both hands feeling numb which was not unusual for him. The numbness usually resolves after shaking his hands for short period of time but this did not. He does claim that he had weakness but the close he is with both upper extremities rather than just the right upper extremity. 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 He was seen in the orthopedics who is planning on doing surgery on the cervical spine later this year. He had an MRA which showed a 60% narrowing of his left internal carotid artery but an CT angiogram which showed greater than 80% narrowing of his left internal carotid artery. Review of Systems Systems were reviewed. Other than his HPI is positive findings included hypertension diabetes stroke in the past. He does have a history of an aortic valve. Physical Exam Vitals & Measurements Input and Output - Last 24 hours (Last 8 hours) No I/O Data Found: On physical exam he is awake alert in no apparent distress. His blood pressure is 132/78 on the right and 142/80 on the left. His radials and carotids are +2 bilaterally. I cannot appreciate carotid bruits. His lungs were clear his heart irregular rhythm. Abdominal exam was benign. I cannot appreciate aortic pulsation due to his body habitus. His pedal's are +1 bilaterally with normal capillary refill. Neurologic exam shows foot drop on both sides. Rest of his neuroexam was intact. Assessment/Plan 1. Carotid stenosis, bilateral At this point I do not think his symptoms upon presentation to the emergency room and may or secondary to the left carotid however he does have a greater than 80% asymptomatic narrowing of this artery. We did offer him intervention which included either a endarterectomy or TCAR. We went over the risks options benefits of both procedures. He elected to go ahead with the TCAR. The risks options benefits were documented on the consent form. Being that he is asymptomatic at this time we will schedule his TCAR for 3 to 4 weeks from now. He did stop his aspirin. He will restart that today and continue on his Plavix and statin. Thank you very much for letting us participate in the care of this patient. Sincerely, Hakeem Martins MD Attestation I have personally spent __40___ minutes performing lrmb-[id number]-mooy and [id number]-face activities on this date of service. Activities Include: _x_ review of the medical record _x_ obtaining a history _x_ physical exam/evaluation __ review labs _x_ review radiology reports __ counseling/educating patient/family/caregiver __x discussion/referral to other healthcare professional __ documenting care in the medical record _x_ independent interpretation of results cta and MRA at [facility] __ communication of results to patient/family/caregiver __ coordination of care Problem List/Past Medical History Ongoing Aortic stenosis HTN (hypertension) Hyperlipidemia S/p AVR Weight disorder Medications Home aspirin(aspirin 81 mg oral tablet, chewable), 81 mg= 1 tab, PO, Daily, 11 refills Allergies amLODIPine leg swelling morphine ithcing Social History Smoking Status Never smoked cigarettes Family History CABG - Coronary artery bypass graft: Mother and Father. Diabetes mellitus: Mother. Heart attack: Mother, Father and Paternal Uncle. Heart disease: Mother, Father and Paternal Uncle. Health Status Family Member(s) Sister: History is negative Signature Line Electronic Signature on File Sebastien Martins MD Author Signature Dt/Tm: 01/23/2025 11:53 AM Bilingual Nanny Harry Platt [facility] [place] [address], [address] [place] [address] EJS Result Type: .Outpt Ltr Date of Service: January 23, 2025 10:07 EDT Authorization Status: Final Subject: Consult Note Author or Import Date: MD Martins Eugene J on January 23, 2025 11:53 EDT Verified By: MD Martins Eugene J on January 23, 2025 11:53 EDT Encounter info: [id number], [facility], Clinic, 01/23/2025 - 01/23/2025 Allergies Allergy/AdvReac Type Severity Reaction Status Date / Time morphine Allergy Mild Itchy Verified 02/12/25 06:11 Home Medications Medication Instructions Recorded Confirmed Type aspirin 81 mg tablet,delayed 81 mg PO QAM 05/19/19 02/12/25 History release (Adult Low Dose Aspirin) cyanocobalamin (vitamin B-12) 1,000 mcg PO QAM 05/19/19 02/12/25 History 1,000 mcg capsule brimonidine 0.1 % eye drops 1 drp OPB BID 10/01/19 02/12/25 History (Alphagan P) polyethylene glycol 3350 17 17 gm PO DAILY PRN Constipation 03/12/20 02/12/25 History gram/dose oral powder (Miralax) pen needle, diabetic 32 gauge x #100 ea 09/08/21 01/28/25 Rx 5/32" (BD Ultra-Fine Melva Pen Needle) furosemide 40 mg tablet 40 mg PO DAILY PRN edema #30 tabs 08/09/23 02/12/25 Rx leg brace (Ankle Brace) #2 ea 03/28/24 01/28/25 Rx metformin 1,000 mg tablet 1,000 mg PO BID #180 tabs 05/01/24 02/12/25 Rx celecoxib 200 mg capsule 200 mg PO DAILY PRN pain #90 caps 07/08/24 02/12/25 Rx albuterol sulfate 90 mcg/actuation 2 puff inhalation Q6H PRN 09/23/24 02/03/25 Rx aerosol inhaler shortness of breath or wheezing #6.7 grams insulin glargine 100 unit/mL (3 25 - 30 unit subcut QPM 10/08/24 02/12/25 History mL) subcutaneous pen (Lantus Solostar U-100 Insulin) timolol maleate 0.25 % eye drops 1 drp ophthalmic (eye) BID 10/08/24 02/12/25 History rosuvastatin 20 mg tablet 10 mg PO HS 01/14/25 02/12/25 History sacubitril 97 mg-valsartan 103 mg 1 tab PO BID 01/14/25 02/12/25 History tablet (Entresto) tirzepatide 7.5 mg/0.5 mL 7.5 mg (0.5 mL) subcut WK #2 mL 01/15/25 02/12/25 Rx subcutaneous pen injector clopidogrel 75 mg tablet 75 mg PO QAM 90 days #90 tabs 01/20/25 02/12/25 Rx tamsulosin 0.4 mg capsule 0.8 mg (2 x 0.4 mg) PO HS #180 caps 01/24/25 02/12/25 Rx pregabalin 50 mg capsule (Lyrica) 50 mg PO BID #180 caps 02/03/25 02/12/25 Rx Past Med/Surg History Problem List Other cervical disc degeneration at C6-C7 level Other cervical disc degeneration at C5-C6 level Carotid stenosis Cervical spondylosis Cervical myelopathy Cervical spinal stenosis Distal paresthesia (Acute) Diabetic nephropathy Diabetic neuropathy BPH (benign prostatic hyperplasia) Microcytic anemia Thoracic spondylosis with myelopathy Encounter for pre-operative examination Hydrocele Thoracic stenosis Diabetes mellitus, type 2 Hypertension (Chronic) Hyperlipidemia (Chronic) Lumbar stenosis with neurogenic claudication Medical History BPH (benign prostatic hyperplasia) Carotid stenosis, right Degenerative cervical disc Diabetes Diabetic nephropathy Diabetic neuropathy GERD (gastroesophageal reflux disease) Glaucoma History of aortic valve disease s/p Medtronic Saleem porcine AVR (2014) 2/2 hx severe aortic stenosis History of skin cancer Ear History of stroke Brain MRI 12/25/2024- Small acute infarct of the right parietal lobe Denies any residual deficits HTN (hypertension) Hx of gout Hyperlipidemia LBBB (left bundle branch block) Leg swelling Intermittent Lumbar stenosis with neurogenic claudication Osteoarthritis Restless leg syndrome Thoracic stenosis Surgical History H/O eye surgery Left H/O shoulder surgery R/L History of appendectomy History of cardiac cath 2015- no stents History of herniorrhaphy Inguinal History of left cataract surgery History of lumbar fusion x2 L1-S1 decompression with T12-S1 fusion: 07/05/17: "Easy" with glidescope#4, ETT 8.0 at [facility] History of tooth extraction History of total left knee replacement + 2 revisions History of total right knee replacement + revision Hx of colonoscopy Hx of right cataract extraction Family History Mother Myocardial infarction Family history of diabetes mellitus Father Myocardial infarction Grandfather (Maternal) Myocardial infarction Other No family history of adverse response to anesthesia Denies family history of Ovarian cancer Prostate cancer Breast cancer Colorectal cancer Social History Smoking Status: Never smoker Second Hand Exposure: No (in past); Do You Dip or Chew Tobacco: No; Tobacco Cessation Education Requested by Patient: No Hx Alcohol Use: No Hx Substance Use: No Preferred Language: Malagasy Communication Ability: Effective Visual Impairment: No Limitations Hearing Ability: Normal 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 Required: No Beliefs That Will Affect Care: None marital status: / Current Living Situation: Family Current Living Situation Comment: his son Ignacio is living with him now current occupational status: retired 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
--- NOTE | 2025-02-12 07:55 | History & Physical Bridge Note ---
Date of Service February 12, 2025 History & Physical Bridge Note I have examined the patient, reviewed the History & Physical and in the interval since the performance of the History & Physical I have noted the following changes of clinical significance: no changes noted
[2025-02-12] MEDS: CEFAZOLIN 2,000 MG/15 ML SYR IV SCH (08:20)
[2025-02-12] MEDS ORDERED: ONDANSETRON INJ 2 MG/ML 2 ML VIAL IV PRN (08:22)
[2025-02-12] MEDS ORDERED: ATROPINE SULFATE 0.1 MG/ML 10ML SYR IV PRN (08:22)
[2025-02-12] MEDS: ceFAZolin 330 MG/ML 1 GM VIAL ONE (09:29)
[2025-02-12] MEDS: THROMBIN FOR SOLN 20000 UNIT KIT ONE (09:29)
[2025-02-12] MEDS: GELATIN SPONGE SZ 100 ONE (09:29)
[2025-02-12] MEDS: VISIPAQUE IV ONE (09:30)
[2025-02-12] MEDS: SURGICEL ABSORB HEMOSTAT 2IN X 14IN TOP ONE (09:30)
[2025-02-12] MEDS: BUPIVACAINE/EPINEPHRINE 0.5% MPF 1:200,000 30 ML VIAL ONE (09:36)
--- NOTE | 2025-02-12 09:42 | Procedure Note ---
Angiogram Post Procedure Fluoroscopy Time (minutes): 2.3 Radiation (mGy): 28 Contrast: 9 Post Operative Report Pre & Post Diagnosis Operation Date: 02/12/25 07:30 Pre-Op Diagnosis: Left Internal Carotid Artery Stenosis Post-Op Diagnosis: Left Internal Carotid Artery Stenosis I identified the patient and participated in the time-out.: Yes Procedure Operation Date: 02/12/25 07:30 Actual Procedures p Left Transcarotid Artery Revascularization, Ultrasound of Right Common Femoral Vein(Left) - Sebastien Martins MD Surgeon Sebastien Martins MD Bonding Equipment Operator Roseanne,PAC Estimated Blood Loss 10 Findings Consistent with Post-Op Diagnosis Specimens none Anesthesia Type General Complications none Disposition Accompanied Patient To Recovery: No Disposition: Recovery Room Indications This is a 74-year-old gentleman who has had an episode of right upper extremity weakness which resolved. He was found to have a severe stenosis of the left internal carotid artery. Intervention was recommended. He elected to go ahead with a TCAR approach. I have discussed the risks options and benefits of the procedure with the p atient. The patient understands the risks options and benefits and agrees to the procedure. Description of Procedure The patient was taken to the operating room and placed in supine position. After general anesthesia was accomplished the groins and left side of the neck and chest were prepped and draped in a sterile manner. Timeout was performed and the patient was identified. A transverse incision was made just above the clavicle between the heads of the sternocleidomastoid. This was carried down to where the common carotid artery was identified. It was isolated and slung with an umbilical tape. It was given 9000units of heparin at that time. Ultrasound was then used to localize the right common femoral vein. The vein was patent and compressed easily. Under ultrasound guidance the right common femoral vein was punctured and the venous sheath was inserted. This was aspirated and flushed with heparinized saline. An ACT at that time was 285. Using micropuncture technique the common carotid artery was punctured. The micro sheath was inserted to 3 cm. Injection was then done showing the bifurcation. There was a significant lesion seen just beyond the origin of the internal carotid artery on the left side. We reinserted the micro wire and passed it into the external carotid. We then advanced the dilator and sheath into the external carotid. The dilater and wire were removed. We then inserted the J- wire into the external carotid artery. The TCAR sheath was inserted. Once it was in place and held against the artery it was sutured to the chest wall and the incision edge. We then flushed the tubing appropriately. The venous return tubing was clamped onto the TCAR sheath. It was flushed through and then attached to the venous inflow sheath in the right groin. The sheath was checked for flow. The common carotid artery was then clamped. Flow through the venous return sheath was again checked and found to be adequate. We then inserted a 5.5 x 35 balloon backloaded on the wire. The wire was passed through the lesion into the petrous portion of the internal carotid. The 5.5 balloon was then advanced to the lesion. The lesion was then predilated with the 5.5 mm balloon. The balloon was removed. We then inserted the 9/7 x 40 stent. This was deployed across the lesion without difficulty. The catheter was removed. The carotid was allowed to go 2 minutes with flow reversal. We did another angiogram which showed approximately 10% residual stenosis and a nicely seated stent.The wire was removed and the common carotid artery was unclamped. The venous return tubing was clamped and removed from the TCAR sheath. The blood was allowed to flow back into the venous system. The TCAR sheath was then removed and the 5-0 Prolene suture securely tied. Hemostasis was noted of the puncture site. The patient was given 25 mg of protamine. Another ACT was performed which was 145.. The sheath was pulled from the groin and pressure was applied. Wound was irrigated with Ancef solution. Adequate hemostasis was obtained of the wound. Once this was noted the wound was closed in usual fashion using a 3-0 Vicryl suture for the subcutaneous layer and a 4-0 subcuticular Vicryl suture for the skin edges. Dermabond was used for dressing.The patient left the operation room in satisfactory condition and tolerated the procedure well. All needle and sponge counts were correct at the end of the procedure. Terri Villalta Pac assisted due to lack of resident availability and was necessary for positioning, draping, retraction, wound closure deep layers, subcutaneous tissue, and skin closure and was necessary for assisting with the case. I attest to the content of the Intraoperative Record and any orders documented therein. Any exceptions are noted below.
[2025-02-12] MEDS ORDERED: PHARMACY GLYCEMIC MGMT CONSULT PRN (10:51)
[2025-02-12] MEDS ORDERED: STAT IV Infusion **Titration per Protocol STA (10:51)
[2025-02-12] MEDS ORDERED: ALBUTEROL HFA 8 GM INHALER INH PRN (10:51)
[2025-02-12] MEDS ORDERED: TIRZEPATIDE 7.5 MG/0.5 ML SQ SCH (10:51)
[2025-02-12] MEDS ORDERED: PHENYLEPHRINE/NSS 25 MG/250 ML BAG IV PRN (10:51)
[2025-02-12] MEDS ORDERED: CeleBREX 200 MG CAP PO PRN (10:51)
[2025-02-12] MEDS: HYDROmorphone INJ 0.5 MG/0.5 ML SYR IV STA (11:07)
[2025-02-12] MEDS: HYDROmorphone INJ 0.5 MG/0.5 ML SYR ONE (11:08)
[2025-02-12] MEDS ORDERED: CARBOHYDRATES FOR HYPOGLYCEMIA PO PRN (11:30)
[2025-02-12] MEDS ORDERED: GLUCOSE 10 TAB/TUBE PO PRN (11:30)
[2025-02-12] MEDS ORDERED: GLUCOSE 40% GEL 15 GM TUBE PO PRN (11:30)
[2025-02-12] MEDS ORDERED: DEXTROSE 50% 50 ML SYRINGE IV PRN (11:30)
[2025-02-12] MEDS ORDERED: GLUCAGON FOR INJ 1 MG VIAL SQ PRN (11:30)
--- NOTE | 2025-02-12 11:46 | Critical Care Consultation ---
Date of Consultation February 12, 2025 Assessment & Plan (1) Carotid stenosis: Reason Critically Ill: Postop day 0 from endovascular AAA repair PLAN: Neuro: Analgesia per vascular surgery Resp: Tolerating room air CV: Aortic stenosis status post porcine aortic valve replacement History diastolic heart failure Hypertension - Continue aspirin, Plavix, ARB and Lasix ID: No indication for anti-infectives GI/Nutrition: Diet per vascular surgery Heme: Anticipated mild postprocedural anemia DVT prophylaxis: SCDs Endocrine: ICU hyperglycemia protocol - Diabetes mellitus Vascular access: Peripheral IV Code Status: Full code Disposition: ICU: Critical Care will sign off (2) Diabetes mellitus, type 2: (3) Hypertension: (4) Hyperlipidemia: (5) Aortic valve replaced: (6) Aortic stenosis: (7) H/O aortic valve replacement with porcine valve: History of Present Illness Reason for Consultation: Status post TCAR Attending Physician: Sebastien Martins MD History of Present Illness Patient is a 74-year-old male with a past medical history of aortic valve replacement with subsequent stenosis, minimal coronary artery disease, hypertension, diastolic heart failure and a prior CVA with a left carotid stenosis Allergies Allergy/AdvReac Type Severity Reaction Status Date / Time morphine Allergy Mild Itchy Verified 02/12/25 06:11 Home Medications Medication Instructions Recorded Confirmed Type aspirin 81 mg tablet,delayed 81 mg PO QAM 05/19/19 02/12/25 History release (Adult Low Dose Aspirin) cyanocobalamin (vitamin B-12) 1,000 mcg PO QAM 05/19/19 02/12/25 History 1,000 mcg capsule brimonidine 0.1 % eye drops 1 drp OPB BID 10/01/19 02/12/25 History (Alphagan P) polyethylene glycol 3350 17 17 gm PO DAILY PRN Constipation 03/12/20 02/12/25 History gram/dose oral powder (Miralax) pen needle, diabetic 32 gauge x #100 ea 09/08/21 01/28/25 Rx 5/32" (BD Ultra-Fine Melva Pen Needle) furosemide 40 mg tablet 40 mg PO DAILY PRN edema #30 tabs 08/09/23 02/12/25 Rx leg brace (Ankle Brace) #2 ea 03/28/24 01/28/25 Rx metformin 1,000 mg tablet 1,000 mg PO BID #180 tabs 05/01/24 02/12/25 Rx celecoxib 200 mg capsule 200 mg PO DAILY PRN pain #90 caps 07/08/24 02/12/25 Rx albuterol sulfate 90 mcg/actuation 2 puff inhalation Q6H PRN 09/23/24 02/03/25 Rx aerosol inhaler shortness of breath or wheezing #6.7 grams insulin glargine 100 unit/mL (3 25 - 30 unit subcut QPM 10/08/24 02/12/25 History mL) subcutaneous pen (Lantus Solostar U-100 Insulin) timolol maleate 0.25 % eye drops 1 drp ophthalmic (eye) BID 10/08/24 02/12/25 History rosuvastatin 20 mg tablet 10 mg PO HS 01/14/25 02/12/25 History sacubitril 97 mg-valsartan 103 mg 1 tab PO BID 01/14/25 02/12/25 History tablet (Entresto) tirzepatide 7.5 mg/0.5 mL 7.5 mg (0.5 mL) subcut WK #2 mL 01/15/25 02/12/25 Rx subcutaneous pen injector clopidogrel 75 mg tablet 75 mg PO QAM 90 days #90 tabs 01/20/25 02/12/25 Rx tamsulosin 0.4 mg capsule 0.8 mg (2 x 0.4 mg) PO HS #180 caps 01/24/25 02/12/25 Rx pregabalin 50 mg capsule (Lyrica) 50 mg PO BID #180 caps 02/03/25 02/12/25 Rx Patient History Medical History BPH (benign prostatic hyperplasia) Carotid stenosis, right Degenerative cervical disc Diabetes Diabetic nephropathy Diabetic neuropathy GERD (gastroesophageal reflux disease) Glaucoma History of aortic valve disease s/p [employer] Saleem porcine AVR (2014) 2/2 hx severe aortic stenosis History of skin cancer Ear History of stroke Brain MRI 12/25/2024- Small acute infarct of the right parietal lobe Denies any residual deficits HTN (hypertension) Hx of gout Hyperlipidemia LBBB (left bundle branch block) Leg swelling Intermittent Lumbar stenosis with neurogenic claudication Osteoarthritis Restless leg syndrome Thoracic stenosis Surgical History H/O eye surgery Left H/O shoulder surgery R/L History of appendectomy History of cardiac cath 2016- no stents History of herniorrhaphy Inguinal History of left cataract surgery History of lumbar fusion x2 L1-S1 decompression with T12-S1 fusion: 07/05/17: "Easy" with glidescope#4, ETT 8.0 at [facility] History of tooth extraction History of total left knee replacement + 2 revisions History of total right knee replacement + revision Hx of colonoscopy Hx of right cataract extraction Family History Mother Myocardial infarction Family history of diabetes mellitus Father Myocardial infarction Grandfather (Maternal) Myocardial infarction Other No family history of adverse response to anesthesia Denies family history of Ovarian cancer Prostate cancer Breast cancer Colorectal cancer Social History Smoking Status: Never smoker Second Hand Exposure: No (in past); Do You Dip or Chew Tobacco: No; Tobacco Cessation Education Requested by Patient: No Hx Alcohol Use: No Hx Substance Use: No Preferred Language: Amharic Communication Ability: Effective Visual Impairment: No Limitations Hearing Ability: Normal Requirements Analyst Required: No Beliefs That Will Affect Care: None marital status: / Current Living Situation: Family Current Living Situation Comment: his son Ignacio is living with him now current occupational status: retired 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 nontoxic. Skin: Warm, dry, Head: Atraumatic Neck: Left incision clean dry intact no obvious hematoma Ears, nose, mouth and throat: airway patent Cardiovascular: Normal peripheral perfusion Respiratory: no respiratory distress Gastrointestinal: Non distended Musculoskeletal: No deformity Results & Data Results & Data Vital Signs (Past 12 Hours) Vital Signs Temp Pulse Pulse Resp BP BP BP 02/12/25 10:30 36.3 C L 77 12 130/75 121/54 L 02/12/25 10:20 79 14 124/76 117/54 L 02/12/25 10:10 81 19 102/76 119/53 L 02/12/25 10:00 84 22 141/78 H 122/56 L 02/12/25 09:54 36.3 C L 85 16 135/87 02/12/25 06:19 36.8 C 73 18 110/62 101/69 Pulse Ox O2 Del Method O2 Flow Rate 02/12/25 10:30 94 Nasal Cannula 2 02/12/25 10:20 95 Nasal Cannula 2 02/12/25 10:10 96 Oxymask 4 02/12/25 10:00 96 Oxymask 11 02/12/25 09:54 96 Oxymask 11 02/12/25 06:19 95 Room Air Critical Care Results & Data Vital Signs (Past 12 Hours) Vital Signs Temp Pulse Pulse Resp BP BP BP 02/12/25 10:30 36.3 C L 77 12 130/75 121/54 L 02/12/25 10:20 79 14 124/76 117/54 L 02/12/25 10:10 81 19 102/76 119/53 L 02/12/25 10:00 84 22 141/78 H 122/56 L 02/12/25 09:54 36.3 C L 85 16 135/87 02/12/25 06:19 36.8 C 73 18 110/62 101/69 Pulse Ox O2 Del Method O2 Flow Rate 02/12/25 10:30 94 Nasal Cannula 2 02/12/25 10:20 95 Nasal Cannula 2 02/12/25 10:10 96 Oxymask 4 02/12/25 10:00 96 Oxymask 11 02/12/25 09:54 96 Oxymask 11 02/12/25 06:19 95 Room Air Lab & Micro Results (Past 24 Hours) No Data to Display No Data to Display No Data to Display I & O Totals 24 Hours 02/11/25 02/12/25 02/13/25 06:59 06:59 06:59 Intake Total 1250 / 1250 Output Total 10 / 10 Balance 1240 / 1240 Cumulative 01/24/25 08:53 thru 02/12/25 10:27 Intake Total 1250 Output Total 10 Balance 1240 RT Ventilator Mngmt (Last Documented) Ventilator Ordered Settings Respiratory Rate 12 02/12/25 10:30 Ventilator - PT Measurements Respiratory Rate 12 Coding Level of Care Code 35191 INT INP/OBS CARE 1/40MIN Diagnoses Bilateral carotid artery stenosis I65.23 Laterality: bilateral Diabetes mellitus, type 2 E11.9 Hypertension I10 Hyperlipidemia E78.5 Aortic valve replaced Z95.2 Aortic stenosis I35.0 H/O aortic valve replacement with porcine valve Z95.3 (1) Carotid stenosis Laterality: bilateral Qualified Code(s): I65.23 - Occlusion and stenosis of bilateral carotid arteries
--- NOTE | 2025-02-12 12:32 | Anesthesiology Progress Note ---
Date of Service February 12, 2025 Anesthesia Post Procedure Vital Signs Vital Signs: Temp Pulse Pulse Resp BP BP BP 02/12/25 10:30 36.3 C L 77 12 130/75 121/54 L 02/12/25 10:20 79 14 124/76 117/54 L 02/12/25 10:10 81 19 102/76 119/53 L 02/12/25 10:00 84 22 141/78 H 122/56 L 02/12/25 09:54 36.3 C L 85 16 135/87 02/12/25 06:19 36.8 C 73 18 110/62 101/69 Pulse Ox O2 Del Method O2 Flow Rate 02/12/25 10:30 94 Nasal Cannula 2 02/12/25 10:20 95 Nasal Cannula 2 02/12/25 10:10 96 Oxymask 4 02/12/25 10:00 96 Oxymask 11 02/12/25 09:54 96 Oxymask 11 02/12/25 06:19 95 Room Air Transfer of Care Handoff Completed per policy Notes Mental Status: alert / awake / arousable Patient Amnestic to Procedure: Yes Nausea / Vomiting: adequately controlled Pain: adequately controlled Airway Patency, RR, SpO2: stable & adequate BP & HR: stable & adequate Hydration State: stable & adequate Anesthetic Complications: no major complications apparent and Pt Satisfied with anesthetic care
--- NOTE | 2025-02-12 12:33 | Pharmacy Report ---
Pharmacy Glycemic Short Note 2 - Date of Service February 12, 2025 - Glycemic Short BSG Results (Last 24 hours): 02/12/25 02/12/25 06:11 09:56 POC Glucose 128 H 159 H OUTPATIENT ANTIDIABETIC REGIMEN: * Lantus 25-30 units qPM, metformin 1000 mg BID, Tirzepatide * A1c 7.9% 01/29/25 ASSESSMENT: * Patient admitted POD #0 following TCAR. * BSGs 128-159 mg/dL with dexamethasone given * Will give between weight stress 3/ outpatient dosing and weight stress 2 weight dosing initially * Monitor for needed changes PLAN FOR INPATIENT GLYCEMIC CONTROL: * Hold outpatient oral diabetes medications * Basal insulin * Lantus 25 units x 1 * Bolus insulin * NovoLog per scale ACHS or Q6hrs while NPO * Goal Range: Low 110 mg/dL - High 160 mg/dL * Correction Factor: 25 mg/dL/unit * Nutritional / Prandial insulin per carb ratio of 1 unit per 8 grams CHO consumed
[2025-02-12] MEDS: LANTUS PER UNIT CHARGE SC SCH (15:01)
[2025-02-12] MEDS: INSULIN ASPART PER UNIT CHARGE SC SCH (15:02)
[2025-02-12] MEDS: LACTATED RINGER'S 1,000 ML IV SCH (15:15)
[2025-02-12] MEDS: POLYETHYLENE (MIRALAX) 17 GM PACK PO PRN (17:54)
[2025-02-12] MEDS ORDERED: NON-FORMULARY MEDICATION (Insulin Glargine [Lantus Solostar U-100 Insulin] 100 unit/mL (3 subcut SCH (21:00)
[2025-02-12] MEDS: BRIMONIDINE TAR 0.1% 75 DROPS/5 ML BTL OP SCH (21:14)
[2025-02-12] MEDS: TIMOLOL MALEATE 0.25% OP SOLN 5 ML BTL OP SCH (21:15)
[2025-02-12] MEDS: ROSUVASTATIN CALCIUM 10 MG TAB PO SCH (21:15)
[2025-02-12] MEDS: PREGABALIN 50 MG CAP PO SCH (21:15)
[2025-02-12] MEDS: TAMSULOSIN HCL 0.4 MG CAP PO SCH (21:15)
[2025-02-12] MEDS: VALSARTAN/SACUBITRIL 103/97MG TAB PO SCH (21:16)
[2025-02-12] MEDS: ONDANSETRON INJ 2 MG/ML 2 ML VIAL IV PRN (22:28)
[2025-02-13 06:10] VITALS: TEMP 98.6
[2025-02-13] MEDS: FUROSEMIDE 40 MG TAB PO PRN (07:54)
[2025-02-13] MEDS: CLOPIDOGREL BISULFATE 75 MG TAB PO SCH (07:55)
[2025-02-13] MEDS: ASPIRIN 81 MG ECTAB PO SCH (07:55)
[2025-02-13] MEDS: CYANOCOBALAMIN (B-12) 500 MCG TABLET PO SCH (07:56)
[2025-02-13] MEDS: MIDODRINE HCL 10 MG TAB PO SCH (11:12)
--- NOTE | 2025-02-13 12:25 | Surgery Progress Note ---
Date of Service February 13, 2025 Assessment & Plan (1) Carotid stenosis: Plan: Patient pod 1 from a left tcar. Doing well Will d/c today (2) Postoperative hypotension: Plan: Patient had intermittent hypotension post op. Treated with midodrine. Will d\c on midodrine Admission and Anticipated Discharge Date Admission Date: February 12, 2025 Subjective Patient without complaints. Denies any focal defecits. Physical Exam Physical Exam: Constitutional: WD/WN, vitals as a yaa Respiratory: normal respiratory effort; no respir atory distress Cardiovascular: Rate/Rhythm: regul ar rate and regula r rhythm Skin: + incision (dry a nd clean) Neurologic: CN's II-XI intact bilaterally and mo ves all extremitie s Psychiatric: A+Ox3, euthymic af fect Results & Data Vital Signs (Past 12 Hours) Vital Signs Temp Pulse Resp BP Pulse Ox 02/13/25 09:30 126/62 02/13/25 09:22 90/58 L 02/13/25 09:18 53 L 14 92 02/13/25 09:06 55 L 14 93 02/13/25 09:01 121/70 02/13/25 09:01 121/70 02/13/25 08:54 54 L 17 97 02/13/25 08:31 132/93 02/13/25 08:31 132/93 02/13/25 08:18 57 L 16 94 02/13/25 08:09 59 L 16 97 02/13/25 08:01 121/70 02/13/25 08:01 121/70 02/13/25 07:54 58 L 17 95 02/13/25 07:09 53 L 16 83 L 02/13/25 06:31 110/65 02/13/25 06:24 57 L 19 94 02/13/25 06:01 141/81 H 02/13/25 06:00 37 C 61 19 95 02/13/25 05:31 133/82 02/13/25 05:31 133/82 02/13/25 05:31 133/82 02/13/25 05:31 133/82 02/13/25 05:30 64 19 94 02/13/25 05:03 55 L 16 96 02/13/25 04:24 53 L 14 85 L 02/13/25 04:02 118/73 02/13/25 04:02 118/73 02/13/25 03:33 55 L 20 87 L 02/13/25 03:31 105/62 02/13/25 03:31 105/62 02/13/25 03:30 62 18 85 L 02/13/25 03:00 55 L 16 85 L 02/13/25 02:32 108/82 02/13/25 02:32 108/82 02/13/25 02:30 54 L 19 94 02/13/25 02:03 64 21 95 02/13/25 01:31 136/86 02/13/25 01:31 136/86 02/13/25 01:24 26 H 93 02/13/25 01:18 64 14 95 02/13/25 00:31 113/84 (1) Carotid stenosis Laterality: bilateral Qualified Code(s): I65.23 - Occlusion and stenosis of bilateral carotid arteries
--- NOTE | 2025-02-13 12:49 | Discharge Summary ---
Date of Service February 13, 2025 Admission HPI Per Admitting Provider Reason for Consultation Carotid artery stenosis History of Present Illness I had the pleasure of seeing Monet for evaluation of his carotid disease. As you know he is a 74-year-old gentleman who presented to the emergency room on December 25 complaining of right upper extremity weakness according to the ER just minimal. He claims that 5:00 in the morning he woke up with both hands feeling numb which was not unusual for him. The numbness usually resolves after shaking his hands for short period of time but this did not. He does claim that he had weakness but the close he is with both upper extremities rather than just the right upper extremity. 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 He was seen in the orthopedics who is planning on doing surgery on the cervical spine later this year. He had an MRA which showed a 60% narrowing of his left internal carotid artery but an CT angiogram which showed greater than 80% narrowing of his left internal carotid artery. Review of Systems Systems were reviewed. Other than his HPI is positive findings included hypertension diabetes stroke in the past. He does have a history of an aortic valve. Physical Exam Vitals & Measurements Input and Output - Last 24 hours (Last 8 hours) No I/O Data Found: On physical exam he is awake alert in no apparent distress. His blood pressure is 132/78 on the right and 142/80 on the left. His radials and carotids are +2 bilaterally. I cannot appreciate carotid bruits. His lungs were clear his heart irregular rhythm. Abdominal exam was benign. I cannot appreciate aortic pulsation due to his body habitus. His pedal's are +1 bilaterally with normal capillary refill. Neurologic exam shows foot drop on both sides. Rest of his neuroexam was intact. Assessment/Plan 1. Carotid stenosis, bilateral At this point I do not think his symptoms upon presentation to the emergency room and may or secondary to the left carotid however he does have a greater than 80% asymptomatic narrowing of this artery. We did offer him intervention which included either a endarterectomy or TCAR. We went over the risks options benefits of both procedures. He elected to go ahead with the TCAR. The risks options benefits were documented on the consent form. Being that he is asymptomatic at this time we will schedule his TCAR for 3 to 4 weeks from now. He did stop his aspirin. He will restart that today and continue on his Plavix and statin. Thank you very much for letting us participate in the care of this patient. Sincerely, Hakeem Martins MD Attestation I have personally spent __40___ minutes performing [id number] and [id number] activities on this date of service. Activities Include: _x_ review of the medical record _x_ obtaining a history _x_ physical exam/evaluation __ review labs _x_ review radiology reports __ counseling/educating patient/family/caregiver __x discussion/referral to other healthcare professional __ documenting care in the medical record _x_ independent interpretation of results cta and MRA at [facility] __ communication of results to patient/family/caregiver __ coordination of care Problem List/Past Medical History Ongoing Aortic stenosis HTN (hypertension) Hyperlipidemia S/p AVR Weight disorder Medications Home aspirin(aspirin 81 mg oral tablet, chewable), 81 mg= 1 tab, PO, Daily, 11 refills Allergies amLODIPine leg swelling morphine ithcing Social History Smoking Status Never smoked cigarettes Family History CABG - Coronary artery bypass graft: Mother and Father. Diabetes mellitus: Mother. Heart attack: Mother, Father and Paternal Uncle. Heart disease: Mother, Father and Paternal Uncle. Health Status Family Member(s) Sister: History is negative Signature Line Electronic Signature on File Sebastien Martins MD Author Signature Dt/Tm: 01/23/2025 11:53 AM Planning Feeder Harry Platt [facility], [address] [place] [address] EJS Result Type: .Outpt Ltr Date of Service: January 23, 2025 10:07 EDT Authorization Status: Final Subject: Consult Note Author or Import Date: MD Matrins Eugene J on January 23, 2025 11:53 EDT Verified By: MD Martins Eugene J on January 23, 2025 11:53 EDT Encounter info: [id number], [place] [id number], Clinic, 01/23/2025 - 01/23/2025 Admission Exam Per Admitting Provider On physical exam he is awake alert in no apparent distress. His blood pressure is 132/78 on the right and 142/80 on the left. His radials and carotids are +2 bilaterally. I cannot appreciate carotid bruits. His lungs were clear his heart irregular rhythm. Abdominal exam was benign. I cannot appreciate aortic pulsation due to his body habitus. His pedal's are +1 bilaterally with normal capillary refill. Neurologic exam shows foot drop on both sides. Rest of his neuroexam was intact. Principal Diagnosis Left internal carotid artery stensosis Discharge Exam Constitutional: WD/WN, vitals as above Respiratory: normal respiratory effort; no respiratory distress Cardiovascular: Rate/Rhythm: regular rate and regular rhythm Skin: + incision (dry and clean) Neurologic: CN's II-XI intact bilaterally and moves all extremities Psychiatric: A+Ox3, euthymic affect Discharge Data Allergies Allergy/AdvReac Type Severity Reaction Status Date / Time morphine Allergy Mild Itchy Verified 02/12/25 06:11 Consultations 02/12/25 10:51 Consult Area Field Person Routine Procedures Performed Operation Date: 02/12/25 07:30 Actual Procedures p Left Transcarotid Artery Revascularization, Ultrasound of Right Common Femoral Vein(Left) - Sebastien Martins MD Ordered Studies 02/12/25 07:33 EV angio carotid cerv LT Routine US EV guide vascular access Routine Hospital Course (1) Carotid stenosis: Patient pod 1 from a left tcar. Doing well Will d/c today (2) Postoperative hypotension: Patient had intermittent hypotension post op. Treated with midodrine. Will d\\c on midodrine Total Time Total Time Spent Total Time Spent (In Minutes): x Discharge Plan Discharge Items Patient Disposition: Home - Self-Care Reason For Visit: Left Internal Carotid Artery Stenosis Discharge Diagnosis: Left internal carotid artery stenosis Activity: Per Instructions section Non-emergency contact: Surgeon Call non-emergency contact if: your temperature is above 101.5, your wound has increased redness, your wound has increased drainage and your wound pain has increased Follow-up/Referrals: Chio Westfall CRNP [Primary Care Provider] - 02/19/25 1:30 pm (Primary Care hospital follow up scheduled on 02/19/25 at 1:30 with Ej Moreno) Diet: Carb Consistent or DM2 and Heart Healthy Addtl Attending Provider Instructions: SPECIAL CARE INSTRUCTIONS: Diet: * You may return to previous diet. Medications: * Continue to take Aspirin, brilinta, and statin as directed. Incision Care: * You may shower, but do not rub incision. You may let the warm soapy water run over it. Be sure to dry the incision well after bathing. * Do not shave directly over the incision until it is healed. * DO NOT IMMERSE THE INCISION IN A TUB/POOL/etc. UNTIL HEALED. Restrictions: * Do not drive for at least one week or if you are still taking any narcotic pain medication. * Do not lift anything heavier than a gallon of milk for one week after going home. Possible Complications: * Numbness - It is normal to have some numbness around the incision. Numbness can extend beyond the incision to areas of the neck, ear and face. The numbness is due to bruising of nerves during the surgery and will gradually improve over a period of months. * Hoarseness/Difficulty Speaking and Swallowing - The bruising of nerves in the neck can also cause a hoarse voice, difficulty speaking or swallowing. This may improve over time, HOWEVER, if it continues for more than a few days please contact our office ([phone]). * Excessive Swelling - There will be some swelling immediately after surgery which usually resolves within one week. If you notice that the swelling is getting worse, notify your surgeon ([phone]). * Drainage/Bleeding - If there is any drainage or bleeding, it should be a very small amount (less than a teaspoon per day). If you have excessive bleeding or drainage from the incision, call your surgeon ([phone]) right away. ACTIVATION OF EMERGENCY MEDICAL SYSTEM: Call 911, immediately, if you experience any of the following: Warning Signs and Symptoms of Stroke: * Sudden numbness or weakness of the face, arm or leg, especially on one side of the body * Sudden confusion, trouble speaking or understanding * Sudden trouble seeing in one or both eyes * Sudden trouble walking, dizziness, loss of balance or coordination * Sudden severe headache with no cause Do not delay calling 911 if you experience any warning signs or symptoms of a stroke. Delay in seeking medical attention may affect what treatments can be given to you. Risk Factors for Stroke: You can reduce your chances of stroke by working with your medical provider to adopt a healthy lifestyle. Some specific ways to lower your chance of stroke are: * If you are a smoker, now is the time to stop smoking cigarettes * If you are diabetic, improve the control of your blood sugars * Avoid excessive amounts of alcohol * Control high blood pressure * Lose weight if you are overweight * Be sure to lead an active lifestyle * Eat a healthy diet low in salt, cholesterol and fat You should know about other risk factors for stroke that you are unable to control. These include: * Age 55 years or older * Male gender * Certain racial groups: , or / * Family History of Stroke, Mini stroke or Heart Attack * Sickle Cell Disease You will be receiving a call from the Vascular Surgery Nurse after you are discharged. FOLLOW UP VISIT: It is important for you to keep your follow up appointments with your medical provider. Keep any scheduled doctor appointments. Call [phone] to schedule a follow up appointment if one not already scheduled. Pending Studies at Discharge: No Stand-Alone Forms: My [facility], Smoking Cessation Medications and DC Order Prescriptions: New oxycodone-acetaminophen [Percocet] 5-325 mg Tablet 1 tab PO Q6H PRN (Reason: pain) Qty: 10 0RF midodrine 10 mg Tablet 5 mg PO TID@0800,1200,1700 Qty: 15 0RF ticagrelor [Brilinta] 90 mg Tablet 90 mg PO BID Qty: 60 11RF Continued furosemide 40 mg tablet 40 mg PO DAILY PRN (Reason: edema) Qty: 30 3RF (DME) Ankle Brace Misc See Rx Instructions .Route Qty: 2 0RF Rx Instructions: AFO ANKLE BRACES metformin 1,000 mg tablet 1,000 mg PO BID Qty: 180 3RF tirzepatide 7.5 mg/0.5 mL pen injector 7.5 mg subcut WK Qty: 2 5RF Rx Instructions: 7.5 mg subcutaneously every 7 days; Monday tamsulosin 0.4 mg capsule 0.8 mg PO HS Qty: 180 3RF pregabalin [Lyrica] 50 mg capsule 50 mg PO BID Qty: 180 3RF aspirin [Adult Low Dose Aspirin] 81 mg tablet,delayed release (DR/EC) 81 mg PO QAM cyanocobalamin (vitamin B-12) 1,000 mcg capsule 1,000 mcg PO QAM (DME) pen needle, diabetic [BD Ultra-Fine Melva Pen Needle] 32 gauge x 5/32" needle See Rx Instructions .Route Qty: 100 2RF Rx Instructions: Inject once daily with insulin albuterol sulfate 90 mcg/actuation HFA aerosol inhaler 2 puff inhalation Q6H PRN (Reason: shortness of breath or wheezing) Qty: 6.7 0RF celecoxib 200 mg capsule 200 mg PO DAILY PRN (Reason: pain) Qty: 90 3RF Hold Instructions: due to being on Plavix Entresto 97-103 mg tablet 1 tab PO BID rosuvastatin 20 mg tablet 10 mg PO HS brimonidine [Alphagan P] 0.1 % Drops 1 drp OPB BID polyethylene glycol 3350 [Miralax] 17 gram/dose powder 17 gm PO DAILY PRN (Reason: Constipation) timolol maleate 0.25 % Drops 1 drp OPHTHALMIC (EYE) BID insulin glargine [Lantus Solostar U-100 Insulin] 100 unit/mL (3 mL) insulin pen 25 - 30 unit subcut QPM Rx Instructions: Inject 25 units subcut daily; Discontinued clopidogrel 75 mg tablet 75 mg PO QAM 90 Days Qty: 90 0RF Discharge Orders: Discharge Order (Routine); Ordered 02/13/25 Ordered By: Sebastien Martins Admission Data Admit Date/Time: 02/12/25 07:55 Attending Provider: Sebastien Martins Admit Provider: Sebastien Martins Primary Care Provider: Chio Westfall Other Providers: Edgar Hinson; Say Navarro; Papo Nur; Hafsa Llamas; Efrain Zhang; Mariela Rahman; Jorge Kaur
[2025-02-13 13:05] VITALS: RESP 20; O2SAT 97
[2025-02-13] MEDS: TICAGRELOR 90 MG TAB PO SCH (13:05)
[2025-02-13 13:20] VITALS: BP 116/80; PULSE 67
[2025-02-13] MEDS ORDERED: LANTUS PER UNIT CHARGE SC SCH (21:00)
== END 2025-02-13 14:00 | disposition home or self-care (01) | DRG 35 ==
LOC: ASU 05:50 → 1E 07:55
PROC: EV.TCAR (2025-02-12 07:30)